=== PATIENT | female | born 1990 | race Caucasian/White ===

== ENCOUNTER 2022-02-12 20:54 | Emergency (ER) | payer MEDICAID, SELFPAY ==
[2022-02-12 21:22] VITALS: BP 135/78; PULSE 75; RESP 18; TEMP 36.7; O2SAT 99; BMI 27.4
--- NOTE | 2022-02-12 21:48 | ED_ITS ---
HPI - General Adult General Time Seen by Provider: 21:48 Date Seen: 02/12/22 Chief complaint: Laceration/Wound Stated complaint: Rt Hand Injury - Possible Stitches Time Seen by Provider: 02/12/22 21:28 Source: patient Mode of arrival: ambulatory Limitations: no limitations History of Present Illness HPI narrative: 31-year-old right-handed female who comes in today with a laceration of her right hand. She was washing dishes and cut herself on some broken glass. Last tetanus was about a year ago. No other injuries. Related Data Allergies Allergy/AdvReac Type Severity Reaction Status Date / Time No Known Drug Allergies Allergy Verified 02/12/22 21:24 Review of Systems Status of ROS: Reports: 10 or more systems reviewed and unremarkable except as noted in History and below Exam Narrative: Exam Narrative: General: well nourished , NAD Head: Atraumatic and normocephalic ENT: External ears and external nose are normal Eyes: Conjunctiva clear, pupils are equal reactive, external ocular motions are intact Neck: Full spontaneous range of motion of the neck Lungs: No respiratory distress Musculoskeletal: No tenderness or deformity Neurologic: No gross focal neurologic deficits Skin: Right hand 6 mm partial-thickness laceration overlying the right MCP joint, full flexion and extension at the D IP, PIP, Psych: Mood and affect are appropriate Const: Vital Signs, click to edit/add: Vital Signs - 24 hr 02/12/22 21:22 Temperature 98.0 F Pulse Rate [Right Pulse Oximeter] 75 Respiratory Rate 18 Blood Pressure [Ri ght Upper Arm] 135/78 Pulse Oximetry 99 Oxygen Delivery Me thod Room Air Course Course Hospital Course: Patient seen examined, prior records are reviewed. Patient has a partial- thickness laceration of the right hand on the dorsum overlying. No tendon dysfunction on exam. Wound explored no foreign body found. Cleaned with normal saline Dermabond was applied. Patient tolerated this well. Vital Signs Vital signs: Initial Vital Signs Temperature 98.0 F 02/12/22 21:22 Temperature Source Temporal Artery Scan 02/12/22 21:22 Pulse Rate 75 02/12/22 21:22 Respiratory Rate 18 02/12/22 21:22 Blood Pressure 135/78 02/12/22 21:22 Blood Pressure Mean 97 02/12/22 21:22 Blood Pressure Position Sitting 02/12/22 21:22 Pulse Oximetry 99 02/12/22 21:22 Oxygen Delivery Method 02/12/22 21:22 Vital Signs Temperature 98.0 F 02/12/22 21: Pulse Rate 75 02/12/22 21:22 Respiratory Rate 18 02/12/22 21:22 Blood Pressure 135/78 02/12/22 21:22 Pulse Oximetry 99 02/12/22 21:22 Oxygen Delivery Method 02/12/22 21:22 Temperature 98.0 F 02/12/22 21: Pulse Rate 75 02/12/22 21:22 Respiratory Rate 18 02/12/22 21:22 Blood Pressure 135/78 02/12/22 21:22 Pulse Oximetry 99 02/12/22 21:22 Oxygen Delivery Method 02/12/22 21:22 Medical Decision Making Medical Records Medical records reviewed: Yes I reviewed the patient's medical records Lab Data Lab results reviewed: Yes I reviewed the patient's lab results Discharge Plan Discharge Follow Up/Referrals: Provider,Not a Local [Primary Care Provider] -
[2022-02-12 22:50] VITALS: BP 125/70; PULSE 71; RESP 18; TEMP 36.7; O2SAT 99
== END 2022-02-12 22:18 | disposition home or self-care (01) ==
PROVIDERS: Emergency Provider Family Medicine
DX: S61.411A Laceration without foreign body of right hand, initial encounter (principal); W25.XXXA Contact with sharp glass, initial encounter; Y93.G1 Activity, food preparation and clean up
CPT/HCPCS: 12001; 99282

== ENCOUNTER 2024-03-13 16:48 | Emergency (ER) | payer MEDICAID, SELFPAY ==
[2024-03-13] VITALS (9 sets, daily range): BP systolic 138; BP diastolic 85; PULSE 72–96; RESP 16; TEMP 37; O2SAT 98–100; BMI 25.1
--- NOTE | 2024-03-13 17:02 | ED_ITS ---
HPI - General Adult General Chief complaint: Nausea/Vomiting Stated complaint: 7 weeks prgenant, fell on ice, nausea Time Seen by Provider: 03/13/24 16:55 History of Present Illness HPI narrative: c/o unable to keep anything down for 24- 48hrs today slipped and feel on the ice trying to start car. pt. denies hitting head or LOC, landed on wrist and was able to assist self to ground. denies any trauma to the abdomen. 33-year-old woman presenting to the emergency department with concern of vomiting. Over the last couple of days has been vomiting a lot. No hematemesis. She did slip incidentally on the ice today. No loss of consciousness. Did not hit her head. Landed on the wrist but think that is okay. There was no trauma apparently to her abdomen. She is currently at about 7 weeks. No fever. No dysuria. Related Data Home Medications ?Medication ?Instructions ?Recorded ?Confirmed dextroamphetamine-amphetamine ER 20 mg PO DAILY 02/13/22 03/13/24 20 mg 24hr capsule,extend release (Adderall XR) Allergies Allergy/AdvReac Type Severity Reaction Status Date / Time terbutaline Allergy Mild Headache Verified 03/13/24 16:58 Review of Systems Status of ROS: Reports: 6 or more systems reviewed and unremarkable except as noted in History and below [facility] Medical History Controlled substance agreement signed ?Z79.899 - Other nursing home (current) drug therapy (ICD-10) Panic attacks ?F41.0 - Panic disorder [episodic paroxysmal anxiety] (ICD-10) LAVARO (generalized anxiety disorder) ?F41.1 - Generalized anxiety disorder (ICD-10) Anxiety and depression ?F41.9 - Anxiety disorder, unspecified (ICD-10) ?F32.A - Depression, unspecified (ICD-10) ADHD ?F90.9 - Attention-deficit hyperactivity disorder, unspecified type (ICD-10) Vaginitis and vulvovaginitis ?N76.0 - Acute vaginitis (ICD-10) Chronic tension headaches ?G44.229 - Chronic tension-type headache, not intractable (ICD-10) Surgical History History of tonsillectomy and adenoidectomy ?Z90.89 - Acquired absence of other organs (ICD-10) History of appendectomy ?Z90.49 - Acquired absence of other specified parts of digestive tract (ICD- 10) Social History Smoking Status: Former smoker Second hand tobacco smoke exposure: No How often do you have a drink containing alcohol: never How often do you have six or more drinks on one occasion: Never AUDIT-C Alcohol total score: 0 Non-prescribed substance use: denies use Exam Narrative: Exam Narrative: Very pleasant. NAD though seems uncomfortable. Emesis bag nearby. Breathing easily. Heart a little bit elevated rate but regular rhythm. Lungs appear to be clear. Oropharynx is moist. Skin is warm and dry. Soreness to palpation about the left wrist but opens and closes hand with good strength. She does not have any snuffbox tenderness. Flexes and extends without difficulty or weakness. Neck is supple nontender. Back nontender. Const: Vital Signs, click to edit/add: Vital Signs - 24 hr 03/13/24 16:52 Temperature 98.6 F Pulse Rate [Pulse Oximeter] 96 Respiratory Rate 16 Blood Pressure [Ri ght Upper Arm] 138/85 Pulse Oximetry 100 Oxygen Delivery Me thod Room Air Documenting provider has reviewed patient's vital signs: yes Course Vital Signs Vital signs: Initial Vital Signs Temperature 98.6 F 03/13/24 16:52 Temperature Source Temporal Artery Scan 03/13/24 16:52 Pulse Rate 96 03/13/24 16:52 Respiratory Rate 16 03/13/24 16:52 Blood Pressure 138/85 03/13/24 16:52 Blood Pressure Mean 102 03/13/24 16:52 Blood Pressure Position High-Fowlers 03/13/24 16:52 Pulse Oximetry 100 03/13/24 16:52 Oxygen Delivery Method Room Air 03/13/24 16:52 Vital Signs Temperature 98.6 F 03/13/24 16:52 Pulse Rate 96 03/13/24 16:52 Respiratory Rate 16 03/13/24 16:52 Blood Pressure 138/85 03/13/24 16:52 Pulse Oximetry 100 03/13/24 16:52 Oxygen Delivery Method Room Air 03/13/24 16:52 Temperature 98.6 F 03/13/24 16:52 Pulse Rate 76 03/13/24 18:45 Respiratory Rate 16 03/13/24 16:52 Blood Pressure 138/85 03/13/24 16:52 Pulse Oximetry 98 03/13/24 18:45 Oxygen Delivery Method Room Air 03/13/24 16:52 Medications Administered Medications: Discontinued Medications Generic Name Dose Route Start Last Admin Trade Name Arielq PRN Reason Stop Dose Admin Sodium Chloride 1,000 mls @ 1,000 mls/hr 03/13/24 17:14 03/13/24 18:41 0.9 % Sodium Chloride 1000 Ml IV 03/13/24 18:13 Infused .Q1H ONE Infusion Ondansetron HCl 4 mg 03/13/24 17:14 03/13/24 17:38 Ondansetron 2 Mg/Ml Inj IVP 03/13/24 17:15 4 mg ONCE ONE Administration Medical Decision Making MDM Narrative Medical decision making narrative: She would appreciate IV fluids. Does not appear that needs further evaluation. Will try to alleviate some of this nausea as well. This appears to be vomiting in though I suppose could be secondary viral illness perhaps COVID or influenza in would be worth testing for this as well. Following IV hydration and Zofran generally improved and tolerating oral intake I believe was Gatorade. She would like to leave the emergency department. Urinalysis and swabs are negative. See patient discharge plan for further discussion Focus on hydration; frequent smaller amounts. Diluted juices, soup broth, rice, toast, crackers. Prescribing Zofran from [facility]. Lab Data Lab results reviewed: Yes I reviewed the patient's lab results Labs: Lab Results 03/13/24 03/13/24 Range/Units 17:20 17:32 Urine Color Yellow (Yellow) Urine Appearance Clear (Clear) Urine pH 6.0 (5.0-8.5) Ur Specific [place] 1.015 (1.000-1.030) Urine Protein Negative (Negative) Urine Glucose (UA) Negative (Negative) Urine Ketones Negative (Negative) Urine Blood Negative (Negative) Urine Nitrite Negative (Negative) Urine Bilirubin Negative (Negative) Urine Urobilinogen 0.2 (0.2-1.0) Ur Leukocyte Esterase Negative (Negative) Urine RBC 0-2 (0-2) Urine WBC 0-2 (0-5) Ur Squamous Epith Cells Moderate A (None-Few) Urine Bacteria None (None) SARS-CoV-2 (PCR) Negative SARS-CoV-2 (Negative) Influenza Type A (PCR) Negative PCR FLU A (Negative) Influenza Type B (PCR) Negative PCR FLU B (Negative) Discharge Plan Discharge Clinical Impression: Vomiting during Patient Disposition: Home w/ Parent or Adult Condition: Improved Additional Instructions: Focus on hydration; frequent smaller amounts. Diluted juices, soup broth, rice, toast, crackers. Prescribing Zofran from [facility]. Prescriptions: No Action dextroamphetamine-amphetamine [Adderall XR] 20 mg capsule,extended release 24hr 20 mg PO DAILY Follow Up/Referrals: Provider,Not a Local [Primary Care Provider] - Stand Alone Forms: [employer] Info Instructions
[2024-03-13 17:29] LABS: Appearance Urine Clear (Clear); Bilirubin Urine Negative (Negative); Blood Urine Negative (Negative); Color Urine Yellow (Yellow); Glucose Urine Negative (Negative); Ketones Urine Negative (Negative); Leukocyte Esterase Urine Negative (Negative); Nitrite Urine Negative (Negative); Protein Urine Negative (Negative); Specific Gravity Urine 1.015 (1.000-1.030); Urobilinogen Urine 0.2 (0.2-1.0)
[2024-03-13] MEDS: 0.9 % SODIUM CHLORIDE 1000 ml 1,000 ML IV (17:38)
[2024-03-13] MEDS: ONDANSETRON 2 MG/ML inj 4 MG IVP (17:38)
[2024-03-13 17:57] LABS: RBC Urine 0-2 (0-2); Squamous Epithelial Cell Urine Moderate (None-Few); WBC Urine 0-2 (0-5)
[2024-03-13 18:47] LABS: PCR FLU A Negative PCR FLU A (Negative); PCR FLU B Negative PCR FLU B (Negative); SARS PCR* Negative SARS-CoV-2 (Negative)
== END 2024-03-13 19:00 | disposition home or self-care (01) ==
PROVIDERS: Emergency Provider Family Medicine
DX: O21.9 Vomiting of pregnancy, unspecified (principal)
CPT/HCPCS: 81001; 87631; 96361; 96374; 99284; J2405; J7030

== ENCOUNTER 2024-04-06 08:45 | Emergency (ER) | payer MEDICAID, SELFPAY ==
--- OUTSIDE RECORDS SUMMARY | 2024-04-06 08:48 | XMS_ITS | Clinical Summary ---
Author Organization [facility] Address [address] [place] [address] Care Team Providers Care Artificial Insemination Technician Name Role Phone Unavailable Primary Care Provider Unavailabl e Source Comments Patient records contain information from all sites at [facility]. For routine questions regarding patient records, call [phone] during business hours, M-F 8:00 AM - 5:00 PM Central Time. Record requests for emergency care only can be directed to [phone] at any time.[facility] Allergies Active Allergy Reactions Criticality Noted Date Comments Terbutaline Other (see comments) 04/07/2017 lethargy Medications albuterol 90 mcg/actuation inhaler Inhale 2 puffs 4 (four) times a day as needed. 3 Active calcium carbonate-vitam in D3 (Calcium with Vitamin D) 1,500 mg (600 mg calcium)-10 mcg (400 Unit) per tablet Take 1 tablet by mouth daily. Active FOLIC ACID ORAL Take 1 tablet by mouth daily. Active ferrous sulfate 325 mg (65 mg iron) tabletIndicatio ns:Anemia Take 1 tablet (65 mg of iron total) by mouth daily. 90 tablet 1 4 Active Additional Information Patient not taking.Reported on 03/16/2024 acetaminophen (TYLENOL) 500 mg capsule Take 2 capsules (1,000 mg total) by mouth every 6 (six) hours as needed for pain. 4 Active ibuprofen (ADVIL,MOTRIN) 200 mg tablet Take 3 tablets (600 mg total) by mouth every 6 (six) hours as needed for pain. 4 Active Additional Information Patient not taking.Reported on 03/16/2024 docusate sodium (COLACE) 100 mg capsule Take 1 capsule (100 mg total) by mouth 2 (two) times a day as needed for constipation. Active Additional Information Patient not taking.Reported on 03/16/2024 sennosides (senna) 8.6 mg tablet Take 1 tablet (8.6 mg total) by mouth at bedtime as needed for constipation. Active Additional Information Patient not taking.Reported on 03/16/2024 witch Talia (TUCKS) 50 % pad Apply to the affected rectal area by patting up to 6 times daily or after each bowel movement. Active Additional Information Patient not taking.Reported on 03/16/2024 benzocaine-ment hoL (DERMOPLAST) 20-0.5 % external spray Apply 1 Application topically 4 (four) times a day as needed for pain. Active Additional Information Patient not taking.Reported on 03/16/2024 simethicone (MYLICON) 125 mg chewable tablet Chew 1 tablet (125 mg total) 4 (four) times a day as needed for flatulence. Active Additional Information Patient not taking.Reported on 03/16/2024 Active Problems Problem Noted Date Diagnosed Date Care And Lactating 08/12/2023 Delivery Vaginal Normal Spontaneous 08/11/2023 Overview (08/12/2023): The patient was admitted to the [facility] from triage after a nonreactive NST and underwent an induction of labor. 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 Her labor course was induced with IV Pitocin and augmented with artificial rupture of membranes, utilizing epidural anesthesia for pain management. Complications of labor included nothing -- it was uncomplicated. She had a , delivering a liveborn female with weight of . Gestational age: 39w2d. occurred: 08/12/2023 9:19 AM Perineal lacerations or episiotomy: Intact Lacerations were repaired with: none -- no repair needed Contraceptive methods administered during the delivery: None Both mother and baby were in stable condition at the conclusion of the procedure. When the patient met appropriate criteria, she was transferred to the floor. She received her care at [facility]. Raised Antibody Titer 08/06/2023 Overview (08/06/2023): +antibody screen: Anti-JKA. Has been too weak to titer. High Risk Grand Multiparity History Positive Group B Streptococcus 024 Overview (07/23/2023): GBS positive 07/06/2023 in [facility] Anemia 05/31/2023 Overview (06/18/2023): Patient to start Slow FE daily High Risk History Labor 2022 Overview (06/18/2023): History of labor with all prior pregnancies, patient has been previously placed on bedrest per chart audit of [facility] records, only one delivery . 35 week delivery in 1st following PPROM, patient was 16 years old. Acute fatty liver of in second . History of 2nd trimester losses. Gestational DM with first , passed 1-hr GDS in current Mild asthma, asymptomatic Possible future pregnancies, no surgical sterilization. Contraception, possibly NuvaRing or OCPs Breast Cancer Susceptibility Gene Mutation Famil y History 03/14/2023 Overview (05/07/2023): Mother with history of breast cancer, BRCA2+ Patient has never been tested. Recommend referral for genetic counseling and testing. 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 If all negative, continued surveillance at 3 year intervals is recommended for at least 25 years, even if beyond age 65. Migraine Headache Overview (08/06/2023): With aura. Estimated Date of Delivery Comme nts Yes 10/25/2024 Based on last me nstrual period of 01/19/2024 (Exact Date) Resolved Problems Problem Noted Date Diagnosed Date Resolved Date Positive Group B Streptococcus 07/22/2023 07/23/2023 Overview (07/22/2023): Vaginal/Rectal OB Strep B PCR Positive Abnormal On 07/06/2023 Non Reassuring Testing 07/22/2023 08/03/2023 36 Weeks Gestation 07/06/2023 07/23/2023 Other Placental Disorders Third Trimester 03/14/2023 08/06/2023 Overview (06/27/2023): PLACENTA PREVIA/ RESOLVED: Anatomy ultrasound completed at new OB exam, 17+ 5, with complete placenta previa, possible velamentous cord insert, possible vasa previa. 03/14/2023 - advanced level US with MFM with anterior placenta previa, possible velamentous cord insertion and vasa previa. 05/09/2023: Appointment with Maternal- Medicine at [facility] completed and recommendations as follows: IMPRESSION: Intrauterine at 25w 4d. presentation is Breech. EFW 987 grams, percentile: 85. Growth parameters and estimated weight are appropriate for gestational age. No major structural anomalies identified. No markers for aneuploidy identified. Normal Deepest Vertical Pocket of amniotic fluid: 5.8 cm. Placental location: Anterior. There is no evidence of placenta previa. No evidence of vasa previa. No evidence of velamentous cord insertion. No evidence of placenta accreta spectrum. The transabdominal cervical length is 5.44 cm. RECOMMENDATIONS: -Return to primary provider for continued care. -No alterations in the delivery plan are necessary. -No medication changes are indicated. -No surveillance suggested. -No further ultrasounds are necessary for the present indication. COMMENT: Present findings are reassuring. The patient was seen by the Perinatologist today. The previous ultrasound and the records were reviewed. The results of today's ultrasound were communicated to the patient. Encounters Date Type Department Care Team Description 04/03/2024 1:00 PM INCIDENT RESPONSE MANAGER Routine Department of Obstetrics and Gynecology in [place], [place] [address] [place] [phone] Noni Bender M.D., Ph.D. Duyen Farnsworth RUlises. 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) (Primary Dx) 04/03/2024 11:01 AM INCIDENT RESPONSE MANAGER - 04/03/2024 11:59 PM INCIDENT RESPONSE MANAGER Hospital Encounter Department of Obstetrics and Gynecology in [address] [phone] Noni Bender M.D., Ph.D. High Risk History Labor (HCC) Discharge Disposition: Home or Self Care 04/02/2024 Clinical Communication Department of Obstetrics and Gynecology in [place], [place] [address] [place] [phone] Magalys Bernal M.D. Reschedule 03/16/2024 11:00 AM INCIDENT RESPONSE MANAGER Initial Department of Obstetrics and Gynecology in [address] [phone] Kellen South, R.N. GA: 8w1d from Last 3 Months Immunizations Name Administration Dates Next Due 4vHPV (discontinued) 09/05/2010,11/11/19 07,11/07/2006,2006 DTP 06/01/1994, 1,1989,1989,1989 DTaP (Infanrix, [employer]) 01/21/1995 H1N1 All Forms 02/21/2009 HepB, Unspecified 08/19/2001,06/19/2001,02/04/20 01 Hib, Unspecified 06/01/1994 IPV 12/02/1994,06/01/1994,12/04/1990 Influenza, Seasonal, Injectable 04/09/2012 MMR 02/03/2001,02/03/1991,12/04/1990 OPV 1989,1989 Td (Adult), adsorbed 03/24/2003,12/30/2002 Tdap 05/28/2023,,02/16/2014,2012 Tuberculin Skin Test, Unspecified 04/01/2012 influenza vaccine quad (FLUZONE/FLUARIX) (6 months and older)(PF) 12/23/2016,12/24/2013 Family History Medical History Relation Name Comments No Known Problems Daughter 1 No Known Problems Daughter 2 Legionnaire's disease Father Alcohol abuse Maternal Grandfather Depression Maternal Grandfather BRCA2 Positive Mother Breast cancer Mother Alcohol abuse Paternal Grandmother Schizophrenia Paternal Grandmother No Known Problems Son 1 No Known Problems Son 2 No Known Problems Son 3 No Known Problems Son 4 Relation Name Status Comments Daughter 1 Alive Daughter 2 Alive Father Maternal Grandfather Maternal Grandmother Alive Mother Paternal Grandfather Paternal Grandmother Son 1 Alive Son 2 Alive Son 3 Alive Son 4 Alive Social History Tobacco Use Types Packs/Day Years Used Date Smoking Tobacco: Former Cigarettes Smokeless Tobacco: Never Tobacco Cessation:Counseling Given: Not Answered Alcohol Use Standard Drinks/Week Comments Not Currently 0 (1 standard drink = 0.6 oz pure alcohol) Pre , 1 drink monthly MogiMe Answer Date Recorded In the past 12 months has e [employer], [employer], or water [employer] threatened to shut off services in your home? No 03/16/2024 Humiliation, Afraid, Rape, and Kick questionnair e Answer Date Recorded Within the last year, have y ou been afraid of your partner or ex-partner? No 03/16/2024 Within the last year, have y ou been humiliated or emotionally abused in other ways by your partner or ex-partner? No Within the last year, have y ou been kicked, hit, slapped, or otherwise physically hurt by your partner or ex-partner? No 03/16/2024 Within the last year, have y ou been raped or forced to have any kind of sexual activity by your partner or ex-partner? No 03/16/2024 PHQ-2 Answer Date Recorded PHQ-2 Score 0 08/07/2023 Exercise Vital Sign Answer Date Recorde d On average, how many days pe r week do you engage in moderate to strenuous exercise (like a brisk walk)? 7 days Minutes of Exercise per Session Not on file 08/07/2023 Hunger Vital Sign Answer Date Recorded Within the past 12 months, y ou worried that your food would run out before you got the money to buy more. Never true 03/16/20 Within the past 12 months, t he food you bought just didn't last and you didn't have money to get more. Never true 03/16/2024 PRAPARE - Transportation Answer Date Re corded In the past 12 months, has l ack of transportation kept you from medical appointments or from getting medications? No 02/23 In the past 12 months, has l ack of transportation kept you from meetings, work, or from getting things needed for daily living? No 03/16/2024 Depression Answer Date Recor ded PHQ-9 Total Score (max 27) 7 08/06 Nutrition Answer Date Recorded On average, how many serving s of fruits and vegetables do you eat per day (serving size is equal to 1 cup or approximately the size of a tennis ball)? 3-5 08/07/2023 Dental Answer Date Recorded Dental: Regular Dentist Yes 08/07/19 Employment Answer Date Recorded Employment status Employed but not working due t o illness or injury 08/07/2023 Housing Stability Answer Date Recorded What is your living situation today? I have a [facility] place to live 03/16/2024 Education Answer Date Recorded What is the highest level of school you have completed or the highest degree you have received? 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 Not on file Not on file Not on file Last Filed Vital Signs Vital Sign Reading Time Taken Comments Blood Pressure 108/69 04/03/2024 1:31 PM INCIDENT RESPONSE MANAGER Pulse 97 04/03/2024 1:31 PM INCIDENT RESPONSE MANAGER Temperature 36.7 C (98.1 F) 04/03/2024 1:31 PM INCIDENT RESPONSE MANAGER Respiratory Rate 16 08/13/2023 5:12 AM CDT Oxygen Saturation 98% 04/03/2024 1:31 PM INCIDENT RESPONSE MANAGER Inhaled Oxygen Concentration - - Weight 78.1 kg (172 lb 2.9 oz) 04/03/2024 1:31 P M INCIDENT RESPONSE MANAGER Height 170.2 cm (5' 7.01) 08/11/2023 11:45 PM C DT Body Mass Index 26.96 08/11/2023 11:45 PM CDT Plan of Treatment Upcoming Encounters Date Type Department Care Team (Late st Contact Info) Description 2024 10:00 AM INCIDENT RESPONSE MANAGER Initial Department of Obstetrics and Gynecology in [place], [place] [address] [place] [phone] Magalys Bernal M.D. [address] [place] [phone] Health Maintenance Due Date Last Done Comments COVID-19 Vaccine ( season) 2023 Influenza Vaccine (#1) 2023 7, 12/24/2013, 04/09/2012 Depression Screening (Annual PHQ-2) 03/25/2024 Cervical/Vaginal Cancer Screening 03/02/2025 03/02/2022 (Performed elsewhere) DTaP,Tdap,and Td Vaccines (10 - Td or Tdap) 05/27/2033 05/28/2023, 02/09/2021, 02/16/2014, Additional history exists IPV Vaccines Completed 12/02/1994, 05/23, 12/04/1990, Additional history exists Hepatitis B Vaccines Completed 08/19/2001, 06/19/2001, 02/03/2001 HPV Vaccines Completed 09/05/2010, 10/23, 11/07/2006, Additional history exists HIV Screening Completed 04/03/2024 Hepatitis C Screening Completed 04/03/2024 Pneumococcal vaccine (0-49 years) Aged Out No longer eligible based on patient's age to complete this topic RSV vaccine - (32-36 weeks) or 60+ years (No Doses Required) Completed Procedures Procedure Name Priority Date/Time Associated Diagnosis Comments PH, U Routine 04/03/2024 2:39 PM INCIDENT RESPONSE MANAGER OSMOLALITY, U Routine 04/03/2024 2:39 PM INCIDENT RESPONSE MANAGER DIPSTICK, U Routine 04/03/2024 2:39 PM INCIDENT RESPONSE MANAGER MICROSCOPIC AUTOMATED Routine 04/03/2024 2:39 PM INCIDENT RESPONSE MANAGER URINALYSIS WITH MICROSCOPIC Routine 04/03/2024 2:39 PM INCIDENT RESPONSE MANAGER 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) CHLAMYDIA/GONORRHOEAE AMPLIFIED RNA Routine 04/03/2024 2:39 PM INCIDENT RESPONSE MANAGER 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) BACTERIAL CULTURE, AEROBIC + SUSC, URINE Routine 04/03/2024 2:39 PM INCIDENT RESPONSE MANAGER 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) VARICELLA-ZOSTER AB, IGG, S Routine 04/03/2024 2:14 PM INCIDENT RESPONSE MANAGER 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) SYPHILIS IGG W/ REFLEX, EIA, S Routine 04/03/2024 2:14 PM INCIDENT RESPONSE MANAGER 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) HIV-1/-2 AG AND AB SCRN, PLASMA Routine 04/03/2024 2:14 PM INCIDENT RESPONSE MANAGER 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) HCV AB SCRN , S Routine 04/03/2024 2:14 PM INCIDENT RESPONSE MANAGER 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) HBC TOTAL AB , S Routine 04/03/2024 2:14 PM INCIDENT RESPONSE MANAGER 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) HBS ANTIBODY , S Routine 04/03/2024 2:14 PM INCIDENT RESPONSE MANAGER 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) HBS ANTIGEN , S Routine 04/03/2024 2:14 PM INCIDENT RESPONSE MANAGER 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) ANTIBODY IDENTIFICATION Routine 04/03/2024 2:13 PM INCIDENT RESPONSE MANAGER FERRITIN, S Routine 04/03/2024 2:13 PM INCIDENT RESPONSE MANAGER 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) HEMOGLOBIN ELECTROPHORESIS CASCADE, B Routine 04/03/2024 2:13 PM INCIDENT RESPONSE MANAGER 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) HEMOGLOBIN A1C, B Routine 04/03/2024 2:1 3 PM INCIDENT RESPONSE MANAGER 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) CBC WITH DIFFERENTIAL, B Routine 04/03/2024 2:13 PM INCIDENT RESPONSE MANAGER 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) US OB LIMITED RAD - Routine (most inpatients and all outpatients) 04/03/2024 11:28 AM INCIDENT RESPONSE MANAGER High Risk History Labor (HCC) from Last 3 Months Results * Dipstick, Urine (04/03/2024 2:39 PM INCIDENT RESPONSE MANAGER) Hemoglobin, QL, U Negative Negative 04/03/2024 3:09 PM INCIDENT RESPONSE MANAGER DTL Leukocyte Esterase, U Negative Negative 04/03/2024 3:09 PM INCIDENT RESPONSE MANAGER DTL Nitrite, U Negative Negative 04/03/2024 3:09 PM INCIDENT RESPONSE MANAGER DTL Ketone, U Negative Negative mg/dL 04/03/2024 3:09 PM INCIDENT RESPONSE MANAGER DTL Glucose, U Negative Negative mg/dL 04/03/2024 3:09 PM INCIDENT RESPONSE MANAGER DTL Urine 04/03/2024 2:39 PM INCIDENT RESPONSE MANAGER 04/03/2024 2:47 PM INCIDENT RESPONSE MANAGER us Magalys Bernal M.D. LAB URINE ORDERABLES Final Result Performing Organization Address City/[facility]/ZIP Co de Phone Number [facility] [address] [place], [place] [id number] [place] [address] [address] [place] [address] * Microscopic Automated (04/03/2024 2:39 PM INCIDENT RESPONSE MANAGER) Microscopy Normal 04/03/2024 3:09 PM INCIDENT RESPONSE MANAGER DTL RBC None Seen <3 /hpf 04/03/2024 3:09 PM INCIDENT RESPONSE MANAGER DTL WBC None Seen /hpf 04/03/2024 3:09 PM INCIDENT RESPONSE MANAGER DTL Comment: ----REFERENCE VALUE---- <4 (Males) <11 (Females) Squamous Epithelial Cells, U 1-3 /hpf 04/03/2024 3:09 PM INCIDENT RESPONSE MANAGER DTL Urine 04/03/2024 2:39 PM INCIDENT RESPONSE MANAGER 04/03/2024 2:47 PM INCIDENT RESPONSE MANAGER Magalys Bernal M.D. LAB URINE ORDERABLES Final Result Performing Organization Address City/[facility]/ZIP Co de Phone Number [facility] [address] [place], [place] [phone] [place] [address] [address] [place] [address] * pH, Urine (04/03/2024 2:39 PM INCIDENT RESPONSE MANAGER) pH, U 6.3 4.5 - 8.0 04/03/2024 3:1 6 PM INCIDENT RESPONSE MANAGER DTL Urine 04/03/2024 2:39 PM INCIDENT RESPONSE MANAGER 04/03/2024 2:47 PM INCIDENT RESPONSE MANAGER us Magalys Bernal M.D. LAB URINE ORDERABLES Final Result [facility] [address] [place] [address], [facility] [address] [place] [address] * Chlamydia / Gonorrhoeae Amplified RNA (04/03/2024 2:39 PM INCIDENT RESPONSE MANAGER) Pathologist [facility] Source Urine, Urine, First Voided 04/03/2024 11:35 PM INCIDENT RESPONSE MANAGER [facility]SC Chlamydia trachomatis amplified RNA Negative Negative 04/03/2024 11:35 PM INCIDENT RESPONSE MANAGER [facility] Source Urine, Urine, First Voided 04/03/2024 11:35 PM INCIDENT RESPONSE MANAGER [facility] Neisseria gonorrhoeae amplified RNA Negative Negative 04/03/2024 11:35 PM INCIDENT RESPONSE MANAGER [facility] Urine (Urine, First Voided) 04/03/2024 2:39 PM INCIDENT RESPONSE MANAGER 04/03/2024 6:35 PM INCIDENT RESPONSE MANAGER us Magalys Bernal M.D. LAB MICROBIOLOGY - GENERAL ORDERABLES Final Result Performing Organization Address City/[facility]/ZIP Co de Phone Number [facility] [address] [place] [address] [facility] [address] [place] [address] [place] [address] * Osmolality, Urine (04/03/2024 2:39 PM INCIDENT RESPONSE MANAGER) [facility] Osmolality, U 464 150 - 1150 mOsm/kg 04/03/2024 3:16 PM INCIDENT RESPONSE MANAGER DTL Urine 04/03/2024 2:39 PM INCIDENT RESPONSE MANAGER 04/03/2024 2:47 PM INCIDENT RESPONSE MANAGER us Magalys Bernal M.D. LAB URINE ORDERABLES Final Result Performing Organization Address [facility] Co de Phone Number [facility] [address] [place] [address], [facility] [address] [place] [address] * Urinalysis, with Microscopic: Urine, Midstream (04/03/2024 2:39 PM INCIDENT RESPONSE MANAGER) Pathologist [facility] Source Urine, Urine, Midstream 04/03/2024 2:46 PM INCIDENT RESPONSE MANAGER DTL Color, U Yellow 04/03/2024 2:46 PM INCIDENT RESPONSE MANAGER DTL Clarity, U Clear 04/03/2024 2:46 PM INCIDENT RESPONSE MANAGER DTL Protein, U 7 <26 mg/dL 04/03/2024 3:33 PM INCIDENT RESPONSE MANAGER DTL Protein/Osmol ality 0.15 <0.42 ratio 04/03/2024 3:33 PM INCIDENT RESPONSE MANAGER DTL Predicted 24 HR Protein, U 120 <229 mg/24 h 04/03/2024 3:33 PM INCIDENT RESPONSE MANAGER DTL Predicted Range 30-486 mg/24 h 04/03/2024 3:33 PM INCIDENT RESPONSE MANAGER DTL Urine (Urine, Midstream) 04/03/2024 2:39 PM INCIDENT RESPONSE MANAGER 04/03/2024 2:46 PM INCIDENT RESPONSE MANAGER Magalys Bernal M.D. LAB URINE ORDERABLES Final Result Performing Organization Address [facility] Co de Phone Number [facility] [address] [place] [address], [facility] [address] [place] [address] * Syphilis IgG w/ Reflex, EIA, S (RST/FLA) (04/03/2024 2:14 PM INCIDENT RESPONSE MANAGER) [facility] Syphilis IgG w/ Reflex, EIA, S Nonreactive Nonreactive 04/03/2024 11:06 PM INCIDENT RESPONSE MANAGER [facility] Comment: No serologic evidence of infection with T. pallidum (syphilis). Repeat testing may be considered in patients with suspected acute or primary syphilis in 2-4 weeks. For additional information on interpretation of the syphilis reverse algorithm and results, see: [email or web address] Blood (Blood, Venous) 04/03/2024 2:14 PM INCIDENT RESPONSE MANAGER 04/03/2024 6:39 PM INCIDENT RESPONSE MANAGER Magalys Bernal M.D. LAB MICROBIOLOGY - BLOOD OR DERABLES Final Result Performing Organization Address City/[facility]/ZIP Co de Phone Number [facility] [address] [place] [address] [facility] [address] [place] [address] * HBc Total Ab , Serum (04/03/2024 2:14 PM INCIDENT RESPONSE MANAGER) [facility] HBc Total Ab , S Negative Negative 04/03/2024 8:17 PM INCIDENT RESPONSE MANAGER [facility] Blood (Blood, Venous) 04/03/2024 2:14 PM INCIDENT RESPONSE MANAGER 04/03/2024 7:09 PM INCIDENT RESPONSE MANAGER Result [facility] Magalys Bernal M.D. LAB MICROBIOLOGY - BLOOD OR DERABLES Final Result Performing Organization Address City/[facility]/ZIP Co de Phone Number [facility] [address] [place] [address] [place] [address] * HBs Antibody , Serum (04/03/2024 2:14 PM INCIDENT RESPONSE MANAGER) Pathologist [facility] HBs Antibody , S Negative 04/03/2024 8:17 PM INCIDENT RESPONSE MANAGER [facility] Comment: Patient is NOT immune to HBV infection. Consumption of high-dose biotin supplement within 12 hours of blood collection for this test can cause false-negative results. ----REFERENCE VALUE---- Unvaccinated: Negative Vaccinated: Positive HBs Antibody, Quantitative, S 4.0 mIU/mL 04/03/2024 8:17 PM INCIDENT RESPONSE MANAGER [facility] Comment: ----REFERENCE VALUE---- Unvaccinated: <8.5 mIU/mL Vaccinated: >=11.5 mIU/mL Blood (Blood, Venous) 04/03/2024 2:14 PM INCIDENT RESPONSE MANAGER 04/03/2024 7:09 PM INCIDENT RESPONSE MANAGER us Magalys Bernal M.D. LAB MICROBIOLOGY - BLOOD OR DERABLES Final Result Performing Organization Address City/[facility]/ZIP Co de Phone Number [facility] [address] [place] [address] [facility] [address] [place] [address] * Hepatitis C Virus Antibody Screen (04/03/2024 2:14 PM INCIDENT RESPONSE MANAGER) Pathologist [facility] HCV Ab Scrn , S Negative Negative 04/03/2024 8:17 PM INCIDENT RESPONSE MANAGER [facility] Comment: Consumption of high-dose biotin supplement within 12 hours of blood collection for this test can cause false-negative results. Blood (Blood, Venous) 04/03/2024 2:14 PM INCIDENT RESPONSE MANAGER 04/03/2024 7:09 PM INCIDENT RESPONSE MANAGER Result Mary Jane Bernal M.D. LAB MICROBIOLOGY - BLOOD OR DERABLES Final Result Performing Organization Address City/[facility]/ZIP Co de Phone Number [facility] [address] [place] [address] [facility] [address] [place] [address] * HIV-1/-2 Ag and Ab Scrn, Plasma (04/03/2024 2:14 PM INCIDENT RESPONSE MANAGER) HIV-1/-2 Ag and Ab Scrn, P Negative Negative 04/03/2024 8:14 PM INCIDENT RESPONSE MANAGER [facility] Comment: Negative result does not rule out HIV infection. If exposure to HIV infection occurred <14 days ago, contact the laboratory to request addition of HIV-1/HIV-2 RNA detection , Plasma (HPP12). Blood (Blood, Venous) 04/03/2024 2:14 PM INCIDENT RESPONSE MANAGER 04/03/2024 7:09 PM INCIDENT RESPONSE MANAGER Result Mary Jane Bernal M.D. LAB MICROBIOLOGY - BLOOD OR DERABLES Final Result Performing Organization Address [facility] Co de Phone Number [facility] [address] [place] [address] [facility] [address] [place] [address] * HBs Antigen , Serum (04/03/2024 2:14 PM INCIDENT RESPONSE MANAGER) HBs Antigen , S Negative Negative 04/03/2024 8:17 PM INCIDENT RESPONSE MANAGER [facility] Blood (Blood, Venous) 04/03/2024 2:14 PM INCIDENT RESPONSE MANAGER 04/03/2024 7:09 PM INCIDENT RESPONSE MANAGER Result Mary Jane Bernal M.D. LAB MICROBIOLOGY - BLOOD OR DERABLES Final Result Performing Organization Address City/[facility]/ZIP Co de Phone Number [facility] [address] [place] [address] [place] [address] * Varicella-Zoster Antibody, IgG, Serum (04/03/2024 2:14 PM INCIDENT RESPONSE MANAGER) [facility] Varicella-Zoster Ab, IgG, S Positive 04/04/2024 9:52 AM INCIDENT RESPONSE MANAGER [facility] Comment: Results suggest response to immunization or prior exposure to the virus. ----REFERENCE VALUE---- Vaccinated: Positive (>=1.1 AI) Unvaccinated: Negative (<=0.8 AI) Varicella IgG Antibody Index 2.0 04/04/2024 9:52 AM INCIDENT RESPONSE MANAGER [facility] Blood (Blood, Venous) 04/03/2024 2:14 PM INCIDENT RESPONSE MANAGER 04/03/2024 9:40 PM INCIDENT RESPONSE MANAGER Magalys Bernal M.D. LAB MICROBIOLOGY - BLOOD OR DERABLES Final Result [address] [place] [address] [place] [address] * Hemoglobin Electrophoresis Evaluation (04/03/2024 2:13 PM INCIDENT RESPONSE MANAGER) [facility] Hb A 97.2 95.8 - 98.0 % 04/04/2024 4:20 PM INCIDENT RESPONSE MANAGER [facility]TL Hb F 0.0 0.0 - 0.9 % 04/04/2024 4:20 PM INCIDENT RESPONSE MANAGER [facility] Hb A2 2.8 2.0 - 3.3 % 04/04/2024 4:20 PM INCIDENT RESPONSE MANAGER [facility] Comment: ----ADDITIONAL INFORMATION---- This test has been modified from the transition nurse's instructions. Its performance characteristics were determined by [facility] in a manner consistent with CLIA requirements. This test has not been cleared or approved by the U.S. Food and Drug Administration. HPLC Hb Variant, B See Interpretation 04/04/2024 4:20 PM INCIDENT RESPONSE MANAGER [facility] Comment: ----ADDITIONAL INFORMATION---- This test has been modified from the transition nurse's instructions. Its performance characteristics were determined by [facility] in a manner consistent with CLIA requirements. This test has not been cleared or approved by the U.S. Food and Drug Administration. Hb Electrophoresis Interpretation No electrophoretic evidence of abnormal hemoglobin or beta thalassemia. See comment. Comment: These results do not exclude alpha thalassemia. The vast majority of hemoglobin variants and beta complex thalassemias are excluded, including the common variants Hbs S, C, D, and E, although some rare clinically significant hemoglobin disorders are electrophoretically silent. In particular, some variants such as Hb Constant Spring, or other variants, may not be detected. If otherwise unexplained lifelong/familial symptoms such as hemolysis (i.e. Jake body hemolytic anemia), microcytosis, erythrocytosis, cyanosis, or hypoxia are present and additional testing is desired, please call the [facility] ( ). If alpha thalassemia is a consideration, alpha globin gene deletion/duplication analysis is available (AGDD/Alpha Globin Cluster Locus Del/Dup). If genotyping to assess for Hb Constant Spring is desired, please order WASEQ/Alpha Globin Gene Sequencing, B. Additional sample required. Methodologies utilized in this interpretation include: capillary electrophoresis, HPLC. 04/04/2024 4:20 PM INCIDENT RESPONSE MANAGER DTL Blood (Blood, Venous) 04/03/2024 2:13 PM INCIDENT RESPONSE MANAGER 04/03/2024 2:41 PM INCIDENT RESPONSE MANAGER Magalys Bernal M.D. LAB BLOOD ADD-ON Final Resu lt [facility] [address] [place] [address], [facility] DTL [address] [place] [address] * Antibody Identification, Erythrocytes (04/03/2024 2:13 PM INCIDENT RESPONSE MANAGER) Antibody Identification Anti-Jka 04/03/2024 5:08 PM INCIDENT RESPONSE MANAGER [facility] Comment: Clinically significant in regards to HDN. Antibody too weakly reactive to titer. 04/03/2024 2:13 PM INCIDENT RESPONSE MANAGER 04/03/2024 2:51 PM INCIDENT RESPONSE MANAGER Narrative [facility] - 04/03/2024 5:08 PM INCIDENT RESPONSE MANAGER Specimen Information: Specimen ID: [id number] Specimen Collection Start Date: 04/03/2024 2:13 PM Specimen Received Date: 04/03/2024 2:51 PM Specimen ID: [id number] Specimen Collection Start Date: 04/03/2024 2:13 PM Specimen Received Date: 04/03/2024 2:51 PM Magalys Bernal M.D. LAB BLOOD BANK TEST ORDERAB LES Final Result [facility] [address] [place] [address], [facility] DTL [facility] [address] [place] [address] * (ABNORMAL) CBC with Differential, Blood (04/03/2024 2:13 PM INCIDENT RESPONSE MANAGER) Pathologist [facility] Hemoglobin 12.9 11.6 - 15.0 g/dL 04/03/2024 2:40 PM INCIDENT RESPONSE MANAGER DTL Hematocrit 37.6 35.5 - 44.9 % 04/03/2024 2:40 PM INCIDENT RESPONSE MANAGER DTL Erythrocytes 4.22 3.92 - 5.13 x10(12)/L 04/03/2024 2:40 PM INCIDENT RESPONSE MANAGER DTL MCV 89.1 78.2 - 97.9 fL 04/03/2024 2:40 PM INCIDENT RESPONSE MANAGER DTL RBC Distrib Width 12.6 12.2 - 16.1 % 04/03/2024 2:40 PM INCIDENT RESPONSE MANAGER DTL Platelet Count 382(H) 157 - 371 x10(9)/L 04/03/2024 2:40 PM INCIDENT RESPONSE MANAGER DTL Leukocytes 10.3(H) 3.4 - 9.6 x10(9)/L 04/03/2024 2:40 PM INCIDENT RESPONSE MANAGER DTL Neutrophils 8.17(H) 1.56 - 6.45 x10(9)/L 04/03/2024 2:40 PM INCIDENT RESPONSE MANAGER DHPM Lymphocytes 1.47 0.95 - 3.07 x10(9)/L 04/03/2024 2:40 PM INCIDENT RESPONSE MANAGER DTL Monocytes 0.62 0.26 - 0.81 x10(9)/L 04/03/2024 2:40 PM INCIDENT RESPONSE MANAGER DTL Eosinophils 0.04 0.03 - 0.48 x10(9)/L 04/03/2024 2:40 PM INCIDENT RESPONSE MANAGER DTL Basophils 0.04 0.01 - 0.08 x10(9)/L 04/03/2024 2:40 PM INCIDENT RESPONSE MANAGER DTL Blood (Blood, Venous) 04/03/2024 2:13 PM INCIDENT RESPONSE MANAGER 04/03/2024 2:34 PM INCIDENT RESPONSE MANAGER Result Mary Jane Bernal M.D. LAB BLOOD ADD-ON Final Resu lt Performing Organization Address City/[facility]/ZIP Co de Phone Number [facility] [address] [place] [address], [facility] [address] [place] [address] [facility] [address] [place] [address] * Hemoglobin A1c (04/03/2024 2:13 PM INCIDENT RESPONSE MANAGER) Hemoglobin A1c, B 4.5 4.0 - 5.6 % 04/03/2024 2:48 PM INCIDENT RESPONSE MANAGER DTL Blood (Blood, Venous) 04/03/2024 2:13 PM INCIDENT RESPONSE MANAGER 04/03/2024 2:34 PM INCIDENT RESPONSE MANAGER Result Mary Jane Bernal M.D. LAB BLOOD ADD-ON Final Resu lt Performing Organization Address [facility] Co de Phone Number [facility] [address] [facility] [address] [place] [address] * Ferritin (04/03/2024 2:13 PM INCIDENT RESPONSE MANAGER) Ferritin, S 50 6 - 175 mcg/L 04/03/2024 3:10 PM INCIDENT RESPONSE MANAGER DTL Blood (Blood, Venous) 04/03/2024 2:13 PM INCIDENT RESPONSE MANAGER 04/03/2024 2:45 PM INCIDENT RESPONSE MANAGER Result Mary Jane Bernal M.D. LAB BLOOD ADD-ON Final Resu lt [facility] [address] [place] [address], [facility] DTL [facility] [address] [place] [address] * US OB Limited (04/03/2024 11:28 AM INCIDENT RESPONSE MANAGER) Anatomical Region Laterality Modality Ultrasound OB RST LOS, Ultra sound ARZ LOS, Ultrasound FLA LOS, Ultrasound ARZ LOS N/A Ultrasound 04/03/2024 11:0 9 AM INCIDENT RESPONSE MANAGER Narrative 04/03/2024 12:27 PM INCIDENT RESPONSE MANAGER Exam Type ========= OB 1st Trimester Indication ======== dating and viability History ====== OB History 10. Para 6 Method ====== Transabdominal ultrasound examination ========= Tarango Dating ====== Date Details Gest. age ELVIE Stated ELVIE 10 w + 5 d 10/25/2024 U/S 04/03/2024 based upon CRL 10 w + 6 d 10/24/2024 Assigned dating based on stated ELVIE, selected on 04/03/2024 10 w + 5 d 10/25/2024 Assessment Gestational sac: Location: intrauterine Yolk sac: visualized Embryo: visualized Cardiac activity: present Early placenta: anterior CRL 40.2 mm 10w 6d FHR 168 bpm Maternal Structures Normal appearing adnexa and ovaries Impression ========= Tarango intrauterine with cardiac activity present. ELVIE established by LMP consistent with crown-rump length (10 6/7 weeks) today. Anterior placenta. Amniotic fluid volume normal. The left ovary appears normal, and the right ovary was not visualized. Procedure Note Dheeraj Arroyo M.D. - 04/03/2024 Exam Type ========= OB 1st Trimester Indication ======== dating and viability History ====== OB History 10. Para 6 Method ====== Transabdominal ultrasound examination ========= Tarango Dating ====== Date DetailsGest. age ELVIE Stated ELVIE 10 w + 5 d 10/25/2024 U/S 04/03/2024 based upon CRL 10 w + 6 10/24/2024 Assigned dating based on stated ELVIE, selected on w + 5 d 10/25/2024 Assessment Gestational sac: Location: intrauterine Yolk sac: visualized Embryo: visualized Cardiac activity: present Early placenta: anterior CRL 40.2 mm 10w 6d FHR 168 bpm Maternal Structures Normal appearing adnexa and ovaries Impression ========= Tarango intrauterine with cardiac activity present. EDDestablished by LMP consistent with crown-rump length (10 6/7 weeks)today. Anterior placenta. Amniotic fluid volume normal. The left ovary appears normal, and the right ovary was not visualized. us Noni Bender M.D., Ph.D. IMG OB US PROCEDURES Fin al Result from Last 3 Months Insurance [facility] Advance Directives For more information, please contact: [phone] * Full Code (Latest Code Status on File) Date Activated Date Inactivated Comments 08/11/2023 11:14 PM 08/13/2023 1:53 PM Question Answer Comments Full Code: Not Discussed Due to: Not medically appropriate * Full Code Date Activated Date Inactivated Comments 07/06/2023 1:28 PM 07/07/2023 2:26 PM Question Answer Comments Full Code: Not Discussed Due to: Not medically appropriate
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
--- OUTSIDE RECORDS SUMMARY | 2024-04-06 08:49 | XMS_ITS | Encounter Summary ---
Author Organization [facility] Address [address] [place] [id number] Care Team Providers Care Plate Colorer Name Role Phone Unavailable Primary Care Provider Unavailabl e Reason for Visit * Outpatient (Routine) - Closed Specialty Diagnoses / Procedures Referred By Susan mccrary Referred To Contact Obstetrics and Gynecology Noni Bender M.D., Ph.D. [address] [place] [phone] Phone: tel: fax: [facility] Referral ID Status Reason Start Date Expiration Date Visits Re quested Visits Authorized [id number] Closed 03/16/2024 09/15/2025 1 1 Encounter Details Date Type Department Care Team (Latest Contact Info) Description 04/03/2024 1:00 PM SCIENTIST/ENGINEER Routine Department of Obstetrics and Gynecology in [place], [place] [address] [place] [phone] Noni Bender M.D., Ph.D. 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 Not on file Not on file Not on file documented as of this encounter Last Filed Vital Signs Vital Sign Reading Time Taken Comments Blood Pressure 108/69 04/03/2024 1:31 PM SCIENTIST/ENGINEER Pulse 97 04/03/2024 1:31 PM SCIENTIST/ENGINEER Temperature 36.7 C (98.1 F) 04/03/2024 1:31 PM SCIENTIST/ENGINEER Respiratory Rate - - Oxygen Saturation 98% 04/03/2024 1:31 PM SCIENTIST/ENGINEER Inhaled Oxygen Concentration - - Weight 78.1 kg (172 lb 2.9 oz) 04/03/2024 1:31 P M SCIENTIST/ENGINEER Height - - Body Mass Index 26.96 08/11/2023 11:45 PM CDT documented in this encounter Progress Notes * Duyen Farnsworth, RJrN. - 04/03/2024 1:00 PM CST CHIEF COMPLAINT / REASON FOR VISIT Duyen Butterfield is a 33 y.o. with an Estimated Date of Delivery: 10/25/2024, by Last Menstrual Period. Gestational age is 10w5d. Today she had a first trimester ultrasound and is here for a nurse education visit. OBJECTIVE VITAL SIGNS Vitals: 04/03/24 1331 BP: 108/69 Pulse: 97 Temp: 36.7 ??C SpO2: 98% ASSESSMENT / PLAN Initial OB visit scheduled with Dr. Bernal Nurse Visit: 04/03/2024 Language Interpretation Needed for Delivery: Language Needs: No New OB Laboratory Tests and Consults RN Protocol Complete. Yes or No: Yes Next visits scheduled: Scheduled Appointments Next 30 Days 2024 10:00 AM (Arrive by 9:45 AM) Evaluation with Magalys Bernal M.D. Department of Obstetrics and Gynecology in [place], [place] ([facility]) Arrive at: [facility], Third Floor, Desk [address]B [address] [place] [phone] No preparation is needed for this appointment. PATIENT EDUCATION Ready to learn, barriers to learning: none; learning preferences include listening. Explained diagnosis and treatment plan; patient expressed understanding of the content. Duyen Farnsworth R.N. NTIST/ENGINEER documented in this encounter Plan of Treatment Upcoming Encounters Date Type Department Care Team (Late st Contact Info) Description 2024 10:00 AM SCIENTIST/ENGINEER Initial Department of Obstetrics and Gynecology in [place], [place] [address] [place] [phone] Magalys Bernal M.D. [address] [place] [phone] Pending Results Name Type Priority Associated Diagnoses Date /Time Bacterial Culture, Aerobic + Susceptibility, Urine Microbiology Routine 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) 04/03/2024 2:39 PM SCIENTIST/ENGINEER documented as of this encounter Results * Urinalysis, with Microscopic: Urine, Midstream (04/03/2024 2:39 PM SCIENTIST/ENGINEER) Source Urine, Urine, Midstream 04/03/2024 2:46 PM SCIENTIST/ENGINEER DTL Color, U Yellow 04/03/2024 2:46 PM SCIENTIST/ENGINEER DTL Clarity, U Clear 04/03/2024 2:46 PM SCIENTIST/ENGINEER DTL Protein, U 7 <26 mg/dL 04/03/2024 3:33 PM SCIENTIST/ENGINEER DTL Protein/Osmol ality 0.15 <0.42 ratio 04/03/2024 3:33 PM SCIENTIST/ENGINEER DTL Predicted 24 HR Protein, U 120 <229 mg/24 h 04/03/2024 3:33 PM SCIENTIST/ENGINEER DTL Predicted Range 30-486 mg/24 h 04/03/2024 3:33 PM SCIENTIST/ENGINEER DTL Urine (Urine, Midstream) 04/03/2024 2:39 PM SCIENTIST/ENGINEER 04/03/2024 2:46 PM SCIENTIST/ENGINEER Magalys Bernal M.D. LAB URINE ORDERABLES Final Result Performing Organization Address [facility] de Phone Number [facility] [address] [place] [address], [facility] DTL [facility] [address] [place] [address] * Chlamydia / Gonorrhoeae Amplified RNA (04/03/2024 2:39 PM SCIENTIST/ENGINEER) Source Urine, Urine, First Voided 04/03/2024 11:35 PM SCIENTIST/ENGINEER SDS Chlamydia trachomatis amplified RNA Negative Negative 04/03/2024 11:35 PM SCIENTIST/ENGINEER SDSC Source Urine, Urine, First Voided 04/03/2024 11:35 PM SCIENTIST/ENGINEER SDSC Neisseria gonorrhoeae amplified RNA Negative Negative 04/03/2024 11:35 PM SCIENTIST/ENGINEER [facility] Urine (Urine, First Voided) 04/03/2024 2:39 PM SCIENTIST/ENGINEER 04/03/2024 6:35 PM SCIENTIST/ENGINEER us Magalys Bernal M.D. LAB MICROBIOLOGY - GENERAL ORDERABLES Final Result Performing Organization Address [facility] Co de Phone Number [facility] [address] [place] [address] [facility] [address] [place] [address] [place] [address] * Varicella-Zoster Antibody, IgG, Serum (04/03/2024 2:14 PM SCIENTIST/ENGINEER) Varicella-Zoster Ab, IgG, S Positive 04/04/2024 9:52 AM SCIENTIST/ENGINEER [facility] Comment: Results suggest response to immunization or prior exposure to the virus. ----REFERENCE VALUE---- Vaccinated: Positive (>=1.1 AI) Unvaccinated: Negative (<=0.8 AI) Varicella IgG Antibody Index 2.0 04/04/2024 9:52 AM SCIENTIST/ENGINEER SDS Blood (Blood, Venous) 04/03/2024 2:14 PM SCIENTIST/ENGINEER 04/03/2024 9:40 PM SCIENTIST/ENGINEER us Magalys Bernal M.D. LAB MICROBIOLOGY - BLOOD OR DERABLES Final Result Performing Organization Address [facility] Co de Phone Number [facility] [address] [place] [address] [facility] [address] [place] [address] * Syphilis IgG w/ Reflex, EIA, S (RST/FLA) (04/03/2024 2:14 PM SCIENTIST/ENGINEER) [facility] Syphilis IgG w/ Reflex, EIA, S Nonreactive Nonreactive 04/03/2024 11:06 PM SCIENTIST/ENGINEER [facility] Comment: No serologic evidence of infection with T. pallidum (syphilis). Repeat testing may be considered in patients with suspected acute or primary syphilis in 2-4 weeks. For additional information on interpretation of the syphilis reverse algorithm and results, see: [email or web address] Blood (Blood, Venous) 04/03/2024 2:14 PM SCIENTIST/ENGINEER 04/03/2024 6:39 PM SCIENTIST/ENGINEER us Magalys Bernal M.D. LAB MICROBIOLOGY - BLOOD OR DERABLES Final Result Performing Organization Address [facility] de Phone Number [facility] [address] [place] [address] [facility] [address] [place] [address] * HIV-1/-2 Ag and Ab Scrn, Plasma (04/03/2024 2:14 PM SCIENTIST/ENGINEER) Pathologist [facility] HIV-1/-2 Ag and Ab Scrn, P Negative Negative 04/03/2024 8:14 PM SCIENTIST/ENGINEER [facility] Comment: Negative result does not rule out HIV infection. If exposure to HIV infection occurred <14 days ago, contact the laboratory to request addition of HIV-1/HIV-2 RNA detection , Plasma (HPP12). Blood (Blood, Venous) 04/03/2024 2:14 PM SCIENTIST/ENGINEER 04/03/2024 7:09 PM SCIENTIST/ENGINEER Result Mary Jane Bernal M.D. LAB MICROBIOLOGY - BLOOD OR DERABLES Final Result Performing Organization Address [facility]/ZIP Co de Phone Number [facility] [address] [place] [address] [facility] [address] [place] [address] * Hepatitis C Virus Antibody Screen (04/03/2024 2:14 PM SCIENTIST/ENGINEER) HCV Ab Scrn , S Negative Negative 04/03/2024 8:17 PM SCIENTIST/ENGINEER [facility] Comment: Consumption of high-dose biotin supplement within 12 hours of blood collection for this test can cause false-negative results. Blood (Blood, Venous) 04/03/2024 2:14 PM SCIENTIST/ENGINEER 04/03/2024 7:09 PM SCIENTIST/ENGINEER Result Mary Jane Bernal M.D. LAB MICROBIOLOGY - BLOOD OR DERABLES Final Result Performing Organization Address [facility] Co de Phone Number [facility] [address] [place] [address] [facility] [address] [place] [address] * HBc Total Ab , Serum (04/03/2024 2:14 PM SCIENTIST/ENGINEER) Pathologist [facility] HBc Total Ab , S Negative Negative 04/03/2024 8:17 PM SCIENTIST/ENGINEER [facility] Blood (Blood, Venous) 04/03/2024 2:14 PM SCIENTIST/ENGINEER 04/03/2024 7:09 PM SCIENTIST/ENGINEER Result Mary Jane Bernal M.D. LAB MICROBIOLOGY - BLOOD OR DERABLES Final Result Performing Organization Address City/[facility]/ZIP Co de Phone Number [facility] [address] [place] [address] [facility] [address] [place] [address] * HBs Antibody , Serum (04/03/2024 2:14 PM SCIENTIST/ENGINEER) HBs Antibody , S Negative 04/03/2024 8:17 PM SCIENTIST/ENGINEER [facility] Comment: Patient is NOT immune to HBV infection. Consumption of high-dose biotin supplement within 12 hours of blood collection for this test can cause false-negative results. ----REFERENCE VALUE---- Unvaccinated: Negative Vaccinated: Positive HBs Antibody, Quantitative, S 4.0 mIU/mL 04/03/2024 8:17 PM SCIENTIST/ENGINEER [facility] Comment: ----REFERENCE VALUE---- Unvaccinated: <8.5 mIU/mL Vaccinated: >=11.5 mIU/mL Blood (Blood, Venous) 04/03/2024 2:14 PM SCIENTIST/ENGINEER 04/03/2024 7:09 PM SCIENTIST/ENGINEER Magalys Bernal M.D. LAB MICROBIOLOGY - BLOOD OR DERABLES Final Result Performing Organization Address City/[facility]/ZIP Co de Phone Number [facility] [address] [place] [address] [facility] [address] [place] [address] * HBs Antigen , Serum (04/03/2024 2:14 PM SCIENTIST/ENGINEER) Pathologist [facility] HBs Antigen , S Negative Negative 04/03/2024 8:17 PM SCIENTIST/ENGINEER [facility] Blood (Blood, Venous) 04/03/2024 2:14 PM SCIENTIST/ENGINEER 04/03/2024 7:09 PM SCIENTIST/ENGINEER us Magalys Bernal M.D. LAB MICROBIOLOGY - BLOOD OR DERABLES Final Result Performing Organization Address City/[facility]/ZIP Co de Phone Number [facility] [address] [place] [address] [facility] [address] [place] [address] * Ferritin (04/03/2024 2:13 PM SCIENTIST/ENGINEER) Pathologist [facility] Ferritin, S 50 6 - 175 mcg/L 04/03/2024 3:10 PM SCIENTIST/ENGINEER DTL Blood (Blood, Venous) 04/03/2024 2:13 PM SCIENTIST/ENGINEER 04/03/2024 2:45 PM SCIENTIST/ENGINEER Magalys Bernal M.D. LAB BLOOD ADD-ON Final Resu lt [facility] [address] [place] [address], [facility] DTL [facility] [address] [place] [address] * Hemoglobin Electrophoresis Evaluation (04/03/2024 2:13 PM SCIENTIST/ENGINEER) Hb A 97.2 95.8 - 98.0 % 04/04/2024 4:20 PM SCIENTIST/ENGINEER DTL Hb F 0.0 0.0 - 0.9 % 04/04/2024 4:20 PM SCIENTIST/ENGINEER DTL Hb A2 2.8 2.0 - 3.3 % 04/04/2024 4:20 PM SCIENTIST/ENGINEER DTL Comment: ----ADDITIONAL INFORMATION---- This test has been modified from the sound designer's instructions. Its performance characteristics were determined by [facility] in a manner consistent with CLIA requirements. This test has not been cleared or approved by the U.S. Food and Drug Administration. HPLC Hb Variant, B See Interpretation 04/04/2024 4:20 PM SCIENTIST/ENGINEER DTL Comment: ----ADDITIONAL INFORMATION---- This test has been modified from the sound designer's instructions. Its performance characteristics were determined by [facility] in a manner consistent with CLIA requirements. [...] include: capillary electrophoresis, HPLC. 04/04/2024 4:20 PM SCIENTIST/ENGINEER DTL Blood (Blood, Venous) 04/03/2024 2:13 PM SCIENTIST/ENGINEER 04/03/2024 2:41 PM SCIENTIST/ENGINEER us Magalys Bernal M.D. LAB BLOOD ADD-ON Final Resu lt Performing Organization Address City/[facility]/[place] [address], [facility] [address] [address] * Hemoglobin A1c (04/03/2024 2:13 PM SCIENTIST/ENGINEER) Pathologist [facility] Hemoglobin A1c, B 4.5 4.0 - 5.6 % 04/03/2024 2:48 PM SCIENTIST/ENGINEER DTL Blood (Blood, Venous) 04/03/2024 2:13 PM SCIENTIST/ENGINEER 04/03/2024 2:34 PM SCIENTIST/ENGINEER us Magalys Bernal M.D. LAB BLOOD ADD-ON Final Resu lt Performing Organization Address City/[facility]/ZIP Co de Phone Number [facility] [address] [place] [address], [facility] [address] [place] [address] * (ABNORMAL) CBC with Differential, Blood (04/03/2024 2:13 PM SCIENTIST/ENGINEER) [facility] Hemoglobin 12.9 11.6 - 15.0 g/dL 04/03/2024 2:40 PM SCIENTIST/ENGINEER DTL Hematocrit 37.6 35.5 - 44.9 % 04/03/2024 2:40 PM SCIENTIST/ENGINEER DTL Erythrocytes 4.22 3.92 - 5.13 x10(12)/L 04/03/2024 2:40 PM SCIENTIST/ENGINEER DTL MCV 89.1 78.2 - 97.9 fL 04/03/2024 2:40 PM SCIENTIST/ENGINEER DTL RBC Distrib Width 12.6 12.2 - 16.1 % 04/03/2024 2:40 PM SCIENTIST/ENGINEER DTL Platelet Count 382(H) 157 - 371 x10(9)/L 04/03/2024 2:40 PM SCIENTIST/ENGINEER DTL Leukocytes 10.3(H) 3.4 - 9.6 x10(9)/L 04/03/2024 2:40 PM SCIENTIST/ENGINEER DTL Neutrophils 8.17(H) 1.56 - 6.45 x10(9)/L 04/03/2024 2:40 PM SCIENTIST/ENGINEER DHPM Lymphocytes 1.47 0.95 - 3.07 x10(9)/L 04/03/2024 2:40 PM SCIENTIST/ENGINEER DTL Monocytes 0.62 0.26 - 0.81 x10(9)/L 04/03/2024 2:40 PM SCIENTIST/ENGINEER DTL Eosinophils 0.04 0.03 - 0.48 x10(9)/L 04/03/2024 2:40 PM SCIENTIST/ENGINEER DTL Basophils 0.04 0.01 - 0.08 x10(9)/L 04/03/2024 2:40 PM SCIENTIST/ENGINEER DTL Blood (Blood, Venous) 04/03/2024 2:13 PM SCIENTIST/ENGINEER 04/03/2024 2:34 PM SCIENTIST/ENGINEER Mgaalys Bernal M.D. LAB BLOOD ADD-ON Final Resu lt [facility] [address] [place] [address], [facility] DTL [facility] [address] [place] [address] DHPM [facility] [address] [place] [address] documented in this encounter Visit Diagnoses Diagnosis 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)- Primary documented in this encounter Additional Health Concerns Assessment Noted Time PHQ-9 Depression Total Score: 7 08/07/19 24 8:41 AM CDT documented as of this encounter
--- OUTSIDE RECORDS SUMMARY | 2024-04-06 08:49 | XMS_ITS | Referral Summary ---
Author Organization [facility] Address [address] [place] [id number] Care Team Providers Care Damage Adjuster Name Role Phone Unavailable Primary Care Provider Unavailabl e Source Comments Patient records contain information from all sites at [facility]. For routine questions regarding patient records, call [phone] during business hours, M-F 8:00 AM - 5:00 PM Central Time. Record requests for emergency care only can be directed to [phone] at any time.[facility] Encounters Date Type Department Care Team Description 04/03/2024 1:00 PM [employer]AREPOINT SOL[employer] ARCHITECT Routine Department of Obstetrics and Gynecology in [place], [place] [address] [place] [phone] Noni Bender M.D., Ph.D. Duyen Farnsworth R.N. 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) (Primary Dx) 04/03/2024 11:01 AM [employer]AREPOINT SOLUTIONS ARCHITECT - 04/03/2024 11:59 PM [employer] ARCHITECT Hospital Encounter Department of Obstetrics and Gynecology in [place], [place] [address] [place] [phone] Noni Bender M.D., Ph.D. High Risk History Labor (HCC) Discharge Disposition: Home or Self Care 04/02/2024 Clinical Communication Department of Obstetrics and Gynecology in [place], [place] [address] [place] [phone] Magalys Bernal M.D. Reschedule 03/16/2024 11:00 AM [employer] SOL[employer] ARCHITECT Initial Department of Obstetrics and Gynecology in [place], [place] [address] [place] [phone] Kellen South R.N. GA: 8w1d from Last 3 Months Allergies Active Allergy Reactions Criticality Noted Date [...] times a day as needed for constipation. 4 Active Additional Information Patient not taking.Reported on 03/16/2024 sennosides (senna) 8.6 mg tablet Take 1 tablet (8.6 mg total) by mouth at bedtime as needed for constipation. 4 Active Additional Information Patient not taking.Reported on 03/16/2024 witch Talia (TUCKS) 50 % pad Apply to the affected rectal area by patting up to 6 times daily or after each bowel movement. 4 Active Additional Information Patient not taking.Reported on 03/16/2024 benzocaine-ment hoL (DERMOPLAST) 20-0.5 % external spray Apply 1 Application topically 4 (four) times a day as needed for pain. 4 Active Additional [...] (08/12/2023): The patient was admitted to the [facility] from triage after a nonreactive NST and [...] the floor. She received her care at [facility]. Raised Antibody Titer 08/06/2023 Overview (08/06/2023): [...] placed on bedrest per chart audit of [facility] records, only one delivery . 35 week [...] LSIL, cannot exclude higher grade lesion 01/18/2009 [place], no bx, , 09/15/2013 ASCUS/ HPV negative [...] previa. 05/09/2023: Appointment with Maternal- Medicine at [place] completed and recommendations as follows: IMPRESSION: Intrauterine [...] today's ultrasound were communicated to the patient. Immunizations Name Administration Dates Next Due 4vHPV (discontinued) 09/05/2010,11/11/19 07,11/07/2006,2006 DTP 06/01/1994, 1,1989,1989,1989 DTaP (Infanrix, [employer]) 01/21/1995 H1N1 All Forms 02/21/2009 HepB, Unspecified 08/19/2001,06/19/2001,02/04/20 01 Hib, Unspecified 06/01/1994 IPV 12/02/1994,06/01/1994,12/04/1990 Influenza, Seasonal, Injectable 04/09/2012 MMR 02/03/2001,02/03/1991,12/04/1990 OPV 1989,1989 Td (Adult), adsorbed 03/24/2003,12/30/2002 Tdap 05/28/2023,,02/16/2014,2012 Tuberculin Skin Test, Unspecified 04/01/2012 influenza vaccine quad (FLUZONE/FLUARIX) (6 months and older)(PF) 12/23/2016,12/24/2013 Social History Tobacco Use Types Packs/Day Years Used Date Smoking Tobacco: Former Cigarettes Smokeless Tobacco: Never Tobacco Cessation:Counseling Given: Not Answered Alcohol Use Standard Drinks/Week Comments Not Currently 0 (1 standard drink = 0.6 oz pure alcohol) Pre , 1 drink monthly Masterseek Answer Date Recorded In the past 12 months has e [employer], [employer], or water [employer] threatened to shut off services in your [...] money to buy more. Never true 03/16/20 24 Within the past 12 months, t he [...] your living situation today? 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 Not on file Not on file Last Filed Vital Signs Vital Sign Reading Time Taken Comments Blood Pressure 108/69 04/03/2024 1:31 PM [employer] ARCHITECT Pulse 97 04/03/2024 1:31 PM [employer] ARCHITECT Temperature 36.7 C (98.1 F) 04/03/2024 1:31 PM [employer] SOL[employer] ARCHITECT Respiratory Rate 16 08/13/2023 5:12 AM CDT Oxygen Saturation 98% 04/03/2024 1:31 PM [employer] SOL[employer] ARCHITECT Inhaled Oxygen Concentration - - Weight 78.1 kg (172 lb 2.9 oz) 04/03/2024 1:31 P M [employer] ARCHITECT Height 170.2 cm (5' 7.01) 08/11/2023 11:45 PM C DT Body Mass Index 26.96 08/11/2023 11:45 PM CDT Plan of Treatment Upcoming Encounters Date Type Department Care Team (Late st Contact Info) Description 2024 10:00 AM [employer] SOL[employer] ARCHITECT Initial Department of Obstetrics and Gynecology in [place], [place] [address] [place] [phone] Magalys Bernal M.D. [address] [place] [phone] Procedures Procedure Name Priority Date/Time Associated Diagnosis Comments PH, U Routine 04/03/2024 2:39 PM [employer] SOL[employer] ARCHITECT OSMOLALITY, U Routine 04/03/2024 2:39 PM [employer] SOL[employer] ARCHITECT DIPSTICK, U Routine 04/03/2024 2:39 PM [employer] ARCHITECT MICROSCOPIC AUTOMATED Routine 04/03/2024 2:39 PM [employer] SOL[employer] ARCHITECT URINALYSIS WITH MICROSCOPIC Routine 04/03/2024 2:39 PM [employer] SOL[employer] ARCHITECT 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) CHLAMYDIA/GONORRHOEAE AMPLIFIED RNA Routine 04/03/2024 2:39 PM [employer] SOL[employer] ARCHITECT 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) BACTERIAL CULTURE, AEROBIC + SUSC, URINE Routine 04/03/2024 2:39 PM [employer] SOL[employer] ARCHITECT 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) VARICELLA-ZOSTER AB, IGG, S Routine 04/03/2024 2:14 PM [employer] SOL[employer] ARCHITECT 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) SYPHILIS IGG W/ REFLEX, EIA, S Routine 04/03/2024 2:14 PM [employer] SOL[employer] ARCHITECT 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) HIV-1/-2 AG AND AB SCRN, PLASMA Routine 04/03/2024 2:14 PM [employer] SOL[employer] ARCHITECT 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) HCV AB SCRN , S Routine 04/03/2024 2:14 PM [employer]POINT SOL[employer]IONS ARCHITECT 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) HBC TOTAL AB , S Routine 04/03/2024 2:14 PM [employer] SOL[employer] ARCHITECT 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) HBS ANTIBODY , S Routine 04/03/2024 2:14 PM [employer] SOL[employer] ARCHITECT 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) HBS ANTIGEN , S Routine 04/03/2024 2:14 PM SH[employer]POINT SOLUTIONS ARCHITECT 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) ANTIBODY IDENTIFICATION Routine 04/03/2024 2:13 PM [employer]POINT SOL[employer]IONS ARCHITECT FERRITIN, S Routine 04/03/2024 2:13 PM [employer]POINT SOL[employer]IONS ARCHITECT 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) HEMOGLOBIN ELECTROPHORESIS CASCADE, B Routine 04/03/2024 2:13 PM [employer]POINT SOL[employer]IONS ARCHITECT 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) HEMOGLOBIN A1C, B Routine 04/03/2024 2:1 3 PM [employer] SOL[employer] ARCHITECT 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) CBC WITH DIFFERENTIAL, B Routine 04/03/2024 2:13 PM SH[employer]POINT SOLUTIONS ARCHITECT 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) US OB LIMITED RAD - Routine (most inpatients and all outpatients) 04/03/2024 11:28 AM [employer]POINT SOL[employer] ARCHITECT High Risk History Labor (HCC) from Last 3 Months Results * Dipstick, Urine (04/03/2024 2:39 PM SH[employer]POINT SOLUTIONS ARCHITECT) Hemoglobin, QL, U Negative Negative 04/03/2024 3:09 PM SH[employer]POINT SOLUTIONS ARCHITECT DTL Leukocyte Esterase, U Negative Negative 04/03/2024 3:09 PM [employer]POINT SOLUTIONS ARCHITECT DTL Nitrite, U Negative Negative 04/03/2024 3:09 PM [employer]POINT SOLUTIONS ARCHITECT DTL Ketone, U Negative Negative mg/dL 04/03/2024 3:09 PM SH[employer]POINT SOLUTIONS ARCHITECT DTL Glucose, U Negative Negative mg/dL 04/03/2024 3:09 PM SH[employer]POINT SOLUTIONS ARCHITECT DTL Urine 04/03/2024 2:39 PM [employer] SOL[employer] ARCHITECT 04/03/2024 2:47 PM [employer]POINT SOLUTIONS ARCHITECT Magalys Bernal M.D. LAB URINE ORDERABLES Final Result Performing Organization Address [facility] Co de Phone Number [facility] [address] [place] [address], [facility] [address] [place] [address] * Microscopic Automated (04/03/2024 2:39 PM SHAREPOINT SOLUTIONS ARCHITECT) Microscopy Normal 04/03/2024 3:09 PM [employer]AREPOINT SOLUTIONS ARCHITECT DTL RBC None Seen <3 /hpf 04/03/2024 3:09 PM SHAREPOINT SOLUTIONS ARCHITECT DTL WBC None Seen /hpf 04/03/2024 3:09 PM SHAREPOINT SOLUTIONS ARCHITECT DTL Comment: ----REFERENCE VALUE---- <4 (Males) <11 (Females) Squamous Epithelial Cells, U 1-3 /hpf 04/03/2024 3:09 PM SHAREPOINT SOLUTIONS ARCHITECT DTL Urine 04/03/2024 2:39 PM [employer]POINT SOLUTIONS ARCHITECT 04/03/2024 2:47 PM SHAREPOINT SOLUTIONS ARCHITECT Magalys Bernal M.D. LAB URINE ORDERABLES Final Result Performing Organization Address [facility] Co de Phone Number [facility] [address] [place] [address], [facility] [address] [place] [address] * pH, Urine (04/03/2024 2:39 PM SHAREPOINT SOLUTIONS ARCHITECT) pH, U 6.3 4.5 - 8.0 04/03/2024 3:1 6 PM SH[employer]POINT SOL[employer]IONS ARCHITECT DTL Urine 04/03/2024 2:39 PM [employer]POINT SOLUTIONS ARCHITECT 04/03/2024 2:47 PM SHAREPOINT SOLUTIONS ARCHITECT us Magalys Bernal M.D. LAB URINE ORDERABLES Final Result [facility] [address] [place] [address], [place] [facility] [address] [place] [address] * Chlamydia / Gonorrhoeae Amplified RNA (04/03/2024 2:39 PM SHAREPOINT SOLUTIONS ARCHITECT) Pathologist [facility] Source Urine, Urine, First Voided 04/03/2024 11:35 PM SHAREPOINT SOLUTIONS ARCHITECT [facility] Chlamydia trachomatis amplified RNA Negative Negative 04/03/2024 11:35 PM SHAREPOINT SOLUTIONS ARCHITECT [facility] Source Urine, Urine, First Voided 04/03/2024 11:35 PM SHAREPOINT SOLUTIONS ARCHITECT [facility] Neisseria gonorrhoeae amplified RNA Negative Negative 04/03/2024 11:35 PM SHAREPOINT SOLUTIONS ARCHITECT [facility] Urine (Urine, First Voided) 04/03/2024 2:39 PM SH[employer]POINT SOLUTIONS ARCHITECT 04/03/2024 6:35 PM SHAREPOINT SOLUTIONS ARCHITECT us Magalys Bernal M.D. LAB MICROBIOLOGY - GENERAL ORDERABLES Final Result Performing Organization Address City/[facility]/ZIP Co de Phone Number [facility] [address] [place] [address] [facility] [address] [place] [address] [place] [address] * Osmolality, Urine (04/03/2024 2:39 PM SHAREPOINT SOLUTIONS ARCHITECT) Pathologist [facility] Osmolality, U 464 150 - 1150 mOsm/kg 04/03/2024 3:16 PM SHAREPOINT SOLUTIONS ARCHITECT [facility] Urine 04/03/2024 2:39 PM SH[employer]POINT SOLUTIONS ARCHITECT 04/03/2024 2:47 PM SHAREPOINT SOLUTIONS ARCHITECT us Magalys Bernal M.D. LAB URINE ORDERABLES Final Result [facility] [address] [place] [address], [place] [facility] [address] [place] [address] * Urinalysis, with Microscopic: Urine, Midstream (04/03/2024 2:39 PM SHAREPOINT SOLUTIONS ARCHITECT) Source Urine, Urine, Midstream 04/03/2024 2:46 PM SHAREPOINT SOLUTIONS ARCHITECT DTL Color, U Yellow 04/03/2024 2:46 PM SHAREPOINT SOLUTIONS ARCHITECT DTL Clarity, U Clear 04/03/2024 2:46 PM SHAREPOINT SOLUTIONS ARCHITECT DTL Protein, U 7 <26 mg/dL 04/03/2024 3:33 PM SHAREPOINT SOLUTIONS ARCHITECT DTL Protein/Osmol ality 0.15 <0.42 ratio 04/03/2024 3:33 PM SHAREPOINT SOLUTIONS ARCHITECT DTL Predicted 24 HR Protein, U 120 <229 mg/24 h 04/03/2024 3:33 PM SHAREPOINT SOLUTIONS ARCHITECT DTL Predicted Range 30-486 mg/24 h 04/03/2024 3:33 PM SHAREPOINT SOLUTIONS ARCHITECT DTL Urine (Urine, Midstream) 04/03/2024 2:39 PM SHAREPOINT SOLUTIONS ARCHITECT 04/03/2024 2:46 PM SHAREPOINT SOLUTIONS ARCHITECT Magalys Bernal M.D. LAB URINE ORDERABLES Final Result [facility] [address] [place] [address] * Syphilis IgG w/ Reflex, EIA, S (RST/FLA) (04/03/2024 2:14 PM SHAREPOINT SOLUTIONS ARCHITECT) Syphilis IgG w/ Reflex, EIA, S Nonreactive Nonreactive 04/03/2024 11:06 PM SHAREPOINT SOLUTIONS ARCHITECT [facility] Comment: No serologic evidence of infection with T. pallidum (syphilis). Repeat testing may be considered in patients with suspected acute or primary syphilis in 2-4 weeks. For additional information on interpretation of the syphilis reverse algorithm and results, see: [email or web address] Blood (Blood, Venous) 04/03/2024 2:14 PM SH[employer]POINT SOLUTIONS ARCHITECT 04/03/2024 6:39 PM SHAREPOINT SOLUTIONS ARCHITECT us Magalys E Long M.D. LAB MICROBIOLOGY - BLOOD OR DERABLES Final Result Performing Organization Address City/[facility]/ZIP Co de Phone Number [facility] [address] [place] [address] Formerly named [facility] [address] [place] [address] * HBc Total Ab , Serum (04/03/2024 2:14 PM SHAREPOINT SOLUTIONS ARCHITECT) HBc Total Ab , S Negative Negative 04/03/2024 8:17 PM SH[employer]POINT SOLUTIONS ARCHITECT [facility] Blood (Blood, Venous) 04/03/2024 2:14 PM [employer] SOL[employer]IONS ARCHITECT 04/03/2024 7:09 PM [employer]POINT SOL[employer]IONS ARCHITECT Result Mary Jane Bernal M.D. LAB MICROBIOLOGY - BLOOD OR DERABLES Final Result Performing Organization Address [facility] Co de Phone Number [facility] [address] [place] [address] Formerly named [facility] [address] [place] [address] * HBs Antibody , Serum (04/03/2024 2:14 PM SHAREPOINT SOLUTIONS ARCHITECT) HBs Antibody , S Negative 04/03/2024 8:17 PM SHAREPOINT SOLUTIONS ARCHITECT [facility] Comment: Patient is NOT immune to HBV infection. Consumption of high-dose biotin supplement within 12 hours of blood collection for this test can cause false-negative results. ----REFERENCE VALUE---- Unvaccinated: Negative Vaccinated: Positive HBs Antibody, Quantitative, S 4.0 mIU/mL 04/03/2024 8:17 PM SHAREPOINT SOLUTIONS ARCHITECT [facility] Comment: ----REFERENCE VALUE---- Unvaccinated: <8.5 mIU/mL Vaccinated: >=11.5 mIU/mL Blood (Blood, Venous) 04/03/2024 2:14 PM [employer] SOL[employer]IONS ARCHITECT 04/03/2024 7:09 PM [employer]POINT SOL[employer]IONS ARCHITECT Result Mary Jane Bernal M.D. LAB MICROBIOLOGY - BLOOD OR DERABLES Final Result Performing Organization Address City/[facility]/ZIP Co de Phone Number [facility] [address] [place] [address] Formerly named [facility] [address] [place] [address] * Hepatitis C Virus Antibody Screen (04/03/2024 2:14 PM SHAREPOINT SOLUTIONS ARCHITECT) [facility] HCV Ab Scrn , S Negative Negative 04/03/2024 8:17 PM SHAREPOINT SOLUTIONS ARCHITECT [facility] Comment: Consumption of high-dose biotin supplement within 12 hours of blood collection for this test can cause false-negative results. Blood (Blood, Venous) 04/03/2024 2:14 PM [employer] SOL[employer]IONS ARCHITECT 04/03/2024 7:09 PM [employer]POINT SOL[employer]IONS ARCHITECT Result Mary Jane Bernal M.D. LAB MICROBIOLOGY - BLOOD OR DERABLES Final Result Performing Organization Address City/[facility]/ZIP Co de Phone Number [facility] [address] [place] [address] [place] [phone] [place] [address] * HIV-1/-2 Ag and Ab Scrn, Plasma (04/03/2024 2:14 PM SHAREPOINT SOLUTIONS ARCHITECT) [facility] HIV-1/-2 Ag and Ab Scrn, P Negative Negative 04/03/2024 8:14 PM SHAREPOINT SOLUTIONS ARCHITECT [facility] Comment: Negative result does not rule out HIV infection. If exposure to HIV infection occurred <14 days ago, contact the laboratory to request addition of HIV-1/HIV-2 RNA detection , Plasma (HPP12). Blood (Blood, Venous) 04/03/2024 2:14 PM [employer] SOL[employer]IONS ARCHITECT 04/03/2024 7:09 PM [employer] SOL[employer]IONS ARCHITECT Result Mary Jane Bernal M.D. LAB MICROBIOLOGY - BLOOD OR DERABLES Final Result [facility] [address] [place] [address] Formerly named [facility] [address] [place] [address] * HBs Antigen , Serum (04/03/2024 2:14 PM SHAREPOINT SOLUTIONS ARCHITECT) [facility] HBs Antigen , S Negative Negative 04/03/2024 8:17 PM SHAREPOINT SOLUTIONS ARCHITECT [facility] Blood (Blood, Venous) 04/03/2024 2:14 PM [employer] SOL[employer]IONS ARCHITECT 04/03/2024 7:09 PM SHAREPOINT SOLUTIONS ARCHITECT Result [facility] Magalys Bernal M.D. LAB MICROBIOLOGY - BLOOD OR DERABLES Final Result Performing Organization Address [facility] Co de Phone Number [facility] [address] [place] [address] Formerly named [facility] [address] [place] [address] * Varicella-Zoster Antibody, IgG, Serum (04/03/2024 2:14 PM SHAREPOINT SOLUTIONS ARCHITECT) [facility] Varicella-Zoster Ab, IgG, S Positive 04/04/2024 9:52 AM SHAREPOINT SOLUTIONS ARCHITECT [facility] Comment: Results suggest response to immunization or prior exposure to the virus. ----REFERENCE VALUE---- Vaccinated: Positive (>=1.1 AI) Unvaccinated: Negative (<=0.8 AI) Varicella IgG Antibody Index 2.0 04/04/2024 9:52 AM SHAREPOINT SOLUTIONS ARCHITECT [facility] Blood (Blood, Venous) 04/03/2024 2:14 PM [employer] SOL[employer]IONS ARCHITECT 04/03/2024 9:40 PM SHAREPOINT SOLUTIONS ARCHITECT Result [facility] Magalys Bernal M.D. LAB MICROBIOLOGY - BLOOD OR DERABLES Final Result Performing Organization Address [facility] Co de Phone Number [facility] [address] [place] [address] [place] [phone] [place] [address] * Hemoglobin Electrophoresis Evaluation (04/03/2024 2:13 PM SH[employer] SOL[employer]IONS ARCHITECT) [facility] Hb A 97.2 95.8 - 98.0 % 04/04/2024 4:20 PM SHARE[employer] SOLUTIONS ARCHITECT DTL Hb F 0.0 0.0 - 0.9 % 04/04/2024 4:20 PM SHAREPOINT SOLUTIONS ARCHITECT DTL Hb A2 2.8 2.0 - 3.3 % 04/04/2024 4:20 PM SHAREPOINT SOLUTIONS ARCHITECT DTL Comment: ----ADDITIONAL INFORMATION---- This test has been modified from the corporate event planner's instructions. Its performance characteristics were determined by [facility] in a manner consistent with CLIA requirements. This test has not been cleared or approved by the U.S. Food and Drug Administration. HPLC Hb Variant, B See Interpretation 04/04/2024 4:20 PM SHAREPOINT SOLUTIONS ARCHITECT DTL Comment: ----ADDITIONAL INFORMATION---- This test has been modified from the corporate event planner's instructions. Its performance characteristics were determined by [facility] in a manner consistent with CLIA requirements. [...] include: capillary electrophoresis, HPLC. 04/04/2024 4:20 PM SHAREPOINT SOLUTIONS ARCHITECT DTL Blood (Blood, Venous) 04/03/2024 2:13 PM [employer] SOL[employer]IONS ARCHITECT 04/03/2024 2:41 PM SH[employer]POINT SOLUTIONS ARCHITECT us Magalys Bernal M.D. LAB BLOOD ADD-ON Final Resu lt [facility] [address] [place] [address], [facility] DTL [address] [place] [address] * Antibody Identification, Erythrocytes (04/03/2024 2:13 PM SHAREPOINT SOLUTIONS ARCHITECT) [facility] Antibody Identification Anti-Jka 04/03/2024 5:08 PM SHAREPOINT SOLUTIONS ARCHITECT DTL Comment: Clinically significant in regards to HDN. Antibody too weakly reactive to titer. 04/03/2024 2:13 PM [employer] SOLUTIONS ARCHITECT 04/03/2024 2:51 PM [employer]AREPOINT SOLUTIONS ARCHITECT Narrative [facility] - 04/03/2024 5:08 PM SH[employer] SOLUTIONS ARCHITECT Specimen Information: Specimen ID: [id number] Specimen Collection Start Date: 04/03/2024 2:13 PM Specimen Received Date: 04/03/2024 2:51 PM Specimen ID: [id number] Specimen Collection Start Date: 04/03/2024 2:13 PM Specimen Received Date: 04/03/2024 2:51 PM Magalys Bernal M.D. LAB BLOOD BANK TEST ORDERAB LES Final Result [facility] [address] [place] [address], [facility] [address] [place] [address] * (ABNORMAL) CBC with Differential, Blood (04/03/2024 2:13 PM SHAREPOINT SOLUTIONS ARCHITECT) [facility] Hemoglobin 12.9 11.6 - 15.0 g/dL 04/03/2024 2:40 PM SHAREPOINT SOLUTIONS ARCHITECT DTL Hematocrit 37.6 35.5 - 44.9 % 04/03/2024 2:40 PM SHAREPOINT SOLUTIONS ARCHITECT DTL Erythrocytes 4.22 3.92 - 5.13 x10(12)/L 04/03/2024 2:40 PM SHAREPOINT SOLUTIONS ARCHITECT DTL MCV 89.1 78.2 - 97.9 fL 04/03/2024 2:40 PM SHAREPOINT SOLUTIONS ARCHITECT DTL RBC Distrib Width 12.6 12.2 - 16.1 % 04/03/2024 2:40 PM SHAREPOINT SOLUTIONS ARCHITECT DTL Platelet Count 382(H) 157 - 371 x10(9)/L 04/03/2024 2:40 PM SHAREPOINT SOLUTIONS ARCHITECT DTL Leukocytes 10.3(H) 3.4 - 9.6 x10(9)/L 04/03/2024 2:40 PM SHAREPOINT SOLUTIONS ARCHITECT DTL Neutrophils 8.17(H) 1.56 - 6.45 x10(9)/L 04/03/2024 2:40 PM SHAREPOINT SOLUTIONS ARCHITECT [facility] Lymphocytes 1.47 0.95 - 3.07 x10(9)/L 04/03/2024 2:40 PM SHAREPOINT SOLUTIONS ARCHITECT DTL Monocytes 0.62 0.26 - 0.81 x10(9)/L 04/03/2024 2:40 PM SHAREPOINT SOLUTIONS ARCHITECT DTL Eosinophils 0.04 0.03 - 0.48 x10(9)/L 04/03/2024 2:40 PM SHAREPOINT SOLUTIONS ARCHITECT DTL Basophils 0.04 0.01 - 0.08 x10(9)/L 04/03/2024 2:40 PM SHAREPOINT SOLUTIONS ARCHITECT DTL Blood (Blood, Venous) 04/03/2024 2:13 PM SH[employer]POINT SOLUTIONS ARCHITECT 04/03/2024 2:34 PM SHAREPOINT SOLUTIONS ARCHITECT us Magalys Bernal M.D. LAB BLOOD ADD-ON Final Resu lt Performing Organization Address City/[facility]/ZIP Co de Phone Number [facility] [address] DTL [facility] [address] [place] [address] DHPM [facility] [address] [place] [address] * Hemoglobin A1c (04/03/2024 2:13 PM SHAREPOINT SOLUTIONS ARCHITECT) [facility] Hemoglobin A1c, B 4.5 4.0 - 5.6 % 04/03/2024 2:48 PM SHAREPOINT SOLUTIONS ARCHITECT DTL Blood (Blood, Venous) 04/03/2024 2:13 PM SHAREPOINT SOLUTIONS ARCHITECT 04/03/2024 2:34 PM SHAREPOINT SOLUTIONS ARCHITECT us Magalys Bernal M.D. LAB BLOOD ADD-ON Final Resu lt [facility] [address] [place] [address], [facility] DTL [facility] [address] [place] [address] * Ferritin (04/03/2024 2:13 PM SHAREPOINT SOLUTIONS ARCHITECT) Ferritin, S 50 6 - 175 mcg/L 04/03/2024 3:10 PM SHAREPOINT SOLUTIONS ARCHITECT DTL Blood (Blood, Venous) 04/03/2024 2:13 PM SHAREPOINT SOLUTIONS ARCHITECT 04/03/2024 2:45 PM SHAREPOINT SOLUTIONS ARCHITECT us Magalys Bernal M.D. LAB BLOOD ADD-ON Final Resu lt [facility] [address] [place] [address], [place] DTL [facility] [address] [place] [address] * US OB Limited (04/03/2024 11:28 AM SHAREPOINT SOLUTIONS ARCHITECT) Anatomical Region Laterality Modality Ultrasound OB RST LOS, Ultra sound ARZ LOS, Ultrasound FLA LOS, Ultrasound ARZ LOS N/A Ultrasound 04/03/2024 11:0 9 AM SHAREPOINT SOLUT[employer] ARCHITECT Narrative 04/03/2024 12:27 PM SHAREPOINT SOLUT[employer] ARCHITECT Exam Type ========= OB 1st Trimester Indication [...] al Result from Last 3 Months Insurance [facility] Advance Directives For more information, please contact: [phone] * Full Code (Latest Code Status on [...]
--- OUTSIDE RECORDS SUMMARY | 2024-04-06 08:49 | XMS_ITS | Encounter Summary ---
Author Organization [facility] Address [address] [place] [phone] Care Team Providers Care Cable Television Line Technician Name Role Phone Unavailable Primary Care Provider Unavailabl e Reason for Referral * Outpatient (Routine) - Authorized Specialty Diagnoses / Procedures Referred By Suasn mccrary Referred To Contact Obstetrics and Gynecology Noni Bender M.D., Ph.D. [address] [place] [phone] Phone: tel: fax: [facility] Referral ID Status Reason Start Date Expiration Date V isits Requested Visits Authorized [id number] Authorized 03/16/2024 09/15/2025 1 1 Scheduling Instructions Roberto team, same day as nurse appt. R ASSEMBLY SUPERVISOR * Outpatient (Routine) - Closed Specialty Diagnoses / Procedures Referred By Susan mccrary Referred To Contact Obstetrics and Gynecology Noni Bender M.D., Ph.D. [address] [place] [phone] Phone: tel: fax: [facility] Referral ID Status Reason Start Date Expiration Date Visits Re quested Visits Authorized [id number] Closed 03/16/2024 09/15/2025 1 1 Scheduling Instructions Roberto nurse, same day as provider visit R ASSEMBLY SUPERVISOR Reason for Visit * Appointment Request (Routine) - Closed Specialty Diagnoses / Procedures Referred By Contac t Referred To Contact Obstetrics and Gynecology Diagnoses Examination Test With Positive Result (HCC) Referral ID Status Reason Start Date Expiration Date Visits Re quested Visits Authorized [id number] Closed 03/09/2024 03/09/2025 1 1 Encounter Details Date Type Department Care Team (Late st Contact Info) Description 03/16/2024 11:00 AM MOTOR ASSEMBLY SUPERVISOR Initial Department of Obstetrics and Gynecology in [place], [place] [address] [place] [address] Kellen South, RJrN. [address] [place] [address] GA: 8w1d Social History Tobacco Use Types Packs/Day Years Used Date Smoking Tobacco: Former Cigarettes Smokeless Tobacco: Never Alcohol Use Standard Drinks/Week Comments Not Currently 0 (1 standard drink = 0.6 oz pure alcohol) Pre , 1 drink monthly [employer] Answer Date Recorded In the past 12 months has [facility] [employer], [employer], oil, or water [employer] threatened to shut off services in your [...] your living situation today? 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 - 03/16/2024 11:00 AM CST SUBJECTIVE CHIEF COMPLAINT / REASON FOR VISIT Duyen Butterfield is a 33 y.o. . Patient's last menstrual period was 01/19/2024. Her Estimated Date of Delivery: 10/25/24 determined by LMP. Gestational age is 8w1d. Relationship with FOB: significant other, not living together. Patient is undecided about feeding plans. HISTORY OF PRESENT CONDITION OB History Para Term AB Living 10 6 5 1 3 6 SAB IAB Ectopic Molar Multiple Live Births 0 6 # Outcome Date GA Lbr Neel/2nd Weight Sex Type Anes PTL Lv 10 Current 9 Term 08/12/23 39w2d 01:09 / 00:20 3.37 kg F Vag-Spont EPI AMANDA 8 AB 09/13/15 14w0d IAB 7 Term 03/28/14 37w2d M Vag-Spont AMANDA Comments: polydactyly hands and feet bilaterally 6 Term 08/01/12 37w4d 2.608 kg M Vag-Spont Y AMANDA Comments: PTL at 30w - bedrest & Nifedipine - MAC x a few hrs then home, GBS Positive. PPhemorrhage per patient, requiring transfusion 5 AB 09/16/11 14w0d IAB Comments: EAB 4 AB 09/15/10 15w0d IAB Comments: EAB 3 Term 09/08/09 39w4d 3.544 kg F Vag-Spont Y AMANDA Comments: PTL at 27w - tx bedrest & Nifedipine - MAC x 6 hrs 2 Term 10/17/07 37w0d 12:00 2.807 kg M Vag-Spont Y AMANDA Comments: PTL at 28w - tx bedrest & Nifedipine - at ANW, fatty liver disease - IOL at 37w 1 09/24/06 35w4d 04:00 2.551 kg M Vag-Vacuum Y AMANDA Comments: PPROM 35 4 delivery 35 and 6 days GESTATIONAL DIABETES Vacuum Genetic Screen: reviewed [place] Score: Past Medical History: Diagnosis Date Allergy Unspecified Initial seasonal allergies- treats with OTC Anemia currently on iron supplements Anxiety Generalized Disorder No concerns for past 2-3 years Asthma NOS mild asthma, uses albuterol inh. prn Blood Transfusion No Diagnosis 2012 PP hemorrhage Depressive Disorder No concerns for past 2-3 years Diabetes Mellitus Gestational (HCC) 2007 1st Fatty Liver 2008 with 2nd Labor Greater Than 22 Less Than 37 Week (HCC) Migraine Headache With aura. Hemorrhage Delayed With Delivery (HCC) 2013 Following 4th delivery & was transfused Urinary Tract Infection Site Not Specified 2023 1-2 this and treated Varicella Had chickenpox Past Surgical History: Procedure Laterality Date APPENDECTOMY TONSILLECTOMY Family History Problem Relation Name Age of Onset BRCA2 Positive Mother Breast cancer Mother Legionnaire's disease Father No Known Problems Daughter No Known Problems Daughter No Known Problems Son No Known Problems Son No Known Problems Son No Known Problems Son Depression Maternal Grandfather Alcohol abuse Maternal Grandfather Alcohol abuse Paternal Grandmother Schizophrenia Paternal Grandmother Social History Socioeconomic History Marital status: Single Spouse name: NOEL Cespedes Number of children: 6 Highest education level: Associate degree: academic program Occupational History 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 Marin MCCLAIN involved and supportive, and are planning to move in together. Social Drivers of Health Food Insecurity: No Food Insecurity (03/16/2024) Hunger Vital Sign Worried About Running Out of Food in the Last Year: Never true Ran Out of Food in the Last Year: Never true Transportation Needs: No Transportation Needs (03/16/2024) PRAPARE - Transportation Lack of Transportation (Medical): No Lack of Transportation (Non-Medical): No Physical Activity: Unknown (08/07/2023) Exercise Vital Sign Days of Exercise per Week: 7 days Intimate Partner Violence: Not At Risk (03/16/2024) Humiliation, Afraid, Rape, and Kick questionnaire Fear of Current or Ex-Partner: No Emotionally Abused: No Physically Abused: No Sexually Abused: No Housing Stability: Low Risk (03/16/2024) Housing Stability Housing: Living Situation: I have a steady place to live Allergies Allergen Reactions Terbutaline Other (see comments) lethargy Medications the Patient Reported Taking acetaminophen (TYLENOL) 500 mg capsule (Taking As Needed) albuterol 90 mcg/actuation inhaler (Taking As Needed) FOLIC ACID ORAL (Taking) OBJECTIVE VITAL SIGNS Weight: [72.6 kg] 72.6 kg ASSESSMENT / PLAN The following were reviewed with patient: Initial new OB labs and vitamins Patient risk stratifies into high risk care. Prefers OB MD Care. Additional visits ordered: formal ultrasound. Patient consents to [facility] Nurse referral Yes/No/form: No Duyen was seen recently in the [place] ED for nausea and vomiting. She was given fluids and a Zofran rx. She is feeling better now and able to keep fluids down. Kellen South R.N. R ASSEMBLY SUPERVISOR documented in this encounter Plan of Treatment Upcoming Encounters Date Type Department Care Team (Late st Contact Info) Description 2024 10:00 AM MOTOR ASSEMBLY SUPERVISOR Initial Department of Obstetrics and Gynecology in [place], [place] [address] [place] [address] Magalys Bernal M.D. [address] [place] [address] Scheduled Referrals Name Type Priority Associated Diagnoses Order Schedule Obstetrics and Gynecology nurse visit (clinic) Outpatient Referral Routine Expected: 03/23/2024, Expires: 06/14/2025 Obstetrics and Gynecology office visit (clinic) Outpatient Referral Routine Expected: 03/23/2024, Expires: 06/14/2025 documented as of this encounter Results * US OB Limited (04/03/2024 11:28 AM MOTOR ASSEMBLY SUPERVISOR) Anatomical Region Laterality Modality Ultrasound OB RST LOS, Ultra sound ARZ LOS, Ultrasound FLA LOS, Ultrasound ARZ LOS N/A Ultrasound 04/03/2024 11:0 9 AM MOTOR ASSEMBLY SUPERVISOR Narrative 04/03/2024 12:27 PM MOTOR ASSEMBLY SUPERVISOR Exam Type ========= OB 1st Trimester Indication [...] IMG OB US PROCEDURES Fin al Result documented in this encounter Visit Diagnoses Diagnosis High Risk History Labor (HCC)- Primary High Risk History Labor (HCC) documented in this encounter Additional Health Concerns Assessment Noted Time PHQ-9 Depression Total Score: 7 08/07/19 24 8:41 AM CDT documented as of this encounter
--- OUTSIDE RECORDS SUMMARY | 2024-04-06 08:49 | XMS_ITS | Encounter Summary ---
Author Organization [facility] Address [address] [place] [address] Care Team Providers Care Recreational Facilities Motel Manager Name Role Phone Unavailable Primary Care Provider Unavailabl e Reason for Visit * Reason Onset Date Comments Reschedule 04/02/2024 Encounter Details Date Type Department Care Team ([facility] st Contact Info) Description 04/02/2024 Clinical Communication Department of Obstetrics and Gynecology in [place], [place] [address] [place] [phone] Magalys Bernal M.D. [address] [place] [phone] Reschedule Social History Tobacco Use Types Packs/Day Years Used Date Smoking Tobacco: Former Cigarettes Smokeless Tobacco: Never Alcohol Use Standard Drinks/Week Comments Not Currently 0 (1 standard drink = 0.6 oz pure alcohol) Pre , 1 drink monthly [facility] Utilities Answer Date Recorded In the past 12 months has [facility] [employer], gas, oil, or water [employer] threatened to shut off services in your [...] your living situation today? 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 [address] [place] [address] documented as of this encounter Visit Diagnoses Not on filedocumented in this encounter Additional Health Concerns Assessment Noted Time PHQ-9 Depression Total Score: 7 08/07/19 8:41 AM CDT documented as of this encounter
--- OUTSIDE RECORDS SUMMARY | 2024-04-06 08:49 | XMS_ITS | Encounter Summary ---
Author Organization [facility] Address [address] [place] [address] Care Team Providers Care Bit Shaver Name Role Phone Unavailable Primary Care Provider Unavailabl e Encounter Details Date Type Department Care Team (Latest Contact Info) Description 04/03/2024 11:01 AM STRING CUTTER - 04/03/2024 11:59 PM STRING CUTTER Hospital Encounter Department of Obstetrics and Gynecology in [place], [place] [address] [place] [phone] Noni Bender M.D., Ph.D. [address] [place] [phone] High Risk History Labor (HCC) Discharge Disposition: Home or Self Care Social History Tobacco Use Types Packs/Day Years Used Date Smoking Tobacco: Former Cigarettes Smokeless Tobacco: Never Alcohol Use Standard Drinks/Week Comments Not Currently 0 (1 standard drink = 0.6 oz pure alcohol) Pre , 1 drink monthly [facility] Utilities Answer Date Recorded In the past 12 months has [facility] [employer] [facility], oil, or water [employer] threatened to shut off services in your [...] your living situation today? 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 08/13/2023 albuterol 90 mcg/actuation inhaler Inhale 2 puffs 4 (four) times a day as needed. 08/26/2022 benzocaine-menth oL (DERMOPLAST) 20-0.5 % external spray Apply 1 Application topically 4 (four) times a day as needed for pain. 08/13/2023 calcium carbonate-vitami n D3 (Calcium with Vitamin D) 1,500 mg (600 mg calcium)-10 mcg (400 Unit) per tablet Take 1 tablet by mouth daily. docusate sodium (COLACE) 100 mg capsule Take 1 capsule (100 mg total) by mouth 2 (two) times a day as needed for constipation. 08/13/2023 ferrous sulfate 325 mg (65 mg iron) tabletIndication s:Anemia Take 1 tablet (65 mg of iron total) by mouth daily. 90 tablet 1 05/31/2023 FOLIC ACID ORAL Take 1 tablet by mouth daily. ibuprofen (ADVIL,MOTRIN) 200 mg tablet Take 3 tablets (600 mg total) by mouth every 6 (six) hours as needed for pain. 08/13/2023 sennosides (senna) 8.6 mg tablet Take 1 tablet (8.6 mg total) by mouth at bedtime as needed for constipation. 08/13/2023 simethicone (MYLICON) 125 mg chewable tablet Chew 1 tablet (125 mg total) 4 (four) times a day as needed for flatulence. 08/13/2023 witch Talia (TUCKS) 50 % pad Apply to the affected rectal area by patting up to 6 times daily or after each bowel movement. 08/13/2023 documented as of this encounter Plan of Treatment Upcoming Encounters Date Type Department Care Team (Late st Contact Info) Description 2024 10:00 AM STRING CUTTER Initial Department of Obstetrics and Gynecology in [place], [place] 200 [place] [address] Magalys Bernal M.D. 200 [place] [phone] documented as of this encounter Procedures Procedure Name Priority Date/Time Associated Diagnosis Comments US OB LIMITED RAD - Routine (most inpatients and all outpatients) 04/03/2024 11:28 AM STRING CUTTER High Risk History Labor (HCC) documented in this encounter Results * US OB Limited (04/03/2024 11:28 AM STRING CUTTER) Anatomical Region Laterality Modality Ultrasound OB RST LOS, Ultra sound ARZ LOS, Ultrasound FLA LOS, Ultrasound ARZ LOS N/A Ultrasound 04/03/2024 11:0 9 AM STRING CUTTER Narrative 04/03/2024 12:27 PM STRING CUTTER Exam Type ========= OB 1st Trimester Indication [...] Visit Diagnoses Diagnosis High Risk History Labor (HCC) documented in this encounter Additional Health Concerns Assessment Noted Time PHQ-9 Depression Total Score: 7 08/07/19 24 8:41 AM CDT documented as of this encounter
--- OUTSIDE RECORDS SUMMARY | 2024-04-06 08:49 | XMS_ITS ---
Author Organization [facility] Address [address] [place] [address] Care Team Providers Care Bank Note Designer Name Role Phone Unavailable Unavailable Unavailable Surgery Details Not on file Complications Check Surgery Details section. Procedure Estimated Blood Loss Check Surgery Details section. Procedure Findings Check Surgery Details section. Procedure Specimens Taken Check Surgery Details section.
[2024-04-06 08:52] VITALS: BP 120/79; PULSE 119; RESP 16; TEMP 36.4; O2SAT 98; BMI 26.6
--- NOTE | 2024-04-06 09:13 | ED_ITS ---
HPI - General Adult General Date Seen: 04/06/24 Chief complaint: Cough Stated complaint: fever/cough - 12 wk Time Seen by Provider: 04/06/24 08:46 Source: patient Mode of arrival: ambulatory Limitations: no limitations History of Present Illness HPI narrative: patient is a 33-year-old female with flu-like symptoms. She states for the past 3 days she has been having chills, nausea, body aches, cough and is feeling very dehydrated. States she has had fevers with past few days at home and has been taking Tylenol. She is 12 weeks . Is concerned because to her kids have bacterial pneumonia. States she has been having a sore throat it has been painful to swallow anything but denies any shortness of breath or difficulty breathing. Is having chest pain when she coughs but no chest pain at rest. Has been having rhinorrhea and some right ear pain. Denies abdominal pain diarrhea but has been feeling constipated. Has not had any dysuria. Has been having a mild headache but she states it feels like her previous headaches. No other concerns noted. Related Data Previous Rx's ?Medication ?Instructions ?Recorded amoxicillin 500 mg capsule 1,000 mg (2 x 500 mg) PO TID 5 04/06/24 days #30 caps ondansetron 4 mg disintegrating 4 mg PO Q6H #20 tabs 04/06/24 tablet Allergies Allergy/AdvReac Type Severity Reaction Status Date / Time terbutaline Allergy Mild Headache Verified 03/13/24 16:58 Review of Systems Status of ROS: Reports: 10 or more systems reviewed and unremarkable except as noted in History and below [facility] Medical History Controlled substance agreement signed ?Z79.899 - Other fci (current) drug therapy (ICD-10) Panic attacks ?F41.0 - Panic disorder [episodic paroxysmal anxiety] (ICD-10) ALVARO (generalized anxiety disorder) ?F41.1 - Generalized anxiety disorder (ICD-10) Anxiety and depression ?F41.9 - Anxiety disorder, unspecified (ICD-10) ?F32.A - Depression, unspecified (ICD-10) ADHD ?F90.9 - Attention-deficit hyperactivity disorder, unspecified type (ICD-10) Vaginitis and vulvovaginitis ?N76.0 - Acute vaginitis (ICD-10) Chronic tension headaches ?G44.229 - Chronic tension-type headache, not intractable (ICD-10) Surgical History History of tonsillectomy and adenoidectomy ?Z90.89 - Acquired absence of other organs (ICD-10) History of appendectomy ?Z90.49 - Acquired absence of other specified parts of digestive tract (ICD- 10) Social History Smoking Status: Former smoker Second hand tobacco smoke exposure: No How often do you have a drink containing alcohol: never How often do you have six or more drinks on one occasion: Never AUDIT-C Alcohol total score: 0 Non-prescribed substance use: denies use Exam Narrative: Exam Narrative: Const: Well-nourished, Well-developed, in mild distress Eyes: PERRL, no conjunctival injection, and symmetrical lids HENT: Atraumatic external nose and ears. Moist mucous membranes. Uvula midline, no tonsillar exudate or swelling. Mildly erythematous right tympanic membrane and normal left tympanic membrane. Neck: Symmetric, trachea midline, No thyromegaly. CVS: RRR, No murmurs or gallops. Peripheral pulses 2+ and equal in all extremities RESP: Unlabored respiratory effort. Clear to auscultation bilaterally. GI: Nontender/Nondistended, No rebound or guarding. MSK:Extremities w/o deformity, Normal Active ROM , chest pain tender to palpations the reproduces her pain. Skin: Warm, Dry. No rashes or lesions. Neuro: Normal Muscle tone, No focal neurological deficits. Psych: Awake, Alert, & Oriented x3. Appropriate mood and affect. Const: Vital Signs, click to edit/add: Vital Signs - 24 hr 04/06/24 08:52 04/06/24 10:11 Temperature 97.6 F Pulse Rate [Pulse Oximeter] 119 H 89 Respiratory Rate 16 16 Blood Pressure [Ri ght Upper Arm] 120/79 114/63 Pulse Oximetry 98 100 Oxygen Delivery Me thod Room Air Room Air Course Vital Signs Vital signs: Initial Vital Signs Temperature 97.6 F 04/06/24 08:52 Temperature Source Temporal Artery Scan 04/06/24 08:52 Pulse Rate 119 H 04/06/24 08:52 Respiratory Rate 16 04/06/24 08:52 Blood Pressure 120/79 04/06/24 08:52 Blood Pressure Mean 92 04/06/24 08:52 Blood Pressure Position Sitting 04/06/24 08:52 Pulse Oximetry 98 04/06/24 08:52 Oxygen Delivery Method Room Air 04/06/24 08:52 Vital Signs Temperature 97.6 F 04/06/24 08:52 Pulse Rate 119 H 04/06/24 08:52 Respiratory Rate 16 04/06/24 08:52 Blood Pressure 120/79 04/06/24 08:52 Pulse Oximetry 98 04/06/24 08:52 Oxygen Delivery Method Room Air 04/06/24 08:52 Temperature 97.6 F 04/06/24 08:52 Pulse Rate 89 04/06/24 10:11 Respiratory Rate 16 04/06/24 10:11 Blood Pressure 114/63 04/06/24 10:11 Pulse Oximetry 100 04/06/24 10:11 Oxygen Delivery Method Room Air 04/06/24 10:11 Medications Administered Medications: Discontinued Medications Generic Name Dose Route Start Last Admin Trade Name Freq PRN Reason Stop Dose Admin Dexamethasone 10 mg 04/06/24 09:16 04/06/24 09:24 Dexamethasone 10 Mg/Ml Inj PO 04/06/24 09:17 Not Given ONCE ONE Lactated Ringer's 1,000 mls @ 1,000 mls/hr 04/06/24 09:13 04/06/24 09:26 Lactated Ringers 1000 Ml IV 04/06/24 10:12 1,000 mls/hr .Q1H ONE Administration Ondansetron HCl 4 mg 04/06/24 09:13 04/06/24 09:26 Ondansetron 2 Mg/Ml Inj IVP 04/06/24 09:14 4 mg ONCE ONE Administration Medical Decision Making MDM Narrative Medical decision making narrative: Patient is a 33-year-old female presenting to the emergency department for flu-like symptoms. She is having a sore throat. Patient is not showing signs of peritonsillar abscess, Dru angina, retropharyngeal abscess,Lemierre disease or any other concerning oral pharynx or deep neck space abscesses. Imaging is not necessary. Her chest pain is reproducible on palpation and is only there when she coughs. This is likely costochondritis. Do not believe lab work or imaging is necessary for it at this time. She is not having any shortness of breath. PE seems unlikely. Will do a chest x-ray though to look for signs of pneumonia. Will also do a strep swab. She is feeling dehydrated we will do a L of IV fluids and give her Zofran for nausea. Patient is feeling better after the fluids and Zofran. Viral swabs are negative. Dexamethasone was discontinued as it is not clear the safety profile in 1st term labor. Chest x-ray reviewed myself and the radiologist shows left upper lobe pneumonia. Will start the patient on amoxicillin. Lab Data Labs: Lab Results 04/06/24 04/06/24 Range/Units 09:03 09:13 SARS-CoV-2 (PCR) Negative SARS-CoV-2 (Negative) Influenza Type A (PCR) Negative PCR FLU A (Negative) Influenza Type B (PCR) Negative PCR FLU B (Negative) RSV (PCR) Negative PCR RSV (Negative) Group A Strep DNA NOT DETECTED (Not Detectd) Imaging Data Chest x-ray: Attestation: I have reviewed the pertinent imaging results. Radiologist's impression: Left upper lobe pneumonia. Dictated by Damion Schaffer MD @ 04/06/2024 9:52:50 AM Discharge Plan Discharge Clinical Impression: Pneumonia Qualifiers: Pneumonia type: due to unspecified organism Laterality: left Lung location: upper lobe of lung Qualified Code(s): J18.9 - Pneumonia, unspecified organism Patient Disposition: Home, Self-Care Condition: Stable Instructions: Pneumonia (ED) Additional Instructions: Take the Zofran as needed for nausea. Use the amoxicillin for your pneumonia. If symptoms are not improving over the next few days follow-up with your primary care provider. Return to emergency department for any other new or worsening symptoms. Prescriptions: New ondansetron 4 mg tablet,disintegrating 4 mg PO Q6H Qty: 20 0RF amoxicillin 500 mg capsule 1,000 mg PO TID 5 Days Qty: 30 0RF Follow Up/Referrals: Provider,Not a Local [Primary Care Provider] - Stand Alone Forms: [employer] Info Instructions
--- NOTE | 2024-04-06 09:13 | CRLHL7_ITS ---
For Patients: As a result of the Cures Act, medical imaging exams and procedure reports are released immediately into your electronic medical record. You may view this report before your referring provider. If you have questions, please contact your health care provider. INDICATION: COUGH. PT IS 12 WKS PREG TECHNIQUE: Chest 2 views COMPARISON: 04/10/2015 FINDINGS: Parenchymal densities are present within the left upper lobe adjacent to the left hilum. Right lung clear. Cardiac silhouette normal. No pleural effusion or fracture. IMPRESSION: Left upper lobe pneumonia. Dictated by Damion Schaffer MD @ 04/06/2024 9:52:50 AM (Electronically Signed)
[2024-04-06] MEDS: LACTATED RINGERS 1000 ML 1,000 ML IV (09:26)
[2024-04-06] MEDS: ONDANSETRON 2 MG/ML inj 4 MG IVP (09:26)
[2024-04-06 09:49] LABS: Strep A DNA Probe* NOT DETECTED (Not Detectd)
[2024-04-06 10:02] LABS: PCR FLU A Negative PCR FLU A (Negative); PCR FLU B Negative PCR FLU B (Negative); PCR RSV Negative PCR RSV (Negative); SARS PCR* Negative SARS-CoV-2 (Negative)
[2024-04-06 10:11] VITALS: BP 114/63; PULSE 89; RESP 16; O2SAT 100
== END 2024-04-06 10:44 | disposition home or self-care (01) ==
PROVIDERS: Emergency Provider Student in an Organized Health Care Education/Training Program
DX: J18.9 Pneumonia, unspecified organism (principal); Z3A.12 12 weeks gestation of pregnancy
CPT/HCPCS: 71046; 87631; 87651; 96374; 99283; 99284; J2405; J7120

== ENCOUNTER 2024-06-06 11:30 | Emergency (ER) | payer MEDICAID, SELFPAY ==
--- OUTSIDE RECORDS SUMMARY | 2024-06-06 11:32 | XMS_ITS | Encounter Summary ---
Author Organization [facility] Address [address] [place] [id number] Care Team Providers Care Producer Assistant Name Role Phone Unavailable Primary Care Provider Unavailabl e Encounter Details Date Type Department Care Team (Latest Contact Info) Description 06/05/2024 9:31 AM CDT - 06/05/2024 11:59 PM CDT Hospital Encounter Department of Obstetrics and Gynecology in [place], [place] [address] [place] [phone] Magalys Bernal M.D. 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) Discharge Disposition: Home or Self Care Social History Tobacco Use Types Packs/Day Years Used Date Smoking Tobacco: Former Cigarettes Smokeless Tobacco: Never Alcohol Use Standard Drinks/Week Comments Not Currently 0 (1 standard drink = 0.6 oz pure alcohol) Pre , 1 drink monthly [facility] Utilities Answer Date Recorded In the past 12 months has [facility] [employer], gas, oil, or water [employer]AN[employer] threatened to shut off services in your [...] PHQ-2 Answer Date Recorded PHQ-2 Score 0 2024 Exercise Vital Sign Answer Date Recorde d [...] Recor ded PHQ-9 Total Score (max 27) 2 04/17 Nutrition Answer Date Recorded On average, how [...] your living situation today? 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 08/13/2023 albuterol 90 mcg/actuation inhaler Inhale 2 puffs 4 (four) times a day as needed. 08/26/2022 ferrous sulfate 325 mg (65 mg iron) tabletIndications: Anemia Take 1 tablet (65 mg of iron total) by mouth daily. 90 tablet 1 05/31/2023 FOLIC ACID ORAL Take 1 tablet by mouth daily. nitrofurantoin monohydrate (Macrobid) 100 mg capsuleIndications :Bacteriuria Asymptomatic Take 1 capsule (100 mg total) by mouth 2 (two) times a day. For bacteria in urine in 10 capsule 04/15/2024 documented as of this encounter Plan of Treatment Upcoming Encounters Date Type Department Care Team (Late st Contact Info) Description 07/10/2024 10:00 AM CDT Appointment Department of Obstetrics and Gynecology in [place], [place] [address] [place] [phone] Noni Bender M.D., Ph.D. [address] [place] [phone] Discharge Disposition: Home or Self Care 07/10/2024 11:00 AM CDT Routine Department of Obstetrics and Gynecology in [place], [place] [address] [place] [phone] Cristela Zapien, RHIANNA, CNM [address] [place] [phone] 07/10/2024 11:40 AM CDT Lab Department of Laboratory Medicine and Pathology, [facility], in [place], [place] [address] [place] [phone] Noni Bender M.D., Ph.D. [address] [place] [phone] 07/20/2024 10:10 AM CDT Lab Department of Laboratory Medicine and Pathology, [facility] in [place], [place] [address] [place] [phone] Noni Bender M.D., Ph.D. [address] [place] [phone] 08/14/2024 9:00 AM CDT Appointment Department of Obstetrics and Gynecology in [address] [phone] Noni Bender M.D., Ph.D. [address] [place] [phone] Discharge Disposition: Home or Self Care 08/14/2024 10:00 AM CDT Routine Department of Obstetrics and Gynecology in [address] [phone] Magalys Bernal M.D. 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 Para 6 Method ====== Transvaginal ultrasound examination. Transabdominal ultrasound examination ========= Jovel Dating ====== Date Details Gest. age ELVIE Stated ELVIE 19 w + 5 d 10/25/2024 U/S 06/05/2024 based upon AC, BPD, Femur 19 w + 1 d 10/29/2024 Assigned dating based on stated ELVIE, selected on 04/03/2024 19 w + 5 d 10/25/2024 General Evaluation Cardiac activity present. FHR 146 bpm. Presentation: Cephalic Placenta: Placental site: anterior, without placenta previa or vasa previa Umbilical cord: Cord vessels: 3 vessel cord. Insertion site: normal insertion Amniotic fluid: Amount of AF: subjectively normal Biometry BPD 40.0 mm 18w 1d 4% HC 165.9 mm Cerebellum tr 18.5 mm 8% Nuchal fold 4.1 mm APAD 49.8 mm 21w 3d TAD 41.7 mm 18w 5d AC 144.4 mm 19w 5d 46% Femur 30.8 mm 19w 4d 36% Humerus 30.2 mm 20w 0d 62% HC / AC 1.15 37% Weight Calculation: EFW 299 g 36% Hadlock EFW (lb,oz) 0 lb 11 oz EFW by Hadlock ([id number]) Head / Face / Neck Biometry: Door Opener 6.8 mm CM 4.4 mm 33% Inner IOD 14.8 mm Outer IOD 28.7 mm 18w 5d 11% Nasal bone 6.8 mm Extremities / Bony Struc Biometry: Radius 24.5 mm 19w 1d 40% Ulna 25.9 mm 19w 3d 26% FL / BPD 0.77 97% FL / HC 0.19 54% FL / AC 0.21 41% Tibia 30.8 mm 21w 2d 94% Fibula 28.6 mm 20w 1d 60% Anatomy The following structures appear normal: Head / Neck Cranium. Lateral ventricles. Choroid plexus. Midline falx. Cavum septi pellucidi. Cerebellum. Cisterna magna. Vermis. Neck. Nuchal fold. Face Lips. Profile. Nose. Coronal face. Nasal bone. Palate. Tongue. Maxilla. Mandible. Orbits. Lens. Heart / Thorax 4-chamber view: Pulmonary veins: normal. RVOT view. LVOT view. 3-vessel view. 6-xmxxhi-xstjjgf view. Situs. Aortic arch view. Bicaval view. Ductal arch view. Interventricular septum. Diaphragm. Abdomen Abdom. wall. Cord insertion. Stomach. Kidneys. Bladder. Right renal artery. Left renal artery. Genitals. Spine Cervical spine. Thoracic spine. Lumbar spine. Sacral spine. Extremities / Skeleton Arms. Hands. Legs. Feet. sex: female. Maternal Structures Cervix Normal Cervical length 4.0 cm Normal appearing adnexa and ovaries Impression ========= Detailed ultrasound examination Findings: Jovel intrauterine with good activity. Size is consistent with dates. There are no abnormalities or sonographic soft markers of aneuploidy visualized. Amniotic fluid is subjectively normal Placenta is anterior, without placenta previa or vasa previa. Placental tai noted. The maternal uterus and adnexae were visualized and normal. Transvaginal scan performed for cervical length, focal anterior and posterior contractions may distort measurement however cervical length appears reassuring, measuring 4.04 cm, without funneling or dynamic changes. Procedure Note Marilyn Perales M.D. - 06/05/2024 Exam Type ========= OB Detailed Anatomy Indication ======== Detailed anatomy US, AMA, history of History ====== OB History 10. Para 6 Method ====== Transvaginal ultrasound examination. Transabdominal ultrasoundexamination ========= Jovel Dating ====== Date DetailsGest. age ELVIE Stated ELVIE 19 w + 5 d 10/25/2024 U/S 06/05/2024 based upon AC, BPD, Femur 19w + 1 d 10/29/2024 Assigned dating based on stated ELVIE, selected on w + 5 d 10/25/2024 General Evaluation Cardiac activity present. FHR 146 bpm. Presentation: Cephalic Placenta: Placental site: anterior, without placenta previa or vasaprevia Umbilical cord: Cord vessels: 3 vessel cord. Insertion site: normalinsertion Amniotic fluid: Amount of AF: subjectively normal Biometry BPD 40.0 mm 18w 1d 4% HC 165.9 mm Cerebellum tr 18.5 mm 8% Nuchal fold 4.1 mm APAD 49.8 mm 21w 3d TAD 41.7 mm 18w 5d AC 144.4 mm 19w 5d 46% Femur 30.8 mm 19w 4d 36% Humerus 30.2 mm 20w 0d 62% HC / AC 1.15 37% Weight Calculation: EFW 299 g 36% Hadlock EFW (lb,oz) 0 lb 11 oz EFW by Hadlock ([id number]) Head / Face / Neck Biometry: Door Opener 6.8 mm CM 4.4 mm 33% Inner IOD 14.8 mm Outer IOD 28.7 mm 18w 5d 11% Nasal bone 6.8 mm Extremities / Bony Struc Biometry: Radius 24.5 mm 19w 1d 40% Ulna 25.9 mm 19w 3d 26% FL / BPD 0.77 97% FL / HC 0.19 54% FL / AC 0.21 41% Tibia 30.8 mm 21w 2d 94% Fibula 28.6 mm 20w 1d 60% Anatomy The following structures appear normal: Head / Neck Cranium. Lateral ventricles. Choroid plexus. Midline falx.Cavum septi pellucidi. Cerebellum. Cisterna magna. Vermis. Neck. Nuchal fold. Face Lips. Profile. Nose. Coronal face. Nasal bone. Palate.Tongue. Maxilla. Mandible. Orbits. Lens. Heart / Thorax 4-chamber view: Pulmonary veins: normal. RVOT view. LVOTview. 3-vessel view. 3-znsuvt-hywfzhe view. Situs. Aortic arch view.Bicaval view. Ductal arch view. Interventricular septum. Diaphragm. Abdomen Abdom. wall. Cord insertion. Stomach. Kidneys. Bladder.Right renal artery. Left renal artery. Genitals. Spine Cervical spine. Thoracic spine. Lumbar spine. Sacralspine. Extremities / Skeleton Arms. Hands. Legs. Feet. sex: female. Maternal Structures Cervix Normal Cervical length 4.0 cm Normal appearing adnexa and ovaries Impression ========= Detailed ultrasound examination Findings: Jovel intrauterine with good activity. Size is consistent with dates. There are no abnormalities or sonographic soft markers of aneuploidyvisualized. Amniotic fluid is subjectively normal Placenta is anterior, without placenta previa or vasa previa. Placentallake noted. The maternal uterus and adnexae were visualized and normal. Transvaginal scan performed for cervical length, focal anterior andposterior contractions may distort measurement however cervical lengthappears reassuring, measuring 4.04 cm, without funneling or dynamic changes. us Magalys Bernal M.D. 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
--- OUTSIDE RECORDS SUMMARY | 2024-06-06 11:32 | XMS_ITS | Encounter Summary ---
Author Organization [facility] Address [address] [place] [address] Care Team Providers Care Financial Quantitative Analyst Name Role Phone Unavailable Primary Care Provider Unavailabl e Reason for Referral * Outpatient (Routine) - Authorized Specialty Diagnoses / Procedures Referred By Contac t Referred To Contact Obstetrics and Gynecology Noni Bender M.D., Ph.D. [address] [place] [phone] Phone: tel: fax: Magalys Bernal M.D. [address] [place] [phone] Phone: tel: fax: Referral ID Status Reason Start Date Expiration Date V isits Requested Visits Authorized [id number] Authorized 06/05/2024 12/05/2025 1 1 * Outpatient (Routine) - Authorized Specialty Diagnoses / Procedures Referred By Contac t Referred To Contact Obstetrics and Gynecology Noni Bender M.D., Ph.D. [address] [place] [phone] Phone: tel: fax: Magalys Bernal M.D. [address] [place] [phone] Phone: tel: fax: Referral ID Status Reason Start Date Expiration Date V isits Requested Visits Authorized [id number] Authorized 06/05/2024 12/05/2025 1 1 Reason for Visit * Outpatient (Routine) - Closed Specialty Diagnoses / Procedures Referred By Contmegan t Referred To Contact Obstetrics and Gynecology Magalys Bernal M.D. [address] [place] [phone] Phone: tel: fax: Magalys Bernal M.D. [address] [place] [phone] Phone: tel: fax: Referral ID Status Reason Start Date Expiration Date Visits Re quested Visits Authorized [id number] Closed 2024 10/17/2025 1 1 Encounter Details Date Type Department Care Team (Latest Contact Info) Description 06/05/2024 11:00 AM CDT Routine Department of Obstetrics and Gynecology in [place], [place] [address] [place] [phone] Noni Bender M.D., Ph.D. 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) (Primary Dx); High Risk History Labor (HCC); Multigravida Advanced Maternal Age Affecting Management (HCC); Neoplasia Cervical Squamous Low Grade Intraepithelial; Breast Cancer Susceptibility Gene Mutation Family History; Family History Congenital Heart Disease; Raised Antibody Titer Social History Tobacco Use Types Packs/Day Years Used Date Smoking Tobacco: Former Cigarettes Smokeless Tobacco: Never Alcohol Use Standard Drinks/Week Comments Not Currently 0 (1 standard drink = 0.6 oz pure alcohol) Pre , 1 drink monthly [facility] Utilities Answer Date Recorded In the past 12 months has [email or web address], gas, oil, or water [employer] threatened to shut off services in your [...] AM CDT Legal Sex Female 9:43 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 [address] [place] [phone] Discharge Disposition: Home or Self Care 07/10/2024 11:00 AM CDT Routine Department of Obstetrics and Gynecology in [place], [place] [address] [place] [phone] Cristela Zapien, BUNCH TRIMMER MOLD, CNM [address] [place] [phone] 07/10/2024 11:40 AM CDT Lab Department of Laboratory Medicine and Pathology, [place], [place] [address] [place] [phone] Noni Bender M.D., Ph.D. [address] [place] [phone] 07/20/2024 10:10 AM CDT Lab Department of Laboratory Medicine and Pathology, [facility], in [place], [place] [address] [place] [phone] Noni Bender M.D., Ph.D. [address] [place] [phone] 08/14/2024 9:00 AM CDT Appointment Department of Obstetrics and Gynecology in [place], [place] [address] [place] [phone] Noni Bender M.D., Ph.D. [address] [place] [phone] Discharge Disposition: Home or Self Care 08/14/2024 10:00 AM CDT Routine Department of Obstetrics and Gynecology in [place], [place] [address] [place] [phone] Magalys Bernal M.D. 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) Expected: 07/20/2024, Expires: 09/05/2025 US OB Follow-up and or Growth [facility] - Routine (most inpatients and all outpatients) 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) Expected: 08/03/2024, Expires: 09/05/2025 US OB Follow-up and or Growth [facility] - Routine (most inpatients and all outpatients) 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) Expected: 07/10/2024, Expires: 09/05/2025 Antibody Titer, Erythrocytes Lab Routine 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) Expected: 07/10/2024, Expires: 09/05/2025 Scheduled Referrals Name Type Priority Associated Diagnoses Order Schedule Obstetrics and Gynecology office visit (clinic) Outpatient Referral Routine Expected: 07/06/2024, Expires: 09/05/2025 Obstetrics and Gynecology office visit (clinic) Outpatient Referral Routine Expected: 08/03/2024, Expires: 09/05/2025 documented as of this encounter Visit Diagnoses Diagnosis 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)- Primary High Risk History Labor (HCC) Multigravida Advanced Maternal Age Affecting Management (HCC) 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
--- OUTSIDE RECORDS SUMMARY | 2024-06-06 11:32 | XMS_ITS | Encounter Summary ---
Author Organization [facility] Address [address] [place] [address] Care Team Providers Care Building Estimator Name Role Phone Unavailable Primary Care Provider Unavailabl e Encounter Details Date Type Department Care Team (Late st Contact Info) Description 04/28/2024 3:00 PM SCHOOL GUARD Lab Department of Laboratory Medicine and Pathology, [facility], in [place], [place] [address] [place] [phone] Noni Bender M.D., Ph.D. [address] [place] [phone] Multigravida Advanced Maternal Age Affecting Management (HCC) Social History Tobacco Use Types Packs/Day Years Used Date Smoking Tobacco: Former Cigarettes Smokeless Tobacco: Never Alcohol Use Standard Drinks/Week Comments Not Currently 0 (1 standard drink = 0.6 oz pure alcohol) Pre , 1 drink monthly [facility] Utilities Answer Date Recorded In the past 12 months has [facility] [employer], gas, oil, or water [employer] threatened to shut off services in your [...] your living situation today? 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 [address] [place] [phone] Discharge Disposition: Home or Self Care 07/10/2024 11:00 AM CDT Routine Department of Obstetrics and Gynecology in [address] [phone] Cristela Zapien, GLUE PLANT OPERATOR, CNM [address] [place] [phone] 07/10/2024 11:40 AM CDT Lab Department of Laboratory Medicine and Pathology, [address] [phone] Noni Bender M.D., Ph.D. [address] [place] [phone] 07/20/2024 10:10 AM CDT Lab Department of Laboratory Medicine and Pathology, [facility] in [place], [place] [address] [place] [phone] Noni Bender M.D., Ph.D. [address] [place] [phone] 08/14/2024 9:00 AM CDT Appointment Department of Obstetrics and Gynecology in [address] [phone] Noni Bender M.D., Ph.D. [address] [place] [phone] Discharge Disposition: Home or Self Care 08/14/2024 10:00 AM CDT Routine Department of Obstetrics and Gynecology in [place], [place] [address] [place] [phone] Magalys Bernal M.D. [address] [place] [phone] documented as of this encounter Procedures Procedure Name Priority Date/Time Associated Diagnosis Comments HORIZON CARRIER SCREEN, BLOOD Routine 04/28/2024 3:07 PM SCHOOL GUARD Multigravida Advanced Maternal Age Affecting Management (HCC) PANORAMA SCREEN Routine 04/28/2024 3:07 PM SCHOOL GUARD Multigravida Advanced Maternal Age Affecting Management (HCC) documented in this encounter Results * Panorama Screen - Sent Out Lab (04/28/2024 3:07 PM SCHOOL GUARD) Panorama Screen SEE COMMENT 05/04/2024 1:51 PM SCHOOL GUARD [employer] Comment: For final report, select Lab-Send Out Lab Results hyperlink below. Blood (Blood, Venous) 04/28/2024 3:07 PM SCHOOL GUARD 04/29/2024 9:11 AM SCHOOL GUARD Narrative [employer] - 05/04/2024 1:51 PM SCHOOL GUARD Specimen Information: Specimen ID: [id number] Specimen Type: Blood Specimen Collection Start Date: 04/28/2024 3:07 PM Specimen Received Date: 04/29/2024 9:11 AM Specimen ID: [id number] Specimen Type: Blood Specimen Collection Start Date: 04/28/2024 3:07 PM Specimen Received Date: 04/29/2024 9:11 AM Noni Bender M.D., Ph.D. LAB GENETIC TESTING Tiffani l Result [employer] [address] [place] [phone], [place] [employer] [address] [place] [phone] * Horizon Carrier Screen, Blood - Sent Out Lab (04/28/2024 3:07 PM SCHOOL GUARD) Horizon Carrier Screen, Blood SEE COMMENT 05/13/2024 8:52 AM SCHOOL GUARD [employer] Comment: For final report, select Lab-Send Out Lab Results hyperlink below. Blood (Blood, Venous) 04/28/2024 3:07 PM SCHOOL GUARD Narrative [employer] - 05/13/2024 8:52 AM SCHOOL GUARD Specimen Information: Specimen ID: [id number] Specimen Type: Blood Specimen ID: [id number] Specimen Type: Blood Specimen Collection Start Date: 04/28/2024 3:07 PM Specimen Received Date: 04/29/2024 9:11 AM Noni Bender M.D., Ph.D. LAB GENETIC TESTING Tiffani l Result Performing Organization Address City/[facility]/ZIP Co de Phone Number [facility] [address] [place] [address], [place] [employer] [address] [place] [phone] documented in this encounter Visit Diagnoses Diagnosis Multigravida Advanced Maternal Age Affecting Management (HCC) documented in this encounter Additional Health Concerns Assessment Noted Time PHQ-9 Depression Total Score: 2 04/17/19 10:03 AM SCHOOL GUARD documented as of this encounter Care Teams Building Estimator Relationship Specialty Start Date End Date Roberto OLVERA 04/17/24 10/25/24 documented as of this encounter
--- OUTSIDE RECORDS SUMMARY | 2024-06-06 11:32 | XMS_ITS | Encounter Summary ---
Author Organization [facility] Address [address] [place] [address] Care Team Providers Care Director Digital Name Role Phone Unavailable Primary Care Provider Unavailabl e Encounter Details Date Type Department Care Team (Late st Contact Info) Description 05/20/2024 Orders Only Department of Obstetrics and Gynecology in [place], [place] [address] [place] [phone] Magalys Bernal M.D. [address] [place] [phone] Family History Congenital Heart Disease (Primary Dx) Social History Tobacco Use Types Packs/Day Years Used Date Smoking Tobacco: Former Cigarettes Smokeless Tobacco: Never Alcohol Use Standard Drinks/Week Comments Not Currently 0 (1 standard drink = 0.6 oz pure alcohol) Pre , 1 drink monthly [facility] Utilities Answer Date Recorded In the past 12 months has [facility] [employer], oil, or water [employer] threatened to shut off services in your [...] your living situation today? 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 [address] [place] [phone] Discharge Disposition: Home or Self Care 07/10/2024 11:00 AM CDT Routine Department of Obstetrics and Gynecology in [address] [phone] Cristela Zapien, CIA AGENT, CNM [address] [place] [phone] 07/10/2024 11:40 AM CDT Lab Department of Laboratory Medicine and Pathology, [address] [phone] Noni Bender M.D., Ph.D. [address] [place] [phone] 07/20/2024 10:10 AM CDT Lab Department of Laboratory Medicine and Pathology, [facility] in [place], [place] [address] [place] [phone] Noni Bender M.D., Ph.D. [address] [place] [phone] 08/14/2024 9:00 AM CDT Appointment Department of Obstetrics and Gynecology in [address] [phone] Noni Bender M.D., Ph.D. [address] [place] [address] Discharge Disposition: Home or Self Care 08/14/2024 10:00 AM CDT Routine Department of Obstetrics and Gynecology in [place], [place] [address] [place] [phone] Magalys Bernal M.D. [address] [place] [phone] documented as of this encounter Visit Diagnoses Diagnosis Family History Congenital Heart Disease- Primary documented in this encounter Additional Health Concerns Assessment Noted Time PHQ-9 Depression Total Score: 2 04/17/19 10:03 AM SCRAP KETTLE TENDER documented as of this encounter Care Teams Director Digital Relationship Specialty Start Date End Date Roberto OLVERA 04/17/24 10/25/24 documented as of this encounter
--- OUTSIDE RECORDS SUMMARY | 2024-06-06 11:32 | XMS_ITS | Encounter Summary ---
Author Organization [facility] Address [address] [place] [address] Care Team Providers Care Retread Builder Name Role Phone Unavailable Primary Care Provider Unavailabl e Encounter Details Date Type Department Care Team (Late st Contact Info) Description 05/04/2024 Clinical Communication Department of Medical Genetics in [place], [place] [address] [place] [phone] Tiana Almanza M.S., [facility] [address] [place] [phone] Social History Tobacco Use Types Packs/Day Years Used Date Smoking Tobacco: Former Cigarettes Smokeless Tobacco: Never Alcohol Use Standard Drinks/Week Comments Not Currently 0 (1 standard drink = 0.6 oz pure alcohol) Pre , 1 drink monthly [facility] Utilities Answer Date Recorded In the past 12 months has [facility] [employer], oil, or water [employer] threatened to shut off services in your [...] your living situation today? 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 Patient does not have an active Patient Online Services account. Left voicemail with callback number. Electronically signed by Tiana Almanza M.S., [facility] at 05/04/2024 12:32 PM AIRLINE CUSTOMER SERVICE AGENT documented in this encounter Plan of Treatment Upcoming Encounters Date Type Department Care Team (Late st Contact Info) Description 07/10/2024 10:00 AM CDT Appointment Department of Obstetrics and Gynecology in [address] [phone] Noni Bender M.D., Ph.D. [address] [place] [phone] Discharge Disposition: Home or Self Care 07/10/2024 11:00 AM CDT Routine Department of Obstetrics and Gynecology in [address] [phone] Cristela Zapien, BUSINESS DEVELOPMENT ENGINEER, CNM [address] [place] [phone] 07/10/2024 11:40 AM CDT Lab Department of Laboratory Medicine and Pathology, [place], [place] [address] [place] [phone] Noni Bender M.D., Ph.D. [address] [place] [phone] 07/20/2024 10:10 AM CDT Lab Department of Laboratory Medicine and Pathology, [facility] in [place], [place] [address] [place] [phone] Noni Bender M.D., Ph.D. [address] [place] [phone] 08/14/2024 9:00 AM CDT Appointment Department of Obstetrics and Gynecology in [place], [place] [address] [place] [phone] Noni Bender M.D., Ph.D. [address] [place] [phone] Discharge Disposition: Home or Self Care 08/14/2024 10:00 AM CDT Routine Department of Obstetrics and Gynecology in [place], [place] [address] [place] [phone] Magalys Bernal M.D. [address] [place] [phone] documented as of this encounter Visit Diagnoses Not on filedocumented in this encounter Additional Health Concerns Assessment Noted Time PHQ-9 Depression Total Score: 2 04/17/19 10:03 AM AIRLINE CUSTOMER SERVICE AGENT documented as of this encounter Care Teams Retread Builder Relationship Specialty Start Date End Date Roberto OLVERA 04/17/24 10/25/24 documented as of this encounter
--- OUTSIDE RECORDS SUMMARY | 2024-06-06 11:32 | XMS_ITS | Encounter Summary ---
Author Organization [facility] Address [address] [place] [address] Care Team Providers Care Forester Aide Name Role Phone Unavailable Primary Care Provider Unavailabl e Encounter Details Date Type Department Care Team (Late st Contact Info) Description 05/13/2024 10:30 AM PRACTICING DERMATOLOGIST Virtual Visit Department of Obstetrics and Gynecology in [place], [place] [address] [place] [phone] Tiana Almanza M.S., [facility] [address] [place] [address] Counseling Genetic For Family Planning (Primary Dx) Social History Tobacco Use Types Packs/Day Years Used Date Smoking Tobacco: Former Cigarettes Smokeless Tobacco: Never Alcohol Use Standard Drinks/Week Comments Not Currently 0 (1 standard drink = 0.6 oz pure alcohol) Pre , 1 drink monthly [facility] Utilities Answer Date Recorded In the past 12 months has [facility] [place], oil, or water [employer] threatened to shut off services in your [...] your living situation today? 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 Duyen's partner was not present at this visit. Duyen pursued carrierscreening through the [employer] carrier screen which tested for carrier status for 112 autosomal recessive and X-linked conditions. IMPRESSION/REPORT/PLAN RESULTS Duyen screened negative for disease-causing variants in all 112 genes on the [employer] carrier screening panel. This significantly reduces the risk she is a carrier of each of these conditions. LIMITATIONS OF TESTING This carrier screening evaluated 112 genes for pathogenic or likely pathogenic variants (disease-causing variants) in select genes known to be related to autosomal recessive and X-linked conditions with a childhood onset. Conditions with autosomal dominant inheritance and/or an adult onset are not evaluated. Variants of uncertain significance (VUSs) are not reported unless specifically requested.Therefore, screening negative for any genes on this panel is significantly risk-reducing, but not risk eliminating. VUS's may be reclassified over time and therefore, it is possible the testing laboratory may update carrier screening reports as new information about carrier status is obtained. Additionally, not all genes recessive and X-linked are evaluated on carrier screening. Therefore, negative results do not eliminate the risk of a genetic condition in offspring. Furthermore, carrier screening cannot screen for chromosome abnormalities. I confirmed that Duyen received my voicemail regarding her low risk NIPT results. PLAN Carrier screening is complete for Duyen.Testing her partner is not indicated. No further carrier screening is indicated at this time. Duyen is welcome to reach out with any additional questions that she may have TICING DERMATOLOGIST documented in this encounter Plan of Treatment Upcoming Encounters Date Type Department Care Team (Late st Contact Info) Description 07/10/2024 10:00 AM CDT Appointment Department of Obstetrics and Gynecology in [place], [place] [address] [place] [phone] Noni Bender M.D., Ph.D. [address] [place] [phone] Discharge Disposition: Home or Self Care 07/10/2024 11:00 AM CDT Routine Department of Obstetrics and Gynecology in [place], [place] [address] [place] [phone] Cristela Zapien, DAMAGE ASSESSOR, CNM [address] [place] [phone] 07/10/2024 11:40 AM CDT Lab Department of Laboratory Medicine and Pathology, [facility] in [place], [place] [address] [place] [phone] Noni Bender M.D., Ph.D. [address] [place] [phone] 07/20/2024 10:10 AM CDT Lab Department of Laboratory Medicine and Pathology, [facility] in [place], [place] [address] [place] [phone] Noni Bender M.D., Ph.D. [address] [place] [phone] 08/14/2024 9:00 AM CDT Appointment Department of Obstetrics and Gynecology in [place], [place] [address] [place] [phone] Noni Bender M.D., Ph.D. [address] [place] [phone] Discharge Disposition: Home or Self Care 08/14/2024 10:00 AM CDT Routine Department of Obstetrics and Gynecology in [place], [place] [address] [place] [phone] Magalys Bernal M.D. [address] [place] [phone] documented as of this encounter Visit Diagnoses Diagnosis Counseling Genetic For Family Planning- Primary documented in this encounter Additional Health Concerns Assessment Noted Time PHQ-9 Depression Total Score: 2 04/17/19 25 10:03 AM PRACTICING DERMATOLOGIST documented as of this encounter Care Teams Forester Aide Relationship Specialty Start Date End Date Roberto OLVERA 04/17/24 10/25/24 documented as of this encounter
--- OUTSIDE RECORDS SUMMARY | 2024-06-06 11:32 | XMS_ITS | Encounter Summary ---
Author Organization [facility] Address [address] [place] [address] Care Team Providers Care Machine Operator Transplanter Name Role Phone Unavailable Primary Care Provider Unavailabl e Reason for Visit * Reason Comments Nurse Visit Mid educat ion Encounter Details Date Type Department Care Team (Late st Contact Info) Description 06/05/2024 11:00 AM CDT Routine Department of Obstetrics and Gynecology in [place], [place] [address] [place] [phone] Magalys Bernal M.D. [address] [place] [phone] Sallie Sprague, R.N. 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 - 06/05/2024 11:00 AM CDT 19wk Nurse Education Visit Note CHIEF COMPLAINT / REASON FOR VISIT Duyen Butterfield is a 34 y.o. with an Estimated Date of Delivery: 10/25/2024, by Last Menstrual Period. Gestational age is 19w5d. Today she had an anatomy ultrasound and is here for a nurse education visit. OBJECTIVE VITAL SIGNS Vitals: 06/05/24 1119 BP: 113/74 Pulse: 90 Temp: 36.7 ??C SpO2: 99% ASSESSMENT / PLAN Provider: Dr. Bender Nurse Visit: 06/05/2024 Portal Active: no Language Interpretation Needed for Delivery: Language Needs: No anatomy ultrasound report to be reviewed by ordering provider and patient will receive followup via portal/phone as appropriate. Next visits scheduled PATIENT EDUCATION Ready to learn, barriers to learning: none; learning preferences include listening. Explained diagnosis and treatment plan; patient expressed understanding of the content. Sallie Sprague R.N. documented in this encounter Plan of Treatment Upcoming Encounters Date Type Department Care Team (Late st Contact Info) Description 07/10/2024 10:00 AM CDT Appointment Department of Obstetrics and Gynecology in [place], [place] [address] [place] [phone] Noni Bender M.D., Ph.D. [address] [place] [phone] Discharge Disposition: Home or Self Care 07/10/2024 11:00 AM CDT Routine Department of Obstetrics and Gynecology in [address] [phone] Cristela Zapien APRN, CN [address] [place] [phone] 07/10/2024 11:40 AM CDT Lab Department of Laboratory Medicine and Pathology, [facility] in [place], [place] [address] [place] [phone] Noni Bender M.D., Ph.D. [address] [place] [phone] 07/20/2024 10:10 AM CDT Lab Department of Laboratory Medicine and Pathology, [facility] in [place], [place] [address] [place] [phone] Noni Bender M.D., Ph.D. [address] [place] [phone] 08/14/2024 9:00 AM CDT Appointment Department of Obstetrics and Gynecology in [address] [phone] Noni Bender M.D., Ph.D. [address] [place] [phone] Discharge Disposition: Home or Self Care 08/14/2024 10:00 AM CDT Routine Department of Obstetrics and Gynecology in [place], [place] [address] [place] [phone] Magalys Bernal M.D. 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
--- OUTSIDE RECORDS SUMMARY | 2024-06-06 11:32 | XMS_ITS | Encounter Summary ---
Author Organization [facility] Address [address] [place] [address] Care Team Providers Care Electrical Equipment Technician Name Role Phone Unavailable Primary Care Provider Unavailabl e Encounter Details Date Type Department Care Team (Late st Contact Info) Description 05/27/2024 Clinical Communication Department of Obstetrics and Gynecology in [place], [place] [address] [place] [phone] Magalys Bernal M.D. [address] [place] [phone] Social History Tobacco Use Types Packs/Day Years Used Date Smoking Tobacco: Former Cigarettes Smokeless Tobacco: Never Alcohol Use Standard Drinks/Week Comments Not Currently 0 (1 standard drink = 0.6 oz pure alcohol) Pre , 1 drink monthly [facility] Utilities Answer Date Recorded In the past 12 months has [facility] [employer], oil, or water [employer] threatened to shut off services in [...] your living situation today? 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 - 05/27/2024 9:12 AM CST SUBJECTIVE CHIEF COMPLAINT / REASON FOR CALL No chief complaint on file. Test Result Information: No results found from the In Basket message. Called Duyen with her recent lab results. All results are normal. Positive antibody screen again but it is too weak to titer. Disposition/Recommendation: self-care is appropriate at this time, patient encouraged to call back with questions Information/Education: patient/caller able to teach back Caller agreeable to plan of care: yes TENDER documented in this encounter Plan of Treatment Upcoming Encounters Date Type Department Care Team (Late st Contact Info) Description 07/10/2024 10:00 AM CDT Appointment Department of Obstetrics and Gynecology in [address] [phone] Noni Bender M.D., Ph.D. [address] [place] [phone] Discharge Disposition: Home or Self Care 07/10/2024 11:00 AM CDT Routine Department of Obstetrics and Gynecology in [place], [place] [address] [place] [phone] Cristela Zapien APRN, GAEL [address] [place] [phone] 07/10/2024 11:40 AM CDT Lab Department of Laboratory Medicine and Pathology, [facility], in [place], [place] [address] [place] [phone] Noni Bender M.D., Ph.D. [address] [place] [phone] 07/20/2024 10:10 AM CDT Lab Department of Laboratory Medicine and Pathology, [facility], in [place], [place] [address] [place] [phone] Noni Bender M.D., Ph.D. [address] [place] [phone] 08/14/2024 9:00 AM CDT Appointment Department of Obstetrics and Gynecology in [place], [place] [address] [place] [phone] Noni Bender M.D., Ph.D. [address] [place] [phone] Discharge Disposition: Home or Self Care 08/14/2024 10:00 AM CDT Routine Department of Obstetrics and Gynecology in [place], [place] [address] [place] [phone] Magalys Bernal M.D. [address] [place] [phone] documented as of this encounter Visit Diagnoses Not on filedocumented in this encounter Additional Health Concerns Assessment Noted Time PHQ-9 Depression Total Score: 2 04/17/19 10:03 AM OVEN TENDER documented as of this encounter Care Teams Electrical Equipment Technician Relationship Specialty Start Date End Date Roberto OLVERA 04/17/24 10/25/24 documented as of this encounter
--- OUTSIDE RECORDS SUMMARY | 2024-06-06 11:33 | XMS_ITS | Encounter Summary ---
Author Organization [facility] Address [address] [place] [address] Care Team Providers Care Cognos Developer Name Role Phone Unavailable Primary Care Provider Unavailabl e Reason for Visit * Reason Onset Date Comments Reschedule 04/02/2024 Encounter Details Date Type Department Care Team (Late st Contact Info) Description 04/02/2024 Clinical Communication Department of Obstetrics and Gynecology in [place], [place] [address] [place] [phone] Magalys Bernal M.D. [address] [place] [phone] Reschedule Social History Tobacco Use Types Packs/Day Years Used Date Smoking Tobacco: Former Cigarettes Smokeless Tobacco: Never Alcohol Use Standard Drinks/Week Comments Not Currently 0 (1 standard drink = 0.6 oz pure alcohol) Pre , 1 drink monthly [facility] Utilities Answer Date Recorded In the past 12 months has [facility] [employer] gas, oil, or water [employer] threatened to shut off services in your [...] your living situation today? 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 [address] [place] [phone] Discharge Disposition: Home or Self Care 07/10/2024 11:00 AM CDT Routine Department of Obstetrics and Gynecology in [address] [phone] Cristela Zapien APRN, CN [address] [place] [phone] 07/10/2024 11:40 AM CDT Lab Department of Laboratory Medicine and Pathology, [address] [phone] Noni Bender M.D., Ph.D. [address] [place] [phone] 07/20/2024 10:10 AM CDT Lab Department of Laboratory Medicine and Pathology, [facility] in [place], [place] [address] [place] [phone] Noni Bender M.D., Ph.D. [address] [place] [phone] 08/14/2024 9:00 AM CDT Appointment Department of Obstetrics and Gynecology in [place], [place] [address] [place] [phone] Noni Bender M.D., Ph.D. [address] [place] [phone] Discharge Disposition: Home or Self Care 08/14/2024 10:00 AM CDT Routine Department of Obstetrics and Gynecology in [place], [place] [address] [place] [phone] Magalys Bernal M.D. [address] [place] [phone] documented as of this encounter Visit Diagnoses Not on filedocumented in this encounter Additional Health Concerns Assessment Noted Time PHQ-9 Depression Total Score: 7 08/07/19 24 8:41 AM CDT documented as of this encounter Care Teams Cognos Developer Relationship Specialty Start Date End Date Roberto OLVERA 04/17/24 10/25/24 documented as of this encounter
--- OUTSIDE RECORDS SUMMARY | 2024-06-06 11:33 | XMS_ITS | Clinical Summary ---
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 Active calcium phosphate dibas/vit D3 (VITAMIN D, WITH CALCIUM, ORAL) Take 1 Tablet by mouth once daily. Active cyclobenzaprine (FLEXERIL) 10 mg tabletIndications: Back pain affecting in third trimester Take 1 Tablet (10 mg) by mouth three times daily. 30 Tablet 06/26/2023 5:22 PM CDT 4 Active L. acidophilus/Bifid. animalis (Probiotic) 5 billion cell cpSPIndications:Ma stitis Take 1 Capsule by mouth. 7 Capsule 4 Active dextroamphetamine- amphetamine (Adderall XR) 20 mg Extended-Release capsuleIndications :ADD (attention deficit disorder) without hyperactivity Take 1 Capsule (20 mg) by mouth once daily. 30 Capsule 4 Active levonorgestrel-eth inyl estrad, 0.1mg-20mcg, (ALESSE-28) 0.1-20 mg-mcg tabletIndications: Oral contraception initial prescription Take 1 Tablet by mouth once daily. 84 Tablet 2 4 Active dextroamphetamine- amphetamine (Adderall XR) 20 mg Extended-Release capsuleIndications :ADHD (attention deficit hyperactivity disorder), combined type Take 1 Capsule (20 mg) by mouth once daily. 30 Capsule 5 Active dextroamphetamine- amphetamine (AdderalL) 10 mg tabletIndications: ADHD (attention deficit hyperactivity disorder), combined type Take 1 Tablet (10 mg) by mouth once daily. 30 Tablet 5 Active albuterol HFA (PRO-AIR; VENTOLIN; PROVENTIL) 90 mcg/actuation inhalerIndications :Acute cough Inhale 2 Puffs by mouth 4 times daily if needed for Shortness Of Breath. 1 Each 5 4 Active LORazepam (ATIVAN) 0.5 mg tabIndications:Bonner ic attacks Take 1 Tablet (0.5 mg) by mouth every 6 hours if needed for Anxiety. 12 Tablet 4 Active loratadine (CLARITIN) 10 mg tabletIndications: Acute cough Take 1 Tablet (10 mg) by mouth once daily. 90 Tablet 1 4 Active Active Problems Problem Noted Date Diagnosed Date Vasa previa 05/08/2023 Velamentous insertion of umbilical cord in secon d trimester 05/08/2023 Suspected condition not found 05/08/2023 [facility] Supervision of high-risk 3 Overview (05/03/2023): Duyen Butterfield : 1990 [facility] ULTRASOUND/TESTING PATIENT Support person name: [place] ULTRASOUND [...] ECHO: REFERRING PHYSICIAN/PHONE/LAST UPDATE: Eliezer Fuentes MD [place] Primary MD approves scheduling of recommended ultrasounds/testing: Yes SPECIALISTS/CONSULTS: Include: Specialty MD Clinic Name Phone# [place] and ADDED TO PATIENT CARE TEAM GENETICS: NIPT: low risk CARE COORDINATION: PERTINENT LABS: Labs reviewed? Yes Normal? Yes Blood type: A Rh Positive Antibody screen: Negative Non-[facility] labs need to be entered in [facility]? PERTINENT MEDS: Buspar Adderall Zoloft PROCEDURES: IF FGR <10% or EFW <2000 grams: Add FGRPCOM PLAN OF CARE: ADHD (attention deficit hype ractivity disorder), combined type 06/08/2022 Low grade squamous intraepit helial lesion (LGSIL) at risk for high grade squamous intraepithelial lesion (HGSIL) on cytologic smear of cervix 04/06/2022 Overview (04/06/2022): 12/07/2008 LSIL, cannot exclude higher grade lesion 01/18/2009 [place], no bx, , 09/15/2013 ASCUS/ HPV negative [...] term DTaP 02/16/2014 Ok to deliver in [place] Assessment & Plan (12/24/2013 11:38 AM CDT): Flu shot 12/24/2013 consult 10/08/2013 Overview (10/08/2013): Duyen is a patient of . Duyen is currently and wishes to deliver at the [facility]. She is scheduled on 10/12/13 for a [...] 08/01/2012 09/15/2013 GBS (group B Streptococcus c elisabeth), +RV culture, currently 07/31/2012 09/15/2013 H/O delivery, [...] care 07/27/2007 01/27/2009 Tobacco use disorder 014 Immunizations Immunization Administration Dates Next Due DTP 01/21/1995, 5,12/13/1990,1989,1989,1989 [...] drink = 0.6 oz pur e alcohol) PHQ-2 Answer Date Recorded PHQ-2 TOTAL SCORE [...] Ambulatory Vulnerability No t on file 07/06/2023 Utilities Answer Date Recorded Do you have trouble paying f or utilities (for example, heat, electricity, water, phone)? 1 02/18/2024 Comments No Sex and Gender Information Value Date Recorded Sex Assigned at Not on file Legal Sex Female 7:14 AM [employer] Gender Identity Not on file Sexual Orientation [...] cuum Y Livin g Vivek w Delivery Location:[facility] Comments:PPROM 35 4 de livery 35 and 6 days GESTATIONAL DIABETES Vacuum 2007 Term 37w 0d 12h 00m/ 2.81 kg (6 lb 3 oz) M Vag-Sp ont Y Livin g Jermaine Delivery Location:[place], [place] Comments:PTL at 28w - tx bedrest & Nifedipine - at ANW, fatty liver disease - IOL at 37w 2009 Term 39w 4d 3.54 kg (7 lb 13 oz) F Vag-Sp ont Y Livin g Hillary Delivery Location:[place], [place] Comments:PTL at 27w - tx bedrest & Nifedipine - MAC x 6 hrs 2010 AB 15w 0d Comments:EAB 2011 AB 14w 0d Comments:EAB 2012 Term 37w 4d 2.61 kg (5 lb 12 oz) M Vag-Sp ont Y Livin g East[place] n Delivery Location:[facility] Comments:PTL at 30w - bedrest & Nifedipine - MAC x a few hrs then home, GBS Positive. PP hemorrhage per patient, requiring transfusion 2014 Term 37w 2d M Vag-Sp ont Livin marion Harp Delivery Location:[place], [place] Comments:polydactyly h ands and feet bilaterally 2015 AB 14w 0d ELECTI VE AB 2023 Term 39w 2d 1h 33m 1h 09m/0h 20m/0h 04m 3.37 kg (7 lb 6.9 oz) F Vag-Sp ont Epidur al Livin g 8 9 Palak Rebeca Ghosh on D.O. Delivery Location:[facility] ([facility] 03 3 L&D) Last Filed Vital Signs Vital Sign Reading Time Taken Comments Blood Pressure 114/68 02/18/2024 2:00 PM [employer] Pulse 96 02/18/2024 2:00 PM [employer] Temperature 36.4 C (97.6 F) 10/07/2023 2:39 PM CDT Respiratory Rate 16 10/07/2023 2:39 PM CDT Oxygen Saturation 97% 10/06/2023 2:07 PM CDT Inhaled Oxygen Concentration - - Weight 74.9 kg (165 lb 3.2 oz) 02/18/2024 2:00 P M [employer] Height 170.2 cm (5' 7) 10/07/2023 2:39 PM CDT Body Mass Index 25.87 10/07/2023 2:39 PM CDT Plan of Treatment Health Maintenance Due Date Last Done Comments COVID-19 vaccine series ( season) 2023 Influenza Vaccine (#1) 2023 7, 12/24/2013, 04/09/2012, Additional history exists BMI [...] ANTI HIV 1/2 Routine 02/11/2023 10:40 AM [employer] Early stage of ANTI HCV Routine 02/11/2023 10:40 AM [employer] Early stage of HPV HIGH RISK Routine 03/02/2022 9:57 AM [employer] Screening for malignant neoplasm of cervix from Last 3 Months or Most Recently Relevant to Health Maintenance Results * ANTI HCV (02/11/2023 10:40 AM MANAGER [employer]) HEPATITIS C ANTIBODY Non-Reacti ve Non-React madyson 02/12/2023 2:15 AM MANAGER [employer]CE [employer] [facility] Comment:Please note, per www .CDC.gov: If a patient is known to be at high risk of HCV infection, or is symptomatic, and the physician's suspicion of HCV infection is high, HCV RNA testing is often employed and is of diagnostic value, even after an initial negative anti-HCV test result. Blood BLOOD SPECIMEN / Unknown Venipuncture / Unknown 02/11/2023 10:40 AM [employer]NAGER [employer] 02/11/2023 10:44 AM MANAGER [employer] us Anaya Bean MD SEND OUTS Final Result [facility] [address] [place] [address], [place] * ANTI HIV 1/2 (02/11/2023 10:40 AM [employer]NAGER [employer]) HIV-1/HIV-2 SCREEN Non-Reacti ve Non-Reacti ve 02/12/2023 2:14 AM MANAGER [employer]EMENT [facility] Comment:HIV-1 p24 and HIV-1/ HIV-2 Ab Not Detected. Blood BLOOD SPECIMEN / Unknown Venipuncture / Unknown 02/11/2023 10:40 AM [employer]NAGER [employer] 02/11/2023 10:44 AM MANAGER [employer] us Anaya Bean MD SEND OUTS Final Result [facility] [address] [place] [address], * HPV HIGH RISK (03/02/2022 9:57 AM MANAGER [employer]) TYPE 16 Negative Negative 03/06/2022 5:07 PM MANAGER [employer]EMENT [facility] TYPE 18 Negative Negative 03/06/2022 5:07 PM MANAGER PER[employer]CE [employer]OVEMENT [facility] OTHER HIGH RISK TYPES Negative Negative 03/06/2022 5:07 PM MANAGER [employer]CE [employer]EMENT [facility] Other (Cervical) Non-Blood / Unknown 03/02/2022 9:57 AM [employer]NAGER [employer] 03/05/2022 3:09 PM [employer]GER [employer] Narrative [facility] - 03/06/2022 5:07 PM [employer] HPV types 16, 18, 31, 33, 35, 39, 45, 51, 52, 56, 58, 59, 66 and 68 DNA were undetectable or below the pre-set threshold. Methodology: Nalini Isamar 4800 HPV Test us Yeny BARTHOLOMEW MICROBIOLOGY Final Resu lt [facility] [address] [place] [address], from Last 3 Months or Most Recently Relevant to Health Maintenance Insurance [employer] [facility] [employer] * Guarantor: [employer] Account Type Relation to Patient Date of Phone Billing Address [facility] [address] [place] [address] * Guarantor: [employer] Account Type Relation to Patient Date of Phone Billing Address [facility] [address] [facility] [id number]HI ABBY SILVA [id number] Advance Directives * Full Code (Latest Code [...] 11:40 AM 04/25/2012 3:54 PM Care Teams Animal Shelter Worker Relationship Specialty Start Date End Date Francheska Pereira NP [address] [place] [address] ABBY Rodriguez [id number] PCP - General Nurse Practitioner - Family 10/07/23
--- OUTSIDE RECORDS SUMMARY | 2024-06-06 11:33 | XMS_ITS | Encounter Summary ---
Author Organization [facility] Address [address] [place] [address] Care Team Providers Care Creative Consultant Name Role Phone Unavailable Primary Care Provider Unavailabl e Reason for Referral * Outpatient (Routine) - Authorized Specialty Diagnoses / Procedures Referred By Susan mccrary Referred To Contact Clinical Genomics Diagnoses Breast Cancer Susceptibility Gene Mutation Family History Noni Bender M.D., Ph.D. [address] [place] [address] Phone: tel: fax: [facility] Referral ID Status Reason Start Date Expiration Date V isits Requested Visits Authorized [id number] Authorized 04/29/2024 10/29/2025 1 1 Scheduling Instructions Please call patient to schedule in 2025 L CNC OPERATOR Reason for Visit * Outpatient (Routine) - Closed Specialty Diagnoses / Procedures Referred By Contac t Referred To Contact Obstetrics and Gynecology Diagnoses Raised Antibody Titer Multigravida Advanced Maternal Age Affecting Management (HCC) Magalys Bernal M.D. [address] [place] [address] Phone: tel: fax: [facility] Referral ID Status Reason Start Date Expiration Date Visits Re quested Visits Authorized [id number] Closed 2024 10/17/2025 1 1 Encounter Details Date Type Department Care Team (Latest Contact Info) Description 04/28/2024 2:00 PM METAL CNC OPERATOR Comprehensive Visit Department of Obstetrics and Gynecology in [place], [place] [address] [place] [phone] Magalys Bernal M.D. [address] [place] [phone] Tiana Almanza M.S., [facility] [address] [place] [phone] Counseling Genetic For Family Planning (Primary Dx); Raised Antibody Titer; Multigravida Advanced Maternal Age Affecting Management (HCC); Breast Cancer Susceptibility Gene Mutation Family History Social History Tobacco Use Types Packs/Day Years Used Date Smoking Tobacco: Former Cigarettes Smokeless Tobacco: Never Alcohol Use Standard Drinks/Week Comments Not Currently 0 (1 standard drink = 0.6 oz pure alcohol) Pre , 1 drink monthly [facility] [employer] Answer Date Recorded In the past 12 months has [facility] [employer], oil, or water [employer] threatened to shut off services in your [...] your living situation today? 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 SUBJECTIVE CHIEF COMPLAINT/REASON FOR VISIT genetic screening Anti-JKA HISTORY OF PRESENT ILLNESS History: Estimated Date of Delivery: 10/25/24 EGA: 14w2d Duyen was referred by Magalys Bernal M.D. for genetic counseling to discuss genetic screening options. She is unaccompanied. FAMILY HISTORY A focused family history was obtained as a part of the visit today. Our risk assessment is based upon medical and family history information as provided by the patient, and may change should new information be obtained. Duyen and her current partner have a healthy 8-month-old daughter together. Duyen has five other children from a previous relationship. The family his tory was notable for the following: Cystic fibrosis: Duyen's maternal first cousin is noted to have cystic fibrosis. His specific CFTRvariants are not known. Duyen has not previously had carrier screening for CF. Based on the familyhistory, the risk that she is a carrier of CF is 1 in 8. The risk her partner is a carrier of CF is1 in 25 based on reported ancestry. Carrier screening discussion is detailed below. Duyenelected to proceed with carrier screening for CFTR and other recessive and X linked genes today. BRCA2-related breast cancer: Duyen's mother is reported to have from breast cancer in her 50's and she reportedly had a positive BRCA2 result. A copy of this test report is not available. Duyen's stepfather would have power of commercial real estate attorney to access Duyen's mother's medical record. Duyen notesthat she and her stepfather do not have a relationship and would not be able to access her mother'sresults. If Duyen's mother does in fact have a BRCA2 pathogenic variant, Duyen is at 50% risk of having the same variant. We reviewed recommendations for advanced breast cancer screening and consideration of prophylactic surgeries for BRCA2 positive individuals. We also reviewed that testing would not be indicated and that cancer screening would not happen during . Duyen was open to a referral to our cancer genetics team in one year for further discussion of cancer surveillance and genetic testing options. Bicuspid Aortic Valve: Three of Duyen's sons have Bicuspid Aortic Valve. This was diagnosed postnatally for all three of her sons. Duyen notes her great grandmother also had BAV. Duyen has never had an echocardiogram herself. BAV does appear to have heritable risk factors as it does run in families, however inheritance is generally thought to be multifactorial. Approximately 2% of the population has BAV. The risk to first degree relatives is estimated to be around 25%. or echocardiogram should be considered for the current . Additionally, because BAV can go unrecognized for decades, Duyen should have an echocardiogram at some point. Overall, the remainder of the family history is not significant for intellectual disability, defects, multiple miscarriages or , or known genetic disorders. Duyen is of descent. The father of the baby is of descent. There is no reported consanguinity. 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 Fortunately, levels have been too low to titer. Maternal alloantibodies to red blood cell (RBC) antigens other thanRhD can cause clinically significant hemolysis of and RBCs, known as hemolytic disease of the fetus and (HDFN). Hemolytic disease of the fetus and (HDFN) is a condition in which the lifespan of the infants??? red blood cells(RBC) is shortened as a result ofmaternally-derived alloantibodies that are transferred via the placenta and directed against paternally inherited antigens. Duyen was found to have anti-Jka which means she does not express the Jka antigen on her red bloodcells. Exposure to positive Jka antigens results in production of antibodies again Jka so if Solomonleis carrying a fetus that is positive for Jka antigens, they would be at risk for HDFN. Duyen did have a blood transfusion in her last delivery and it is believed she became sensitized to Jka throughblood transfusion. However, we cannot rule out the possibility that her partner is positive and that she would have been exposed through previous maternal/ blood mixing. If this is the case, then the current would be at risk for HDFN. Testing for RBC antigens can be done via amniocentesis. Duyen is not inclined to undergo invasive testing at this time, especially because levels are too low to titer. Unfortunately, Jka is not one of the antigens that can be screened for via the [facility] NIPT screen so cell free DNA screening for Jka is not possible. Presuming there is no question of misattributed paternity, testing Duyen's partner for Jka antigencould be beneficial. If he is negative for Jka antigen, then the fetus would also be presumed to benegative and thus not at risk for HDFN. Duyen's partner is not available today but we are happy toarrange this for the couple at a future visit. ANEUPLOIDY SCREENING The risk of chromosome abnormalities in a increases with maternal age. Duyen will be 34 y.o. at the time of delivery, her chance of having a baby with Down syndrome at delivery is 1 in 350. The risk for any chromosome abnormality at delivery is 1 in 300. . Available screening and testingoptions to further assess the risk were reviewed with the patient. Screening tests are designed to provide an individualized risk, but are not definitive diagnostic tests. Screening is used to assist in identifying pregnancies at increased risk for chromosome aneuploidy. cell-free DNA testing is a aneuploidy screening option which detects cell-free DNA in a maternal blood sample after 10 weeks gestation. Cell- free DNA is analyzed for over-representation of material from select chromosomes. If there is an over-representation of material from one ofthese chromosomes, aneuploidy is suspected. The sensitivity of cell free DNA screening for most conditions is 95-99%. The overall false positive rate is less than 1%. The following conditions are screened for on the [facility] cfDNA screen: Trisomy 21 (Down syndrome),Trisomy 18, Trisomy 13, Triploidy, Sex chromosome aneuploidy (including Truong syndrome, Klinefelter syndrome, 47,XXX and 47,XYY), and 22q11.2 deletion syndrome (DiGeorge syndrome). The underlying etiologies and clinical features of these conditions were reviewed. In 3-5% of cases, the results are uninformative due to a low fraction and a second sample maybe requested or other methods of aneuploidy testing will be recommended. These complications are seen more commonly in women with an elevated BMI (>30). In some cases, a low fraction may indicate an increased risk for aneuploidy. Rarely, results return with atypical findings which may or may not be able to be further characterized by the laboratory. In some cases, atypical findingsmay represent a chromosome difference that is maternal in origin. The limitations of genetic screening include that it does not screen for all possible genetic or congenital conditions, a negative result does not ensure an unaffected , and that screening can have unexpected or unintentional findings. A negative result indicates the is a low risk for aneuploidy and a positive result indicates a significantly increased risk. False positives and false negatives are possible. It is recommended that all positive results are confirmed via diagnostic testing. Diagnostic tests such as Chorionic Villi Sampling (CVS) and amniocentesis can provide definitive results about the risk of aneuploidy or other genetic conditions. CVS is typically conducted between 12-14 weeks' gestation. The risk for complications associated with the procedure is ~1 in 500 . Amniocentesis is performed after 15 weeks' gestation. The risk for complications associated with the procedure is ~1 in 900. While both CVS and amniocentesis are considered diagnostic tests with greater than 99% sensitivity, amniocentesis is the preferred method for diagnostic testing after high risk cell free DNA screening results because of the risks of confined placental mosaicism which is a known risk factor for false positive cfDNA screening results. Confirmation of cfDNA screening results can also be done postnatally. Further screening via ultrasound at 18 to 20 weeks' gestation, is also an option to the patient. Approximately 50% of fetuses with Down syndrome and greater than 90% of fetuses with trisomy 13 or 18 display some abnormality that is detectable by a detailed ultrasound at this timeframe in . Cell free DNA screening does not screen for neural tube defects. An alpha fetoprotein (AFP) serum screen can be performed between 15 and 22 weeks to estimate the risk of a neural tube defect. The sensitivity of AFP is >80%. Greater than 95% of fetuses with a neural tube defect with be detected at the second trimester anatomy ultrasound. CARRIER SCREENING The [employer] ([employer]) recommends that carrier screening be offered to allindividuals for any condition which has a 1 in 200 risk of being a carrier of in the general population. We reviewed the availability carrier screening options, which vary in size from a few conditions tohundreds of conditions. Conditions on carrier screening are individually rare, but, collectively, they are common and, together, they account for more than 10% of pediatric deaths. Approximately 80% of children diagnosed with an autosomal recessive or X-linked condition will have no known family history of the disease. Carriers of these conditions are generally healthy. Carrier screening does notscreen couples for adult-onset diseases, autosomal dominant conditions, aneuploidy, reasons for infertility or miscarriages, multifactorial disorders and it does not screen for all possible childhoodonset disorders. The purpose of carrier screening is to determine if a couple is at increased risk of having a child with some of the most common childhood onset recessive and X-linked conditions. The detection rate of pathogenic mutations is 90-99% for most genes tested but may vary based on a priori risks. Negative results are risk-reducing, but not risk eliminating. Variants of uncertain significance (VUSes) are not reported by the laboratory. This screening test does not screen for all possible autosomal recessive or X- linked genetic conditions. Some carriers may have implications for their own health such as carriers of Ataxia Telangiectasia or Fragile X syndrome. If the patient is a carrier of one of the conditions, all first-degree relatives are at 50% risk to also be a carrier. The genetic information non-discrimination act (MARIAH) protects individuals from employers and health insurance providers from treating a genetic testing result as a pre-existing condition. Results of these screens are typically available within 2-3 weeks. If the patient is a carrier of a recessive condition, carrier screening will then be offered to her partner. The cost of this testing was reviewed. PLAN Cell free DNA screening was pursued via the [employer] Screen Carrier screening pursued Horizon AC panel Duyen consents to disclosure of their results to their partner for the purposes of risk assessment for their offspring. Duyen will complete a blood draw today. Referral placed for Cancer Genomics team to be scheduled in 1 year Consider Echocardiogram for Duyen given strong family history of BAV. The patient was encouraged to contact me with any further questions she may have. It was a pleasureto meet Duyen. She verbalized understanding of the above information. PATIENT EDUCATION The impression and plans were explained in detail. There were no apparent barriers to learning or understanding. Questions were answered. 100% of 40 minutes spent on counseling and coordination of care. Tiana Almanza M.S., [facility] L CNC OPERATOR L CNC OPERATOR documented in this encounter Plan of Treatment Upcoming Encounters Date Type Department Care Team (Late st Contact Info) Description 07/10/2024 10:00 AM CDT Appointment Department of Obstetrics and Gynecology in [place], [place] [address] [place] [phone] Noni Bender M.D., Ph.D. [address] [place] [phone] Discharge Disposition: Home or Self Care 07/10/2024 11:00 AM CDT Routine Department of Obstetrics and Gynecology in [place], [place] [address] [place] [phone] Cristela Zapien APRN, CNM [address] [place] [phone] 07/10/2024 11:40 AM CDT Lab Department of Laboratory Medicine and Pathology, [facility] [place], [place] [address] [place] [phone] Noni Bender M.D., Ph.D. [address] [place] [phone] 07/20/2024 10:10 AM CDT Lab Department of Laboratory Medicine and Pathology, [facility] [place], [place] [address] [place] [phone] Noni Bender M.D., Ph.D. [address] [place] [phone] 08/14/2024 9:00 AM CDT Appointment Department of Obstetrics and Gynecology in [address] [phone] Noni Bender M.D., Ph.D. [address] [place] [phone] Discharge Disposition: Home or Self Care 08/14/2024 10:00 AM CDT Routine Department of Obstetrics and Gynecology in [place], [place] [address] [place] [address] Magalys Bernal M.D. [address] [place] [address] Scheduled Referrals Name Type Priority Associated Diagnoses Orde r Schedule Clinical Genomics - Cancer genetics consult (clinic) Outpatient Referral Routine Breast Cancer Susceptibility Gene Mutation Family History Expected: 04/29/2025, Expires: 07/27/2025 documented as of this encounter Results * Panorama Screen - Sent Out Lab (04/28/2024 3:07 PM METAL CNC OPERATOR) Panorama Screen SEE COMMENT 05/04/2024 1:51 PM METAL CNC OPERATOR [facility] Comment: For final report, select Lab-Send Out Lab Results hyperlink below. Blood (Blood, Venous) 04/28/2024 3:07 PM METAL CNC OPERATOR 04/29/2024 9:11 AM METAL CNC OPERATOR Narrative [employer] - 05/04/2024 1:51 PM METAL CNC OPERATOR Specimen Information: Specimen ID: [id number] Specimen Type: Blood Specimen Collection Start Date: 04/28/2024 3:07 PM Specimen Received Date: 04/29/2024 9:11 AM Specimen ID: [id number] Specimen Type: Blood Specimen Collection Start Date: 04/28/2024 3:07 PM Specimen Received Date: 04/29/2024 9:11 AM Noni Bender M.D., Ph.D. LAB GENETIC TESTING Tiffani l Result [employer] [address] [place] [address], [facility] [employer] [address] [place] [address] * Horizon Carrier Screen, Blood - Sent Out Lab (04/28/2024 3:07 PM METAL CNC OPERATOR) Horizon Carrier Screen, Blood SEE COMMENT 05/13/2024 8:52 AM METAL CNC OPERATOR CANDIDO Comment: For final report, select Lab-Send Out Lab Results hyperlink below. Blood (Blood, Venous) 04/28/2024 3:07 PM METAL CNC OPERATOR Narrative [employer] - 05/13/2024 8:52 AM METAL CNC OPERATOR Specimen Information: Specimen ID: [id number] Specimen Type: Blood Specimen ID: [id number] Specimen Type: Blood Specimen Collection Start Date: 04/28/2024 3:07 PM Specimen Received Date: 04/29/2024 9:11 AM Noni Bneder M.D., Ph.D. LAB GENETIC TESTING Tiffani l Result [employer] [address] [place] [address], [facility] [employer] [address] [place] [address] documented in this encounter Visit Diagnoses Diagnosis Counseling Genetic For Family Planning- Primary Raised Antibody Titer Multigravida Advanced Maternal Age Affecting Management (HCC) Breast Cancer Susceptibility Gene Mutation Family History Multigravida Advanced Maternal Age Affecting Management (HCC) documented in this encounter Additional Health Concerns Assessment Noted Time PHQ-9 Depression Total Score: 2 04/17/19 25 10:03 AM METAL CNC OPERATOR documented as of this encounter Care Teams Creative Consultant Relationship Specialty Start Date End Date Roberto OLVERA 04/17/24 10/25/24 documented as of this encounter
--- OUTSIDE RECORDS SUMMARY | 2024-06-06 11:33 | XMS_ITS | Clinical Summary ---
Author Organization [facility] Address [address] [place] [address] Care Team Providers Care Clinical Account Liaison Name Role Phone Unavailable Primary Care Provider Unavailabl e Source Comments Patient records contain information from all sites at [facility]. For routine questions regarding patient records, call [phone] during business hours, M-F 8:00 AM - 5:00 PM Central Time. Record requests for emergency care only can be directed to [phone] at any time.[facility] Allergies Active Allergy Reactions Criticality Noted Date Comments Terbutaline Other (see comments) 04/07/2017 lethargy Medications albuterol 90 mcg/actuation inhaler Inhale 2 puffs 4 (four) times a day as needed. 3 Active FOLIC ACID ORAL Take 1 tablet by mouth daily. Active ferrous sulfate 325 mg (65 mg iron) tabletIndication s:Anemia Take 1 tablet (65 mg of iron total) by mouth daily. 90 tablet 1 4 Active Additional Information Patient not taking.Reported on 06/05/2024 acetaminophen (TYLENOL) 500 mg capsule Take 2 capsules (1,000 mg total) by mouth every 6 (six) hours as needed for pain. 4 Active nitrofurantoin monohydrate (Macrobid) 100 mg capsuleIndicatio ns:Bacteriuria Asymptomatic Take 1 capsule (100 mg total) by mouth 2 (two) times a day. For bacteria in urine in 10 capsule 5 Active Additional Information Patient not taking.Reported on 06/05/2024 Active Problems Problem Noted Date Diagnosed Date Family History Congenital Heart Disease 05/20/19 25 Overview (05/20/2024): Strong family history of bicuspid aortic valve\ Candidate for echo Bacteriuria Asymptomatic 2024 Overview (2024): Urine culture on RTC with repeat every couple of months Rx Macrobid at 12 wk EGA Hx pyelonephritis prior G9 Obstetric Disorder Personal History 2024 Overview (2024): Acute fatty liver of in second - baseline liver testing and P/Cr ratio; low dose aspirin declined Hx PP hemorrhage requiring transfusion G6 12 Weeks Gestation 2024 Multigravida Advanced Matern al Age Affecting Management 2024 Overview (2024): 34 at delivery Interested in NIPS - genetics ordered - ideally complete antigen testing for JKA also Raised Antibody Titer 08/06/2023 Overview (2024): +antibody screen: Anti-JKA (potential for hemolytic disease of the ). Has been too weak to titer. Recheck antibody screen monthly if we are not able to exclude the JKA antigen in fetus. Assessment & Plan (2024 11:22 AM MANAGER FRONT): Source of antigen exposure may have been her prior transfusion but could also be from . She is interested in nips testing and we will inquire if the JKA antigen can be screened for. High Risk Grand Multiparity History Overview (2024): Increased risk of labor dysfunction and hemorrhage High Risk History Labor 2022 Overview (2024): 35 week delivery in 1st following PPROM, patient was 16 years old. - other labor but not delivery Cervical length with anatomy scan Breast Cancer Susceptibility Gene Mutation Famil y History 03/14/2023 Overview (05/07/2023): Mother with history of breast cancer, BRCA2+ Patient has never been tested. Recommend referral for genetic counseling and testing. 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 Estimated Date of Delivery Comme nts Yes 10/25/2024 Based on last me nstrual period of 01/19/2024 (Exact Date) Resolved Problems Problem Noted Date Diagnosed Date Resolved Date Care And Lactating 08/12/2023 2024 Delivery Vaginal Normal Spontaneous 08/11/2023 2024 Overview (08/12/2023): The patient was admitted to the [facility] from triage after a nonreactive NST [...] the floor. She received her care at [facility]. Positive Group B Streptococcus 07/23/2023 2024 Overview (07/23/2023): GBS positive 07/06/2023 in [facility] Positive Group B Streptococcus 07/22/2023 07/23/2023 Overview (07/22/2023): Vaginal/Rectal OB Strep B PCR Positive Abnormal On 07/06/2023 Non Reassuring Testing 07/22/2023 08/03/2023 36 Weeks Gestation 07/06/2023 07/23/2023 Anemia 05/31/2023 2024 Other Placental Disorders Third Trimester 03/14/2023 08/06/2023 Overview (06/27/2023): PLACENTA PREVIA/ RESOLVED: Anatomy ultrasound completed at new OB exam, 17+ 5, with complete placenta previa, possible velamentous cord insert, possible vasa previa. 03/14/2023 - advanced level US with MFM with anterior placenta previa, possible velamentous cord insertion and vasa previa. 05/09/2023: Appointment with Maternal- Medicine at [place] completed and recommendations as follows: IMPRESSION: Intrauterine [...] Encounters Date Type Department Care Team Description 06/05/2024 11:00 AM CDT Routine Department of Obstetrics and Gynecology in [address] [phone] Magalys Bernal M.D. Sallie Sprague, R.N. 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) 06/05/2024 11:00 AM CDT Routine Department of Obstetrics and Gynecology in [place], [place] [address] [place] [phone] Noni Bender M.D., Ph.D. 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) (Primary Dx); High Risk History Labor (HCC); Multigravida Advanced Maternal Age Affecting Management (HCC); Neoplasia Cervical Squamous Low Grade Intraepithelial; Breast Cancer Susceptibility Gene Mutation Family History; Family History Congenital Heart Disease; Raised Antibody Titer 06/05/2024 9:31 AM CDT - 06/05/2024 11:59 PM CDT Hospital Encounter Department of Obstetrics and Gynecology in [place], [place] [address] [place] [phone] Magalys Bernal M.D. 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) Discharge Disposition: Home or Self Care 05/27/2024 Clinical Communication Department of Obstetrics and Gynecology in [address] [phone] Magalys Bernal M.D. 05/20/2024 Orders Only Department of Obstetrics and Gynecology in [address] [phone] Magalsy Bernal M.D. Family History Congenital Heart Disease (Primary Dx) 05/13/2024 10:30 AM MANAGER FRONT Virtual Visit Department of Obstetrics and Gynecology in [address] [phone] Tiana Almanza M.S., [facility] [place]ing Genetic For Family Planning (Primary Dx) 05/04/2024 Clinical Communication Department of Medical Genetics in [place], [place] [address] [place] [phone] Tiana Almanza M.S., [facility] 04/28/2024 3:00 PM MANAGER FRONT Lab Department of Laboratory Medicine and Pathology, [facility], in [place], [place] [address] [place] [address] Noni Bender M.D., Ph.D. Multigravida Advanced Maternal Age Affecting Management (HCC) 04/28/2024 2:00 PM MANAGER FRONT Comprehensive Visit Department of Obstetrics and Gynecology in [place], [place] [address] [place] [address] Magalys Bernal M.D. Rust, Laura M, M.S., [facility] Counseling Genetic For Family Planning (Primary Dx); Raised Antibody Titer; Multigravida Advanced Maternal Age Affecting Management (HCC); Breast Cancer Susceptibility Gene Mutation Family History 2024 10:45 AM MANAGER FRONT Silent Schedule Department of Obstetrics and Gynecology in [place], [place] [address] [place] [address] Magalys Bernal M.D. 2024 10:00 AM MANAGER FRONT Initial Department of Obstetrics and Gynecology in [address] [phone] Magalys Bernal M.D. GA: 12w5d 04/14/2024 Results Follow-Up Department of Obstetrics and Gynecology in [place], [place] [address] [place] [phone] Magalys Bernal M.D. Bacterial Culture, Aerobic + Susceptibility, Urine, Chlamydia / Gonorrhoeae Amplified RNA, Urinalysis, with Microscopic: Urine, Midstream, Additional followed-up results: 4 04/03/2024 1:00 PM MANAGER FRONT Routine Department of Obstetrics and Gynecology in [place], [place] [address] [place] [address] Noni Bender M.D., Ph.D. Duyen Farnsworth R.N. 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) (Primary Dx) 04/03/2024 11:01 AM MANAGER FRONT - 04/03/2024 11:59 PM MANAGER FRONT Hospital Encounter Department of Obstetrics and Gynecology in [place], [place] [address] [place] [address] Noni Bender M.D., Ph.D. High Risk History Labor (HCC) Discharge Disposition: Home or Self Care 04/02/2024 Clinical Communication Department of Obstetrics and Gynecology in [place], [place] [address] [place] [address] Magalys Bernal M.D. Reschedule 03/16/2024 11:00 AM MANAGER FRONT Initial Department of Obstetrics and Gynecology in [place], [place] [address] [place] [address] Kellen South R.N. GA: 8w1d from Last 3 Months Immunizations Immunization Administration Dates Next Due 4vHPV (discontinued) 09/05/2010,11/11/19 07,11/07/2006,2006 DTP 06/01/1994,,1989,1989,1989 DTaP (Infanrix, [employer]) 01/21/1995 H1N1 All Forms 02/21/2009 HepB, Unspecified 08/19/2001,06/19/2001,02/04/20 Hib, Unspecified 06/01/1994 IPV 12/02/1994,06/01/1994,12/04/1990 Influenza, Seasonal, Injectable 04/09/2012 MMR 02/03/2001,02/03/1991,12/04/1990 OPV 1989,1989 Td (Adult), adsorbed 03/24/2003,12/30/2002 Tdap 05/28/2023, 1,02/16/2014,2012 Tuberculin Skin Test, Unspecified 04/01/2012 influenza vaccine quad (FLUZONE/FLUARIX) (6 months and older)(PF) 12/23/2016,12/24/2013 Family History Medical History Relation Name Comments No Known Problems Daughter 1 Palak Jose Smisek No Known Problems Daughter 2 Hillary Alcohol abuse Father marnie Legionnaire's disease Father marnie Cystic fibrosis Maternal Cousin Alcohol abuse Maternal Grandfather Depression Maternal Grandfather BRCA2 Positive Mother Juana Breast cancer Mother Juana Alcohol abuse Paternal Grandmother Schizophrenia Paternal Grandmother No Known Problems Son 1 Loyd No Known Problems Son 2 Sander No Known Problems Son 3 Jermaine No Known Problems Son 4 Darius Relation Name Status Comments Daughter 1 Palak Jose Smishereen Alive Daughter 2 Hillary Alive Father marnie Half-Sibling 1 Alive Half-Sibling 2 Alive Half-Sibling 3 Alive Half-Sibling 4 Alive Half-Sibling 5 Alive Half-Sibling 6 Alive Half-Sibling 7 Alive Half-Sibling 8 Alive Half-Sibling 9 Alive Maternal Cousin Alive Maternal Grandfather Maternal Grandmother Alive Mother Juana (Age 50s) Mother's Brother Alive Mother's Sister Alive Other 1 Fetus - In Utero Other 2 (Age 90) BAV Paternal Grandfather Paternal Grandmother Son 1 Loyd Alive BAV Son 2 Sander Alive BAV Son 3 Jermaine Alive Son 4 Darius Alive BAV Social History Tobacco Use Types Packs/Day Years Used Date Smoking Tobacco: Former Cigarettes Smokeless Tobacco: Never Tobacco Cessation:Counseling Given: Not Answered Alcohol Use Standard Drinks/Week Comments Not Currently 0 (1 standard drink = 0.6 oz pure alcohol) Pre , 1 drink monthly [employer] Answer Date Recorded In the past 12 months has e [employer], gas, oil, or water [employer] threatened to shut off services in your [...] your living situation today? 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 Not on file Not on file Not on file Last Filed Vital Signs Vital Sign Reading Time Taken Comments Blood Pressure 113/74 06/05/2024 11:19 AM CDT Pulse 90 06/05/2024 11:19 AM CDT Temperature 36.7 C (98.1 F) 06/05/2024 11:19 AM CDT Respiratory Rate 16 08/13/2023 5:12 AM CDT Oxygen Saturation 99% 06/05/2024 11:19 AM CDT Inhaled Oxygen Concentration - - Weight 83.2 kg (183 lb 6.8 oz) 06/05/2024 11:19 AM CDT Height 170.2 cm (5' 7.01) 08/11/2023 11:45 PM C DT Body Mass Index 28.72 08/11/2023 11:45 PM CDT Plan of Treatment Upcoming Encounters Date Type Department Care Team (Late st Contact Info) Description 07/10/2024 10:00 AM CDT Appointment Department of Obstetrics and Gynecology in [address] [address] Noni Bender M.D., Ph.D. [address] [place] [phone] Discharge Disposition: Home or Self Care 07/10/2024 11:00 AM CDT Routine Department of Obstetrics and Gynecology in [address] [address] Cristela Zapien, RHIANNA, CN [address] [place] [phone] 07/10/2024 11:40 AM CDT Lab Department of Laboratory Medicine and Pathology, [place], [place] [address] [place] [phone] Noni Bender M.D., Ph.D. [address] [place] [phone] 07/20/2024 10:10 AM CDT Lab Department of Laboratory Medicine and Pathology, [facility], in [place], [place] [address] [place] [phone] Noni Bender M.D., Ph.D. [address] [place] [phone] 08/14/2024 9:00 AM CDT Appointment Department of Obstetrics and Gynecology in [place], [place] [address] [place] [phone] Noni Bender M.D., Ph.D. [address] [place] [phone] Discharge Disposition: Home or Self Care 08/14/2024 10:00 AM CDT Routine Department of Obstetrics and Gynecology in [place], [place] [address] [place] [phone] Magalys Bernal M.D. [address] [place] [phone] Health Maintenance Due Date Last Done Comments Lipid (Cholesterol) Screening 1989 COVID-19 Vaccine (2023- season) 2023 Influenza Vaccine (#1) 2023 7, [...] CDT 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) PROTEIN/CREATININE RATIO, RANDOM, URINE Routine 06/05/2024 9:27 AM CDT 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) BACTERIAL CULTURE, AEROBIC + SUSC, URINE Routine 06/05/2024 9:27 AM CDT Bacteriuria Asymptomatic ANTIBODY IDENTIFICATION Routine 05/26/2024 2:35 PM MANAGER FRONT COMPREHENSIVE METABOLIC PANEL, S/P Routine 05/26/2024 2:35 PM MANAGER FRONT 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) PANORAMA SCREEN Routine 04/28/2024 3:07 PM MANAGER FRONT Multigravida Advanced Maternal Age Affecting Management (HCC) HORIZON CARRIER SCREEN, BLOOD Routine 04/28/2024 3:07 PM MANAGER FRONT Multigravida Advanced Maternal Age Affecting Management (HCC) US OB FIRST TRIMESTER RAD - Routine (most inpatients and all outpatients) 2024 11:19 AM MANAGER FRONT 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) PH, U Routine 04/03/2024 2:39 PM MANAGER FRONT OSMOLALITY, U Routine 04/03/2024 2:39 PM MANAGER FRONT DIPSTICK, U Routine 04/03/2024 2:39 PM MANAGER FRONT MICROSCOPIC AUTOMATED Routine 04/03/2024 2:39 PM MANAGER FRONT URINALYSIS WITH MICROSCOPIC Routine 04/03/2024 2:39 PM MANAGER FRONT 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) CHLAMYDIA/GONORRHOEAE AMPLIFIED RNA Routine 04/03/2024 2:39 PM MANAGER FRONT 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) BACTERIAL CULTURE, AEROBIC + SUSC, URINE Routine 04/03/2024 2:39 PM MANAGER FRONT 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) VARICELLA-ZOSTER AB, IGG, S Routine 04/03/2024 2:14 PM MANAGER FRONT 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) SYPHILIS IGG W/ REFLEX, EIA, S Routine 04/03/2024 2:14 PM MANAGER FRONT 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) HIV-1/-2 AG AND AB SCRN, PLASMA Routine 04/03/2024 2:14 PM MANAGER FRONT 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) HCV AB SCRN , S Routine 04/03/2024 2:14 PM MANAGER FRONT 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) HBC TOTAL AB , S Routine 04/03/2024 2:14 PM MANAGER FRONT 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) HBS ANTIBODY , S Routine 04/03/2024 2:14 PM MANAGER FRONT 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) HBS ANTIGEN , S Routine 04/03/2024 2:14 PM MANAGER FRONT 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) ANTIBODY IDENTIFICATION Routine 04/03/2024 2:13 PM MANAGER FRONT FERRITIN, S Routine 04/03/2024 2:13 PM MANAGER FRONT 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) HEMOGLOBIN ELECTROPHORESIS CASCADE, B Routine 04/03/2024 2:13 PM MANAGER FRONT 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) HEMOGLOBIN A1C, B Routine 04/03/2024 2:1 3 PM MANAGER FRONT 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) CBC WITH DIFFERENTIAL, B Routine 04/03/2024 2:13 PM MANAGER FRONT 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) US OB LIMITED RAD - Routine (most inpatients and all outpatients) 04/03/2024 11:28 AM MANAGER FRONT High Risk History Labor (HCC) from Last 3 Months Results * US OB Advanced Level Jovel [...] 0 lb 11 oz EFW by Hadlock ([id number]) Head / Face / Neck Biometry: Hospital Superintendent 6.8 mm CM 4.4 mm 33% Inner [...] normal. RVOT view. LVOT view. 3-vessel view. 9-ryugrd-pjhgewn view. Situs. Aortic arch view. Bicaval view. [...] ====== Transvaginal ultrasound examination. Transabdominal ultrasoundexamination ========= Jovle Dating ====== Date DetailsGest. age ELVIE Stated [...] 0 lb 11 oz EFW by Hadlock ([id number]) Head / Face / Neck Biometry: Hospital Superintendent 6.8 mm CM 4.4 mm 33% Inner [...] veins: normal. RVOT view. LVOTview. 3-vessel view. 8-kprzap-cfmkucg view. Situs. Aortic arch view.Bicaval view. Ductal [...] M.D. IMG OB US PROCEDURES Final Result * (ABNORMAL) Protein/Creatinine Ratio, Random, Urine (06/05/2024 9:27 AM CDT) Protein, Total, Random, U <4 mg/dL 06/05/2024 10:21 AM CDT DTL Creatinine, Random, U 18 16 - 326 mg/dL 06/05/2024 10:21 AM CDT DTL Protein/Creatinine Ratio <0.22(H) <0.18 mg/mg 06/05/2024 10:21 AM CDT DTL Comment: This ratio may not correspond with the reference range because one or both of the values used to calculate the ratio was above or below the quantification limits. Urine (Urine, Midstream) 06/05/2024 9:27 AM CDT 06/05/2024 9:38 AM CDT Magalys Bernal M.D. LAB URINE ORDERABLES Final Result Performing Organization Address [facility] Co de Phone Number [facility] [address] [place] [address], [facility] [place] [address] * Antibody Identification, Erythrocytes (05/26/2024 2:35 PM MANAGER FRONT) Only the most recent of2 resultswithin the time period is included. Pathologist [facility] Antibody Identification Anti-Jka 05/26/2024 3:55 PM MANAGER FRONT DTL Comment: Clinically significant in regards to HDN. Antibody Titer canceled and replaced by antibody identification as antibody is too weakly reactive to titer. 05/26/2024 2:35 PM MANAGER FRONT 05/26/2024 2:56 PM MANAGER FRONT Narrative [facility] - 05/26/2024 3:55 PM MANAGER FRONT Specimen Information: Specimen ID: [id number] Specimen Collection Start Date: 05/26/2024 2:35 PM Specimen Received Date: 05/26/2024 2:56 PM Specimen ID: [id number] Specimen Collection Start Date: 05/26/2024 2:35 PM Specimen Received Date: 05/26/2024 2:56 PM us Magalys Bernal M.D. LAB BLOOD BANK TEST ORDERAB LES Final Result Performing Organization Address [facility]/ZIP Co de Phone Number [facility] [address] [place] [address], [facility] DTL [facility] [address] [place] [address] * (ABNORMAL) Comprehensive Metabolic Panel (05/26/2024 2:35 PM MANAGER FRONT) [facility] Potassium, S 4.2 3.6 - 5.2 mmol/L 05/26/2024 3:12 PM MANAGER FRONT DTL Sodium, S 140 135 - 145 mmol/L 05/26/2024 3:12 PM MANAGER FRONT DTL Chloride, S 104 98 - 107 mmol/L 05/26/2024 3:12 PM MANAGER FRONT DTL Bicarbonate, S 25 22 - 29 mmol/L 05/26/2024 3:12 PM MANAGER FRONT DTL Anion Gap 11 7 - 15 05/26/2024 3:12 PM MANAGER FRONT DTL BUN (Blood Urea Nitrogen), S 9 6 - 21 mg/dL 05/26/2024 3:12 PM MANAGER FRONT DTL Creatinine 0.65 0.59 - 1.04 mg/dL 05/26/2024 3:12 PM MANAGER FRONT DTL Estimated GFR (eGFR) >90 >=60 mL/min/BS A 05/26/2024 3:12 PM MANAGER FRONT DTL Comment: Estimated GFR calculated using the 2020 CKD_EPI creatinine equation. Calcium, Total, S 8.9 8.6 - 10.0 mg/dL 05/26/2024 3:12 PM MANAGER FRONT DTL Glucose, S 67(L) 70 - 140 mg/dL 05/26/2024 3:12 PM MANAGER FRONT DTL Protein, Total, S 6.1(L) 6.3 - 7.9 g/dL 05/26/2024 3:12 PM MANAGER FRONT DTL Albumin, S 3.9 3.5 - 5.0 g/dL 05/26/2024 3:12 PM MANAGER FRONT DTL Aspartate Aminotransferase (AST), S 10 8 - 43 U/L 05/26/2024 3:12 PM MANAGER FRONT DTL Alkaline Phosphatase, S 55 35 - 104 U/L 05/26/2024 3:12 PM MANAGER FRONT DTL Alanine Aminotransferase (ALT), S 7 7 - 45 U/L 05/26/2024 3:12 PM MANAGER FRONT DTL Bilirubin, Total, S 0.3 0.0 - 1.2 mg/dL 05/26/2024 3:12 PM MANAGER FRONT DTL Blood (Blood, Venous) 05/26/2024 2:35 PM MANAGER FRONT 05/26/2024 2:55 PM MANAGER FRONT us Magalys Bernal M.D. LAB BLOOD ADD-ON Final Resu lt [facility] [address] [place] [address], [place] DTL [facility] [address] [place] [address] * Horizon Carrier Screen, Blood - Sent Out Lab (04/28/2024 3:07 PM MANAGER FRONT) Horizon Carrier Screen, Blood SEE COMMENT 05/13/2024 8:52 AM MANAGER FRONT [facility] Comment: For final report, select Lab-Send Out Lab Results hyperlink below. Blood (Blood, Venous) 04/28/2024 3:07 PM MANAGER FRONT Narrative [employer] - 05/13/2024 8:52 AM MANAGER FRONT Specimen Information: Specimen ID: [id number] Specimen Type: Blood Specimen ID: [id number] Specimen Type: Blood Specimen Collection Start Date: 04/28/2024 3:07 PM Specimen Received Date: 04/29/2024 9:11 AM us Noni Bender M.D., Ph.D. LAB GENETIC TESTING Tiffani l Result [employer] [address] [place] [address], [place] [employer] [address] [place] [address] * Panorama Screen - Sent Out Lab (04/28/2024 3:07 PM MANAGER FRONT) Panorama Screen SEE COMMENT 05/04/2024 1:51 PM MANAGER FRONT CANDIDO Comment: For final report, select Lab-Send Out Lab Results hyperlink below. Blood (Blood, Venous) 04/28/2024 3:07 PM MANAGER FRONT 04/29/2024 9:11 AM MANAGER FRONT Narrative [employer] - 05/04/2024 1:51 PM MANAGER FRONT Specimen Information: Specimen ID: [id number] Specimen Type: Blood Specimen Collection Start Date: 04/28/2024 3:07 PM Specimen Received Date: 04/29/2024 9:11 AM Specimen ID: [id number] Specimen Type: Blood Specimen Collection Start Date: 04/28/2024 3:07 PM Specimen Received Date: 04/29/2024 9:11 AM Noni Bender M.D., Ph.D. LAB GENETIC TESTING Tiffani l Result [employer] [address] [place] [address], [facility] [employer] [address] [place] [address] * US OB First Trimester (2024 11:19 AM MANAGER FRONT) Anatomical Region Laterality Modality Body, Ultrasound OB RST LOS, Ultrasound ARZ LOS N/A Ultrasound Narrative 2024 11:19 AM MANAGER FRONT Single viable IUP with movement and normal FHT Anterior placenta Stomach and bladder visualized Magalys Bernal M.D. IMG OB US PROCEDURES Final Result * Dipstick, Urine (04/03/2024 2:39 PM MANAGER FRONT) Hemoglobin, QL, U Negative Negative 04/03/2024 3:09 PM MANAGER FRONT DTL Leukocyte Esterase, U Negative Negative 04/03/2024 3:09 PM MANAGER FRONT DTL Nitrite, U Negative Negative 04/03/2024 3:09 PM MANAGER FRONT DTL Ketone, U Negative Negative mg/dL 04/03/2024 3:09 PM MANAGER FRONT DTL Glucose, U Negative Negative mg/dL 04/03/2024 3:09 PM MANAGER FRONT DTL Urine 04/03/2024 2:39 PM MANAGER FRONT 04/03/2024 2:47 PM MANAGER FRONT Magalys Bernal M.D. LAB URINE ORDERABLES Final Result Performing Organization Address [facility] [place] [address] * Microscopic Automated (04/03/2024 2:39 PM MANAGER FRONT) Microscopy Normal 04/03/2024 3:09 PM MANAGER FRONT DTL RBC None Seen <3 /hpf 04/03/2024 3:09 PM MANAGER FRONT DTL WBC None Seen /hpf 04/03/2024 3:09 PM MANAGER FRONT DTL Comment: ----REFERENCE VALUE---- <4 (Males) <11 (Females) Squamous Epithelial Cells, U 1-3 /hpf 04/03/2024 3:09 PM MANAGER FRONT DTL Urine 04/03/2024 2:39 PM MANAGER FRONT 04/03/2024 2:47 PM MANAGER FRONT Magalys Bernal M.D. LAB URINE ORDERABLES Final Result Performing Organization Address [facility] [place] [address] * (ABNORMAL) Bacterial Culture, Aerobic + Susceptibility, Urine (04/03/2024 2:39 PM MANAGER FRONT) Urine Culture With urogenital microbiota, susceptibilities not performed per laboratory criteria. (A) 04/06/2024 1:12 PM MANAGER FRONT DTL Urine Culture KLEBSIELLA AEROGENES >100,000 cfu/mL (A) 04/06/2024 1:12 PM MANAGER FRONT DTL Urine (Urine, Midstream) 04/03/2024 2:39 PM MANAGER FRONT 04/03/2024 3:08 PM MANAGER FRONT Comment:Specimen Source Site : Urine Narrative Organism Antibiotic Method Susceptibility Klebsiella aerogenes Ampicillin SUSCEPTIBIL ITY, ROSSY (MCG/ML) mcg/mL: Resistant Klebsiella aerogenes Ampicillin + Sulbactam SUSC EPTIBILITY, ROSSY (MCG/ML) mcg/mL: Resistant Klebsiella aerogenes Meropenem SUSCEPTIBIL ITY, ROSSY (MCG/ML) <=0.12 mcg/mL: Susceptible Klebsiella aerogenes Ertapenem SUSCEPTIBIL ITY, ROSSY (MCG/ML) <=0.25 mcg/mL: Susceptible Klebsiella aerogenes Piperacillin + Tazobactam S USCEPTIBILITY, ROSSY (MCG/ML) <=8/4 mcg/mL: Susceptible Klebsiella aerogenes Ciprofloxacin SUSCEPTIBIL ITY, ROSSY (MCG/ML) <=0.25 mcg/mL: Susceptible Klebsiella aerogenes Levofloxacin SUSCEPTIBIL ITY, ROSSY (MCG/ML) <=0.5 mcg/mL: Susceptible Klebsiella aerogenes Cefazolin SUSCEPTIBIL ITY, ROSSY (MCG/ML) mcg/mL: Resistant Klebsiella aerogenes Ceftriaxone SUSCEPTIBIL ITY, ROSSY (MCG/ML) <=1 mcg/mL: Susceptible Klebsiella aerogenes Ceftazidime SUSCEPTIBIL ITY, ROSSY (MCG/ML) <=4 mcg/mL: Susceptible Klebsiella aerogenes Cefepime SUSCEPTIBIL ITY, ROSSY (MCG/ML) <=2 mcg/mL: Susceptible Klebsiella aerogenes Amikacin SUSCEPTIBIL ITY, ROSSY (MCG/ML) <=4 mcg/mL: Susceptible Klebsiella aerogenes Gentamicin SUSCEPTIBIL ITY, ROSSY (MCG/ML) <=1 mcg/mL: Susceptible Klebsiella aerogenes Tobramycin SUSCEPTIBIL ITY, ROSSY (MCG/ML) <=1 mcg/mL: Susceptible Klebsiella aerogenes Aztreonam SUSCEPTIBIL ITY, ROSSY (MCG/ML) <=4 mcg/mL: Susceptible Klebsiella aerogenes Trimethoprim + Sulfamethoxazole SUSCEPTIBILITY, ROSSY (MCG/ML) <=0.5/9.5 mcg/mL: Susceptible Klebsiella aerogenes Nitrofurantoin SUSCEPTIBIL ITY, ROSSY (MCG/ML) <=32 mcg/mL: Susceptible Magalys Bernal M.D. LAB MICROBIOLOGY - GENERAL ORDERABLES Final Result [facility] [address] [place] [address], [place] DTL [facility] [address] [place] [address] * pH, Urine (04/03/2024 2:39 PM MANAGER FRONT) [facility] pH, U 6.3 4.5 - 8.0 04/03/2024 3:1 6 PM MANAGER FRONT DT Urine 04/03/2024 2:39 PM MANAGER FRONT 04/03/2024 2:47 PM MANAGER FRONT Result Mary Jane Bernal M.D. LAB URINE ORDERABLES Final Result Performing Organization Address City/[facility] Co de Phone Number [facility] [address] [place] [address], [facility] [address] [place] [address] * Chlamydia / Gonorrhoeae Amplified RNA (04/03/2024 2:39 PM MANAGER FRONT) Pathologist [facility] Source Urine, Urine, First Voided 04/03/2024 11:35 PM MANAGER FRONT SDSC Chlamydia trachomatis amplified RNA Negative Negative 04/03/2024 11:35 PM MANAGER FRONT [facility] Source Urine, Urine, First Voided 04/03/2024 11:35 PM MANAGER FRONT SDSC Neisseria gonorrhoeae amplified RNA Negative Negative 04/03/2024 11:35 PM MANAGER FRONT [facility] Urine (Urine, First Voided) 04/03/2024 2:39 PM MANAGER FRONT 04/03/2024 6:35 PM MANAGER FRONT Result Mary Jane Bernal M.D. LAB MICROBIOLOGY - GENERAL ORDERABLES Final Result Performing Organization Address City/[facility] Co de Phone Number [facility] [address] [place] [address] [facility] [address] [place] [address] [place] [address] * Osmolality, Urine (04/03/2024 2:39 PM MANAGER FRONT) Pathologist [facility] Osmolality, U 464 150 - 1150 mOsm/kg 04/03/2024 3:16 PM MANAGER FRONT DT Urine 04/03/2024 2:39 PM MANAGER FRONT 04/03/2024 2:47 PM MANAGER FRONT Result Mary Jane Bernal M.D. LAB URINE ORDERABLES Final Result Performing Organization Address City/State/[facility] Co de Phone Number [facility] [address] [place] [address], [facility] DTL [facility] [address] [place] [address] * Urinalysis, with Microscopic: Urine, Midstream (04/03/2024 2:39 PM MANAGER FRONT) Source Urine, Urine, Midstream 04/03/2024 2:46 PM MANAGER FRONT DTL Color, U Yellow 04/03/2024 2:46 PM MANAGER FRONT DTL Clarity, U Clear 04/03/2024 2:46 PM MANAGER FRONT DTL Protein, U 7 <26 mg/dL 04/03/2024 3:33 PM MANAGER FRONT DTL Protein/Osmol ality 0.15 <0.42 ratio 04/03/2024 3:33 PM MANAGER FRONT DTL Predicted 24 HR Protein, U 120 <229 mg/24 h 04/03/2024 3:33 PM MANAGER FRONT DTL Predicted Range 30-486 mg/24 h 04/03/2024 3:33 PM MANAGER FRONT DTL Urine (Urine, Midstream) 04/03/2024 2:39 PM MANAGER FRONT 04/03/2024 2:46 PM MANAGER FRONT Magalys Bernal M.D. LAB URINE ORDERABLES Final Result Performing Organization Address [facility] Co de Phone Number [facility] [address] [place] [address], [facility] DTL [facility] [address] [place] [address] * Syphilis IgG w/ Reflex, EIA, S (RST/FLA) (04/03/2024 2:14 PM MANAGER FRONT) Syphilis IgG w/ Reflex, EIA, S Nonreactive Nonreactive 04/03/2024 11:06 PM MANAGER FRONT [facility] Comment: No serologic evidence of infection with T. pallidum (syphilis). Repeat testing may be considered in patients with suspected acute or primary syphilis in 2-4 weeks. For additional information on interpretation of the syphilis reverse algorithm and results, see: [email or web address] Blood (Blood, Venous) 04/03/2024 2:14 PM MANAGER FRONT 04/03/2024 6:39 PM MANAGER FRONT us Magalys Bernal M.D. LAB MICROBIOLOGY - BLOOD OR DERABLES Final Result Performing Organization Address [facility] Co de Phone Number [facility] [address] [place] [address] [facility] [address] [place] [place] [address] * HBc Total Ab , Serum (04/03/2024 2:14 PM MANAGER FRONT) HBc Total Ab , S Negative Negative 04/03/2024 8:17 PM MANAGER FRONT [facility] Blood (Blood, Venous) 04/03/2024 2:14 PM MANAGER FRONT 04/03/2024 7:09 PM MANAGER FRONT Magalys Bernal M.D. LAB MICROBIOLOGY - BLOOD OR DERABLES Final Result Performing Organization Address [facility] Co de Phone Number [facility] [address] [place] [place] [address] [place] [id number] [place] [place] [address] * HBs Antibody , Serum (04/03/2024 2:14 PM MANAGER FRONT) HBs Antibody , S Negative 04/03/2024 8:17 PM MANAGER FRONT [facility] Comment: Patient is NOT immune to HBV infection. Consumption of high-dose biotin supplement within 12 hours of blood collection for this test can cause false-negative results. ----REFERENCE VALUE---- Unvaccinated: Negative Vaccinated: Positive HBs Antibody, Quantitative, S 4.0 mIU/mL 04/03/2024 8:17 PM MANAGER FRONT [facility] Comment: ----REFERENCE VALUE---- Unvaccinated: <8.5 mIU/mL Vaccinated: >=11.5 mIU/mL Blood (Blood, Venous) 04/03/2024 2:14 PM MANAGER FRONT 04/03/2024 7:09 PM MANAGER FRONT Result Mary Jane Bernal M.D. LAB MICROBIOLOGY - BLOOD OR DERABLES Final Result Performing Organization Address [facility] Co de Phone Number [facility] [address] [place] [address] [facility] [address] [place] [address] * Hepatitis C Virus Antibody Screen (04/03/2024 2:14 PM MANAGER FRONT) HCV Ab Scrn , S Negative Negative 04/03/2024 8:17 PM MANAGER FRONT [facility] Comment: Consumption of high-dose biotin supplement within 12 hours of blood collection for this test can cause false-negative results. Blood (Blood, Venous) 04/03/2024 2:14 PM MANAGER FRONT 04/03/2024 7:09 PM MANAGER FRONT Result Mary Jane Bernal M.D. LAB MICROBIOLOGY - BLOOD OR DERABLES Final Result Performing Organization Address [facility] de Phone Number [facility] [address] [place] [address] [facility] [address] [place] [place] [address] * HIV-1/-2 Ag and Ab Scrn, Plasma (04/03/2024 2:14 PM MANAGER FRONT) Pathologist [facility] HIV-1/-2 Ag and Ab Scrn, P Negative Negative 04/03/2024 8:14 PM MANAGER FRONT [facility] Comment: Negative result does not rule out HIV infection. If exposure to HIV infection occurred <14 days ago, contact the laboratory to request addition of HIV-1/HIV-2 RNA detection , Plasma (HPP12). Blood (Blood, Venous) 04/03/2024 2:14 PM MANAGER FRONT 04/03/2024 7:09 PM MANAGER FRONT Result Mary Jane Bernal M.D. LAB MICROBIOLOGY - BLOOD OR DERABLES Final Result Performing Organization Address City/[facility] Co de Phone Number [facility] [address] [place] [address] [facility] [address] [place] [address] * HBs Antigen , Serum (04/03/2024 2:14 PM MANAGER FRONT) [facility] HBs Antigen , S Negative Negative 04/03/2024 8:17 PM MANAGER FRONT [facility] Blood (Blood, Venous) 04/03/2024 2:14 PM MANAGER FRONT 04/03/2024 7:09 PM MANAGER FRONT Result [facility] Magalys Bernal M.D. LAB MICROBIOLOGY - BLOOD OR DERABLES Final Result Performing Organization Address City/[facility]/ZIP Co de Phone Number [facility] [address] [place] [address] [facility] [address] [place] [address] * Varicella-Zoster Antibody, IgG, Serum (04/03/2024 2:14 PM MANAGER FRONT) [facility] Varicella-Zoster Ab, IgG, S Positive 04/04/2024 9:52 AM MANAGER FRONT [facility] Comment: Results suggest response to immunization or prior exposure to the virus. ----REFERENCE VALUE---- Vaccinated: Positive (>=1.1 AI) Unvaccinated: Negative (<=0.8 AI) Varicella IgG Antibody Index 2.0 04/04/2024 9:52 AM MANAGER FRONT [facility] Blood (Blood, Venous) 04/03/2024 2:14 PM MANAGER FRONT 04/03/2024 9:40 PM MANAGER FRONT Result [facility] Magalys Bernal M.D. LAB MICROBIOLOGY - BLOOD OR DERABLES Final Result [facility] [address] [place] [address] [facility] [address] [place] [address] * Hemoglobin Electrophoresis Evaluation (04/03/2024 2:13 PM MANAGER FRONT) [facility] Hb A 97.2 95.8 - 98.0 % 04/04/2024 4:20 PM MANAGER FRONT DTL Hb F 0.0 0.0 - 0.9 % 04/04/2024 4:20 PM MANAGER FRONT DTL Hb A2 2.8 2.0 - 3.3 % 04/04/2024 4:20 PM MANAGER FRONT DTL Comment: ----ADDITIONAL INFORMATION---- This test has been modified from the ocean freight forwarder's instructions. Its performance characteristics were determined by [facility] in a manner consistent with CLIA requirements. This test has not been cleared or approved by the U.S. Food and Drug Administration. HPLC Hb Variant, B See Interpretation 04/04/2024 4:20 PM MANAGER FRONT DTL Comment: ----ADDITIONAL INFORMATION---- This test has been modified from the ocean freight forwarder's instructions. Its performance characteristics were determined by [facility] in a manner consistent with CLIA requirements. [...] include: capillary electrophoresis, HPLC. 04/04/2024 4:20 PM MANAGER FRONT DTL Blood (Blood, Venous) 04/03/2024 2:13 PM MANAGER FRONT 04/03/2024 2:41 PM MANAGER FRONT Magalys Bernal M.D. LAB BLOOD ADD-ON Final Resu lt [facility] [address] [place] [address], [facility] DTL [address] [facility] [address] [place] [address] * (ABNORMAL) CBC with Differential, Blood (04/03/2024 2:13 PM MANAGER FRONT) Hemoglobin 12.9 11.6 - 15.0 g/dL 04/03/2024 2:40 PM MANAGER FRONT DTL Hematocrit 37.6 35.5 - 44.9 % 04/03/2024 2:40 PM MANAGER FRONT DTL Erythrocytes 4.22 3.92 - 5.13 x10(12)/L 04/03/2024 2:40 PM MANAGER FRONT DTL MCV 89.1 78.2 - 97.9 fL 04/03/2024 2:40 PM MANAGER FRONT DTL RBC Distrib Width 12.6 12.2 - 16.1 % 04/03/2024 2:40 PM MANAGER FRONT DTL Platelet Count 382(H) 157 - 371 x10(9)/L 04/03/2024 2:40 PM MANAGER FRONT DTL Leukocytes 10.3(H) 3.4 - 9.6 x10(9)/L 04/03/2024 2:40 PM MANAGER FRONT DTL Neutrophils 8.17(H) 1.56 - 6.45 x10(9)/L 04/03/2024 2:40 PM MANAGER FRONT DHPM Lymphocytes 1.47 0.95 - 3.07 x10(9)/L 04/03/2024 2:40 PM MANAGER FRONT DTL Monocytes 0.62 0.26 - 0.81 x10(9)/L 04/03/2024 2:40 PM MANAGER FRONT DTL Eosinophils 0.04 0.03 - 0.48 x10(9)/L 04/03/2024 2:40 PM MANAGER FRONT DTL Basophils 0.04 0.01 - 0.08 x10(9)/L 04/03/2024 2:40 PM MANAGER FRONT DTL Blood (Blood, Venous) 04/03/2024 2:13 PM MANAGER FRONT 04/03/2024 2:34 PM MANAGER FRONT us Magalys Bernal M.D. LAB BLOOD ADD-ON Final Resu lt [facility] [address] [place], [place] [address] [address] [place], [place] [address] [place] [address] [address] [place] [address] * Hemoglobin A1c (04/03/2024 2:13 PM MANAGER FRONT) Hemoglobin A1c, B 4.5 4.0 - 5.6 % 04/03/2024 2:48 PM MANAGER FRONT DTL Blood (Blood, Venous) 04/03/2024 2:13 PM MANAGER FRONT 04/03/2024 2:34 PM MANAGER FRONT us Magalys Bernal M.D. LAB BLOOD ADD-ON Final Resu lt Performing Organization Address City/[facility]/ZIP Co de Phone Number [facility] [address] [place], [place] [address] [address] [place] [address] * Ferritin (04/03/2024 2:13 PM MANAGER FRONT) Ferritin, S 50 6 - 175 mcg/L 04/03/2024 3:10 PM MANAGER FRONT DT Blood (Blood, Venous) 04/03/2024 2:13 PM MANAGER FRONT 04/03/2024 2:45 PM MANAGER FRONT us Magalys Bernal M.D. LAB BLOOD ADD-ON Final Resu lt [facility] [address] [place], [place] [address] [address] [place] [address] * US OB Limited (04/03/2024 11:28 AM MANAGER FRONT) Anatomical Region Laterality Modality Ultrasound OB RST LOS, Ultra sound ARZ LOS, Ultrasound FLA LOS, Ultrasound ARZ LOS N/A Ultrasound 04/03/2024 11:0 9 AM MANAGER FRONT Narrative 04/03/2024 12:27 PM MANAGER FRONT Exam Type ========= OB 1st Trimester Indication ======== dating and viability History ====== OB History 10. Para 6 Method ====== Transabdominal ultrasound examination ========= Jovel Dating ====== [...] Normal appearing adnexa and ovaries Impression ========= Jovel intrauterine with cardiac activity present. ELVEI established by LMP consistent with crown-rump length (10 6/7 weeks) today. Anterior placenta. Amniotic fluid volume normal. The left ovary appears normal, and the right ovary was not visualized. Procedure Note Dheeraj Arroyo M.D. - 04/03/2024 Exam Type ========= OB 1st Trimester Indication ======== dating and viability History ====== OB History 10. Para 6 Method ====== Transabdominal ultrasound examination ========= Jovel Dating ====== Date DetailsGest. age [...] Normal appearing adnexa and ovaries Impression ========= Jovel intrauterine with cardiac activity present. EDDestablished by LMP consistent with crown-rump length (10 6/7 weeks)today. Anterior placenta. Amniotic fluid volume normal. The left ovary appears normal, and the right ovary was not visualized. us Noni Bender M.D., Ph.D. IMG OB US PROCEDURES Fin al Result from Last 3 Months Insurance [employer] Advance Directives For more information, please contact: [phone] * Full Code (Latest Code Status on File) Date Activated Date Inactivated Comments 08/11/2023 11:14 PM 08/13/2023 1:53 PM Question Answer Comments Full Code: Not Discussed Due to: Not medically appropriate * Full Code Date Activated Date Inactivated Comments 07/06/2023 1:28 PM 07/07/2023 2:26 PM Question Answer Comments Full Code: Not Discussed Due to: Not medically appropriate Care Teams Clinical Account Liaison Relationship Specialty Start Date End Date Roberto OLVERA 04/17/24 10/25/24
--- NOTE | 2024-06-06 11:42 | ED_ITS ---
HPI - General Adult General Chief complaint: Weakness Stated complaint: 20 weeks preg/flu? Time Seen by Provider: 06/06/24 11:37 History of Present Illness HPI narrative: comes to ed with concerns of fatigue, nausea, body aches, cough. is 19 6/7 weeks pg. gr 7 p6 Rh positive. became ill feeling last night. not eating or drinking much, feels dehydrated. was dropped off by her mother- in?law. denies any vag bleeding or abd pain?cramping 34-year-old woman presenting to the emergency department with concern of body aches and being dehydrated. Has been vomiting on and off over the Last 24 hours. Notes that a a stomach bug went through the house last weekend. Seemed to get better from that. Then was hit with these body aches yesterday evening. Is not having increased abdominal pain or cramping. No bleeding. Just hurts. Joints and muscles. No rashes noted. Has not measured a fever. She is about 20 weeks . Did struggle with nausea early on but that has improved. GloNav usually works. 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) Panic attacks ?F41.0 - Panic disorder [episodic paroxysmal anxiety] (ICD-10) ALVARO (generalized anxiety disorder) ?F41.1 - Generalized anxiety disorder (ICD-10) Anxiety and depression ?F41.9 - Anxiety disorder, unspecified (ICD-10) ?F32.A - Depression, unspecified (ICD-10) ADHD ?F90.9 - Attention-deficit hyperactivity disorder, unspecified type (ICD-10) Vaginitis and vulvovaginitis ?N76.0 - Acute vaginitis (ICD-10) Chronic tension headaches ?G44.229 - Chronic tension-type headache, not intractable (ICD-10) Surgical History History of tonsillectomy and adenoidectomy ?Z90.89 - Acquired absence of other organs (ICD-10) History of appendectomy ?Z90.49 - Acquired absence of other specified parts of digestive tract (ICD- 10) Social History Smoking Status: Former smoker Do you use any of these nicotine containing products: None Second hand tobacco smoke exposure: No How often do you have a drink containing alcohol: never How often do you have six or more drinks on one occasion: Never AUDIT-C Alcohol total score: 0 Non-prescribed substance use: denies use service: No Exam Narrative: Exam Narrative: Pleasant. Seems little uncomfortable. Oropharynx is little sticky. Cranial nerves 2-12 intact. Moving all extremities with good strength but clearly uncomfortable with movement and even light touch. Abdomen is soft and nontender. Appropriately gravid. Lungs appear to be clear. Heart in elevated rate and regular rhythm. Const: Vital Signs, click to edit/add: Vital Signs - 24 hr 06/06/24 11:45 Temperature 98.2 F Pulse Rate [Pulse Oximeter] 113 H Respiratory Rate 20 Blood Pressure [Ri ght Upper Arm] 116/76 Pulse Oximetry 97 Oxygen Delivery Me thod Room Air Documenting provider has reviewed patient's vital signs: yes Course Vital Signs Vital signs: Initial Vital Signs Temperature 98.2 F 06/06/24 11:45 Temperature Source Temporal Artery Scan 06/06/24 11:45 Pulse Rate 113 H 06/06/24 11:45 Pulse Rhythm Regular 06/06/24 11:45 Respiratory Rate 20 06/06/24 11:45 Blood Pressure 116/76 06/06/24 11:45 Blood Pressure Mean 89 06/06/24 11:45 Blood Pressure Position Semi-Fowlers 06/06/24 11:45 Pulse Oximetry 97 06/06/24 11:45 Oxygen Delivery Method Room Air 06/06/24 11:45 Vital Signs Temperature 98.2 F 06/06/24 11:45 Pulse Rate 113 H 06/06/24 11:45 Respiratory Rate 20 06/06/24 11:45 Blood Pressure 116/76 06/06/24 11:45 Pulse Oximetry 97 06/06/24 11:45 Oxygen Delivery Method Room Air 06/06/24 11:45 Temperature 98.2 F 06/06/24 11:45 Pulse Rate 105 H 06/06/24 16:00 Respiratory Rate 20 06/06/24 11:45 Blood Pressure 116/76 06/06/24 11:45 Pulse Oximetry 95 06/06/24 16:00 Oxygen Delivery Method Room Air 06/06/24 11:45 Medications Administered Medications: Discontinued Medications Generic Name Dose Route Start Last Admin Trade Name Freq PRN Reason Stop Dose Admin Acetaminophen 1,000 mg 06/06/24 13:49 06/06/24 13:58 Acetaminophen 500 Mg Tablet PO 06/06/24 13:50 1,000 mg ONCE ONE Administration Sodium Chloride 1,000 mls @ 1,000 mls/hr 06/06/24 12:14 06/06/24 13:30 0.9 % Sodium Chloride 1000 Ml IV 06/06/24 13:13 Infused .Q1H ONE Infusion Sodium Chloride 1,000 mls @ 1,000 mls/hr 06/06/24 13:49 06/06/24 16:17 0.9 % Sodium Chloride 1000 Ml IV 06/06/24 14:48 Infused .Q1H ONE Infusion Ondansetron HCl 4 mg 06/06/24 12:15 06/06/24 12:32 Ondansetron 2 Mg/Ml Inj IVP 06/06/24 12:16 4 mg ONCE ONE Administration Medical Decision Making [facility] Narrative Medical decision making narrative: Does appear to have a viral illness with myalgias. Considering community prevalence would screen for at least influenza. Place IV. Normal saline. Antiemetic. Urinalysis. I do not think has been vomiting enough or so much that needs lab work related to electrolytes or renal function. Will try to make more comfortable in reassess need for further workup at that point. Improved after initial L of normal saline. No further vomiting. Also given a g of acetaminophen. Labs were positive for influenza B Given another L of normal saline. Stable vitals. See patient discharge plan for further discussion Today were diagnosed with influenza B. This could be contributing to the vomiting and certainly to the aches you are experiencing. Slow advance of diet over the next 24-36 hours. Diluted juices, soup broth, c rackers, rice, toast. I understand you have Zofran at home. Will be prescribing Tamiflu from [facility] for influenza. Medical Records Medical records reviewed: Yes I reviewed the patient's medical records Lab Data Lab results reviewed: Yes I reviewed the patient's lab results Labs: Lab Results 06/06/24 06/06/24 Range/Units 12:25 Unknown Urine Color Yellow (Yellow) Urine Appearance Clear (Clear) Urine pH 8.5 (5.0-8.5) Ur Specific [place] 1.015 (1.000-1.030) Urine Protein Negative (Negative) Urine Glucose (UA) Negative (Negative) Urine Ketones 1+ A (Negative) Urine Blood Negative (Negative) Urine Nitrite Negative (Negative) Urine Bilirubin Negative (Negative) Urine Urobilinogen 0.2 (0.2-1.0) Ur Leukocyte Esterase Negative (Negative) Urine RBC 0-2 (0-2) Urine WBC 0-2 (0-5) Ur Squamous Epith Cells Few (None-Few) Amorphous Sediment Few A (None) Urine Bacteria Moderate A (None) SARS-CoV-2 (PCR) Negative SARS-CoV-2 (Negative) Influenza Type A (PCR) Negative PCR FLU A (Negative) Influenza Type B (PCR) POSITIVE PCR FLU B A (Negative) RSV (PCR) Negative PCR RSV (Negative) Discharge Plan Discharge Clinical Impression: Influenza B, Vomiting Patient Disposition: Home, Self-Care Condition: Improved Additional Instructions: Today were diagnosed with influenza B. This could be contributing to the vomiting and certainly to the aches you are experiencing. Slow advance of diet over the next 24-36 hours. Diluted juices, soup broth, crackers, rice, toast. I understand you have Zofran at home. Will be prescribing Tamiflu from [facility] for influenza. Prescriptions: No Action ondansetron 4 mg tablet,disintegrating 4 mg PO Q6H Qty: 20 0RF amoxicillin 500 mg capsule 1,000 mg PO TID 5 Days Qty: 30 0RF Follow Up/Referrals: Provider,Not a Local [Primary Care Provider] - Stand Alone Forms: muzu tv Info Instructions
[2024-06-06 11:45] VITALS: BP 116/76; PULSE 113; RESP 20; TEMP 36.8; O2SAT 97; BMI 28.7
--- OUTSIDE RECORDS SUMMARY | 2024-06-06 12:20 | XMS_ITS | Encounter Summary ---
Author Organization [facility] Address [address] [place] [address] Care Team Providers Care Nuclear Powerplant Mechanic Name Role Phone Unavailable Primary Care Provider Unavailabl e Encounter Details Date Type Department Care Team (Late st Contact Info) Description 04/28/2024 3:00 PM MACHINE PACKAGING TECHNICIAN Lab Department of Laboratory Medicine and Pathology, [facility], in [place], [place] [address] [place] [phone] Noni Bender M.D., Ph.D. [address] [place] [phone] Multigravida Advanced Maternal Age Affecting Management (HCC) Social History Tobacco Use Types Packs/Day Years Used Date Smoking Tobacco: Former Cigarettes Smokeless Tobacco: Never Alcohol Use Standard Drinks/Week Comments Not Currently 0 (1 standard drink = 0.6 oz pure alcohol) Pre , 1 drink monthly [facility] Utilities Answer Date Recorded In the past 12 months has [facility] [employer], gas, oil, or water [employer] threatened to shut off services in your [...] your living situation today? 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 [address] [place] [phone] Discharge Disposition: Home or Self Care 07/10/2024 11:00 AM CDT Routine Department of Obstetrics and Gynecology in [address] [phone] Cristela Zapien, HEAVY EQUIPMENT OPERATING ENGINEER, CNM [address] [place] [phone] 07/10/2024 11:40 AM CDT Lab Department of Laboratory Medicine and Pathology, [address] [phone] Noni Bender M.D., Ph.D. [address] [place] [phone] 07/20/2024 10:10 AM CDT Lab Department of Laboratory Medicine and Pathology, [facility] in [place], [place] [address] [place] [phone] Noni Bender M.D., Ph.D. [address] [place] [phone] 08/14/2024 9:00 AM CDT Appointment Department of Obstetrics and Gynecology in [address] [phone] Noni Bender M.D., Ph.D. [address] [place] [phone] Discharge Disposition: Home or Self Care 08/14/2024 10:00 AM CDT Routine Department of Obstetrics and Gynecology in [place], [place] [address] [place] [phone] Magalys Bernal M.D. [address] [place] [phone] documented as of this encounter Procedures Procedure Name Priority Date/Time Associated Diagnosis Comments HORIZON CARRIER SCREEN, BLOOD Routine 04/28/2024 3:07 PM MACHINE PACKAGING TECHNICIAN Multigravida Advanced Maternal Age Affecting Management (HCC) PANORAMA SCREEN Routine 04/28/2024 3:07 PM MACHINE PACKAGING TECHNICIAN Multigravida Advanced Maternal Age Affecting Management (HCC) documented in this encounter Results * Panorama Screen - Sent Out Lab (04/28/2024 3:07 PM MACHINE PACKAGING TECHNICIAN) Panorama Screen SEE COMMENT 05/04/2024 1:51 PM MACHINE PACKAGING TECHNICIAN C[employer] Comment: For final report, select Lab-Send Out Lab Results hyperlink below. Blood (Blood, Venous) 04/28/2024 3:07 PM MACHINE PACKAGING TECHNICIAN 04/29/2024 9:11 AM MACHINE PACKAGING TECHNICIAN Narrative [employer] - 05/04/2024 1:51 PM MACHINE PACKAGING TECHNICIAN Specimen Information: Specimen ID: [id number] Specimen Type: Blood Specimen Collection Start Date: 04/28/2024 3:07 PM Specimen Received Date: 04/29/2024 9:11 AM Specimen ID: [id number] Specimen Type: Blood Specimen Collection Start Date: 04/28/2024 3:07 PM Specimen Received Date: 04/29/2024 9:11 AM Noni Bender M.D., Ph.D. LAB GENETIC TESTING Tiffani l Result [employer] [address] [place] [address], [place] [employer] [address] [place] [phone] * Horizon Carrier Screen, Blood - Sent Out Lab (04/28/2024 3:07 PM MACHINE PACKAGING TECHNICIAN) Horizon Carrier Screen, Blood SEE COMMENT 05/13/2024 8:52 AM MACHINE PACKAGING TECHNICIAN CANDIDO Comment: For final report, select Lab-Send Out Lab Results hyperlink below. Blood (Blood, Venous) 04/28/2024 3:07 PM MACHINE PACKAGING TECHNICIAN Narrative [employer] - 05/13/2024 8:52 AM MACHINE PACKAGING TECHNICIAN Specimen Information: Specimen ID: [id number] Specimen Type: Blood Specimen ID: [id number] Specimen Type: Blood Specimen Collection Start Date: 04/28/2024 3:07 PM Specimen Received Date: 04/29/2024 9:11 AM Noni Bender M.D., Ph.D. LAB GENETIC TESTING Tiffani l Result Performing Organization Address City/[facility]/ZIP Co de Phone Number [employer] [address] [place] [address], [place] [employer] [address] [place] [phone] documented in this encounter Visit Diagnoses Diagnosis Multigravida Advanced Maternal Age Affecting Management (HCC) documented in this encounter Additional Health Concerns Assessment Noted Time PHQ-9 Depression Total Score: 2 04/17/19 10:03 AM MACHINE PACKAGING TECHNICIAN documented as of this encounter Care Teams Nuclear Powerplant Mechanic Relationship Specialty Start Date End Date Roberto OLVERA 04/17/24 10/25/24 documented as of this encounter
--- OUTSIDE RECORDS SUMMARY | 2024-06-06 12:20 | XMS_ITS | Encounter Summary ---
Author Organization [facility] Address [address] [place] [address] Care Team Providers Care Consulting Sme Name Role Phone Unavailable Primary Care Provider Unavailabl e Encounter Details Date Type Department Care Team (Late st Contact Info) Description 05/27/2024 Clinical Communication Department of Obstetrics and Gynecology in [place], [place] [address] [place] [phone] Magalys Bernal M.D. [address] [place] [phone] Social History Tobacco Use Types Packs/Day Years Used Date Smoking Tobacco: Former Cigarettes Smokeless Tobacco: Never Alcohol Use Standard Drinks/Week Comments Not Currently 0 (1 standard drink = 0.6 oz pure alcohol) Pre , [address] [facility] Utilities Answer Date Recorded In the past 12 months has [facility] [employer], oil, or water [employer] threatened to shut off services in your [...] your living situation today? 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 [address] [place] [phone] Discharge Disposition: Home or Self Care 07/10/2024 11:00 AM CDT Routine Department of Obstetrics and Gynecology in [place], [place] [address] [place] [phone] Cristela Zapien APRN, GAEL [address] [place] [phone] 07/10/2024 11:40 AM CDT Lab Department of Laboratory Medicine and Pathology, [facility], in [place], [place] [address] [place] [phone] Noni Bender M.D., Ph.D. [address] [place] [phone] 07/20/2024 10:10 AM CDT Lab Department of Laboratory Medicine and Pathology, [facility], in [place], [place] [address] [place] [phone] Noni Bender M.D., Ph.D. [address] [place] [phone] 08/14/2024 9:00 AM CDT Appointment Department of Obstetrics and Gynecology in [place], [place] [address] [place] [phone] Noni Bender M.D., Ph.D. [address] [place] [phone] Discharge Disposition: Home or Self Care 08/14/2024 10:00 AM CDT Routine Department of Obstetrics and Gynecology in [place], [place] [address] [place] [phone] Magalys Bernal M.D. [address] [place] [phone] documented as of this encounter Visit Diagnoses Not on filedocumented in this encounter Additional Health Concerns Assessment Noted Time PHQ-9 Depression Total Score: 2 04/17/19 10:03 AM METAL CUT OFF SAW OPERATOR documented as of this encounter Care Teams Consulting Sme Relationship Specialty Start Date End Date Roberto OLVERA 04/17/24 10/25/24 documented as of this encounter
--- OUTSIDE RECORDS SUMMARY | 2024-06-06 12:20 | XMS_ITS | Encounter Summary ---
Author Organization [facility] Address [address] [place] [address] Care Team Providers Care Elementary Assistant Principal Name Role Phone Unavailable Primary Care Provider Unavailabl e Encounter Details Date Type Department Care Team (Late st Contact Info) Description 05/20/2024 Orders Only Department of Obstetrics and Gynecology in [place], [place] [address] [place] [phone] Magalys Bernal M.D. [address] [place] [phone] Family History Congenital Heart Disease (Primary Dx) Social History Tobacco Use Types Packs/Day Years Used Date Smoking Tobacco: Former Cigarettes Smokeless Tobacco: Never Alcohol Use Standard Drinks/Week Comments Not Currently 0 (1 standard drink = 0.6 oz pure alcohol) Pre , [address] [facility] Utilities Answer Date Recorded In the past 12 months has [facility] [employer], oil, or water [employer] threatened to shut off services in your [...] your living situation today? 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 [address] [place] [phone] Discharge Disposition: Home or Self Care 07/10/2024 11:00 AM CDT Routine Department of Obstetrics and Gynecology in [address] [phone] Critsela Zapien, MI[employer]OSOFT BI CONSULTANT, CNM [address] [place] [phone] 07/10/2024 11:40 AM CDT Lab Department of Laboratory Medicine and Pathology, [address] [phone] Noni Bender M.D., Ph.D. [address] [place] [phone] 07/20/2024 10:10 AM CDT Lab Department of Laboratory Medicine and Pathology, [facility] in [place], [place] [address] [place] [phone] Noni Bender M.D., Ph.D. [address] [place] [phone] 08/14/2024 9:00 AM CDT Appointment Department of Obstetrics and Gynecology in [address] [phone] Noni Bender M.D., Ph.D. [address] [place] [address] Discharge Disposition: Home or Self Care 08/14/2024 10:00 AM CDT Routine Department of Obstetrics and Gynecology in [place], [place] [address] [place] [phone] Magalys Bernal M.D. [address] [place] [phone] documented as of this encounter Visit Diagnoses Diagnosis Family History Congenital Heart Disease- Primary documented in this encounter Additional Health Concerns Assessment Noted Time PHQ-9 Depression Total Score: 2 04/17/19 10:03 AM K 12 PRINCIPAL documented as of this encounter Care Teams Elementary Assistant Principal Relationship Specialty Start Date End Date Roberto OLVERA 04/17/24 10/25/24 documented as of this encounter
--- OUTSIDE RECORDS SUMMARY | 2024-06-06 12:20 | XMS_ITS | Encounter Summary ---
Author Organization [facility] Address [address] [place] [address] Care Team Providers Care Carrier Loader Name Role Phone Unavailable Primary Care Provider Unavailabl e Encounter Details Date Type Department Care Team (Late st Contact Info) Description 05/04/2024 Clinical Communication Department of Medical Genetics in [place], [place] [address] [place] [phone] Tiana Almanza M.S., [facility] [address] [place] [phone] Social History Tobacco Use Types Packs/Day Years Used Date Smoking Tobacco: Former Cigarettes Smokeless Tobacco: Never Alcohol Use Standard Drinks/Week Comments Not Currently 0 (1 standard drink = 0.6 oz pure alcohol) Pre , 1 drink monthly [facility] Utilities Answer Date Recorded In the past 12 months has [facility] [employer], oil, or water [employer] threatened to shut off services in your [...] your living situation today? 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 Patient does not have an active Patient Online Services account. Left voicemail with callback number. NICAL RESEARCH SCIENTIST documented in this encounter Plan of Treatment Upcoming Encounters Date Type Department Care Team (Late st Contact Info) Description 07/10/2024 10:00 AM CDT Appointment Department of Obstetrics and Gynecology in [address] [phone] Noni Bender M.D., Ph.D. [address] [place] [phone] Discharge Disposition: Home or Self Care 07/10/2024 11:00 AM CDT Routine Department of Obstetrics and Gynecology in [address] [phone] Cristela Zapien, DAYCARE DIRECTOR, CNM [address] [place] [phone] 07/10/2024 11:40 AM CDT Lab Department of Laboratory Medicine and Pathology, [place], [place] [address] [place] [phone] Noni Bender M.D., Ph.D. [address] [place] [phone] 07/20/2024 10:10 AM CDT Lab Department of Laboratory Medicine and Pathology, [facility] in [place], [place] [address] [place] [phone] Noni Bender M.D., Ph.D. [address] [place] [phone] 08/14/2024 9:00 AM CDT Appointment Department of Obstetrics and Gynecology in [place], [place] [address] [place] [phone] Noni Bender M.D., Ph.D. [address] [place] [phone] Discharge Disposition: Home or Self Care 08/14/2024 10:00 AM CDT Routine Department of Obstetrics and Gynecology in [place], [place] [address] [place] [phone] Magalys Bernal M.D. [address] [place] [phone] documented as of this encounter Visit Diagnoses Not on filedocumented in this encounter Additional Health Concerns Assessment Noted Time PHQ-9 Depression Total Score: 2 04/17/19 10:03 AM TECHNICAL RESEARCH SCIENTIST documented as of this encounter Care Teams Carrier Loader Relationship Specialty Start Date End Date Roberto OLVERA 04/17/24 10/25/24 documented as of this encounter
--- OUTSIDE RECORDS SUMMARY | 2024-06-06 12:20 | XMS_ITS | Encounter Summary ---
Author Organization [facility] Address [address] [place] [address] Care Team Providers Care Fishing Vessel Operator Name Role Phone Unavailable Primary Care Provider Unavailabl e Encounter Details Date Type Department Care Team (Late st Contact Info) Description 05/13/2024 10:30 AM THERAPEUTIC SPECIALIST Virtual Visit Department of Obstetrics and Gynecology in [place], [place] [address] [place] [phone] Tiana Almanza M.S., [facility] [address] [place] [phone] Counseling Genetic For Family Planning (Primary Dx) Social History Tobacco Use Types Packs/Day Years Used Date Smoking Tobacco: Former Cigarettes Smokeless Tobacco: Never Alcohol Use Standard Drinks/Week Comments Not Currently 0 (1 standard drink = 0.6 oz pure alcohol) Pre , 1 drink monthly [facility] Utilities Answer Date Recorded In the past 12 months has [facility] [email or web address], oil, or water [employer] threatened to shut off services in your [...] AM CDT Legal Sex Female 9:43 AM THERAPEUTIC SPECIALIST Gender Identity Female 08/07/2023 8:49 AM CDT Sexual Orientation Straight 08/07/2023 8: 49 AM CDT 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 Duyen's partner was not present at this visit. Duyen pursued carrierscreening through the [employer] carrier screen which tested for carrier status [...] any additional questions that she may have APEUTIC SPECIALIST documented in this encounter Plan of Treatment Upcoming Encounters Date Type Department Care Team (Late st Contact Info) Description 07/10/2024 10:00 AM CDT Appointment Department of Obstetrics and Gynecology in [place], [place] [address] [place] [phone] Noni Bender M.D., Ph.D. [address] [place] [phone] Discharge Disposition: Home or Self Care 07/10/2024 11:00 AM CDT Routine Department of Obstetrics and Gynecology in [place], [place] [address] [place] [phone] Cristela Zapien, MORTGAGE COLLECTOR, CNM [address] [place] [phone] 07/10/2024 11:40 AM CDT Lab Department of Laboratory Medicine and Pathology, [facility] in [place], [place] [address] [place] [phone] Noni Bender M.D., Ph.D. [address] [place] [phone] 07/20/2024 10:10 AM CDT Lab Department of Laboratory Medicine and Pathology, [facility] in [place], [place] [address] [place] [phone] Noni Bender M.D., Ph.D. [address] [place] [phone] 08/14/2024 9:00 AM CDT Appointment Department of Obstetrics and Gynecology in [place], [place] [address] [place] [phone] Noni Bender M.D., Ph.D. [address] [place] [phone] Discharge Disposition: Home or Self Care 08/14/2024 10:00 AM CDT Routine Department of Obstetrics and Gynecology in [place], [place] [address] [place] [phone] Magalys Bernal M.D. [address] [place] [phone] documented as of this encounter Visit Diagnoses Diagnosis Counseling Genetic For Family Planning- Primary documented in this encounter Additional Health Concerns Assessment Noted Time PHQ-9 Depression Total Score: 2 04/17/19 25 10:03 AM THERAPEUTIC SPECIALIST documented as of this encounter Care Teams Fishing Vessel Operator Relationship Specialty Start Date End Date Roberto OLVERA 04/17/24 10/25/24 documented as of this encounter
--- OUTSIDE RECORDS SUMMARY | 2024-06-06 12:21 | XMS_ITS | Encounter Summary ---
Author Organization [facility] Address [address] [place] [address] Care Team Providers Care Master Electrician Name Role Phone Unavailable Primary Care Provider Unavailabl e Encounter Details Date Type Department Care Team (Latest Contact Info) Description 06/05/2024 9:31 AM CDT - 06/05/2024 11:59 PM CDT Hospital Encounter Department of Obstetrics and Gynecology in [place], [place] [address] [place] [phone] Magalys Bernal M.D. [address] [place] [phone] 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) Discharge Disposition: Home or Self Care Social History Tobacco Use Types Packs/Day Years Used Date Smoking Tobacco: Former Cigarettes Smokeless Tobacco: Never Alcohol Use Standard Drinks/Week Comments Not Currently 0 (1 standard drink = 0.6 oz pure alcohol) Pre , 1 drink monthly [facility] Utilities Answer Date Recorded In the past 12 months has [facility] [employer], gas, oil, or water [employer] threatened to shut off services in your [...] living situation today? 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 [address] [place] [phone] Discharge Disposition: Home or Self Care 07/10/2024 11:00 AM CDT Routine Department of Obstetrics and Gynecology in [place], [place] [address] [place] [phone] Cristela Zapien, RHIANNA, CNM [address] [place] [phone] 07/10/2024 11:40 AM CDT Lab Department of Laboratory Medicine and Pathology, [facility], in [place], [place] [address] [place] [phone] Noni Bender M.D., Ph.D. [address] [place] [phone] 07/20/2024 10:10 AM CDT Lab Department of Laboratory Medicine and Pathology, [facility] in [place], [place] [address] [place] [phone] Noni Bender M.D., Ph.D. [address] [place] [phone] 08/14/2024 9:00 AM CDT Appointment Department of Obstetrics and Gynecology in [address] [phone] Noin Bender M.D., Ph.D. [address] [place] [phone] Discharge Disposition: Home or Self Care 08/14/2024 10:00 AM CDT Routine Department of Obstetrics and Gynecology in [address] [phone] Magalys Bernal M.D. [address] [place] [phone] documented as of this encounter Procedures Procedure [...] 0 lb 11 oz EFW by Hadlock ([id number]) Head / Face / Neck Biometry: Marquetry Worker 6.8 mm CM 4.4 mm 33% Inner [...] normal. RVOT view. LVOT view. 3-vessel view. 0-rtfrsj-giiwsdn view. Situs. Aortic arch view. Bicaval view. [...] 0 lb 11 oz EFW by Hadlock ([id number]) Head / Face / Neck Biometry: Marquetry Worker 6.8 mm CM 4.4 mm 33% Inner [...] veins: normal. RVOT view. LVOTview. 3-vessel view. 6-oxjkqd-wiprtmg view. Situs. Aortic arch view.Bicaval view. Ductal [...] Total Score: 2 04/17/19 25 10:03 AM APPLICATION DEVELOPMENT LIAISON documented as of this encounter Care Teams Master Electrician Relationship Specialty Start Date End Date Roberto OLVERA 04/17/24 10/25/24 documented as of this encounter
--- OUTSIDE RECORDS SUMMARY | 2024-06-06 12:21 | XMS_ITS | Encounter Summary ---
Author Organization [facility] Address 200 [place] [address] Care Team Providers Care Cryptographic Technician Name Role Phone Unavailable Primary Care Provider Unavailabl e Reason for Referral * Outpatient (Routine) - Authorized Specialty Diagnoses / Procedures Referred By Susan mccrary Referred To Contact Clinical Genomics Diagnoses Breast Cancer Susceptibility Gene Mutation Family History Noni Bender M.D., Ph.D. 200 [place] [address] Phone: tel: fax: [facility] Referral ID Status Reason Start Date Expiration Date V isits Requested Visits Authorized [id number] Authorized 04/29/2024 10/29/2025 1 1 Scheduling Instructions Please call patient to schedule in 2025 ON WRAPPER Reason for Visit * Outpatient (Routine) - Closed Specialty Diagnoses / Procedures Referred By Contac t Referred To Contact Obstetrics and Gynecology Diagnoses Raised Antibody Titer Multigravida Advanced Maternal Age Affecting Management (HCC) Magalys Bernal M.D. 200 [place] [address] Phone: tel: fax: [facility] Referral ID Status Reason Start Date Expiration Date Visits Re quested Visits Authorized [id number] Closed 2024 10/17/2025 1 1 Encounter Details Date Type Department Care Team (Latest Contact Info) Description 04/28/2024 2:00 PM CARTON WRAPPER Comprehensive Visit Department of Obstetrics and Gynecology in [place], [place] [address] [place] [phone] Magalys Bernal M.D. [address] [place] [phone] Tiana Almanza M.S., [facility] [address] [place] [phone] Counseling Genetic For Family Planning (Primary Dx); [...] , 1 drink monthly [facility] [employer] Answer Date Recorded In the past 12 months has [facility] [employer], oil, or water [employer] threatened to shut off services in your [...] your living situation today? 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 Duyen's stepfather would have power of manager payroll to access Duyen's mother's medical record. Duyen [...] that can be screened for via the [facility] NIPT screen so cell free DNA screening [...] are screened for on the [facility] cfDNA screen: Trisomy 21 (Down syndrome),Trisomy 18, [...] second trimester anatomy ultrasound. CARRIER SCREENING The [employer] ([employer]) recommends that [...] free DNA screening was pursued via the [email or web address] Screen Carrier screening pursued Horizon AC panel [...] and coordination of care. Tiana Almanza M.S., [facility] ON WRAPPER ON WRAPPER documented in this encounter Plan of Treatment Upcoming Encounters Date Type Department Care Team (Late st Contact Info) Description 07/10/2024 10:00 AM CDT Appointment Department of Obstetrics and Gynecology in [place], [place] [address] [place] [phone] Noni Bender M.D., Ph.D. [address] [place] [phone] Discharge Disposition: Home or Self Care 07/10/2024 11:00 AM CDT Routine Department of Obstetrics and Gynecology in [place], [place] [address] [place] [phone] Cristela Zapien APRN, CNM [address] [place] [phone] 07/10/2024 11:40 AM CDT Lab Department of Laboratory Medicine and Pathology, [facility] in [place], [place] [address] [place] [phone] Noni Bender M.D., Ph.D. [address] [place] [phone] 07/20/2024 10:10 AM CDT Lab Department of Laboratory Medicine and Pathology, [facility] in [place], [place] [address] [place] [phone] Noni Bender M.D., Ph.D. [address] [place] [phone] 08/14/2024 9:00 AM CDT Appointment Department of Obstetrics and Gynecology in [address] [phone] Noni Bender M.D., Ph.D. [address] [place] [phone] Discharge Disposition: Home or Self Care 08/14/2024 10:00 AM CDT Routine Department of Obstetrics and Gynecology in [place], [place] [address] [place] [address] Magalys Bernal M.D. [address] [place] [phone] Scheduled Referrals Name Type Priority Associated Diagnoses Orde r Schedule Clinical Genomics - Cancer genetics consult (clinic) Outpatient Referral Routine Breast Cancer Susceptibility Gene Mutation Family History Expected: 04/29/2025, Expires: 07/27/2025 documented as of this encounter Results * Panorama Screen - Sent Out Lab (04/28/2024 3:07 PM CARTON WRAPPER) Panorama Screen SEE COMMENT 05/04/2024 1:51 PM CARTON WRAPPER [facility] Comment: For final report, select Lab-Send Out Lab Results hyperlink below. Blood (Blood, Venous) 04/28/2024 3:07 PM CARTON WRAPPER 04/29/2024 9:11 AM CARTON WRAPPER Narrative [employer] - 05/04/2024 1:51 PM CARTON WRAPPER Specimen Information: Specimen ID: [id number] Specimen Type: Blood Specimen Collection Start Date: 04/28/2024 3:07 PM Specimen Received Date: 04/29/2024 9:11 AM Specimen ID: [id number] Specimen Type: Blood Specimen Collection Start Date: 04/28/2024 3:07 PM Specimen Received Date: 04/29/2024 9:11 AM Noni Bender M.D., Ph.D. LAB GENETIC TESTING Tiffani l Result [employer] [address] [place] [address], [facility] [employer] [address] [place] [phone] * Horizon Carrier Screen, Blood - Sent Out Lab (04/28/2024 3:07 PM CARTON WRAPPER) Horizon Carrier Screen, Blood SEE COMMENT 05/13/2024 8:52 AM CARTON WRAPPER [facility] Comment: For final report, select Lab-Send Out Lab Results hyperlink below. Blood (Blood, Venous) 04/28/2024 3:07 PM CARTON WRAPPER Narrative [employer] - 05/13/2024 8:52 AM CARTON WRAPPER Specimen Information: Specimen ID: [id number] Specimen Type: Blood Specimen ID: [id number] Specimen Type: Blood Specimen Collection Start Date: 04/28/2024 3:07 PM Specimen Received Date: 04/29/2024 9:11 AM Noni Bender M.D., Ph.D. LAB GENETIC TESTING Tiffani l Result [employer] [address] [place] [address], [facility] [employer] [employer] [address] [place] [phone] documented in this encounter Visit Diagnoses Diagnosis Counseling Genetic For Family Planning- Primary Raised Antibody Titer Multigravida Advanced Maternal Age Affecting Management (HCC) Breast Cancer Susceptibility Gene Mutation Family History Multigravida Advanced Maternal Age Affecting Management (HCC) documented in this encounter Additional Health Concerns Assessment Noted Time PHQ-9 Depression Total Score: 2 04/17/19 25 10:03 AM CARTON WRAPPER documented as of this encounter Care Teams Cryptographic Technician Relationship Specialty Start Date End Date Roberto OLVERA 04/17/24 10/25/24 documented as of this encounter
--- OUTSIDE RECORDS SUMMARY | 2024-06-06 12:21 | XMS_ITS | Encounter Summary ---
Author Organization [facility] Address [address] [place] [address] Care Team Providers Care Structures Engineer Name Role Phone Unavailable Primary Care Provider Unavailabl e Reason for Visit * Reason Onset Date Comments Reschedule 04/02/2024 Encounter Details Date Type Department Care Team (Late st Contact Info) Description 04/02/2024 Clinical Communication Department of Obstetrics and Gynecology in [place], [place] [address] [place] [phone] Magalys Bernal M.D. [address] [place] [phone] Reschedule Social History Tobacco Use Types Packs/Day Years Used Date Smoking Tobacco: Former Cigarettes Smokeless Tobacco: Never Alcohol Use Standard Drinks/Week Comments Not Currently 0 (1 standard drink = 0.6 oz pure alcohol) Pre , [address] [facility] Utilities Answer Date Recorded In the past 12 months has [facility] [employer] gas, oil, or water [employer] threatened to shut off services in your [...] your living situation today? 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 [address] [place] [phone] Discharge Disposition: Home or Self Care 07/10/2024 11:00 AM CDT Routine Department of Obstetrics and Gynecology in [address] [phone] Cristela Zapien APRN, CN [address] [place] [phone] 07/10/2024 11:40 AM CDT Lab Department of Laboratory Medicine and Pathology, [address] [phone] Noni Bender M.D., Ph.D. [address] [place] [phone] 07/20/2024 10:10 AM CDT Lab Department of Laboratory Medicine and Pathology, [facility] in [place], [place] [address] [place] [phone] Noni Bender M.D., Ph.D. [address] [place] [phone] 08/14/2024 9:00 AM CDT Appointment Department of Obstetrics and Gynecology in [place], [place] [address] [place] [phone] Noni Bender M.D., Ph.D. [address] [place] [address] Discharge Disposition: Home or Self Care 08/14/2024 10:00 AM CDT Routine Department of Obstetrics and Gynecology in [place], [place] [address] [place] [phone] Magalys Bernal M.D. [address] [place] [phone] documented as of this encounter Visit Diagnoses Not on filedocumented in this encounter Additional Health Concerns Assessment Noted Time PHQ-9 Depression Total Score: 7 08/07/19 24 8:41 AM CDT documented as of this encounter Care Teams Structures Engineer Relationship Specialty Start Date End Date Roberto OLVERA 04/17/24 10/25/24 documented as of this encounter
--- OUTSIDE RECORDS SUMMARY | 2024-06-06 12:21 | XMS_ITS | Clinical Summary ---
Author Organization [facility] Address [address] [place] [address] Care Team Providers Care Belt Loop Cutter Name Role Phone Unavailable Primary Care Provider Unavailabl e Source Comments Patient records contain information from all sites at [facility]. For routine questions regarding patient records, call [phone] during business hours, M-F 8:00 AM - 5:00 PM Central Time. Record requests for emergency care only can be directed to [phone] at any time.[facility] Allergies Active Allergy Reactions Criticality Noted Date [...] fetus. Assessment & Plan (2024 11:22 AM SLIP COVER SEWER): Source of antigen exposure may have been [...] LSIL, cannot exclude higher grade lesion 01/18/2009 [place], no bx, , 09/15/2013 ASCUS/ HPV negative [...] (08/12/2023): The patient was admitted to the [facility] from triage after a nonreactive NST and [...] the floor. She received her care at [facility]. Positive Group B Streptococcus 07/23/2023 2024 [...] previa. 05/09/2023: Appointment with Maternal- Medicine at [place] completed and recommendations as follows: IMPRESSION: Intrauterine [...] Routine Department of Obstetrics and Gynecology in [address] [phone] Magalys Bernal M.D. Sallie Sprague, R.N. 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) 06/05/2024 11:00 AM CDT Routine Department of Obstetrics and Gynecology in [place], [place] [address] [place] [phone] Noni Bender M.D., Ph.D. 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) (Primary Dx); High Risk History Labor (HCC); Multigravida Advanced Maternal Age Affecting Management (HCC); Neoplasia Cervical Squamous Low Grade Intraepithelial; Breast Cancer Susceptibility Gene Mutation Family History; Family History Congenital Heart Disease; Raised Antibody Titer 06/05/2024 9:31 AM CDT - 06/05/2024 11:59 PM CDT Hospital Encounter Department of Obstetrics and Gynecology in [place], [place] [address] [place] [phone] Magalys Bernal M.D. 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) Discharge Disposition: Home or Self Care 05/27/2024 Clinical Communication Department of Obstetrics and Gynecology in [address] [phone] Magalys Bernal M.D. 05/20/2024 Orders Only Department of Obstetrics and Gynecology in [address] [phone] Magalys Bernal M.D. Family History Congenital Heart Disease (Primary Dx) 05/13/2024 10:30 AM SLIP COVER SEWER Virtual Visit Department of Obstetrics and Gynecology in [address] [phone] Tiana Almanza M.S., [facility] Counseling Genetic For Family Planning (Primary Dx) 05/04/2024 Clinical Communication Department of Medical Genetics in [place], [place] [address] [place] [phone] Tiana Almanza M.S., [facility] 04/28/2024 3:00 PM SLIP COVER SEWER Lab Department of Laboratory Medicine and Pathology, [facility], in [place], [place] [address] [place] [address] Noni Bender M.D., Ph.D. Multigravida Advanced Maternal Age Affecting Management (HCC) 04/28/2024 2:00 PM SLIP COVER SEWER Comprehensive Visit Department of Obstetrics and Gynecology in [place], [place] [address] [place] [address] Magalys Bernal M.D. Rust, Laura M, M.S., [facility] Counseling Genetic For Family Planning (Primary Dx); Raised Antibody Titer; Multigravida Advanced Maternal Age Affecting Management (HCC); Breast Cancer Susceptibility Gene Mutation Family History 2024 10:45 AM SLIP COVER SEWER Silent Schedule Department of Obstetrics and Gynecology in [place], [place] [address] [place] [address] Magalys Bernal M.D. 2024 10:00 AM SLIP COVER SEWER Initial Department of Obstetrics and Gynecology in [address] [phone] Magalys Bernal M.D. GA: 12w5d 04/14/2024 Results Follow-Up Department of Obstetrics and Gynecology in [place], [place] [address] [place] [phone] Magalys Bernal M.D. Bacterial Culture, Aerobic + Susceptibility, Urine, Chlamydia / Gonorrhoeae Amplified RNA, Urinalysis, with Microscopic: Urine, Midstream, Additional followed-up results: 4 04/03/2024 1:00 PM SLIP COVER SEWER Routine Department of Obstetrics and Gynecology in [place], [place] [address] [place] [address] Noni Bender M.D., Ph.D. Duyen Farnsworth R.N. 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) (Primary Dx) 04/03/2024 11:01 AM SLIP COVER SEWER - 04/03/2024 11:59 PM SLIP COVER SEWER Hospital Encounter Department of Obstetrics and Gynecology in [place], [place] [address] [place] [address] Noni Bender M.D., Ph.D. High Risk History Labor (HCC) Discharge Disposition: Home or Self Care 04/02/2024 Clinical Communication Department of Obstetrics and Gynecology in [place], [place] [address] [place] [address] Magalys Bernal M.D. Reschedule 03/16/2024 11:00 AM SLIP COVER SEWER Initial Department of Obstetrics and Gynecology in [place], [place] [address] [place] [address] Kellen South R.N. GA: 8w1d from Last [...] pure alcohol) Pre , 1 drink monthly [employer] Answer Date Recorded In the past 12 months has e [employer], gas, oil, or water [employer] threatened to shut off services in your [...] your living situation today? 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 [address] [place] [phone] Discharge Disposition: Home or Self Care 07/10/2024 11:00 AM CDT Routine Department of Obstetrics and Gynecology in [address] [phone] Cristela Zapien, RHIANNA, CN [address] [place] [phone] 07/10/2024 11:40 AM CDT Lab Department of Laboratory Medicine and Pathology, [place], [place] [address] [place] [phone] Noni Bender M.D., Ph.D. [address] [place] [phone] 07/20/2024 10:10 AM CDT Lab Department of Laboratory Medicine and Pathology, [facility], in [place], [place] [address] [place] [phone] Noni Bender M.D., Ph.D. [address] [place] [phone] 08/14/2024 9:00 AM CDT Appointment Department of Obstetrics and Gynecology in [place], [place] [address] [place] [phone] Noni Bender M.D., Ph.D. [address] [place] [phone] Discharge Disposition: Home or Self Care 08/14/2024 10:00 AM CDT Routine Department of Obstetrics and Gynecology in [place], [place] [address] [place] [phone] Magalys Bernal M.D. [address] [place] [phone] Health Maintenance Due Date Last Done Comments [...] Asymptomatic ANTIBODY IDENTIFICATION Routine 05/26/2024 2:35 PM SLIP COVER SEWER COMPREHENSIVE METABOLIC PANEL, S/P Routine 05/26/2024 2:35 PM SLIP COVER SEWER 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) PANORAMA SCREEN Routine 04/28/2024 3:07 PM SLIP COVER SEWER Multigravida Advanced Maternal Age Affecting Management (HCC) HORIZON CARRIER SCREEN, BLOOD Routine 04/28/2024 3:07 PM SLIP COVER SEWER Multigravida Advanced Maternal Age Affecting Management (HCC) US OB FIRST TRIMESTER RAD - Routine (most inpatients and all outpatients) 2024 11:19 AM SLIP COVER SEWER 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) PH, U Routine 04/03/2024 2:39 PM SLIP COVER SEWER OSMOLALITY, U Routine 04/03/2024 2:39 PM SLIP COVER SEWER DIPSTICK, U Routine 04/03/2024 2:39 PM SLIP COVER SEWER MICROSCOPIC AUTOMATED Routine 04/03/2024 2:39 PM SLIP COVER SEWER URINALYSIS WITH MICROSCOPIC Routine 04/03/2024 2:39 PM SLIP COVER SEWER 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) CHLAMYDIA/GONORRHOEAE AMPLIFIED RNA Routine 04/03/2024 2:39 PM SLIP COVER SEWER 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) BACTERIAL CULTURE, AEROBIC + SUSC, URINE Routine 04/03/2024 2:39 PM SLIP COVER SEWER 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) VARICELLA-ZOSTER AB, IGG, S Routine 04/03/2024 2:14 PM SLIP COVER SEWER 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) SYPHILIS IGG W/ REFLEX, EIA, S Routine 04/03/2024 2:14 PM SLIP COVER SEWER 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) HIV-1/-2 AG AND AB SCRN, PLASMA Routine 04/03/2024 2:14 PM SLIP COVER SEWER 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) HCV AB SCRN , S Routine 04/03/2024 2:14 PM SLIP COVER SEWER 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) HBC TOTAL AB , S Routine 04/03/2024 2:14 PM SLIP COVER SEWER 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) HBS ANTIBODY , S Routine 04/03/2024 2:14 PM SLIP COVER SEWER 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) HBS ANTIGEN , S Routine 04/03/2024 2:14 PM SLIP COVER SEWER 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) ANTIBODY IDENTIFICATION Routine 04/03/2024 2:13 PM SLIP COVER SEWER FERRITIN, S Routine 04/03/2024 2:13 PM SLIP COVER SEWER 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) HEMOGLOBIN ELECTROPHORESIS CASCADE, B Routine 04/03/2024 2:13 PM SLIP COVER SEWER 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) HEMOGLOBIN A1C, B Routine 04/03/2024 2:1 3 PM SLIP COVER SEWER 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) CBC WITH DIFFERENTIAL, B Routine 04/03/2024 2:13 PM SLIP COVER SEWER 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) US OB LIMITED RAD - Routine (most inpatients and all outpatients) 04/03/2024 11:28 AM SLIP COVER SEWER High Risk History Labor (HCC) from Last [...] 0 lb 11 oz EFW by Hadlock ([id number]) Head / Face / Neck Biometry: Supervisor Particleboard 6.8 mm CM 4.4 mm 33% Inner [...] normal. RVOT view. LVOT view. 3-vessel view. 8-rrauqz-kxxqtew view. Situs. Aortic arch view. Bicaval view. [...] 0 lb 11 oz EFW by Hadlock ([id number]) Head / Face / Neck Biometry: Supervisor Particleboard 6.8 mm CM 4.4 mm 33% Inner [...] veins: normal. RVOT view. LVOTview. 3-vessel view. 5-kyogjf-qaulscm view. Situs. Aortic arch view.Bicaval view. Ductal [...] URINE ORDERABLES Final Result Performing Organization Address [facility] Co de Phone Number [facility] [address] [place] [address], [place] [address] * Antibody Identification, Erythrocytes (05/26/2024 2:35 PM SLIP COVER SEWER) Only the most recent of2 resultswithin the time period is included. Pathologist [facility] Antibody Identification Anti-Jka 05/26/2024 3:55 PM SLIP COVER SEWER DTL Comment: Clinically significant in regards to HDN. Antibody Titer canceled and replaced by antibody identification as antibody is too weakly reactive to titer. 05/26/2024 2:35 PM SLIP COVER SEWER 05/26/2024 2:56 PM SLIP COVER SEWER Narrative [facility] - 05/26/2024 3:55 PM SLIP COVER SEWER Specimen Information: Specimen ID: [id number] Specimen Collection Start Date: 05/26/2024 2:35 PM Specimen Received Date: 05/26/2024 2:56 PM Specimen ID: [id number] Specimen Collection Start Date: 05/26/2024 2:35 PM Specimen Received Date: 05/26/2024 2:56 PM us Magalys Bernal M.D. LAB BLOOD BANK TEST ORDERAB LES Final Result Performing Organization Address [facility]/ZIP Co de Phone Number [facility] [address] [place] [address], [place] D[place] [facility] [address] [place] [address] * (ABNORMAL) Comprehensive Metabolic Panel (05/26/2024 2:35 PM SLIP COVER SEWER) [facility] Potassium, S 4.2 3.6 - 5.2 mmol/L 05/26/2024 3:12 PM SLIP COVER SEWER DTL Sodium, S 140 135 - 145 mmol/L 05/26/2024 3:12 PM SLIP COVER SEWER DTL Chloride, S 104 98 - 107 mmol/L 05/26/2024 3:12 PM SLIP COVER SEWER DTL Bicarbonate, S 25 22 - 29 mmol/L 05/26/2024 3:12 PM SLIP COVER SEWER DTL Anion Gap 11 7 - 15 05/26/2024 3:12 PM SLIP COVER SEWER DTL BUN (Blood Urea Nitrogen), S 9 6 - 21 mg/dL 05/26/2024 3:12 PM SLIP COVER SEWER DTL Creatinine 0.65 0.59 - 1.04 mg/dL 05/26/2024 3:12 PM SLIP COVER SEWER DTL Estimated GFR (eGFR) >90 >=60 mL/min/BS A 05/26/2024 3:12 PM SLIP COVER SEWER DTL Comment: Estimated GFR calculated using the 2020 CKD_EPI creatinine equation. Calcium, Total, S 8.9 8.6 - 10.0 mg/dL 05/26/2024 3:12 PM SLIP COVER SEWER DTL Glucose, S 67(L) 70 - 140 mg/dL 05/26/2024 3:12 PM SLIP COVER SEWER DTL Protein, Total, S 6.1(L) 6.3 - 7.9 g/dL 05/26/2024 3:12 PM SLIP COVER SEWER DTL Albumin, S 3.9 3.5 - 5.0 g/dL 05/26/2024 3:12 PM SLIP COVER SEWER DTL Aspartate Aminotransferase (AST), S 10 8 - 43 U/L 05/26/2024 3:12 PM SLIP COVER SEWER DTL Alkaline Phosphatase, S 55 35 - 104 U/L 05/26/2024 3:12 PM SLIP COVER SEWER DTL Alanine Aminotransferase (ALT), S 7 7 - 45 U/L 05/26/2024 3:12 PM SLIP COVER SEWER DTL Bilirubin, Total, S 0.3 0.0 - 1.2 mg/dL 05/26/2024 3:12 PM SLIP COVER SEWER DTL Blood (Blood, Venous) 05/26/2024 2:35 PM SLIP COVER SEWER 05/26/2024 2:55 PM SLIP COVER SEWER us Magalys Bernal M.D. LAB BLOOD ADD-ON Final Resu lt [facility] [address] [place] [address], [place] DTL [facility] [address] [place] [address] * Horizon Carrier Screen, Blood - Sent Out Lab (04/28/2024 3:07 PM SLIP COVER SEWER) Horizon Carrier Screen, Blood SEE COMMENT 05/13/2024 8:52 AM SLIP COVER SEWER C[facility] Comment: For final report, select Lab-Send Out Lab Results hyperlink below. Blood (Blood, Venous) 04/28/2024 3:07 PM SLIP COVER SEWER Narrative [employer] - 05/13/2024 8:52 AM SLIP COVER SEWER Specimen Information: Specimen ID: [id number] Specimen Type: Blood Specimen ID: [id number] Specimen Type: Blood Specimen Collection Start Date: 04/28/2024 3:07 PM Specimen Received Date: 04/29/2024 9:11 AM us Noni Bender M.D., Ph.D. LAB GENETIC TESTING Tiffani l Result [employer] [address] [place] [address], [place] [employer] [address] [place] [address] * Panorama Screen - Sent Out Lab (04/28/2024 3:07 PM SLIP COVER SEWER) Panorama Screen SEE COMMENT 05/04/2024 1:51 PM SLIP COVER SEWER [place]O Comment: For final report, select Lab-Send Out Lab Results hyperlink below. Blood (Blood, Venous) 04/28/2024 3:07 PM SLIP COVER SEWER 04/29/2024 9:11 AM SLIP COVER SEWER Narrative [employer] - 05/04/2024 1:51 PM SLIP COVER SEWER Specimen Information: Specimen ID: [id number] Specimen Type: Blood Specimen Collection Start Date: 04/28/2024 3:07 PM Specimen Received Date: 04/29/2024 9:11 AM Specimen ID: [id number] Specimen Type: Blood Specimen Collection Start Date: 04/28/2024 3:07 PM Specimen Received Date: 04/29/2024 9:11 AM Noni Bender M.D., Ph.D. LAB GENETIC TESTING Tiffani l Result [employer] [address] [place] [address], [place] CAND[employer] [employer] [address] [place] [address] * US OB First Trimester (2024 11:19 AM SLIP COVER SEWER) Anatomical Region Laterality Modality Body, Ultrasound OB RST LOS, Ultrasound ARZ LOS N/A Ultrasound Narrative 2024 11:19 AM SLIP COVER SEWER Single viable IUP with movement and normal FHT Anterior placenta Stomach and bladder visualized Magalys Bernal M.D. IMG OB US PROCEDURES Final Result * Dipstick, Urine (04/03/2024 2:39 PM SLIP COVER SEWER) Hemoglobin, QL, U Negative Negative 04/03/2024 3:09 PM SLIP COVER SEWER DTL Leukocyte Esterase, U Negative Negative 04/03/2024 3:09 PM SLIP COVER SEWER DTL Nitrite, U Negative Negative 04/03/2024 3:09 PM SLIP COVER SEWER DTL Ketone, U Negative Negative mg/dL 04/03/2024 3:09 PM SLIP COVER SEWER DTL Glucose, U Negative Negative mg/dL 04/03/2024 3:09 PM SLIP COVER SEWER DTL Urine 04/03/2024 2:39 PM SLIP COVER SEWER 04/03/2024 2:47 PM SLIP COVER SEWER Magalys Bernal M.D. LAB URINE ORDERABLES Final Result Performing Organization Address [facility] [place] [address] * Microscopic Automated (04/03/2024 2:39 PM SLIP COVER SEWER) Microscopy Normal 04/03/2024 3:09 PM SLIP COVER SEWER DTL RBC None Seen <3 /hpf 04/03/2024 3:09 PM SLIP COVER SEWER DTL WBC None Seen /hpf 04/03/2024 3:09 PM SLIP COVER SEWER DTL Comment: ----REFERENCE VALUE---- <4 (Males) <11 (Females) Squamous Epithelial Cells, U 1-3 /hpf 04/03/2024 3:09 PM SLIP COVER SEWER DTL Urine 04/03/2024 2:39 PM SLIP COVER SEWER 04/03/2024 2:47 PM SLIP COVER SEWER Magalys Bernal M.D. LAB URINE ORDERABLES Final Result Performing Organization Address [facility] [place] [address] * (ABNORMAL) Bacterial Culture, Aerobic + Susceptibility, Urine (04/03/2024 2:39 PM SLIP COVER SEWER) Urine Culture With urogenital microbiota, susceptibilities not performed per laboratory criteria. (A) 04/06/2024 1:12 PM SLIP COVER SEWER DTL Urine Culture KLEBSIELLA AEROGENES >100,000 cfu/mL (A) 04/06/2024 1:12 PM SLIP COVER SEWER DTL Urine (Urine, Midstream) 04/03/2024 2:39 PM SLIP COVER SEWER 04/03/2024 3:08 PM SLIP COVER SEWER Comment:Specimen Source Site : Urine Narrative Organism [...] LAB MICROBIOLOGY - GENERAL ORDERABLES Final Result [facility] [address] [place] [address], [place] D[place] [facility] [address] [place] [address] * pH, Urine (04/03/2024 2:39 PM SLIP COVER SEWER) [facility] pH, U 6.3 4.5 - 8.0 04/03/2024 3:1 6 PM SLIP COVER SEWER DT Urine 04/03/2024 2:39 PM SLIP COVER SEWER 04/03/2024 2:47 PM SLIP COVER SEWER Result Mary Jane Bernal M.D. LAB URINE ORDERABLES Final Result Performing Organization Address City/[facility] Co de Phone Number [facility] [address] [place] [address], [place] [facility] [address] [place] [address] * Chlamydia / Gonorrhoeae Amplified RNA (04/03/2024 2:39 PM SLIP COVER SEWER) Pathologist [facility] Source Urine, Urine, First Voided 04/03/2024 11:35 PM SLIP COVER SEWER SDSC Chlamydia trachomatis amplified RNA Negative Negative 04/03/2024 11:35 PM SLIP COVER SEWER [facility] Source Urine, Urine, First Voided 04/03/2024 11:35 PM SLIP COVER SEWER SDSC Neisseria gonorrhoeae amplified RNA Negative Negative 04/03/2024 11:35 PM SLIP COVER SEWER [facility] Urine (Urine, First Voided) 04/03/2024 2:39 PM SLIP COVER SEWER 04/03/2024 6:35 PM SLIP COVER SEWER Result Mary Jane Bernal M.D. LAB MICROBIOLOGY - GENERAL ORDERABLES Final Result Performing Organization Address City/[facility] Co de Phone Number [facility] [address] [place] [address] [facility] [address] [place] [address] [place] [address] * Osmolality, Urine (04/03/2024 2:39 PM SLIP COVER SEWER) Pathologist [facility] Osmolality, U 464 150 - 1150 mOsm/kg 04/03/2024 3:16 PM SLIP COVER SEWER DT Urine 04/03/2024 2:39 PM SLIP COVER SEWER 04/03/2024 2:47 PM SLIP COVER SEWER Result Mary Jane Bernal M.D. LAB URINE ORDERABLES Final Result Performing Organization Address City/State/[facility] Co de Phone Number [facility] [address] [place] [address], [place] D[place] [facility] [address] [place] [address] * Urinalysis, with Microscopic: Urine, Midstream (04/03/2024 2:39 PM SLIP COVER SEWER) Source Urine, Urine, Midstream 04/03/2024 2:46 PM SLIP COVER SEWER DTL Color, U Yellow 04/03/2024 2:46 PM SLIP COVER SEWER DTL Clarity, U Clear 04/03/2024 2:46 PM SLIP COVER SEWER DTL Protein, U 7 <26 mg/dL 04/03/2024 3:33 PM SLIP COVER SEWER DTL Protein/Osmol ality 0.15 <0.42 ratio 04/03/2024 3:33 PM SLIP COVER SEWER DTL Predicted 24 HR Protein, U 120 <229 mg/24 h 04/03/2024 3:33 PM SLIP COVER SEWER DTL Predicted Range 30-486 mg/24 h 04/03/2024 3:33 PM SLIP COVER SEWER DTL Urine (Urine, Midstream) 04/03/2024 2:39 PM SLIP COVER SEWER 04/03/2024 2:46 PM SLIP COVER SEWER Magalys Bernal M.D. LAB URINE ORDERABLES Final Result Performing Organization Address [facility] Co de Phone Number [facility] [address] [place] [address], [place] D[place] [facility] [address] [place] [address] * Syphilis IgG w/ Reflex, EIA, S (RST/FLA) (04/03/2024 2:14 PM SLIP COVER SEWER) Syphilis IgG w/ Reflex, EIA, S Nonreactive Nonreactive 04/03/2024 11:06 PM SLIP COVER SEWER [facility] Comment: No serologic evidence of infection with T. pallidum (syphilis). Repeat testing may be considered in patients with suspected acute or primary syphilis in 2-4 weeks. For additional information on interpretation of the syphilis reverse algorithm and results, see: [email or web address] Blood (Blood, Venous) 04/03/2024 2:14 PM SLIP COVER SEWER 04/03/2024 6:39 PM SLIP COVER SEWER us Magalys Bernal M.D. LAB MICROBIOLOGY - BLOOD OR DERABLES Final Result Performing Organization Address [facility] Co de Phone Number [facility] [address] [place] [address] [facility] [address] [place] [address] * HBc Total Ab , Serum (04/03/2024 2:14 PM SLIP COVER SEWER) HBc Total Ab , S Negative Negative 04/03/2024 8:17 PM SLIP COVER SEWER [facility] Blood (Blood, Venous) 04/03/2024 2:14 PM SLIP COVER SEWER 04/03/2024 7:09 PM SLIP COVER SEWER Magalys Bernal M.D. LAB MICROBIOLOGY - BLOOD OR DERABLES Final Result Performing Organization Address [facility] Co de Phone Number [facility] [address] [place] [address] [place] [address] [place] [address] * HBs Antibody , Serum (04/03/2024 2:14 PM SLIP COVER SEWER) HBs Antibody , S Negative 04/03/2024 8:17 PM SLIP COVER SEWER [facility] Comment: Patient is NOT immune to HBV infection. Consumption of high-dose biotin supplement within 12 hours of blood collection for this test can cause false-negative results. ----REFERENCE VALUE---- Unvaccinated: Negative Vaccinated: Positive HBs Antibody, Quantitative, S 4.0 mIU/mL 04/03/2024 8:17 PM SLIP COVER SEWER [facility] Comment: ----REFERENCE VALUE---- Unvaccinated: <8.5 mIU/mL Vaccinated: >=11.5 mIU/mL Blood (Blood, Venous) 04/03/2024 2:14 PM SLIP COVER SEWER 04/03/2024 7:09 PM SLIP COVER SEWER Result Mary Jane Bernal M.D. LAB MICROBIOLOGY - BLOOD OR DERABLES Final Result Performing Organization Address [facility] Co de Phone Number [facility] [address] [place] [address] [facility] [address] [place] [address] * Hepatitis C Virus Antibody Screen (04/03/2024 2:14 PM SLIP COVER SEWER) HCV Ab Scrn , S Negative Negative 04/03/2024 8:17 PM SLIP COVER SEWER [facility] Comment: Consumption of high-dose biotin supplement within 12 hours of blood collection for this test can cause false-negative results. Blood (Blood, Venous) 04/03/2024 2:14 PM SLIP COVER SEWER 04/03/2024 7:09 PM SLIP COVER SEWER Result Mary Jane Bernal M.D. LAB MICROBIOLOGY - BLOOD OR DERABLES Final Result Performing Organization Address [facility] de Phone Number [facility] [address] [place] [address] [facility] [address] [place] [id number] * HIV-1/-2 Ag and Ab Scrn, Plasma (04/03/2024 2:14 PM SLIP COVER SEWER) Pathologist [facility] HIV-1/-2 Ag and Ab Scrn, P Negative Negative 04/03/2024 8:14 PM SLIP COVER SEWER [facility] Comment: Negative result does not rule out HIV infection. If exposure to HIV infection occurred <14 days ago, contact the laboratory to request addition of HIV-1/HIV-2 RNA detection , Plasma (HPP12). Blood (Blood, Venous) 04/03/2024 2:14 PM SLIP COVER SEWER 04/03/2024 7:09 PM SLIP COVER SEWER Result Mary Jane Bernal M.D. LAB MICROBIOLOGY - BLOOD OR DERABLES Final Result Performing Organization Address City[facility] Co de Phone Number [facility] [address] [place] [address] [facility] [address] [place] [address] * HBs Antigen , Serum (04/03/2024 2:14 PM SLIP COVER SEWER) [facility] HBs Antigen , S Negative Negative 04/03/2024 8:17 PM SLIP COVER SEWER [facility] Blood (Blood, Venous) 04/03/2024 2:14 PM SLIP COVER SEWER 04/03/2024 7:09 PM SLIP COVER SEWER Result [facility] Magalys Bernal M.D. LAB MICROBIOLOGY - BLOOD OR DERABLES Final Result Performing Organization Address City/[facility]/ZIP Co de Phone Number [facility] [address] [place] [address] [facility] [address] [place] [address] * Varicella-Zoster Antibody, IgG, Serum (04/03/2024 2:14 PM SLIP COVER SEWER) [facility] Varicella-Zoster Ab, IgG, S Positive 04/04/2024 9:52 AM SLIP COVER SEWER [facility] Comment: Results suggest response to immunization or prior exposure to the virus. ----REFERENCE VALUE---- Vaccinated: Positive (>=1.1 AI) Unvaccinated: Negative (<=0.8 AI) Varicella IgG Antibody Index 2.0 04/04/2024 9:52 AM SLIP COVER SEWER [facility] Blood (Blood, Venous) 04/03/2024 2:14 PM SLIP COVER SEWER 04/03/2024 9:40 PM SLIP COVER SEWER Result [facility] Magalys Bernal M.D. LAB MICROBIOLOGY - BLOOD OR DERABLES Final Result [facility] [address] [place] [address] [facility] [address] [place] [address] * Hemoglobin Electrophoresis Evaluation (04/03/2024 2:13 PM SLIP COVER SEWER) [facility] Hb A 97.2 95.8 - 98.0 % 04/04/2024 4:20 PM SLIP COVER SEWER DTL Hb F 0.0 0.0 - 0.9 % 04/04/2024 4:20 PM SLIP COVER SEWER DTL Hb A2 2.8 2.0 - 3.3 % 04/04/2024 4:20 PM SLIP COVER SEWER D[facility] Comment: ----ADDITIONAL INFORMATION---- This test has been modified from the desizing machine operator head end's instructions. Its performance characteristics were determined by [facility] in a manner consistent with CLIA requirements. This test has not been cleared or approved by the U.S. Food and Drug Administration. HPLC Hb Variant, B See Interpretation 04/04/2024 4:20 PM SLIP COVER SEWER [facility] Comment: ----ADDITIONAL INFORMATION---- This test has been modified from the desizing machine operator head end's instructions. Its performance characteristics were determined by [facility] in a manner consistent with CLIA requirements. [...] include: capillary electrophoresis, HPLC. 04/04/2024 4:20 PM SLIP COVER SEWER DTL Blood (Blood, Venous) 04/03/2024 2:13 PM SLIP COVER SEWER 04/03/2024 2:41 PM SLIP COVER SEWER Magalys Bernal M.D. LAB BLOOD ADD-ON Final Resu lt [facility] 200 [place] [address], [facility] DTL 200 [facility] 200 [place] [address] * (ABNORMAL) CBC with Differential, Blood (04/03/2024 2:13 PM SLIP COVER SEWER) Hemoglobin 12.9 11.6 - 15.0 g/dL 04/03/2024 2:40 PM SLIP COVER SEWER DTL Hematocrit 37.6 35.5 - 44.9 % 04/03/2024 2:40 PM SLIP COVER SEWER DTL Erythrocytes 4.22 3.92 - 5.13 x10(12)/L 04/03/2024 2:40 PM SLIP COVER SEWER DTL MCV 89.1 78.2 - 97.9 fL 04/03/2024 2:40 PM SLIP COVER SEWER DTL RBC Distrib Width 12.6 12.2 - 16.1 % 04/03/2024 2:40 PM SLIP COVER SEWER DTL Platelet Count 382(H) 157 - 371 x10(9)/L 04/03/2024 2:40 PM SLIP COVER SEWER DTL Leukocytes 10.3(H) 3.4 - 9.6 x10(9)/L 04/03/2024 2:40 PM SLIP COVER SEWER DTL Neutrophils 8.17(H) 1.56 - 6.45 x10(9)/L 04/03/2024 2:40 PM SLIP COVER SEWER [facility] Lymphocytes 1.47 0.95 - 3.07 x10(9)/L 04/03/2024 2:40 PM SLIP COVER SEWER DTL Monocytes 0.62 0.26 - 0.81 x10(9)/L 04/03/2024 2:40 PM SLIP COVER SEWER DTL Eosinophils 0.04 0.03 - 0.48 x10(9)/L 04/03/2024 2:40 PM SLIP COVER SEWER DTL Basophils 0.04 0.01 - 0.08 x10(9)/L 04/03/2024 2:40 PM SLIP COVER SEWER DTL Blood (Blood, Venous) 04/03/2024 2:13 PM SLIP COVER SEWER 04/03/2024 2:34 PM SLIP COVER SEWER us Magalys Bernal M.D. LAB BLOOD ADD-ON Final Resu lt [facility] 200 [place], [place] [address] 200 [place], [place] [phone] [place] [address] 200 [place] [address] * Hemoglobin A1c (04/03/2024 2:13 PM SLIP COVER SEWER) Hemoglobin A1c, B 4.5 4.0 - 5.6 % 04/03/2024 2:48 PM SLIP COVER SEWER DTL Blood (Blood, Venous) 04/03/2024 2:13 PM SLIP COVER SEWER 04/03/2024 2:34 PM SLIP COVER SEWER us Magalys Bernal M.D. LAB BLOOD ADD-ON Final Resu lt Performing Organization Address City/[facility]/ZIP Co de Phone Number [facility] 200 [place], [place] [address] 200 [place] [address] * Ferritin (04/03/2024 2:13 PM SLIP COVER SEWER) Ferritin, S 50 6 - 175 mcg/L 04/03/2024 3:10 PM SLIP COVER SEWER DT Blood (Blood, Venous) 04/03/2024 2:13 PM SLIP COVER SEWER 04/03/2024 2:45 PM SLIP COVER SEWER us Magalys Bernal M.D. LAB BLOOD ADD-ON Final Resu lt [facility] 200 [place], [place] [address] 200 [place] [address] * US OB Limited (04/03/2024 11:28 AM SLIP COVER SEWER) Anatomical Region Laterality Modality Ultrasound OB RST LOS, Ultra sound ARZ LOS, Ultrasound FLA LOS, Ultrasound ARZ LOS N/A Ultrasound 04/03/2024 11:0 9 AM SLIP COVER SEWER Narrative 04/03/2024 12:27 PM SLIP COVER SEWER Exam Type ========= OB 1st Trimester Indication [...] ========= Jovel intrauterine with cardiac activity present. ELVIE established [...] Advance Directives For more information, please contact: [phone] * Full Code (Latest Code Status on File) Date Activated Date Inactivated Comments 08/11/2023 11:14 PM 08/13/2023 1:53 PM Question Answer Comments Full Code: Not Discussed Due to: Not medically appropriate * Full Code Date Activated Date Inactivated Comments 07/06/2023 1:28 PM 07/07/2023 2:26 PM Question Answer Comments Full Code: Not Discussed Due to: Not medically appropriate Care Teams Belt Loop Cutter Relationship Specialty Start Date End Date Roberto OLVERA 04/17/24 10/25/24
--- OUTSIDE RECORDS SUMMARY | 2024-06-06 12:21 | XMS_ITS | Encounter Summary ---
Author Organization [facility] Address [address] [place] [address] Care Team Providers Care Press Set Up Person Name Role Phone Unavailable Primary Care Provider Unavailabl e Reason for Visit * Reason Comments Nurse Visit Mid educat ion Encounter Details Date Type Department Care Team (Late st Contact Info) Description 06/05/2024 11:00 AM CDT Routine Department of Obstetrics and Gynecology in [place], [place] [address] [place] [phone] Magalys Bernal M.D. [address] [place] [address] [phone] Sallie Sprague, R.N. 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 [address] [place] [phone] Discharge Disposition: Home or Self Care 07/10/2024 11:00 AM CDT Routine Department of Obstetrics and Gynecology in [address] [phone] Cristela Zapien APRN, CN [address] [place] [phone] 07/10/2024 11:40 AM CDT Lab Department of Laboratory Medicine and Pathology, [facility] in [place], [place] [address] [place] [phone] Noni Bender M.D., Ph.D. [address] [place] [phone] 07/20/2024 10:10 AM CDT Lab Department of Laboratory Medicine and Pathology, [facility] in [place], [place] [address] [place] [phone] Noni Bender M.D., Ph.D. [address] [place] [phone] 08/14/2024 9:00 AM CDT Appointment Department of Obstetrics and Gynecology in [address] [phone] Noni Bender M.D., Ph.D. [address] [place] [phone] Discharge Disposition: Home or Self Care 08/14/2024 10:00 AM CDT Routine Department of Obstetrics and Gynecology in [place], [place] [address] [place] [address] Magalys Bernal M.D. 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
--- OUTSIDE RECORDS SUMMARY | 2024-06-06 12:21 | XMS_ITS | Clinical Summary ---
Author Organization [facility] Address [address] [place] [address] Care Team Providers Care Meat Products Demonstrator Name Role Phone Francheska Pereira NP Primary [...] trimester 05/08/2023 Suspected condition not found 05/08/2023 [facility] Supervision of high-risk 3 Overview (05/03/2023): Duyen Butterfield : 1990 [facility] ULTRASOUND/TESTING PATIENT Support person name: [...] ECHO: REFERRING PHYSICIAN/PHONE/LAST UPDATE: Eliezer Fuentes MD [place] Primary MD approves scheduling of recommended ultrasounds/testing: Yes SPECIALISTS/CONSULTS: Include: Specialty MD Clinic Name Phone# [place] and ADDED TO PATIENT CARE TEAM GENETICS: NIPT: low risk CARE COORDINATION: PERTINENT LABS: Labs reviewed? Yes Normal? Yes Blood type: A Rh Positive Antibody screen: Negative Non-[facility] labs need to be entered in [employer] PERTINENT MEDS: Buspar Adderall Zoloft PROCEDURES: IF FGR <10% or EFW <2000 grams: Add FGRPCOM PLAN OF CARE: ADHD (attention deficit hype ractivity disorder), combined type 06/08/2022 Low grade squamous intraepit helial lesion (LGSIL) at risk for high grade squamous intraepithelial lesion (HGSIL) on cytologic smear of cervix 04/06/2022 Overview (04/06/2022): 12/07/2008 LSIL, cannot exclude higher grade lesion 01/18/2009 [place], no bx, , 09/15/2013 ASCUS/ HPV negative [...] term DTaP 02/16/2014 Ok to deliver in [place] Assessment & Plan (12/24/2013 11:38 AM CDT): Flu shot 12/24/2013 consult 10/08/2013 Overview (10/08/2013): Duyen is a patient of . Duyen is currently and wishes to deliver at the [facility]. She is scheduled on 10/12/13 for a [...] on file Legal Sex Female 7:14 AM MUSIC EXECUTIVE Gender Identity Not on file Sexual Orientation [...] oz) M Vag-Va cuum Y Livin g Vivke w Delivery Location:[facility] Comments:PPROM 35 4 de livery 35 and 6 days GESTATIONAL DIABETES Vacuum 2007 Term 37w 0d 12h 00m/ 2.81 kg (6 lb 3 oz) M Vag-Sp ont Y Livin g Jermaine Delivery Location:[place], [place] Comments:PTL at 28w - tx bedrest & Nifedipine - at ANW, fatty liver disease - IOL at 37w 2009 Term 39w 4d 3.54 kg (7 lb 13 oz) F Vag-Sp ont Y Livin g Hillary Delivery Location:[place], [place] Comments:PTL at 27w - tx bedrest & Nifedipine - MAC x 6 hrs 2010 AB 15w 0d Comments:EAB 2011 AB 14w 0d Comments:EAB 2012 Term 37w 4d 2.61 kg (5 lb 12 oz) M Vag-Sp ont Y Livin g East[place] n Delivery Location:[facility] Comments:PTL at 30w - bedrest & Nifedipine - MAC x a few hrs then home, GBS Positive. PP hemorrhage per patient, requiring transfusion 2014 Term 37w 2d M Vag-Sp ont Livin marion Harp Delivery Location:[place], [place] Comments:polydactyly h ands and feet bilaterally 2015 AB 14w 0d ELECTI VE AB 2023 Term 39w 2d 1h 33m 1h 09m/0h 20m/0h 04m 3.37 kg (7 lb 6.9 oz) F Vag-Sp ont Epidur al Livin g 8 9 [place] Rebeca Ghosh on D.O. Delivery Location:[facility] ([facility] 03 3 L&D) Last Filed Vital Signs Vital Sign Reading Time Taken Comments Blood Pressure 114/68 02/18/2024 2:00 PM MUSIC EXECUTIVE Pulse 96 02/18/2024 2:00 PM MUSIC EXECUTIVE Temperature 36.4 C (97.6 F) 10/07/2023 2:39 PM CDT Respiratory Rate 16 10/07/2023 2:39 PM CDT Oxygen Saturation 97% 10/06/2023 2:07 PM CDT Inhaled Oxygen Concentration - - Weight 74.9 kg (165 lb 3.2 oz) 02/18/2024 2:00 P M MUSIC EXECUTIVE Height 170.2 cm (5' 7) 10/07/2023 2:39 [...] ANTI HIV 1/2 Routine 02/11/2023 10:40 AM MUSIC EXECUTIVE Early stage of ANTI HCV Routine 02/11/2023 10:40 AM MUSIC EXECUTIVE Early stage of HPV HIGH RISK Routine 03/02/2022 9:57 AM MUSIC EXECUTIVE Screening for malignant neoplasm of cervix from Last 3 Months or Most Recently Relevant to Health Maintenance Results * ANTI HCV (02/11/2023 10:40 AM MUSIC EXECUTIVE) HEPATITIS C ANTIBODY Non-Reacti ve Non-React madyson 02/12/2023 2:15 AM MUSIC EXECUTIVE [employer] [facility] Comment:Please note, per www .CDC.gov: If a patient is known to be at high risk of HCV infection, or is symptomatic, and the physician's suspicion of HCV infection is high, HCV RNA testing is often employed and is of diagnostic value, even after an initial negative anti-HCV test result. Blood BLOOD SPECIMEN / Unknown Venipuncture / Unknown 02/11/2023 10:40 AM MUSIC EXECUTIVE 02/11/2023 10:44 AM MUSIC EXECUTIVE us Anaya Bean MD SEND OUTS Final Result [employer] [facility] [address] [place] [address], [place] * ANTI HIV 1/2 (02/11/2023 10:40 AM MUSIC EXECUTIVE) HIV-1/HIV-2 SCREEN Non-Reacti ve Non-Reacti ve 02/12/2023 2:14 AM MUSIC EXECUTIVE [facility] Comment:HIV-1 p24 and HIV-1/ HIV-2 Ab Not Detected. Blood BLOOD SPECIMEN / Unknown Venipuncture / Unknown 02/11/2023 10:40 AM MUSIC EXECUTIVE 02/11/2023 10:44 AM MUSIC EXECUTIVE us Anaya Bean MD SEND OUTS Final Result [facility] [address] [place] [address], * HPV HIGH RISK (03/02/2022 9:57 AM MUSIC EXECUTIVE) TYPE 16 Negative Negative 03/06/2022 5:07 PM MUSIC EXECUTIVE [facility] TYPE 18 Negative Negative 03/06/2022 5:07 PM MUSIC EXECUTIVE [facility] OTHER HIGH RISK TYPES Negative Negative 03/06/2022 5:07 PM MUSIC EXECUTIVE [facility] Other (Cervical) Non-Blood / Unknown 03/02/2022 9:57 AM MUSIC EXECUTIVE 03/05/2022 3:09 PM MUSIC EXECUTIVE Narrative [facility] - 03/06/2022 5:07 PM MUSIC EXECUTIVE HPV types 16, 18, 31, 33, 35, 39, 45, 51, 52, 56, 58, 59, 66 and 68 DNA were undetectable or below the pre-set threshold. Methodology: Nalini Isamar 4800 HPV Test us Yeny BARTHOLOMEW MICROBIOLOGY Final Resu lt [facility] [address] [place] [address], from Last 3 Months or Most Recently Relevant to Health Maintenance Insurance [employer] CHOICE CARE [facility] [place] [employer] * Guarantor: SKYE BANS[employer] ONLY Account Type Relation to Patient Date of Phone Billing Address [facility] [address] [place] [address] * Guarantor: [employer] Account Type Relation to Patient Date of Phone Billing Address [facility]/[employer] [id number] [address] [place] [address] Advance Directives * Full Code (Latest Code [...] 11:40 AM 04/25/2012 3:54 PM Care Teams Meat Products Demonstrator Relationship Specialty Start Date End Date Francheska Pereira NP [address] [place] [address] [place] [address] PCP - General Nurse Practitioner - Family 10/07/23
--- OUTSIDE RECORDS SUMMARY | 2024-06-06 12:21 | XMS_ITS | Encounter Summary ---
Author Organization [facility] Address [address] [place] [address] Care Team Providers Care Body Designer Name Role Phone Unavailable Primary Care Provider Unavailabl e Reason for Referral * Outpatient (Routine) - Authorized Specialty Diagnoses / Procedures Referred By Contac t Referred To Contact Obstetrics and Gynecology Noni Bender M.D., Ph.D. [address] [place] [phone] Phone: tel: fax: Magalys Bernal M.D. [address] [place] [phone] Phone: tel: fax: Referral ID Status Reason Start Date Expiration Date V isits Requested Visits Authorized [id number] Authorized 06/05/2024 12/05/2025 1 1 * Outpatient (Routine) - Authorized Specialty Diagnoses / Procedures Referred By Contac t Referred To Contact Obstetrics and Gynecology Noni Bender M.D., Ph.D. [address] [place] [phone] Phone: tel: fax: Magalys Bernal M.D. [address] [place] [phone] Phone: tel: fax: Referral ID Status Reason Start Date Expiration Date V isits Requested Visits Authorized [id number] Authorized 06/05/2024 12/05/2025 1 1 Reason for Visit * Outpatient (Routine) - Closed Specialty Diagnoses / Procedures Referred By Contmegan t Referred To Contact Obstetrics and Gynecology Magalys Bernal M.D. [address] [place] [phone] Phone: tel: fax: Magalys Bernal M.D. [address] [place] [phone] Phone: tel: fax: Referral ID Status Reason Start Date Expiration Date Visits Re quested Visits Authorized [id number] Closed 2024 10/17/2025 1 1 Encounter Details Date Type Department Care Team (Latest Contact Info) Description 06/05/2024 11:00 AM CDT Routine Department of Obstetrics and Gynecology in [place], [place] [address] [place] [phone] Noni Bender M.D., Ph.D. 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 [address] [place] [phone] Discharge Disposition: Home or Self Care 07/10/2024 11:00 AM CDT Routine Department of Obstetrics and Gynecology in [place], [place] [address] [place] [phone] Cristela Zapien, VASCULAR MANAGER, CNM [address] [place] [phone] 07/10/2024 11:40 AM CDT Lab Department of Laboratory Medicine and Pathology, [place], [place] [address] [place] [phone] Noni Bender M.D., Ph.D. [address] [place] [phone] 07/20/2024 10:10 AM CDT Lab Department of Laboratory Medicine and Pathology, [facility], in [place], [place] [address] [place] [phone] Noni Bender M.D., Ph.D. [address] [place] [phone] 08/14/2024 9:00 AM CDT Appointment Department of Obstetrics and Gynecology in [place], [place] [address] [place] [phone] Noni Bender M.D., Ph.D. [address] [place] [phone] Discharge Disposition: Home or Self Care 08/14/2024 10:00 AM CDT Routine Department of Obstetrics and Gynecology in [place], [place] [address] [place] [phone] Magalys Bernla M.D. [address] [place] [phone] Scheduled Orders Name Type Priority Associated Diagnoses [...] Total Score: 2 04/17/19 25 10:03 AM SAMPLE TAILOR documented as of this encounter Care Teams Body Designer Relationship Specialty Start Date End Date Roberto OLVERA 04/17/24 10/25/24 documented as of this encounter
[2024-06-06] MEDS: ONDANSETRON 2 MG/ML inj 4 MG IVP (12:32)
[2024-06-06] MEDS: 0.9 % SODIUM CHLORIDE 1000 ml 1,000 ML IV ×2 (12:32→13:57)
[2024-06-06 13:22] LABS: PCR FLU A Negative PCR FLU A (Negative); PCR FLU B POSITIVE PCR FLU B (Negative); PCR RSV Negative PCR RSV (Negative); SARS PCR* Negative SARS-CoV-2 (Negative)
[2024-06-06] MEDS: ACETAMINOPHEN 500 MG TABLET 1000 MG PO (13:58)
[2024-06-06 14:00] LABS: Appearance Urine Clear (Clear); Bilirubin Urine Negative (Negative); Blood Urine Negative (Negative); Color Urine Yellow (Yellow); Glucose Urine Negative (Negative); Ketones Urine 1+ (Negative); Leukocyte Esterase Urine Negative (Negative); Nitrite Urine Negative (Negative); Protein Urine Negative (Negative); Specific Gravity Urine 1.015 (1.000-1.030); Urobilinogen Urine 0.2 (0.2-1.0); pH Urine 8.5 (5.0-8.5)
[2024-06-06 14:12] LABS: Amorphous Sediment Urine Few; Bacteria Urine Moderate; RBC Urine 0-2 (0-2); Squamous Epithelial Cell Urine Few (None-Few); WBC Urine 0-2 (0-5)
[2024-06-06 15:06] VITALS: PULSE 109; O2SAT 97
[2024-06-06 15:15] VITALS: PULSE 109; O2SAT 97
[2024-06-06 15:30] VITALS: PULSE 106; O2SAT 96
[2024-06-06 15:45] VITALS: PULSE 107; O2SAT 97
[2024-06-06 16:00] VITALS: PULSE 105; O2SAT 95
== END 2024-06-06 16:28 | disposition home or self-care (01) ==
PROVIDERS: Emergency Provider Family Medicine
DX: J10.1 Influenza due to other identified influenza virus with other respiratory manifestations (principal)
CPT/HCPCS: 81001; 87086; 87631; 96374; 99283; 99284; A9270; J2405; J7030

== ENCOUNTER 2024-06-07 06:35 | Emergency (ER) | payer MEDICAID, SELFPAY ==
--- OUTSIDE RECORDS SUMMARY | 2024-06-07 06:37 | XMS_ITS | Encounter Summary ---
Author Organization [facility] Address [address] [place] [address] Care Team Providers Care Aircraft Machinist Name Role Phone Unavailable Primary Care Provider Unavailabl e Encounter Details Date Type Department Care Team (Latest Contact Info) Description 06/05/2024 9:31 AM CDT - 06/05/2024 11:59 PM CDT Hospital Encounter Department of Obstetrics and Gynecology in [place], [place] [address] [place] [phone] Magalys Bernal M.D. 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) Discharge Disposition: Home or Self Care Social History Tobacco Use Types Packs/Day Years Used Date Smoking Tobacco: Former Cigarettes Smokeless Tobacco: Never Alcohol Use Standard Drinks/Week Comments Not Currently 0 (1 standard drink = 0.6 oz pure alcohol) Pre , 1 drink monthly [facility] Utilities Answer Date Recorded In the past 12 months has [facility] [employer], gas, oil, or water [employer] threatened to shut off services in [...] AM CDT Legal Sex Female 9:43 AM BANK COURIER Gender Identity Female 08/07/2023 8:49 AM CDT Sexual Orientation Straight 08/07/2023 8: 49 AM CDT 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 [address] [place] [phone] Discharge Disposition: Home or Self Care 07/10/2024 11:00 AM CDT Routine Department of Obstetrics and Gynecology in [place], [place] [address] [place] [phone] Cristela Zapien, RHIANNA, CNM [address] [place] [phone] 07/10/2024 11:40 AM CDT Lab Department of Laboratory Medicine and Pathology, [facility], in [place], [place] [address] [place] [phone] Noni Bender M.D., Ph.D. [address] [place] [phone] 07/20/2024 10:10 AM CDT Lab Department of Laboratory Medicine and Pathology, [facility] in [place], [place] [address] [place] [phone] Noni Bender M.D., Ph.D. [address] [place] [phone] 08/14/2024 9:00 AM CDT Appointment Department of Obstetrics and Gynecology in [address] [phone] Noni Bender M.D., Ph.D. [address] [place] [phone] Discharge Disposition: Home or Self Care 08/14/2024 10:00 AM CDT Routine Department of Obstetrics and Gynecology in [address] [phone] Magalys Bernal M.D. [address] [place] [phone] documented as of this encounter Procedures Procedure [...] 0 lb 11 oz EFW by [employer] ([id number]) Head / Face / Neck Biometry: Continuous Mining Machine Coal Miner 6.8 mm CM 4.4 mm 33% Inner [...] normal. RVOT view. LVOT view. 3-vessel view. 1-ouvcsz-tooyjbn view. Situs. Aortic arch view. Bicaval view. [...] 0 lb 11 oz EFW by [employer] ([id number]) Head / Face / Neck Biometry: Continuous Mining Machine Coal Miner 6.8 mm CM 4.4 mm 33% Inner [...] veins: normal. RVOT view. LVOTview. 3-vessel view. 7-cibzwe-dwplkbd view. Situs. Aortic arch view.Bicaval view. Ductal [...] Total Score: 2 04/17/19 25 10:03 AM BANK COURIER documented as of this encounter Care Teams Aircraft Machinist Relationship Specialty Start Date End Date Roberto OLVERA 04/17/24 10/25/24 documented as of this encounter
--- OUTSIDE RECORDS SUMMARY | 2024-06-07 06:37 | XMS_ITS | Encounter Summary ---
Author Organization [facility] Address [address] [place] [address] Care Team Providers Care Rn Liaison Name Role Phone Unavailable Primary Care Provider Unavailabl e Encounter Details Date Type Department Care Team (Late st Contact Info) Description 04/28/2024 3:00 PM REALTY LOAN SPECIALIST Lab Department of Laboratory Medicine and Pathology, [facility], in [place], [place] [address] [place] [phone] Noni Bender M.D., Ph.D. [address] [place] [phone] Multigravida Advanced Maternal Age Affecting Management (HCC) Social History Tobacco Use Types Packs/Day Years Used Date Smoking Tobacco: Former Cigarettes Smokeless Tobacco: Never Alcohol Use Standard Drinks/Week Comments Not Currently 0 (1 standard drink = 0.6 oz pure alcohol) Pre , 1 drink monthly [facility] Utilities Answer Date Recorded In the past 12 months has [facility] [employer], gas, oil, or water [employer] threatened to shut off services in your [...] your living situation today? 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 [address] [place] [phone] Discharge Disposition: Home or Self Care 07/10/2024 11:00 AM CDT Routine Department of Obstetrics and Gynecology in [address] [phone] Cristela Zapien, MANAGER SUPPLIER, CNM [address] [place] [phone] 07/10/2024 11:40 AM CDT Lab Department of Laboratory Medicine and Pathology, [address] [phone] Noni Bender M.D., Ph.D. [address] [place] [phone] 07/20/2024 10:10 AM CDT Lab Department of Laboratory Medicine and Pathology, [facility] in [place], [place] [address] [place] [phone] Noni Bender M.D., Ph.D. [address] [place] [phone] 08/14/2024 9:00 AM CDT Appointment Department of Obstetrics and Gynecology in [address] [phone] Noni Bender M.D., Ph.D. [address] [place] [phone] Discharge Disposition: Home or Self Care 08/14/2024 10:00 AM CDT Routine Department of Obstetrics and Gynecology in [place], [place] [address] [place] [phone] Magalys Bernal M.D. [address] [place] [phone] documented as of this encounter Procedures Procedure Name Priority Date/Time Associated Diagnosis Comments HORIZON CARRIER SCREEN, BLOOD Routine 04/28/2024 3:07 PM REALTY LOAN SPECIALIST Multigravida Advanced Maternal Age Affecting Management (HCC) PANORAMA SCREEN Routine 04/28/2024 3:07 PM REALTY LOAN SPECIALIST Multigravida Advanced Maternal Age Affecting Management (HCC) documented in this encounter Results * Panorama Screen - Sent Out Lab (04/28/2024 3:07 PM REALTY LOAN SPECIALIST) Panorama Screen SEE COMMENT 05/04/2024 1:51 PM REALTY LOAN SPECIALIST [employer] Comment: For final report, select Lab-Send Out Lab Results hyperlink below. Blood (Blood, Venous) 04/28/2024 3:07 PM REALTY LOAN SPECIALIST 04/29/2024 9:11 AM REALTY LOAN SPECIALIST Narrative [employer] - 05/04/2024 1:51 PM REALTY LOAN SPECIALIST Specimen Information: Specimen ID: [id number] Specimen Type: Blood Specimen Collection Start Date: 04/28/2024 3:07 PM Specimen Received Date: 04/29/2024 9:11 AM Specimen ID: [id number] Specimen Type: Blood Specimen Collection Start Date: 04/28/2024 3:07 PM Specimen Received Date: 04/29/2024 9:11 AM Noni Bender M.D., Ph.D. LAB GENETIC TESTING Tiffani l Result [employer] [address] [place] [address], [place] [employer] [address] [place] [phone] * Horizon Carrier Screen, Blood - Sent Out Lab (04/28/2024 3:07 PM REALTY LOAN SPECIALIST) Horizon Carrier Screen, Blood SEE COMMENT 05/13/2024 8:52 AM REALTY LOAN SPECIALIST [employer] Comment: For final report, select Lab-Send Out Lab Results hyperlink below. Blood (Blood, Venous) 04/28/2024 3:07 PM REALTY LOAN SPECIALIST Narrative [employer] - 05/13/2024 8:52 AM REALTY LOAN SPECIALIST Specimen Information: Specimen ID: [id number] Specimen Type: Blood Specimen ID: [id number] Specimen Type: Blood Specimen Collection Start Date: 04/28/2024 3:07 PM Specimen Received Date: 04/29/2024 9:11 AM Noni Bender M.D., Ph.D. LAB GENETIC TESTING Tiffani l Result Performing Organization Address City/[facility]/ZIP Co de Phone Number [employer] [address] [place] [address], [place] [employer] [address] [place] [phone] documented in this encounter Visit Diagnoses Diagnosis Multigravida Advanced Maternal Age Affecting Management (HCC) documented in this encounter Additional Health Concerns Assessment Noted Time PHQ-9 Depression Total Score: 2 04/17/19 10:03 AM REALTY LOAN SPECIALIST documented as of this encounter Care Teams Rn Liaison Relationship Specialty Start Date End Date Roberto OLVERA 04/17/24 10/25/24 documented as of this encounter
--- OUTSIDE RECORDS SUMMARY | 2024-06-07 06:37 | XMS_ITS | Encounter Summary ---
Author Organization [facility] Address [address] [place] [address] Care Team Providers Care Bi Data Modeler Name Role Phone Unavailable Primary Care Provider Unavailabl e Encounter Details Date Type Department Care Team (Late st Contact Info) Description 05/27/2024 Clinical Communication Department of Obstetrics and Gynecology in [place], [place] [address] [place] [phone] Magalys Bernal M.D. [address] [place] [phone] Social History Tobacco Use Types Packs/Day Years Used Date Smoking Tobacco: Former Cigarettes Smokeless Tobacco: Never Alcohol Use Standard Drinks/Week Comments Not Currently 0 (1 standard drink = 0.6 oz pure alcohol) Pre , 1 drink monthly [facility] Utilities Answer Date Recorded In the past 12 months has [facility] [employer], oil, or water [employer] threatened to shut off services in your [...] your living situation today? 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 [address] [place] [phone] Discharge Disposition: Home or Self Care 07/10/2024 11:00 AM CDT Routine Department of Obstetrics and Gynecology in [place], [place] [address] [place] [phone] Cristela Zapien APRN, GAEL [address] [place] [phone] 07/10/2024 11:40 AM CDT Lab Department of Laboratory Medicine and Pathology, [facility], in [place], [place] [address] [place] [phone] Noni Bender M.D., Ph.D. [address] [place] [phone] 07/20/2024 10:10 AM CDT Lab Department of Laboratory Medicine and Pathology, [facility], in [place], [place] [address] [place] [phone] Noni Bender M.D., Ph.D. [address] [place] [phone] 08/14/2024 9:00 AM CDT Appointment Department of Obstetrics and Gynecology in [place], [place] [address] [place] [phone] Noni Bender M.D., Ph.D. [address] [place] [phone] Discharge Disposition: Home or Self Care 08/14/2024 10:00 AM CDT Routine Department of Obstetrics and Gynecology in [place], [place] [address] [place] [phone] Magalys Bernal M.D. [address] [place] [phone] documented as of this encounter Visit Diagnoses Not on filedocumented in this encounter Additional Health Concerns Assessment Noted Time PHQ-9 Depression Total Score: 2 04/17/19 10:03 AM LAB ANIMAL TECHNICIAN documented as of this encounter Care Teams Bi Data Modeler Relationship Specialty Start Date End Date Roberto OLVERA 04/17/24 10/25/24 documented as of this encounter
--- OUTSIDE RECORDS SUMMARY | 2024-06-07 06:37 | XMS_ITS | Encounter Summary ---
Author Organization [facility] Address [address] [place] [address] Care Team Providers Care Sales Promoter Name Role Phone Unavailable Primary Care Provider Unavailabl e Encounter Details Date Type Department Care Team (Late st Contact Info) Description 05/04/2024 Clinical Communication Department of Medical Genetics in [place], [place] [address] [place] [phone] Tiana Almanza M.S., [facility] [address] [place] [phone] Social History Tobacco Use Types Packs/Day Years Used Date Smoking Tobacco: Former Cigarettes Smokeless Tobacco: Never Alcohol Use Standard Drinks/Week Comments Not Currently 0 (1 standard drink = 0.6 oz pure alcohol) Pre , 1 drink monthly [facility] Utilities Answer Date Recorded In the past 12 months has [facility] [employer], oil, or water [employer] threatened to shut off services in your [...] your living situation today? 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 Patient does not have an active Patient Online Services account. Left voicemail with callback number. Electronically signed by Tiana Almanza M.S., [facility] at 05/04/2024 12:32 PM ICER MACHINE OPERATOR documented in this encounter Plan of Treatment Upcoming Encounters Date Type Department Care Team (Late st Contact Info) Description 07/10/2024 10:00 AM CDT Appointment Department of Obstetrics and Gynecology in [address] [phone] Noni Bender M.D., Ph.D. [address] [place] [phone] Discharge Disposition: Home or Self Care 07/10/2024 11:00 AM CDT Routine Department of Obstetrics and Gynecology in [address] [phone] Cristela Zapien, MANAGER PUBLIC, CNM [address] [place] [phone] 07/10/2024 11:40 AM CDT Lab Department of Laboratory Medicine and Pathology, [place], [place] [address] [place] [phone] Noni Bender M.D., Ph.D. [address] [place] [phone] 07/20/2024 10:10 AM CDT Lab Department of Laboratory Medicine and Pathology, [facility] in [place], [place] [address] [place] [phone] Noni Bender M.D., Ph.D. [address] [place] [phone] 08/14/2024 9:00 AM CDT Appointment Department of Obstetrics and Gynecology in [place], [place] [address] [place] [phone] Noni Bender M.D., Ph.D. [address] [place] [phone] Discharge Disposition: Home or Self Care 08/14/2024 10:00 AM CDT Routine Department of Obstetrics and Gynecology in [place], [place] [address] [place] [phone] Magalys Bernal M.D. [address] [place] [phone] documented as of this encounter Visit Diagnoses Not on filedocumented in this encounter Additional Health Concerns Assessment Noted Time PHQ-9 Depression Total Score: 2 04/17/19 10:03 AM ICER MACHINE OPERATOR documented as of this encounter Care Teams Sales Promoter Relationship Specialty Start Date End Date Roberto OLVERA 04/17/24 10/25/24 documented as of this encounter
--- OUTSIDE RECORDS SUMMARY | 2024-06-07 06:37 | XMS_ITS | Encounter Summary ---
Author Organization [facility] Address [address] [place] [address] Care Team Providers Care Threader Name Role Phone Unavailable Primary Care Provider Unavailabl e Encounter Details Date Type Department Care Team (Late st Contact Info) Description 05/13/2024 10:30 AM CHIEF TELEPHONE OPERATOR Virtual Visit Department of Obstetrics and Gynecology in [place], [place] [address] [place] [phone] Tiana Almanza M.S., [facility] [address] [place] [phone] Counseling Genetic For Family Planning (Primary Dx) Social History Tobacco Use Types Packs/Day Years Used Date Smoking Tobacco: Former Cigarettes Smokeless Tobacco: Never Alcohol Use Standard Drinks/Week Comments Not Currently 0 (1 standard drink = 0.6 oz pure alcohol) Pre , 1 drink monthly [facility] Utilities Answer Date Recorded In the past 12 months has [facility] [employer], oil, or water [employer] threatened to shut off services in [...] your living situation today? 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 Duyen's partner was not present at this visit. Duyen pursued carrierscreening through the [employer] carrier screen which tested for carrier status [...] any additional questions that she may have F TELEPHONE OPERATOR documented in this encounter Plan of Treatment Upcoming Encounters Date Type Department Care Team (Late st Contact Info) Description 07/10/2024 10:00 AM CDT Appointment Department of Obstetrics and Gynecology in [place], [place] [address] [place] [phone] Noni Bender M.D., Ph.D. [address] [place] [phone] Discharge Disposition: Home or Self Care 07/10/2024 11:00 AM CDT Routine Department of Obstetrics and Gynecology in [place], [place] [address] [place] [phone] Cristela Zapien, RESPIRATORY THERAPIST, CNM [address] [place] [phone] 07/10/2024 11:40 AM CDT Lab Department of Laboratory Medicine and Pathology, [facility] in [place], [place] [address] [place] [phone] Noni Bender M.D., Ph.D. [address] [place] [phone] 07/20/2024 10:10 AM CDT Lab Department of Laboratory Medicine and Pathology, [facility] in [place], [place] [address] [place] [phone] Noni Bender M.D., Ph.D. [address] [place] [phone] 08/14/2024 9:00 AM CDT Appointment Department of Obstetrics and Gynecology in [place], [place] [address] [place] [phone] Noni Bender M.D., Ph.D. [address] [place] [phone] Discharge Disposition: Home or Self Care 08/14/2024 10:00 AM CDT Routine Department of Obstetrics and Gynecology in [place], [place] [address] [place] [phone] Magalys Bernal M.D. [address] [place] [phone] documented as of this encounter Visit Diagnoses Diagnosis Counseling Genetic For Family Planning- Primary documented in this encounter Additional Health Concerns Assessment Noted Time PHQ-9 Depression Total Score: 2 04/17/19 25 10:03 AM CHIEF TELEPHONE OPERATOR documented as of this encounter Care Teams Threader Relationship Specialty Start Date End Date Roberto OLVERA 04/17/24 10/25/24 documented as of this encounter
--- OUTSIDE RECORDS SUMMARY | 2024-06-07 06:37 | XMS_ITS | Encounter Summary ---
Author Organization [facility] Address [address] [place] [address] Care Team Providers Care Aircraft Launch And Recovery Technician Name Role Phone Unavailable Primary Care Provider Unavailabl e Reason for Visit * Reason Comments Nurse Visit Mid educat ion Encounter Details Date Type Department Care Team (Late st Contact Info) Description 06/05/2024 11:00 AM CDT Routine Department of Obstetrics and Gynecology in [place], [place] [address] [place] [phone] Magalys Bernal M.D. [address] [place] [phone] Sallie Sprague, R.N. [address] [place] [phone] 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) Social History Tobacco Use Types Packs/Day Years Used Date Smoking Tobacco: Former Cigarettes Smokeless Tobacco: Never Alcohol Use Standard Drinks/Week Comments Not Currently 0 (1 standard drink = 0.6 oz pure alcohol) Pre , 1 drink monthly [facility] Utilities Answer Date Recorded In the [...] living situation today? 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 [address] [place] [phone] Discharge Disposition: Home or Self Care 07/10/2024 11:00 AM CDT Routine Department of Obstetrics and Gynecology in [address] [phone] Cristela Zapien APRN, CN [address] [place] [phone] 07/10/2024 11:40 AM CDT Lab Department of Laboratory Medicine and Pathology, [facility] in [place], [place] [address] [place] [phone] Noni Bender M.D., Ph.D. [address] [place] [phone] 07/20/2024 10:10 AM CDT Lab Department of Laboratory Medicine and Pathology, [facility] in [place], [place] [address] [place] [phone] Noni Bender M.D., Ph.D. [address] [place] [phone] 08/14/2024 9:00 AM CDT Appointment Department of Obstetrics and Gynecology in [address] [phone] Noni Bender M.D., Ph.D. [address] [place] [phone] Discharge Disposition: Home or Self Care 08/14/2024 10:00 AM CDT Routine Department of Obstetrics and Gynecology in [place], [place] [address] [place] [address] Magalys Bernal M.D. [address] [place] [phone] documented as of this encounter Visit Diagnoses Diagnosis 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) documented in this encounter Additional Health Concerns Assessment Noted Time PHQ-9 Depression Total Score: 2 04/17/19 25 10:03 AM REMANUFACTURING TECHNICIAN documented as of this encounter Care Teams Aircraft Launch And Recovery Technician Relationship Specialty Start Date End Date Roberto OLVERA 04/17/24 10/25/24 documented as of this encounter
--- OUTSIDE RECORDS SUMMARY | 2024-06-07 06:37 | XMS_ITS | Encounter Summary ---
Author Organization [facility] Address [address] [place] [id number] Care Team Providers Care Pretzel Cooker Name Role Phone Unavailable Primary Care Provider Unavailabl e Reason for Referral * Outpatient (Routine) - Authorized Specialty Diagnoses / Procedures Referred By Contac t Referred To Contact Obstetrics and Gynecology Noni Bender M.D., Ph.D. [address] [place] [phone] Phone: tel: fax: Magalys Bernal M.D. [address] [place] [phone] Phone: tel: fax: Referral ID Status Reason Start Date Expiration Date V isits Requested Visits Authorized [id number] Authorized 06/05/2024 12/05/2025 1 1 * Outpatient (Routine) - Authorized Specialty Diagnoses / Procedures Referred By Contac t Referred To Contact Obstetrics and Gynecology Noni Bender M.D., Ph.D. [address] [place] [phone] Phone: tel: fax: Magalys Bernal M.D. [address] [place] [phone] Phone: tel: fax: Referral ID Status Reason Start Date Expiration Date V isits Requested Visits Authorized [id number] Authorized 06/05/2024 12/05/2025 1 1 Reason for Visit * Outpatient (Routine) - Closed Specialty Diagnoses / Procedures Referred By Contmegan t Referred To Contact Obstetrics and Gynecology Magalys Bernal M.D. [address] [place] [phone] Phone: tel: fax: Magalys Bernal M.D. [address] [place] [phone] Phone: tel: fax: Referral ID Status Reason Start Date Expiration Date Visits Re quested Visits Authorized [id number] Closed 2024 10/17/2025 1 1 Encounter Details Date Type Department Care Team (Latest Contact Info) Description 06/05/2024 11:00 AM CDT Routine Department of Obstetrics and Gynecology in [place], [place] [address] [place] [phone] Noni Bender M.D., Ph.D. [address] [place] [phone] 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) (Primary [...] pure alcohol) Pre , 1 drink monthly [facility] Utilities Answer Date Recorded In the past 12 months has [employer], gas, oil, or water [employer] threatened to shut off services in your [...] your living situation today? 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 Estimated Date of Delivery: 10/25/24; Gestational age: 19w5d. She is here today with her partner. concerns include: # AMA # Grand multiparity # Anti-JKa red cell antibodies # Short interpregnancy interval # History of GDM # Family history of bicuspid aortic valve # Family history of breast cancer # History of , G1 She is doing generally well. No leakage of fluid or vaginal bleeding. She has started to feel fetalmovement, but reports not as notable as in previous pregnancies due to anterior placenta. OBJECTIVE Impression - Advanced level US with TVUS for cervical length 06/05/24 ========= Detailed ultrasound examination Findings: [place] intrauterine with good activity. Size is consistent [...] 4.04 cm, without funneling or dynamic changes. 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 - Reported PTL with other pregnancies, but term deliveries - Cervical length on 06/05/24 at 19w5d was 4.04 cm. 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 - Most recent antibody titer was 05/26/24; too weak to titer. -Declined invasive testing (amnio) for JKa antigen. - Repeat titers every 4 weeks; every 2 weeks beginning at 32 weeks. - Refer to MFM if titers 1:16 # Genetic screening - 112 gene carrier screening negative # Bacteriuria Asymptomatic - Urine culture on RTC with repeat every couple of months - Rx Macrobid at 12 wk EGA - Hx pyelonephritis prior G9 - Urine bacterial culture 06/05/24 results pending # History of acute fatty liver of , G2 - Acute fatty liver of in second - low dose aspirin declined - Hx PP hemorrhage requiring transfusion G6 - Baseline AST and ALT WNL - P/Cr ratio <0.22 on 06/05/24 # Family history of bicuspid aortic valve - Three of sons with BAV (half siblings to this current ). 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 PATIENT EDUCATION Ready to learn, barriers to learning: none; learning preferences include listening. Explained diagnosis and treatment plan; patient expressed understanding of the content. Juli Sarabia, MS2 Noni Bender MD Cosigned by Noni Bender M.D., Ph.D. at 06/06/2024 8:32 PM CDT Associated attestation - Noni Bender M.D., Ph.D. - 06/06/2024 8:32 PM CDT I saw the patient with the medical student. I was present for or re-performed the History of Present Illness. I saw and evaluated the patient, participating in the oneal portions of the service and didmedical decision making. I have reviewed the above documentation and agree or amended. documented in this encounter Plan of Treatment Upcoming Encounters Date Type Department Care Team (Late st Contact Info) Description 07/10/2024 10:00 AM CDT Appointment Department of Obstetrics and Gynecology in [address] [phone] Noni Bender M.D., Ph.D. [address] [place] [phone] Discharge Disposition: Home or Self Care 07/10/2024 11:00 AM CDT Routine Department of Obstetrics and Gynecology in [address] [phone] Cristela Zapien, RHIANNA, CN [address] [place] [phone] 07/10/2024 11:40 AM CDT Lab Department of Laboratory Medicine and Pathology, [place], [place] [address] [place] [phone] Noni Bender M.D., Ph.D. [address] [place] [phone] 07/20/2024 10:10 AM CDT Lab Department of Laboratory Medicine and Pathology, [facility] in [place], [place] [address] [place] [phone] Noni Bender M.D., Ph.D. [address] [place] [phone] 08/14/2024 9:00 AM CDT Appointment Department of Obstetrics and Gynecology in [place], [place] [address] [place] [phone] Noni Bender M.D., Ph.D. [address] [place] [phone] Discharge Disposition: Home or Self Care 08/14/2024 10:00 AM CDT Routine Department of Obstetrics and Gynecology in [place], [place] [address] [place] [phone] Magalys Bernal M.D. 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
--- OUTSIDE RECORDS SUMMARY | 2024-06-07 06:37 | XMS_ITS | Clinical Summary ---
Author Organization [facility] Address [address] [place] [address] Care Team Providers Care Art Framing Manager Name Role Phone Unavailable Primary Care Provider Unavailabl e Source Comments Patient records contain information from all sites at [facility]. For routine questions regarding patient records, call [phone] during business hours, M-F 8:00 AM - 5:00 PM Central Time. Record requests for emergency care only can be directed to [phone] at any time.[facility] Allergies Active Allergy Reactions Criticality Noted Date [...] fetus. Assessment & Plan (2024 11:22 AM SPECIAL DEPUTY SHERIFF): Source of antigen exposure may have been [...] LSIL, cannot exclude higher grade lesion 01/18/2009 [place], no bx, , 09/15/2013 ASCUS/ HPV negative [...] (08/12/2023): The patient [facility] from triage after a nonreactive NST and [...] the floor. She received her care at [facility]. Positive Group B Streptococcus 07/23/2023 2024 Overview [...] previa. 05/09/2023: Appointment with Maternal- Medicine at [place] completed and recommendations as follows: IMPRESSION: Intrauterine [...] Encounters Date Type Department Care Team Description 06/06/2024 Clinical Communication Department of Obstetrics and Gynecology in [place], [place] [address] [place] [phone] Concepción Goodson R.N., C-EFM Nurse Assessment (Influenza medication question ) 06/05/2024 11:00 AM CDT Routine Department of Obstetrics and Gynecology in [place], [place] [address] [place] [phone] Magalys Bernal M.D. Sallie Sprague, R.N. 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) 06/05/2024 11:00 AM CDT Routine Department of Obstetrics and Gynecology in [place], [place] [address] [place] [phone] Noni Bender M.D., Ph.D. 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) (Primary Dx); High Risk History Labor (HCC); Multigravida Advanced Maternal Age Affecting Management (HCC); Neoplasia Cervical Squamous Low Grade Intraepithelial; Breast Cancer Susceptibility Gene Mutation Family History; Family History Congenital Heart Disease; Raised Antibody Titer 06/05/2024 9:31 AM CDT - 06/05/2024 11:59 PM CDT Hospital Encounter Department of Obstetrics and Gynecology in [place], [place] [address] [place] [phone] Magalys Bernal M.D. 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) Discharge Disposition: Home or Self Care 05/27/2024 Clinical Communication Department of Obstetrics and Gynecology in [address] [phone] Magalys Bernal M.D. 05/20/2024 Orders Only Department of Obstetrics and Gynecology in [address] [phone] Magalys Bernal M.D. Family History Congenital Heart Disease (Primary Dx) 05/13/2024 10:30 AM SPECIAL DEPUTY SHERIFF Virtual Visit Department of Obstetrics and Gynecology in [place], [place] [address] [place] [phone] Tiana Almazna M.S., JANENE Counseling Genetic For Family Planning (Primary Dx) 05/04/2024 Clinical Communication Department of Medical Genetics in [place], [place] [address] [place] [address] Tiana Almanza M.S., [facility] 04/28/2024 3:00 PM SPECIAL DEPUTY SHERIFF Lab Department of Laboratory Medicine and Pathology, [facility] in [place], [place] [address] [place] [phone] Noni Bender M.D., Ph.D. Multigravida Advanced Maternal Age Affecting Management (HCC) 04/28/2024 2:00 PM SPECIAL DEPUTY SHERIFF Comprehensive Visit Department of Obstetrics and Gynecology in [place], [place] [address] [place] [phone] Magalys Bernal M.D. Rust, Laura M MEvangelist, [facility] Counseling Genetic For Family Planning (Primary Dx); Raised Antibody Titer; Multigravida Advanced Maternal Age Affecting Management (HCC); Breast Cancer Susceptibility Gene Mutation Family History 2024 10:45 AM SPECIAL DEPUTY SHERIFF Silent Schedule Department of Obstetrics and Gynecology in [place], [place] [address] [place] [phone] Magalys Bernal M.D. 2024 10:00 AM SPECIAL DEPUTY SHERIFF Initial Department of Obstetrics and Gynecology in [address] [phone] Magalys Bernal M.D. GA: 12w5d 04/14/2024 Results Follow-Up Department of Obstetrics and Gynecology in [place], [place] [address] [place] [phone] Magalys Bernal M.D. Bacterial Culture, Aerobic + Susceptibility, Urine, Chlamydia / Gonorrhoeae Amplified RNA, Urinalysis, with Microscopic: Urine, Midstream, Additional followed-up results: 4 04/03/2024 1:00 PM SPECIAL DEPUTY SHERIFF Routine Department of Obstetrics and Gynecology in [place], [place] [address] [place] [address] Noni Bender M.D., Ph.D. Duyen Farnsworth R.N. 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) (Primary Dx) 04/03/2024 11:01 AM SPECIAL DEPUTY SHERIFF - 04/03/2024 11:59 PM SPECIAL DEPUTY SHERIFF Hospital Encounter Department of Obstetrics and Gynecology in [place], [place] [address] [place] [address] Noni Bender M.D., Ph.D. High Risk History Labor (HCC) Discharge Disposition: Home or Self Care 04/02/2024 Clinical Communication Department of Obstetrics and Gynecology in [place], [place] [address] [place] [address] Magalys Bernal M.D. Reschedule 03/16/2024 11:00 AM SPECIAL DEPUTY SHERIFF Initial Department of Obstetrics and Gynecology in [place], [place] [address] [place] [address] Kellen South R.N. GA: 8w1d from Last [...] Comments No Known Problems Daughter 1 Palak Cespedes No Known Problems Daughter 2 Hillary Alcohol abuse Father manrie Legionnaire's disease Father marnie Cystic fibrosis Maternal Cousin Alcohol abuse Maternal Grandfather Depression Maternal Grandfather BRCA2 Positive Mother Juana Breast cancer Mother Juana Alcohol abuse Paternal Grandmother Schizophrenia Paternal Grandmother No Known Problems Son 1 Loyd No Known Problems Son 2 [place] No Known Problems Son 3 Jermaine No Known Problems Son 4 Darius Relation Name Status Comments Daughter 1 Palak Cespedes Alive Daughter 2 Hillary Alive Father marnie [...] pure alcohol) Pre , 1 drink monthly [place] Answer Date Recorded In the past 12 months has e [facility], oil, or water [employer] threatened to shut off services in your [...] your living situation today? 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 [address] [place] [phone] Discharge Disposition: Home or Self Care 07/10/2024 11:00 AM CDT Routine Department of Obstetrics and Gynecology in [address] [phone] Cristela Zapien, RHIANNA, CNM [address] [place] [phone] 07/10/2024 11:40 AM CDT Lab Department of Laboratory Medicine and Pathology, [facility], in [place], [place] [address] [place] [phone] Noni Bender M.D., Ph.D. [address] [place] [phone] 07/20/2024 10:10 AM CDT Lab Department of Laboratory Medicine and Pathology, [facility], in [place], [place] [address] [place] [phone] Noni Bender M.D., Ph.D. [address] [place] [phone] 08/14/2024 9:00 AM CDT Appointment Department of Obstetrics and Gynecology in [place], [place] [address] [place] [phone] Noni Bender M.D., Ph.D. [address] [place] [phone] Discharge Disposition: Home or Self Care 08/14/2024 10:00 AM CDT Routine Department of Obstetrics and Gynecology in [place], [place] [address] [place] [phone] Magalys Bernal M.D. [address] [place] [phone] Health Maintenance Due Date Last Done Comments Lipid (Cholesterol) Screening 1989 COVID-19 Vaccine ( season) 2023 Influenza Vaccine [...] Asymptomatic ANTIBODY IDENTIFICATION Routine 05/26/2024 2:35 PM SPECIAL DEPUTY SHERIFF COMPREHENSIVE METABOLIC PANEL, S/P Routine 05/26/2024 2:35 PM SPECIAL DEPUTY SHERIFF 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) PANORAMA SCREEN Routine 04/28/2024 3:07 PM SPECIAL DEPUTY SHERIFF Multigravida Advanced Maternal Age Affecting Management (HCC) HORIZON CARRIER SCREEN, BLOOD Routine 04/28/2024 3:07 PM SPECIAL DEPUTY SHERIFF Multigravida Advanced Maternal Age Affecting Management (HCC) US OB FIRST TRIMESTER RAD - Routine (most inpatients and all outpatients) 2024 11:19 AM SPECIAL DEPUTY SHERIFF 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) PH, U Routine 04/03/2024 2:39 PM SPECIAL DEPUTY SHERIFF OSMOLALITY, U Routine 04/03/2024 2:39 PM SPECIAL DEPUTY SHERIFF DIPSTICK, U Routine 04/03/2024 2:39 PM SPECIAL DEPUTY SHERIFF MICROSCOPIC AUTOMATED Routine 04/03/2024 2:39 PM SPECIAL DEPUTY SHERIFF URINALYSIS WITH MICROSCOPIC Routine 04/03/2024 2:39 PM SPECIAL DEPUTY SHERIFF 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) CHLAMYDIA/GONORRHOEAE AMPLIFIED RNA Routine 04/03/2024 2:39 PM SPECIAL DEPUTY SHERIFF 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) BACTERIAL CULTURE, AEROBIC + SUSC, URINE Routine 04/03/2024 2:39 PM SPECIAL DEPUTY SHERIFF 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) VARICELLA-ZOSTER AB, IGG, S Routine 04/03/2024 2:14 PM SPECIAL DEPUTY SHERIFF 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) SYPHILIS IGG W/ REFLEX, EIA, S Routine 04/03/2024 2:14 PM SPECIAL DEPUTY SHERIFF 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) HIV-1/-2 AG AND AB SCRN, PLASMA Routine 04/03/2024 2:14 PM SPECIAL DEPUTY SHERIFF 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) HCV AB SCRN , S Routine 04/03/2024 2:14 PM SPECIAL DEPUTY SHERIFF 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) HBC TOTAL AB , S Routine 04/03/2024 2:14 PM SPECIAL DEPUTY SHERIFF 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) HBS ANTIBODY , S Routine 04/03/2024 2:14 PM SPECIAL DEPUTY SHERIFF 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) HBS ANTIGEN , S Routine 04/03/2024 2:14 PM SPECIAL DEPUTY SHERIFF 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) ANTIBODY IDENTIFICATION Routine 04/03/2024 2:13 PM SPECIAL DEPUTY SHERIFF FERRITIN, S Routine 04/03/2024 2:13 PM SPECIAL DEPUTY SHERIFF 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) HEMOGLOBIN ELECTROPHORESIS CASCADE, B Routine 04/03/2024 2:13 PM SPECIAL DEPUTY SHERIFF 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) HEMOGLOBIN A1C, B Routine 04/03/2024 2:1 3 PM SPECIAL DEPUTY SHERIFF 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) CBC WITH DIFFERENTIAL, B Routine 04/03/2024 2:13 PM SPECIAL DEPUTY SHERIFF 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) US OB LIMITED RAD - Routine (most inpatients and all outpatients) 04/03/2024 11:28 AM SPECIAL DEPUTY SHERIFF High Risk History Labor (HCC) from Last [...] 0 lb 11 oz EFW by Hadlock ([id number]) Head / Face / Neck Biometry: Electronic [employer] Gathering Camera Person 6.8 mm CM 4.4 mm 33% Inner [...] normal. RVOT view. LVOT view. 3-vessel view. 2-akpsdc-swpnbrg view. Situs. Aortic arch view. Bicaval view. [...] 0 lb 11 oz EFW by Hadlock ([id number]) Head / Face / Neck Biometry: Electronic News Gathering Camera Person 6.8 mm CM 4.4 mm 33% Inner [...] veins: normal. RVOT view. LVOTview. 3-vessel view. 2-frafqb-sfonkpj view. Situs. Aortic arch view.Bicaval view. Ductal [...] 9:27 AM CDT 06/05/2024 9:38 AM CDT us Magalys Bernal M.D. LAB URINE ORDERABLES Final Result [place] [address] [place] [address], [facility] [place] [address] [place] [address] * Antibody Identification, Erythrocytes (05/26/2024 2:35 PM SPECIAL DEPUTY SHERIFF) Only the most recent of2 resultswithin the time period is included. Antibody Identification Anti-Jka 05/26/2024 3:55 PM SPECIAL DEPUTY SHERIFF DTL Comment: Clinically significant in regards to HDN. Antibody Titer canceled and replaced by antibody identification as antibody is too weakly reactive to titer. 05/26/2024 2:35 PM SPECIAL DEPUTY SHERIFF 05/26/2024 2:56 PM SPECIAL DEPUTY SHERIFF Narrative [facility] - 05/26/2024 3:55 PM SPECIAL DEPUTY SHERIFF Specimen Information: Specimen ID: [id number] Specimen Collection Start Date: 05/26/2024 2:35 PM Specimen Received Date: 05/26/2024 2:56 PM Specimen ID: [id number] Specimen Collection Start Date: 05/26/2024 2:35 PM Specimen Received Date: 05/26/2024 2:56 PM us Magalys Bernal M.D. LAB BLOOD BANK TEST ORDERAB LES Final Result [facility] [address] [place] [address], [place] DTL [facility] [address] [place] [address] * (ABNORMAL) Comprehensive Metabolic Panel (05/26/2024 2:35 PM SPECIAL DEPUTY SHERIFF) Pathologist [facility] Potassium, S 4.2 3.6 - 5.2 mmol/L 05/26/2024 3:12 PM SPECIAL DEPUTY SHERIFF DTL Sodium, S 140 135 - 145 mmol/L 05/26/2024 3:12 PM SPECIAL DEPUTY SHERIFF DTL Chloride, S 104 98 - 107 mmol/L 05/26/2024 3:12 PM SPECIAL DEPUTY SHERIFF DTL Bicarbonate, S 25 22 - 29 mmol/L 05/26/2024 3:12 PM SPECIAL DEPUTY SHERIFF DTL Anion Gap 11 7 - 15 05/26/2024 3:12 PM SPECIAL DEPUTY SHERIFF DTL BUN (Blood Urea Nitrogen), S 9 6 - 21 mg/dL 05/26/2024 3:12 PM SPECIAL DEPUTY SHERIFF DTL Creatinine 0.65 0.59 - 1.04 mg/dL 05/26/2024 3:12 PM SPECIAL DEPUTY SHERIFF DTL Estimated GFR (eGFR) >90 >=60 mL/min/BS A 05/26/2024 3:12 PM SPECIAL DEPUTY SHERIFF DTL Comment: Estimated GFR calculated using the 2020 CKD_EPI creatinine equation. Calcium, Total, S 8.9 8.6 - 10.0 mg/dL 05/26/2024 3:12 PM SPECIAL DEPUTY SHERIFF DTL Glucose, S 67(L) 70 - 140 mg/dL 05/26/2024 3:12 PM SPECIAL DEPUTY SHERIFF DTL Protein, Total, S 6.1(L) 6.3 - 7.9 g/dL 05/26/2024 3:12 PM SPECIAL DEPUTY SHERIFF DTL Albumin, S 3.9 3.5 - 5.0 g/dL 05/26/2024 3:12 PM SPECIAL DEPUTY SHERIFF DTL Aspartate Aminotransferase (AST), S 10 8 - 43 U/L 05/26/2024 3:12 PM SPECIAL DEPUTY SHERIFF DTL Alkaline Phosphatase, S 55 35 - 104 U/L 05/26/2024 3:12 PM SPECIAL DEPUTY SHERIFF DTL Alanine Aminotransferase (ALT), S 7 7 - 45 U/L 05/26/2024 3:12 PM SPECIAL DEPUTY SHERIFF DTL Bilirubin, Total, S 0.3 0.0 - 1.2 mg/dL 05/26/2024 3:12 PM SPECIAL DEPUTY SHERIFF DTL Blood (Blood, Venous) 05/26/2024 2:35 PM SPECIAL DEPUTY SHERIFF 05/26/2024 2:55 PM SPECIAL DEPUTY SHERIFF us Magalys Bernal M.D. LAB BLOOD ADD-ON Final Resu lt Performing Organization Address City/[facility]/ZIP Co de Phone Number [facility] [address] [place] [address], [place] DTL [facility] [address] [place] [address] * Horizon Carrier Screen, Blood - Sent Out Lab (04/28/2024 3:07 PM SPECIAL DEPUTY SHERIFF) Horizon Carrier Screen, Blood SEE COMMENT 05/13/2024 8:52 AM SPECIAL DEPUTY SHERIFF [facility] Comment: For final report, select Lab-Send Out Lab Results hyperlink below. Blood (Blood, Venous) 04/28/2024 3:07 PM SPECIAL DEPUTY SHERIFF Narrative [employer] - 05/13/2024 8:52 AM SPECIAL DEPUTY SHERIFF Specimen Information: Specimen ID: [id number] Specimen Type: Blood Specimen ID: [id number] Specimen Type: Blood Specimen Collection Start Date: 04/28/2024 3:07 PM Specimen Received Date: 04/29/2024 9:11 AM us Noni Bender M.D., Ph.D. LAB GENETIC TESTING Tiffani l Result [employer] [address] [place] [address], [place] C[facility] [employer] [address] [place] [address] * Panorama Screen - Sent Out Lab (04/28/2024 3:07 PM SPECIAL DEPUTY SHERIFF) Panorama Screen SEE COMMENT 05/04/2024 1:51 PM SPECIAL DEPUTY SHERIFF [facility] Comment: For final report, select Lab-Send Out Lab Results hyperlink below. Blood (Blood, Venous) 04/28/2024 3:07 PM SPECIAL DEPUTY SHERIFF 04/29/2024 9:11 AM SPECIAL DEPUTY SHERIFF Narrative [employer] - 05/04/2024 1:51 PM SPECIAL DEPUTY SHERIFF Specimen Information: Specimen ID: [id number] Specimen Type: Blood Specimen Collection Start Date: 04/28/2024 3:07 PM Specimen Received Date: 04/29/2024 9:11 AM Specimen ID: [id number] Specimen Type: Blood Specimen Collection Start Date: 04/28/2024 3:07 PM Specimen Received Date: 04/29/2024 9:11 AM us Noni Bender M.D., Ph.D. LAB GENETIC TESTING Tiffani l Result [employer] [address] [place] [address], [facility] CANDIDO [employer] [address] [place] [address] * US OB First Trimester (2024 11:19 AM SPECIAL DEPUTY SHERIFF) Anatomical Region Laterality Modality Body, Ultrasound OB RST LOS, Ultrasound ARZ LOS N/A Ultrasound Narrative 2024 11:19 AM SPECIAL DEPUTY SHERIFF Single viable IUP with movement and normal FHT Anterior placenta Stomach and bladder visualized us Magalys Bernal M.D. IMG OB US PROCEDURES Final Result * Dipstick, Urine (04/03/2024 2:39 PM SPECIAL DEPUTY SHERIFF) Hemoglobin, QL, U Negative Negative 04/03/2024 3:09 PM SPECIAL DEPUTY SHERIFF DTL Leukocyte Esterase, U Negative Negative 04/03/2024 3:09 PM SPECIAL DEPUTY SHERIFF DTL Nitrite, U Negative Negative 04/03/2024 3:09 PM SPECIAL DEPUTY SHERIFF DTL Ketone, U Negative Negative mg/dL 04/03/2024 3:09 PM SPECIAL DEPUTY SHERIFF DTL Glucose, U Negative Negative mg/dL 04/03/2024 3:09 PM SPECIAL DEPUTY SHERIFF DTL Urine 04/03/2024 2:39 PM SPECIAL DEPUTY SHERIFF 04/03/2024 2:47 PM SPECIAL DEPUTY SHERIFF Result [facility] us Magalys Bernal M.D. LAB URINE ORDERABLES Final Result Performing Organization Address [facility] Co de Phone Number [facility] [address] [place] [address], [facility] [place] [address] [place] [address] * Microscopic Automated (04/03/2024 2:39 PM SPECIAL DEPUTY SHERIFF) Microscopy Normal 04/03/2024 3:09 PM SPECIAL DEPUTY SHERIFF DTL RBC None Seen <3 /hpf 04/03/2024 3:09 PM SPECIAL DEPUTY SHERIFF DTL WBC None Seen /hpf 04/03/2024 3:09 PM SPECIAL DEPUTY SHERIFF DTL Comment: ----REFERENCE VALUE---- <4 (Males) <11 (Females) Squamous Epithelial Cells, U 1-3 /hpf 04/03/2024 3:09 PM SPECIAL DEPUTY SHERIFF DTL Urine 04/03/2024 2:39 PM SPECIAL DEPUTY SHERIFF 04/03/2024 2:47 PM SPECIAL DEPUTY SHERIFF Result [facility] us Magalys Bernal M.D. LAB URINE ORDERABLES Final Result Performing Organization Address [facility] de Phone Number [facility] [address] [place], [place] [address] [place] [address] [place] [address] * (ABNORMAL) Bacterial Culture, Aerobic + Susceptibility, Urine (04/03/2024 2:39 PM SPECIAL DEPUTY SHERIFF) Urine Culture With urogenital microbiota, susceptibilities not performed per laboratory criteria. (A) 04/06/2024 1:12 PM SPECIAL DEPUTY SHERIFF DTL Urine Culture KLEBSIELLA AEROGENES >100,000 cfu/mL (A) 04/06/2024 1:12 PM SPECIAL DEPUTY SHERIFF DTL Urine (Urine, Midstream) 04/03/2024 2:39 PM SPECIAL DEPUTY SHERIFF 04/03/2024 3:08 PM SPECIAL DEPUTY SHERIFF Comment:Specimen Source Site : Urine Narrative Organism [...] mcg/mL: Susceptible Klebsiella aerogenes Amikacin SUSCEPTIBIL ITY, RSOSY (MCG/ML) <=4 mcg/mL: Susceptible Klebsiella aerogenes Gentamicin [...] LAB MICROBIOLOGY - GENERAL ORDERABLES Final Result [facility] [address] [place] [address] * pH, Urine (04/03/2024 2:39 PM SPECIAL DEPUTY SHERIFF) pH, U 6.3 4.5 - 8.0 04/03/2024 3:1 6 PM SPECIAL DEPUTY SHERIFF DT Urine 04/03/2024 2:39 PM SPECIAL DEPUTY SHERIFF 04/03/2024 2:47 PM SPECIAL DEPUTY SHERIFF Magalys Bernal M.D. LAB URINE ORDERABLES Final Result [facility] [address] [place] [address] * Chlamydia / Gonorrhoeae Amplified RNA (04/03/2024 2:39 PM SPECIAL DEPUTY SHERIFF) Pathologist [facility] Source Urine, Urine, First Voided 04/03/2024 11:35 PM SPECIAL DEPUTY SHERIFF [facility] Chlamydia trachomatis amplified RNA Negative Negative 04/03/2024 11:35 PM SPECIAL DEPUTY SHERIFF SDS Source Urine, Urine, First Voided 04/03/2024 11:35 PM SPECIAL DEPUTY SHERIFF SDS Neisseria gonorrhoeae amplified RNA Negative Negative 04/03/2024 11:35 PM SPECIAL DEPUTY SHERIFF [facility] Urine (Urine, First Voided) 04/03/2024 2:39 PM SPECIAL DEPUTY SHERIFF 04/03/2024 6:35 PM SPECIAL DEPUTY SHERIFF us Magalys Bernal M.D. LAB MICROBIOLOGY - GENERAL ORDERABLES Final Result [facility] [employer] [place] [address] [place] [address] [facility] [address] [place] [address] [place] [address] * Osmolality, Urine (04/03/2024 2:39 PM SPECIAL DEPUTY SHERIFF) Osmolality, U 464 150 - 1150 mOsm/kg 04/03/2024 3:16 PM SPECIAL DEPUTY SHERIFF DT Urine 04/03/2024 2:39 PM SPECIAL DEPUTY SHERIFF 04/03/2024 2:47 PM SPECIAL DEPUTY SHERIFF Magalys Bernal M.D. LAB URINE ORDERABLES Final Result Performing Organization Address [facility] Co de Phone Number [facility] [address] [place] [address], [facility] DTL [facility] [address] [place] [address] * Urinalysis, with Microscopic: Urine, Midstream (04/03/2024 2:39 PM SPECIAL DEPUTY SHERIFF) Source Urine, Urine, Midstream 04/03/2024 2:46 PM SPECIAL DEPUTY SHERIFF DTL Color, U Yellow 04/03/2024 2:46 PM SPECIAL DEPUTY SHERIFF DTL Clarity, U Clear 04/03/2024 2:46 PM SPECIAL DEPUTY SHERIFF DTL Protein, U 7 <26 mg/dL 04/03/2024 3:33 PM SPECIAL DEPUTY SHERIFF DTL Protein/Osmol ality 0.15 <0.42 ratio 04/03/2024 3:33 PM SPECIAL DEPUTY SHERIFF DTL Predicted 24 HR Protein, U 120 <229 mg/24 h 04/03/2024 3:33 PM SPECIAL DEPUTY SHERIFF DTL Predicted Range 30-486 mg/24 h 04/03/2024 3:33 PM SPECIAL DEPUTY SHERIFF DTL Urine (Urine, Midstream) 04/03/2024 2:39 PM SPECIAL DEPUTY SHERIFF 04/03/2024 2:46 PM SPECIAL DEPUTY SHERIFF us Magalys Bernal M.D. LAB URINE ORDERABLES Final Result Performing Organization Address City/[facility] Co de Phone Number [facility] [address] [place] [address], [facility] DTL [facility] [address] [place] [address] * Syphilis IgG w/ Reflex, EIA, S (RST/FLA) (04/03/2024 2:14 PM SPECIAL DEPUTY SHERIFF) Syphilis IgG w/ Reflex, EIA, S Nonreactive Nonreactive 04/03/2024 11:06 PM SPECIAL DEPUTY SHERIFF [facility] Comment: No serologic evidence of infection with T. pallidum (syphilis). Repeat testing may be considered in patients with suspected acute or primary syphilis in 2-4 weeks. For additional information on interpretation of the syphilis reverse algorithm and results, see: [email or web address] Blood (Blood, Venous) 04/03/2024 2:14 PM SPECIAL DEPUTY SHERIFF 04/03/2024 6:39 PM SPECIAL DEPUTY SHERIFF us Magalys Bernal M.D. LAB MICROBIOLOGY - BLOOD OR DERABLES Final Result Performing Organization Address [facility] Co de Phone Number [facility] [address] [place], [place] [address] [place], [place] [address] [place] [address] * HBc Total Ab , Serum (04/03/2024 2:14 PM SPECIAL DEPUTY SHERIFF) HBc Total Ab , S Negative Negative 04/03/2024 8:17 PM SPECIAL DEPUTY SHERIFF [facility] Blood (Blood, Venous) 04/03/2024 2:14 PM SPECIAL DEPUTY SHERIFF 04/03/2024 7:09 PM SPECIAL DEPUTY SHERIFF us Magalys Bernal M.D. LAB MICROBIOLOGY - BLOOD OR DERABLES Final Result Performing Organization Address [facility] Co de Phone Number [facility] [address] [place] [address] [place] [id number] [place] [address] * HBs Antibody , Serum (04/03/2024 2:14 PM SPECIAL DEPUTY SHERIFF) HBs Antibody , S Negative 04/03/2024 8:17 PM SPECIAL DEPUTY SHERIFF [facility] Comment: Patient is NOT immune to HBV infection. Consumption of high-dose biotin supplement within 12 hours of blood collection for this test can cause false-negative results. ----REFERENCE VALUE---- Unvaccinated: Negative Vaccinated: Positive HBs Antibody, Quantitative, S 4.0 mIU/mL 04/03/2024 8:17 PM SPECIAL DEPUTY SHERIFF [facility] Comment: ----REFERENCE VALUE---- Unvaccinated: <8.5 mIU/mL Vaccinated: >=11.5 mIU/mL Blood (Blood, Venous) 04/03/2024 2:14 PM SPECIAL DEPUTY SHERIFF 04/03/2024 7:09 PM SPECIAL DEPUTY SHERIFF Magalys Bernal M.D. LAB MICROBIOLOGY - BLOOD OR DERABLES Final Result Performing Organization Address [facility] Co de Phone Number [facility] [address] [place] [address] [facility] [address] [place] [address] * Hepatitis C Virus Antibody Screen (04/03/2024 2:14 PM SPECIAL DEPUTY SHERIFF) HCV Ab Scrn , S Negative Negative 04/03/2024 8:17 PM SPECIAL DEPUTY SHERIFF [facility] Comment: Consumption of high-dose biotin supplement within 12 hours of blood collection for this test can cause false-negative results. Blood (Blood, Venous) 04/03/2024 2:14 PM SPECIAL DEPUTY SHERIFF 04/03/2024 7:09 PM SPECIAL DEPUTY SHERIFF Magalys Bernal M.D. LAB MICROBIOLOGY - BLOOD OR DERABLES Final Result Performing Organization Address [facility] de Phone Number [facility] [address] [place] [address] [facility] [address] [place] [address] * HIV-1/-2 Ag and Ab Scrn, Plasma (04/03/2024 2:14 PM SPECIAL DEPUTY SHERIFF) HIV-1/-2 Ag and Ab Scrn, P Negative Negative 04/03/2024 8:14 PM SPECIAL DEPUTY SHERIFF [facility] Comment: Negative result does not rule out HIV infection. If exposure to HIV infection occurred <14 days ago, contact the laboratory to request addition of HIV-1/HIV-2 RNA detection , Plasma (HPP12). Blood (Blood, Venous) 04/03/2024 2:14 PM SPECIAL DEPUTY SHERIFF 04/03/2024 7:09 PM SPECIAL DEPUTY SHERIFF Result [facility]ly [facility] us Magalys Bernal M.D. LAB MICROBIOLOGY - BLOOD OR DERABLES Final Result Performing Organization Address City/[facility]/ZIP Co de Phone Number [facility] [address] [place] [address] [facility] [address] [place] [address] * HBs Antigen , Serum (04/03/2024 2:14 PM SPECIAL DEPUTY SHERIFF) Pathologist [facility] HBs Antigen , S Negative Negative 04/03/2024 8:17 PM SPECIAL DEPUTY SHERIFF [facility] Blood (Blood, Venous) 04/03/2024 2:14 PM SPECIAL DEPUTY SHERIFF 04/03/2024 7:09 PM SPECIAL DEPUTY SHERIFF us Magalys Bernal M.D. LAB MICROBIOLOGY - BLOOD OR DERABLES Final Result Performing Organization Address [facility] Co de Phone Number [facility] [address] [place] [address] [facility] [address] [place] [address] * Varicella-Zoster Antibody, IgG, Serum (04/03/2024 2:14 PM SPECIAL DEPUTY SHERIFF) Pathologist [facility] Varicella-Zoster Ab, IgG, S Positive 04/04/2024 9:52 AM SPECIAL DEPUTY SHERIFF [facility] Comment: Results suggest response to immunization or prior exposure to the virus. ----REFERENCE VALUE---- Vaccinated: Positive (>=1.1 AI) Unvaccinated: Negative (<=0.8 AI) Varicella IgG Antibody Index 2.0 04/04/2024 9:52 AM SPECIAL DEPUTY SHERIFF [facility] Blood (Blood, Venous) 04/03/2024 2:14 PM SPECIAL DEPUTY SHERIFF 04/03/2024 9:40 PM SPECIAL DEPUTY SHERIFF Result Mary Jane Bernal M.D. LAB MICROBIOLOGY - BLOOD OR DERABLES Final Result Performing Organization Address City/[facility]/ZIP Co de Phone Number [facility] [address] [place] [address] [facility] [address] [place] [address] * Hemoglobin Electrophoresis Evaluation (04/03/2024 2:13 PM SPECIAL DEPUTY SHERIFF) Hb A 97.2 95.8 - 98.0 % 04/04/2024 4:20 PM SPECIAL DEPUTY SHERIFF [facility] Hb F 0.0 0.0 - 0.9 % 04/04/2024 4:20 PM SPECIAL DEPUTY SHERIFF [facility] Hb A2 2.8 2.0 - 3.3 % 04/04/2024 4:20 PM SPECIAL DEPUTY SHERIFF [facility] Comment: ----ADDITIONAL INFORMATION---- This test has been modified from the medical records administrator's instructions. Its performance characteristics were determined by [facility] in a manner consistent with CLIA requirements. This test has not been cleared or approved by the U.S. Food and Drug Administration. HPLC Hb Variant, B See Interpretation 04/04/2024 4:20 PM SPECIAL DEPUTY SHERIFF [facility] Comment: ----ADDITIONAL INFORMATION---- This test has been modified from the medical records administrator's instructions. Its performance characteristics were determined by [facility] in a manner consistent with CLIA requirements. [...] include: capillary electrophoresis, HPLC. 04/04/2024 4:20 PM SPECIAL DEPUTY SHERIFF [facility] Blood (Blood, Venous) 04/03/2024 2:13 PM SPECIAL DEPUTY SHERIFF 04/03/2024 2:41 PM SPECIAL DEPUTY SHERIFF us Magalys Bernal M.D. LAB BLOOD ADD-ON Final Resu lt [facility] [address] [place] [address], [facility] DTL [address] [place] [address] * (ABNORMAL) CBC with Differential, Blood (04/03/2024 2:13 PM SPECIAL DEPUTY SHERIFF) Hemoglobin 12.9 11.6 - 15.0 g/dL 04/03/2024 2:40 PM SPECIAL DEPUTY SHERIFF [facility] Hematocrit 37.6 35.5 - 44.9 % 04/03/2024 2:40 PM SPECIAL DEPUTY SHERIFF [facility] Erythrocytes 4.22 3.92 - 5.13 x10(12)/L 04/03/2024 2:40 PM SPECIAL DEPUTY SHERIFF [facility] MCV 89.1 78.2 - 97.9 fL 04/03/2024 2:40 PM SPECIAL DEPUTY SHERIFF [facility] RBC Distrib Width 12.6 12.2 - 16.1 % 04/03/2024 2:40 PM SPECIAL DEPUTY SHERIFF [facility] Platelet Count 382(H) 157 - 371 x10(9)/L 04/03/2024 2:40 PM SPECIAL DEPUTY SHERIFF [facility] Leukocytes 10.3(H) 3.4 - 9.6 x10(9)/L 04/03/2024 2:40 PM SPECIAL DEPUTY SHERIFF [facility] Neutrophils 8.17(H) 1.56 - 6.45 x10(9)/L 04/03/2024 2:40 PM SPECIAL DEPUTY SHERIFF [facility] Lymphocytes 1.47 0.95 - 3.07 x10(9)/L 04/03/2024 2:40 PM SPECIAL DEPUTY SHERIFF [facility] Monocytes 0.62 0.26 - 0.81 x10(9)/L 04/03/2024 2:40 PM SPECIAL DEPUTY SHERIFF [facility] Eosinophils 0.04 0.03 - 0.48 x10(9)/L 04/03/2024 2:40 PM SPECIAL DEPUTY SHERIFF [facility] Basophils 0.04 0.01 - 0.08 x10(9)/L 04/03/2024 2:40 PM SPECIAL DEPUTY SHERIFF [facility] Blood (Blood, Venous) 04/03/2024 2:13 PM SPECIAL DEPUTY SHERIFF 04/03/2024 2:34 PM SPECIAL DEPUTY SHERIFF us Magalys Bernal M.D. LAB BLOOD ADD-ON Final Resu lt [facility] [address] [place] [address], [facility] [address] [place], [place] [phone] [place] [address] [address] [place] [address] * Hemoglobin A1c (04/03/2024 2:13 PM SPECIAL DEPUTY SHERIFF) Hemoglobin A1c, B 4.5 4.0 - 5.6 % 04/03/2024 2:48 PM SPECIAL DEPUTY SHERIFF [facility] Blood (Blood, Venous) 04/03/2024 2:13 PM SPECIAL DEPUTY SHERIFF 04/03/2024 2:34 PM SPECIAL DEPUTY SHERIFF us Magalys Bernal M.D. LAB BLOOD ADD-ON Final Resu lt Performing Organization Address City/[facility]/ZIP Co de Phone Number [facility] [address] [place] [address], [facility] 200 [place] [address] * Ferritin (04/03/2024 2:13 PM SPECIAL DEPUTY SHERIFF) Ferritin, S 50 6 - 175 mcg/L 04/03/2024 3:10 PM SPECIAL DEPUTY SHERIFF [facility] Blood (Blood, Venous) 04/03/2024 2:13 PM SPECIAL DEPUTY SHERIFF 04/03/2024 2:45 PM SPECIAL DEPUTY SHERIFF us Magalys Bernal M.D. LAB BLOOD ADD-ON Final Resu lt [facility] [address] [place] [address], [facility] [address] [place] [address] * US OB Limited (04/03/2024 11:28 AM SPECIAL DEPUTY SHERIFF) Anatomical Region Laterality Modality Ultrasound OB RST LOS, Ultra sound ARZ LOS, Ultrasound FLA LOS, Ultrasound ARZ LOS N/A Ultrasound 04/03/2024 11:0 9 AM SPECIAL DEPUTY SHERIFF Narrative 04/03/2024 12:27 PM SPECIAL DEPUTY SHERIFF Exam Type ========= OB 1st Trimester Indication [...] al Result from Last 3 Months Insurance [facility] Advance Directives For more information, please contact: [phone] * Full Code (Latest Code Status on File) Date Activated Date Inactivated Comments 08/11/2023 11:14 PM 08/13/2023 1:53 PM Question Answer Comments Full Code: Not Discussed Due to: Not medically appropriate * Full Code Date Activated Date Inactivated Comments 07/06/2023 1:28 PM 07/07/2023 2:26 PM Question Answer Comments Full Code: Not Discussed Due to: Not medically appropriate Care Teams Art Framing Manager Relationship Specialty Start Date End Date Roberto OLVERA 04/17/24 10/25/24
--- OUTSIDE RECORDS SUMMARY | 2024-06-07 06:37 | XMS_ITS | Encounter Summary ---
Author Organization [facility] Address [address] [place] [address] Care Team Providers Care Bone Density Technician Name Role Phone Unavailable Primary Care Provider Unavailabl e Encounter Details Date Type Department Care Team (Late st Contact Info) Description 05/20/2024 Orders Only Department of Obstetrics and Gynecology in [place], [place] [address] [place] [phone] Magalys Bernal M.D. [address] [place] [phone] Family History Congenital Heart Disease (Primary Dx) Social History Tobacco Use Types Packs/Day Years Used Date Smoking Tobacco: Former Cigarettes Smokeless Tobacco: Never Alcohol Use Standard Drinks/Week Comments Not Currently 0 (1 standard drink = 0.6 oz pure alcohol) Pre , 1 drink monthly [facility] Utilities Answer Date Recorded In the past 12 months has [facility] [employer], oil, or water [email or web address] threatened to shut off services in your [...] your living situation today? 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 [address] [place] [phone] Discharge Disposition: Home or Self Care 07/10/2024 11:00 AM CDT Routine Department of Obstetrics and Gynecology in [address] [phone] Cristela Zapien, CHIEF FINANCIAL OFFICER, CNM [address] [place] [phone] 07/10/2024 11:40 AM CDT Lab Department of Laboratory Medicine and Pathology, [address] [phone] Noni Bender M.D., Ph.D. [address] [place] [phone] 07/20/2024 10:10 AM CDT Lab Department of Laboratory Medicine and Pathology, [facility] in [place], [place] [address] [place] [phone] Noni Bender M.D., Ph.D. [address] [place] [phone] 08/14/2024 9:00 AM CDT Appointment Department of Obstetrics and Gynecology in [address] [phone] Noni Bender M.D., Ph.D. [address] [place] [address] Discharge Disposition: Home or Self Care 08/14/2024 10:00 AM CDT Routine Department of Obstetrics and Gynecology in [place], [place] [address] [place] [phone] Magalys Bernal M.D. [address] [place] [address] documented as of this encounter Visit Diagnoses Diagnosis Family History Congenital Heart Disease- Primary documented in this encounter Additional Health Concerns Assessment Noted Time PHQ-9 Depression Total Score: 2 04/17/19 10:03 AM SETTLEMENT CLERK documented as of this encounter Care Teams Bone Density Technician Relationship Specialty Start Date End Date Roberto OLVERA 04/17/24 10/25/24 documented as of this encounter
--- OUTSIDE RECORDS SUMMARY | 2024-06-07 06:37 | XMS_ITS | Encounter Summary ---
Author Organization [facility] Address [address] [place] [address] Care Team Providers Care Disease Intervention Specialist Name Role Phone Unavailable Primary Care Provider Unavailabl e Reason for Visit * Reason Onset Date Comments Nurse Assessment 06/06/2024 Influenza medic ation question Encounter Details Date Type Department Care Team (Latest Contact Info) Description 06/06/2024 Clinical Communication Department of Obstetrics and Gynecology in [place], [place] [address] [place] [phone] Concepción Goodson R.N., C-EF [address] [place] [phone] Nurse Assessment (Influenza medication question ) Social History Tobacco Use Types Packs/Day Years Used Date Smoking Tobacco: Former Cigarettes Smokeless Tobacco: Never Alcohol Use Standard Drinks/Week Comments Not Currently 0 (1 standard drink = 0.6 oz pure alcohol) Pre , 1 drink monthly [facility] Utilities Answer Date Recorded In the past 12 months has [facility] [employer], oil, or water [employer] threatened to shut off services in your [...] your living situation today? 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 The ER provider prescribed her Tamiflu. Patient is wondering if it safe to take during . PLAN Instructed patient that it is safe to take Tamiflu during . Encouraged patient to stay hydrated and could also use Tylenol if needed. Disposition/Recommendation: self-care is appropriate at this time, patient encouraged to call back with questions. Information/Education: patient/caller able to teach back. Caller agreeable to plan of care: yes. The following references were used: nursing clinical judgement. documented in this encounter Plan of Treatment Upcoming Encounters Date Type Department Care Team (Late st Contact Info) Description 07/10/2024 10:00 AM CDT Appointment Department of Obstetrics and Gynecology in [place], [place] [address] [place] [phone] Noni Bender M.D., Ph.D. [address] [place] [phone] Discharge Disposition: Home or Self Care 07/10/2024 11:00 AM CDT Routine Department of Obstetrics and Gynecology in [place], [place] [address] [place] [phone] Cristela Zapien, RHIANNA, GAEL [address] [place] [phone] 07/10/2024 11:40 AM CDT Lab Department of Laboratory Medicine and Pathology, [facility] in [place], [place] [address] [place] [phone] Noni Bender M.D., Ph.D. [address] [place] [phone] 07/20/2024 10:10 AM CDT Lab Department of Laboratory Medicine and Pathology, [facility] in [place], [place] [address] [place] [phone] Noni Bender M.D., Ph.D. [address] [place] [phone] 08/14/2024 9:00 AM CDT Appointment Department of Obstetrics and Gynecology in [place], [place] [address] [place] [phone] Noni Bender M.D., Ph.D. [address] [place] [phone] Discharge Disposition: Home or Self Care 08/14/2024 10:00 AM CDT Routine Department of Obstetrics and Gynecology in [place], [place] [address] [place] [phone] Magalys Bernal M.D. [address] [place] [phone] documented as of this encounter Visit Diagnoses Not on filedocumented in this encounter Additional Health Concerns Assessment Noted Time PHQ-9 Depression Total Score: 2 04/17/19 10:03 AM SOLDERING MACHINE TENDER documented as of this encounter Care Teams Disease Intervention Specialist Relationship Specialty Start Date End Date Roberto OLVERA 04/17/24 10/25/24 documented as of this encounter
--- OUTSIDE RECORDS SUMMARY | 2024-06-07 06:38 | XMS_ITS | Clinical Summary ---
Author Organization [facility] Address [address] [place] [id number] Care Team Providers Care Manager Local Name Role Phone Francheska Pereira NP Primary [...] trimester 05/08/2023 Suspected condition not found 05/08/2023 [facility] Supervision of high-risk 3 Overview (05/03/2023): Duyen Butterfield : 1990 [facility] ULTRASOUND/TESTING PATIENT Support person name: [...] ECHO: REFERRING PHYSICIAN/PHONE/LAST UPDATE: Eliezer Fuentes MD [place] Primary MD approves scheduling of recommended ultrasounds/testing: Yes SPECIALISTS/CONSULTS: Include: Specialty MD Clinic Name Phone# [place] and ADDED TO PATIENT CARE TEAM GENETICS: NIPT: low risk CARE COORDINATION: PERTINENT LABS: Labs reviewed? Yes Normal? Yes Blood type: A Rh Positive Antibody screen: Negative Non-[facility] labs need to be entered in [facility]? PERTINENT MEDS: Buspar Adderall Zoloft PROCEDURES: IF FGR <10% or EFW <2000 grams: Add FGRPCOM PLAN OF CARE: ADHD (attention deficit hype ractivity disorder), combined type 06/08/2022 Low grade squamous intraepit helial lesion (LGSIL) at risk for high grade squamous intraepithelial lesion (HGSIL) on cytologic smear of cervix 04/06/2022 Overview (04/06/2022): 12/07/2008 LSIL, cannot exclude higher grade lesion 01/18/2009 Eleele, no bx, , 09/15/2013 ASCUS/ HPV negative [...] term DTaP 02/16/2014 Ok to deliver in [place] Assessment & Plan (12/24/2013 11:38 AM CDT): Flu shot 12/24/2013 consult 10/08/2013 Overview (10/08/2013): Duyen is a patient of . Duyen is currently and wishes to deliver at the [facility]. 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 Gender Identity Not on file Sexual Orientation [...] cuum Y Livin g Vivek w Delivery Location:[facility] Comments:PPROM 35 4 de livery 35 and 6 days GESTATIONAL DIABETES Vacuum 2007 Term 37w 0d 12h 00m/ 2.81 kg (6 lb 3 oz) M Vag-Sp ont Y Livin g Jermaine Delivery Location:[place], [place] Comments:PTL at 28w - tx bedrest & Nifedipine - at ANW, fatty liver disease - IOL at 37w 2009 Term 39w 4d 3.54 kg (7 lb 13 oz) F Vag-Sp ont Y Livin g Hillary Delivery Location:[place], [place] Comments:PTL at 27w - tx bedrest & Nifedipine - MAC x 6 hrs 2010 AB 15w 0d Comments:EAB 2011 AB 14w 0d Comments:EAB 2012 Term 37w 4d 2.61 kg (5 lb 12 oz) M Vag-Sp ont Y Livin g Easto n Delivery Location:[facility] Comments:PTL at 30w - bedrest & Nifedipine - MAC x a few hrs then home, GBS Positive. PP hemorrhage per patient, requiring transfusion 2014 Term 37w 2d M Vag-Sp ont Livin marion Harp Delivery Location:[place], [place] Comments:polydactyly h ands and feet bilaterally 2015 AB 14w 0d ELECTI VE AB 2023 Term 39w 2d 1h 33m 1h 09m/0h 20m/0h 04m 3.37 kg (7 lb 6.9 oz) F Vag-Sp ont Epidur al Livin g 8 9 Palak Rebeca Ghosh on D.O. Delivery Location:[facility] ([facility] 03 3 L&D) Last Filed Vital Signs Vital Sign Reading Time Taken Comments Blood Pressure 114/68 02/18/2024 2:00 PM HUMAN RESOURCES SUPERVISOR Pulse 96 02/18/2024 2:00 PM HUMAN RESOURCES SUPERVISOR Temperature 36.4 C (97.6 F) 10/07/2023 2:39 PM CDT Respiratory Rate 16 10/07/2023 2:39 PM CDT Oxygen Saturation 97% 10/06/2023 2:07 PM CDT Inhaled Oxygen Concentration - - Weight 74.9 kg (165 lb 3.2 oz) 02/18/2024 2:00 P M HUMAN RESOURCES SUPERVISOR Height 170.2 cm (5' 7) 10/07/2023 2:39 [...] ANTI HIV 1/2 Routine 02/11/2023 10:40 AM HUMAN RESOURCES SUPERVISOR Early stage of ANTI HCV Routine 02/11/2023 10:40 AM HUMAN RESOURCES SUPERVISOR Early stage of HPV HIGH RISK Routine 03/02/2022 9:57 AM HUMAN RESOURCES SUPERVISOR Screening for malignant neoplasm of cervix from Last 3 Months or Most Recently Relevant to Health Maintenance Results * ANTI HCV (02/11/2023 10:40 AM HUMAN RESOURCES SUPERVISOR) HEPATITIS C ANTIBODY Non-Reacti ve Non-React madyson 02/12/2023 2:15 AM HUMAN RESOURCES SUPERVISOR b-datum [facility] Comment:Please note, per www .CDC.gov: If a patient is known to be at high risk of HCV infection, or is symptomatic, and the physician's suspicion of HCV infection is high, HCV RNA testing is often employed and is of diagnostic value, even after an initial negative anti-HCV test result. Blood BLOOD SPECIMEN / Unknown Venipuncture / Unknown 02/11/2023 10:40 AM HUMAN RESOURCES SUPERVISOR 02/11/2023 10:44 AM HUMAN RESOURCES SUPERVISOR us Anaya Bean MD SEND OUTS Final Result b-datum [facility] [address] [place] [address], [place] * ANTI HIV 1/2 (02/11/2023 10:40 AM HUMAN RESOURCES SUPERVISOR) HIV-1/HIV-2 SCREEN Non-Reacti ve Non-Reacti ve 02/12/2023 2:14 AM HUMAN RESOURCES SUPERVISOR [facility] Comment:HIV-1 p24 and HIV-1/ HIV-2 Ab Not Detected. Blood BLOOD SPECIMEN / Unknown Venipuncture / Unknown 02/11/2023 10:40 AM HUMAN RESOURCES SUPERVISOR 02/11/2023 10:44 AM HUMAN RESOURCES SUPERVISOR us Anaya Bean MD SEND OUTS Final Result [facility] [address] [place] [address], * HPV HIGH RISK (03/02/2022 9:57 AM HUMAN RESOURCES SUPERVISOR) TYPE 16 Negative Negative 03/06/2022 5:07 PM HUMAN RESOURCES SUPERVISOR [facility] TYPE 18 Negative Negative 03/06/2022 5:07 PM HUMAN RESOURCES SUPERVISOR [facility] TRA LABORATORY OTHER HIGH RISK TYPES Negative Negative 03/06/2022 5:07 PM HUMAN RESOURCES SUPERVISOR [facility] Other (Cervical) Non-Blood / Unknown 03/02/2022 9:57 AM HUMAN RESOURCES SUPERVISOR 03/05/2022 3:09 PM HUMAN RESOURCES SUPERVISOR Narrative [facility] - 03/06/2022 5:07 PM HUMAN RESOURCES SUPERVISOR HPV types 16, 18, 31, 33, 35, 39, 45, 51, 52, 56, 58, 59, 66 and 68 DNA were undetectable or below the pre-set threshold. Methodology: Nalini Isamar 4800 HPV Test us Yeny BARTHOLOMEW MICROBIOLOGY Final Resu lt [facility] [address] [place] [address], from Last 3 Months or Most Recently Relevant to Health Maintenance Insurance [employer] CHOICE CARE [facility] [employer] WORK[employer] COMP * Guarantor: SKYE BANSAL ONLY Account Type Relation to Patient Date of Phone Billing Address Occ [facility]/[place] [address] [place] [address] * Guarantor: [employer] Account Type Relation to Patient Date of Phone Billing Address [facility]/[employer] [id number] [address] ABBY SILVA [address] Advance Directives * Full Code (Latest Code [...] 11:40 AM 04/25/2012 3:54 PM Care Teams Manager Local Relationship Specialty Start Date End Date Francheska Pereira NP [address] [place] [address] ABBY Rodriguez [address] PCP - General Nurse Practitioner - Family 10/07/23
--- OUTSIDE RECORDS SUMMARY | 2024-06-07 06:38 | XMS_ITS | Encounter Summary ---
Author Organization [facility] Address [address] [place] [address] Care Team Providers Care Mud Logger Name Role Phone Unavailable Primary Care Provider Unavailabl e Reason for Referral * Outpatient (Routine) - Authorized Specialty Diagnoses / Procedures Referred By Susan mccrary Referred To Contact Clinical Genomics Diagnoses Breast Cancer Susceptibility Gene Mutation Family History Noni Bender M.D., Ph.D. [address] [place] [address] Phone: tel: fax: [facility] Referral ID Status Reason Start Date Expiration Date V isits Requested Visits Authorized [id number] Authorized 04/29/2024 10/29/2025 1 1 Scheduling Instructions Please call patient to schedule in 2025 L VIAL SETTER Reason for Visit * Outpatient (Routine) - Closed Specialty Diagnoses / Procedures Referred By Contac t Referred To Contact Obstetrics and Gynecology Diagnoses Raised Antibody Titer Multigravida Advanced Maternal Age Affecting Management (HCC) Magalys Bernal M.D. [address] [place] [address] Phone: tel: fax: [facility] Referral ID Status Reason Start Date Expiration Date Visits Re quested Visits Authorized [id number] Closed 2024 10/17/2025 1 1 Encounter Details Date Type Department Care Team (Latest Contact Info) Description 04/28/2024 2:00 PM LEVEL VIAL SETTER Comprehensive Visit Department of Obstetrics and Gynecology in [place], [place] [address] [place] [phone] Magalys Bernal M.D. [address] [place] [phone] Tiana Almanza M.S., [facility] [address] [place] [phone] Counseling Genetic For Family Planning (Primary Dx); Raised Antibody Titer; Multigravida Advanced Maternal Age Affecting Management (HCC); Breast Cancer Susceptibility Gene Mutation Family History Social History Tobacco Use Types Packs/Day Years Used Date Smoking Tobacco: Former Cigarettes Smokeless Tobacco: Never Alcohol Use Standard Drinks/Week Comments Not Currently 0 (1 standard drink = 0.6 oz pure alcohol) Pre , 1 drink monthly [facility] [employer] Answer Date Recorded In the past 12 months has [facility] Pin or Peg, oil, or water [employer] threatened to shut off services in your [...] your living situation today? 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 Duyen's stepfather would have power of prosecuting attorney to access Duyen's mother's medical record. [...] that can be screened for via the [employer] NIPT screen so cell free DNA screening [...] following conditions are screened for on the [facility] cfDNA screen: Trisomy 21 (Down syndrome),Trisomy 18, [...] second trimester anatomy ultrasound. CARRIER SCREENING [employer] ([employer]) recommends that [...] free DNA screening was pursued via the [employer] Screen Carrier screening pursued Horizon AC panel [...] Almanza M.S., [facility] L VIAL SETTER L VIAL SETTER documented in this encounter Plan of Treatment Upcoming Encounters Date Type Department Care Team (Late st Contact Info) Description 07/10/2024 10:00 AM CDT Appointment Department of Obstetrics and Gynecology in [place], [place] [address] [place] [phone] Noni Bender M.D., Ph.D. [address] [place] [phone] Discharge Disposition: Home or Self Care 07/10/2024 11:00 AM CDT Routine Department of Obstetrics and Gynecology in [place], [place] [address] [place] [phone] Cristela Zapien APRN, CNM [address] [place] [phone] 07/10/2024 11:40 AM CDT Lab Department of Laboratory Medicine and Pathology, [facility] in [place], [place] [address] [place] [phone] Noni Bender M.D., Ph.D. [address] [place] [phone] 07/20/2024 10:10 AM CDT Lab Department of Laboratory Medicine and Pathology, [facility] in [place], [place] [address] [place] [phone] Noni Bender M.D., Ph.D. [address] [place] [phone] 08/14/2024 9:00 AM CDT Appointment Department of Obstetrics and Gynecology in [address] [phone] Noni Bender M.D., Ph.D. [address] [place] [phone] Discharge Disposition: Home or Self Care 08/14/2024 10:00 AM CDT Routine Department of Obstetrics and Gynecology in [place], [place] [address] [place] [address] Magalys Bernal M.D. [address] [place] [address] Scheduled Referrals Name Type Priority Associated Diagnoses Orde r Schedule Clinical Genomics - Cancer genetics consult (clinic) Outpatient Referral Routine Breast Cancer Susceptibility Gene Mutation Family History Expected: 04/29/2025, Expires: 07/27/2025 documented as of this encounter Results * Panorama Screen - Sent Out Lab (04/28/2024 3:07 PM LEVEL VIAL SETTER) Panorama Screen SEE COMMENT 05/04/2024 1:51 PM LEVEL VIAL SETTER [facility] Comment: For final report, select Lab-Send Out Lab Results hyperlink below. Blood (Blood, Venous) 04/28/2024 3:07 PM LEVEL VIAL SETTER 04/29/2024 9:11 AM LEVEL VIAL SETTER Narrative [employer] - 05/04/2024 1:51 PM LEVEL VIAL SETTER Specimen Information: Specimen ID: [id number] Specimen Type: Blood Specimen Collection Start Date: 04/28/2024 3:07 PM Specimen Received Date: 04/29/2024 9:11 AM Specimen ID: [id number] Specimen Type: Blood Specimen Collection Start Date: 04/28/2024 3:07 PM Specimen Received Date: 04/29/2024 9:11 AM Noni Bender M.D., Ph.D. LAB GENETIC TESTING Tiffani l Result [employer] [address] [place] [address], [facility] [employer] [address] [place] [address] * Horizon Carrier Screen, Blood - Sent Out Lab (04/28/2024 3:07 PM LEVEL VIAL SETTER) Horizon Carrier Screen, Blood SEE COMMENT 05/13/2024 8:52 AM LEVEL VIAL SETTER [facility] Comment: For final report, select Lab-Send Out Lab Results hyperlink below. Blood (Blood, Venous) 04/28/2024 3:07 PM LEVEL VIAL SETTER Narrative [employer] - 05/13/2024 8:52 AM LEVEL VIAL SETTER Specimen Information: Specimen ID: [id number] Specimen Type: Blood Specimen ID: [id number] Specimen Type: Blood Specimen Collection Start Date: 04/28/2024 3:07 PM Specimen Received Date: 04/29/2024 9:11 AM Noni Bender M.D., Ph.D. LAB GENETIC TESTING Tiffani l Result [employer] [address] [place] [address], [facility] [employer] [address] [place] [address] documented in this encounter Visit Diagnoses Diagnosis Counseling Genetic For Family Planning- Primary Raised Antibody Titer Multigravida Advanced Maternal Age Affecting Management (HCC) Breast Cancer Susceptibility Gene Mutation Family History Multigravida Advanced Maternal Age Affecting Management (HCC) documented in this encounter Additional Health Concerns Assessment Noted Time PHQ-9 Depression Total Score: 2 04/17/19 25 10:03 AM LEVEL VIAL SETTER documented as of this encounter Care Teams Mud Logger Relationship Specialty Start Date End Date Roberto OLVERA 04/17/24 10/25/24 documented as of this encounter
--- OUTSIDE RECORDS SUMMARY | 2024-06-07 06:38 | XMS_ITS | Encounter Summary ---
Author Organization [facility] Address [address] [place] [address] Care Team Providers Care Vmware Consultant Name Role Phone Unavailable Primary Care Provider Unavailabl e Reason for Visit * Reason Onset Date Comments Reschedule 04/02/2024 Encounter Details Date Type Department Care Team (Late st Contact Info) Description 04/02/2024 Clinical Communication Department of Obstetrics and Gynecology in [place], [place] [address] [place] [address] Magalys Bernal M.D. 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 [address] [place] [phone] Discharge Disposition: Home or Self Care 07/10/2024 11:00 AM CDT Routine Department of Obstetrics and Gynecology in [address] [phone] Cristela Zapien APRN, CN [address] [place] [phone] 07/10/2024 11:40 AM CDT Lab Department of Laboratory Medicine and Pathology, [address] [phone] Noni Bender M.D., Ph.D. [address] [place] [phone] 07/20/2024 10:10 AM CDT Lab Department of Laboratory Medicine and Pathology, [facility] in [place], [place] [address] [place] [phone] Noni Bender M.D., Ph.D. [address] [place] [phone] 08/14/2024 9:00 AM CDT Appointment Department of Obstetrics and Gynecology in [place], [place] [address] [place] [phone] Noni Bender M.D., Ph.D. [address] [place] [address] Discharge Disposition: Home or Self Care 08/14/2024 10:00 AM CDT Routine Department of Obstetrics and Gynecology in [place], [place] [address] [place] [phone] Magalys Bernal M.D. [address] [place] [address] documented as of this encounter Visit Diagnoses Not on filedocumented in this encounter Additional Health Concerns Assessment Noted Time PHQ-9 Depression Total Score: 7 08/07/19 24 8:41 AM CDT documented as of this encounter Care Teams Vmware Consultant Relationship Specialty Start Date End Date Roberto OLVERA 04/17/24 10/25/24 documented as of this encounter
[2024-06-07 07:22] VITALS: BP 99/59; PULSE 98; RESP 20; TEMP 36.6; O2SAT 97; BMI 28.7
--- NOTE | 2024-06-07 08:14 | ED.GENADULT ---
HPI - General Adult General Chief complaint: Nausea/Vomiting Stated complaint: flu Time Seen by Provider: 06/07/24 08:08 History of Present Illness HPI narrative: Patient is a 34-year-old woman who is caring her 7th . She was in last night was diagnosed with influenza B. patient now has refractory nausea and vomiting with minimal respiratory symptoms. No fevers no chills no night sweats. The baby in are going long fine. Patient has no abdominal pain or vaginal drainage or discharge. No bleeding. Patient is unable to keep any food down. She feels dehydrated. No other concerns. Related Data Previous Rx's ?Medication ?Instructions ?Recorded amoxicillin 500 mg capsule 1,000 mg (2 x 500 mg) PO TID 5 04/06/24 days #30 caps ondansetron 4 mg disintegrating 4 mg PO Q6H #20 tabs 04/06/24 tablet Allergies Allergy/AdvReac Type Severity Reaction Status Date / Time terbutaline Allergy Mild Headache Verified 06/07/24 07:21 Review of Systems Status of ROS: Reports: 10 or more systems reviewed and unremarkable except as noted in History and below PFSH [facility] Medical History Controlled substance agreement signed ?Z79.899 - Other technology sales representative (current) drug therapy (ICD-10) Panic attacks ?F41.0 - Panic disorder [episodic paroxysmal anxiety] (ICD-10) ALVARO (generalized anxiety disorder) ?F41.1 - Generalized anxiety disorder (ICD-10) Anxiety and depression ?F41.9 - Anxiety disorder, unspecified (ICD-10) ?F32.A - Depression, unspecified (ICD-10) ADHD ?F90.9 - Attention-deficit hyperactivity disorder, unspecified type (ICD-10) Vaginitis and vulvovaginitis ?N76.0 - Acute vaginitis (ICD-10) Chronic tension headaches ?G44.229 - Chronic tension-type headache, not intractable (ICD-10) Surgical History History of tonsillectomy and adenoidectomy ?Z90.89 - Acquired absence of other organs (ICD-10) History of appendectomy ?Z90.49 - Acquired absence of other specified parts of digestive tract (ICD-10) Social History Smoking Status: Former smoker Do you use any of these nicotine containing products: None Second hand tobacco smoke exposure: No How often do you have a drink containing alcohol: never How often do you have six or more drinks on one occasion: Never AUDIT-C Alcohol total score: 0 Non-prescribed substance use: denies use service: No Exam Narrative: Exam Narrative: EXAM GENERAL: Patient appears comfortable and well. EYES: No scleral icterus. ENT: Tympanic membranes and oropharynx normal. THYROID: no thyroid nodules or thyromegaly. LYMPH: No supraclavicular or cervical lymphadenopathy. SKIN: Visible skin seen during exam normal or with benign process only. EXT: No dependent lower extremity pedal edema. HEART: Regular rate and rhythm with no murmurs, rubs, or gallops. LUNGS: Clear to auscultation bilaterally with no crackles or wheezes. ABD: Soft, non tender, non distended. noted. PSYCH: Good eye contact, speech is not pressured. Const: Vital Signs, click to edit/add: Vital Signs - 24 hr 06/07/24 07:22 Temperature 97.8 F Pulse Rate [Pulse Oximeter] 98 Respiratory Rate 20 Blood Pressure [Ri ght Upper Arm] 99/59 L Pulse Oximetry 97 Oxygen Delivery Me thod Room Air Course Course ED Course: Patient given normal saline Zofran I did send off comprehensive metabolic panel and CBC. Will follow up based on those results. Vital Signs Vital signs: Initial Vital Signs Temperature 97.8 F 06/07/24 07:22 Temperature Source Temporal Artery Scan 06/07/24 07:22 Pulse Rate 98 06/07/24 07:22 Pulse Rhythm Regular 06/07/24 07:22 Respiratory Rate 20 06/07/24 07:22 Blood Pressure 99/59 L 06/07/24 07:22 Blood Pressure Mean 72 06/07/24 07:22 Blood Pressure Position Semi-Fowlers 06/07/24 07:22 Pulse Oximetry 97 06/07/24 07:22 Oxygen Delivery Method Room Air 06/07/24 07:22 Vital Signs Temperature 97.8 F 06/07/24 07:22 Pulse Rate 98 06/07/24 07:22 Respiratory Rate 20 06/07/24 07:22 Blood Pressure 99/59 L 06/07/24 07:22 Pulse Oximetry 97 06/07/24 07:22 Oxygen Delivery Method Room Air 06/07/24 07:22 Temperature 97.8 F 06/07/24 07:22 Pulse Rate 98 06/07/24 07:22 Respiratory Rate 20 06/07/24 07:22 Blood Pressure 99/59 L 06/07/24 07:22 Pulse Oximetry 97 06/07/24 07:22 Oxygen Delivery Method Room Air 06/07/24 07:22 Medications Administered Medications: Generic Name Dose Route Start Last Admin Trade Name Freq PRN Reason Stop Dose Admin Sodium Chloride 1,000 mls @ 1,000 mls/hr 06/07/24 08:13 06/07/24 09:06 0.9 % Sodium Chloride 1000 Ml IV 06/07/24 09:12 Infused .Q1H JOÃO Infusion Ondansetron HCl 4 mg 06/07/24 08:16 06/07/24 08:33 Ondansetron 2 Mg/Ml Inj IVP 4 mg ONCE PRN Administration Medical Decision Making [facility] Narrative Medical decision making narrative: Patient is a 34-year-old woman who is approximately 20 weeks who presents with nausea and vomiting in the setting of influenza B. [facility] started on treatment for influenza B. she was treated with normal saline. Her labs are reassuring. This time she would like to go home and follow-up with her primary physician. She has Zofran at home which she can use and she will be answer diet activity as tolerated. Of note, she has no issues with abdominal pain no vaginal bleeding the baby is moving without any difficulty. Lab Data Labs: Lab Results 06/07/24 Range/Units 07:35 WBC 3.63 L (4.50-11.00) K/uL RBC 3.52 L (4.00-5.20) m/uL Hgb 10.5 L (12.0-16.0) gm/dL Hct 32.0 L (33.0-51.0) % MCV 91 (80-100) fL MCH 30 (26-34) pg MCHC 33 (32-36) gm/dL RDW Coeff of Shyann 13.6 (11.5-15.5) % Plt Count 222 (140-440) K/uL Neut % (Auto) 71.0 (42.0-72.0) % Lymph % (Auto) 13.8 L (20-44) % [place] % (Auto) 12.4 H (0.0-11.0) % Eos % (Auto) 0.3 (0.0-7.0) % Baso % (Auto) 0.8 (0.0-3.0) % Neut # (Auto) 2.60 (1.7-7.0) K/uL Lymph # (Auto) 0.50 L (0.90-2.90) K/uL Mid[place] # (Auto) 0.50 (0.00-0.90) K/UL Eos # (Auto) 0.00 (0.00-0.50) K/uL Baso # (Auto) 0.00 (0.00-0.30) K/uL Abs Immat Gran (auto) 0.10 (0.00-0.30) K/uL Imm/Tot Granulo (auto) 1.7 % Sodium 135 (135-149) mmol/L Potassium 3.6 (3.6-5.1) mmol/L Chloride 105 (96-114) mmol/L Carbon Dioxide 20 (20-32) mmol/L Anion Gap 10 (7-15) mEq/L BUN 4 L (5-24) mg/dL Creatinine 0.4 L (0.5-1.5) mg/dL Estimated Creat Clear 190.90 Estimated GFR 132 ml/min Glucose 93 (60-115) mg/dL Calcium 7.9 L (8.4-10.6) mg/dL Total Bilirubin 0.3 (0.1-1.5) mg/dL AST 16 (12-35) U/L ALT 11 (4-35) U/L Alkaline Phosphatase 41 (40-150) U/L Total Protein 5.9 L (6.0-8.3) g/dL Albumin 3.4 (3.3-5.0) g/dL Discharge Plan Discharge Clinical Impression: Vomiting Patient Disposition: Home, Self-Care Condition: Stable Instructions: Acute Nausea and Vomiting (ED) Additional Instructions: Continue current care Zofran as needed Follow-up with your doctor as needed. Activity Level: No Restrictions Discharge Diet: Regular Prescriptions: No Action ondansetron 4 mg tablet,disintegrating 4 mg PO Q6H Qty: 20 0RF amoxicillin 500 mg capsule 1,000 mg PO TID 5 Days Qty: 30 0RF Follow Up/Referrals: Provider,Not a Local [Primary Care Provider] - Stand Alone Forms: [facility] Info Instructions
[2024-06-07] MEDS: 0.9 % SODIUM CHLORIDE 1000 ml 1,000 ML IV (08:19)
[2024-06-07 08:25] LABS: Basophils Percent Auto 0.8 % (0.0-3.0); Eosinophils Percent Auto 0.3 % (0.0-7.0); Hemoglobin* 10.5 gm/dL (12.0-16.0); Immature Granulocytes Pct Auto 1.7 %; Lymphocytes Percent Auto 13.8 % (20-44); Mean Corpuscular HGB Conc 33 gm/dL (32-36); Mean Corpuscular Hemoglobin 30 pg (26-34); Mean Corpuscular Volume 91 fL (80-100); Monocytes Percent Auto 12.4 % (0.0-11.0); Platelet Count* 222 K/uL (140-440); RDW Coefficient of Variation % 13.6 % (11.5-15.5); Red Blood Count 3.52 m/uL (4.00-5.20); White Blood Count* 3.63 K/uL (4.50-11.00)
--- OUTSIDE RECORDS SUMMARY | 2024-06-07 08:28 | XMS_ITS | Encounter Summary ---
Author Organization [facility] Address [address] [place] [address] Care Team Providers Care Dredge Captain Name Role Phone Unavailable Primary Care Provider Unavailabl e Encounter Details Date Type Department Care Team (Late st Contact Info) Description 05/04/2024 Clinical Communication Department of Medical Genetics in [place], [place] [address] [place] [phone] Tiana Almanza M.S., [facility] [address] [place] [phone] Social History Tobacco Use Types Packs/Day Years Used Date Smoking Tobacco: Former Cigarettes Smokeless Tobacco: Never Alcohol Use Standard Drinks/Week Comments Not Currently 0 (1 standard drink = 0.6 oz pure alcohol) Pre , 1 drink monthly [facility] Utilities Answer Date Recorded In the past 12 months has [facility] Location [facility], oil, or water [employer] threatened to shut off services in your [...] your living situation today? 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 Patient does not have an active Patient Online Services account. Left voicemail with callback number. IDENT & FOUNDER documented in this encounter Plan of Treatment Upcoming Encounters Date Type Department Care Team (Late st Contact Info) Description 07/10/2024 10:00 AM CDT Appointment Department of Obstetrics and Gynecology in [address] [phone] Noni Bender M.D., Ph.D. [address] [place] [phone] Discharge Disposition: Home or Self Care 07/10/2024 11:00 AM CDT Routine Department of Obstetrics and Gynecology in [address] [phone] Cristela Zapien, QUARTZ ORIENTATOR, CNM [address] [place] [phone] 07/10/2024 11:40 AM CDT Lab Department of Laboratory Medicine and Pathology, [place], [place] [address] [place] [phone] Noni Bender M.D., Ph.D. [address] [place] [phone] 07/20/2024 10:10 AM CDT Lab Department of Laboratory Medicine and Pathology, [facility] in [place], [place] [address] [place] [phone] Noni Bender M.D., Ph.D. [address] [place] [phone] 08/14/2024 9:00 AM CDT Appointment Department of Obstetrics and Gynecology in [place], [place] [address] [place] [phone] Noni Bender M.D., Ph.D. [address] [place] [phone] Discharge Disposition: Home or Self Care 08/14/2024 10:00 AM CDT Routine Department of Obstetrics and Gynecology in [place], [place] [address] [place] [phone] Magalys Bernal M.D. [address] [place] [phone] documented as of this encounter Visit Diagnoses Not on filedocumented in this encounter Additional Health Concerns Assessment Noted Time PHQ-9 Depression Total Score: 2 04/17/19 10:03 AM PRESIDENT & FOUNDER documented as of this encounter Care Teams Dredge Captain Relationship Specialty Start Date End Date Roberto OLVERA 04/17/24 10/25/24 documented as of this encounter
--- OUTSIDE RECORDS SUMMARY | 2024-06-07 08:28 | XMS_ITS | Encounter Summary ---
Author Organization [facility] Address [address] [place] [address] Care Team Providers Care Sales Commissions Analyst Name Role Phone Unavailable Primary Care Provider Unavailabl e Encounter Details Date Type Department Care Team (Late st Contact Info) Description 05/13/2024 10:30 AM PROJECT ADMINISTRATOR Virtual Visit Department of Obstetrics and Gynecology in [place], [place] [address] [place] [phone] Tiana Almanza M.S., [facility] [address] [phone] Counseling Genetic For Family Planning (Primary Dx) Social History Tobacco Use Types Packs/Day Years Used Date Smoking Tobacco: Former Cigarettes Smokeless Tobacco: Never Alcohol Use Standard Drinks/Week Comments Not Currently 0 (1 standard drink = 0.6 oz pure alcohol) Pre , 1 drink monthly [facility] Utilities Answer Date Recorded In the past 12 months has [facility], oil, or water [employer] threatened to shut off services in your [...] your living situation today? 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 Duyen's partner was not present at this visit. Duyen pursued carrierscreening through the [employer] carrier screen which tested for carrier status [...] any additional questions that she may have ECT ADMINISTRATOR documented in this encounter Plan of Treatment Upcoming Encounters Date Type Department Care Team (Late st Contact Info) Description 07/10/2024 10:00 AM CDT Appointment Department of Obstetrics and Gynecology in [place], [place] [address] [place] [phone] Noni Bender M.D., Ph.D. [address] [place] [phone] Discharge Disposition: Home or Self Care 07/10/2024 11:00 AM CDT Routine Department of Obstetrics and Gynecology in [place], [place] [address] [place] [phone] Cristela Zapien, COAT OPERATOR INSULATOR, CNM [address] [place] [phone] 07/10/2024 11:40 AM CDT Lab Department of Laboratory Medicine and Pathology, [facility] in [place], [place] [address] [place] [phone] Noni Bender M.D., Ph.D. [address] [place] [phone] 07/20/2024 10:10 AM CDT Lab Department of Laboratory Medicine and Pathology, [facility] in [place], [place] [address] [place] [phone] Noni Bender M.D., Ph.D. [address] [place] [phone] 08/14/2024 9:00 AM CDT Appointment Department of Obstetrics and Gynecology in [place], [place] [address] [place] [phone] Noni Bender M.D., Ph.D. [address] [place] [phone] Discharge Disposition: Home or Self Care 08/14/2024 10:00 AM CDT Routine Department of Obstetrics and Gynecology in [place], [place] [address] [place] [phone] Magalys Bernal M.D. [address] [phone] documented as of this encounter Visit Diagnoses Diagnosis Counseling Genetic For Family Planning- Primary documented in this encounter Additional Health Concerns Assessment Noted Time PHQ-9 Depression Total Score: 2 04/17/19 25 10:03 AM PROJECT ADMINISTRATOR documented as of this encounter Care Teams Sales Commissions Analyst Relationship Specialty Start Date End Date Roberto OLVERA 04/17/24 10/25/24 documented as of this encounter
--- OUTSIDE RECORDS SUMMARY | 2024-06-07 08:28 | XMS_ITS | Encounter Summary ---
Author Organization [facility] Address [address] [place] [address] Care Team Providers Care Inventory Manager Name Role Phone Unavailable Primary Care Provider Unavailabl e Encounter Details Date Type Department Care Team (Late st Contact Info) Description 04/28/2024 3:00 PM CLINICAL SOCIAL WORK AIDE Lab Department of Laboratory Medicine and Pathology, [facility], in [place], [place] [address] [place] [phone] Noni Bender M.D., Ph.D. [address] [place] [phone] Multigravida Advanced Maternal Age Affecting Management (HCC) Social History Tobacco Use Types Packs/Day Years Used Date Smoking Tobacco: Former Cigarettes Smokeless Tobacco: Never Alcohol Use Standard Drinks/Week Comments Not Currently 0 (1 standard drink = 0.6 oz pure alcohol) Pre , 1 drink monthly [facility] Utilities Answer Date Recorded In the past 12 months has [facility] [employer], gas, oil, or water [employer] threatened to shut off services in your [...] AM CDT Legal Sex Female 9:43 AM CLINICAL SOCIAL WORK AIDE Gender Identity Female 08/07/2023 8:49 AM CDT Sexual Orientation Straight 08/07/2023 8: 49 AM CDT 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 [address] [place] [phone] Discharge Disposition: Home or Self Care 07/10/2024 11:00 AM CDT Routine Department of Obstetrics and Gynecology in [address] [phone] Cristela Zapien, TRANSITION MGR RN, CNM [address] [place] [phone] 07/10/2024 11:40 AM CDT Lab Department of Laboratory Medicine and Pathology, [address] [phone] Noni Bender M.D., Ph.D. [address] [place] [phone] 07/20/2024 10:10 AM CDT Lab Department of Laboratory Medicine and Pathology, [facility] in [place], [place] [address] [place] [phone] Noni Bender M.D., Ph.D. [address] [place] [phone] 08/14/2024 9:00 AM CDT Appointment Department of Obstetrics and Gynecology in [address] [phone] Noni Bender M.D., Ph.D. [address] [place] [phone] Discharge Disposition: Home or Self Care 08/14/2024 10:00 AM CDT Routine Department of Obstetrics and Gynecology in [place], [place] [address] [place] [phone] Magalys Bernal M.D. [address] [place] [phone] documented as of this encounter Procedures Procedure Name Priority Date/Time Associated Diagnosis Comments HORIZON CARRIER SCREEN, BLOOD Routine 04/28/2024 3:07 PM CLINICAL SOCIAL WORK AIDE Multigravida Advanced Maternal Age Affecting Management (HCC) PANORAMA SCREEN Routine 04/28/2024 3:07 PM CLINICAL SOCIAL WORK AIDE Multigravida Advanced Maternal Age Affecting Management (HCC) documented in this encounter Results * Panorama Screen - Sent Out Lab (04/28/2024 3:07 PM CLINICAL SOCIAL WORK AIDE) Panorama Screen SEE COMMENT 05/04/2024 1:51 PM CLINICAL SOCIAL WORK AIDE [employer] Comment: For final report, select Lab-Send Out Lab Results hyperlink below. Blood (Blood, Venous) 04/28/2024 3:07 PM CLINICAL SOCIAL WORK AIDE 04/29/2024 9:11 AM CLINICAL SOCIAL WORK AIDE Narrative [employer] - 05/04/2024 1:51 PM CLINICAL SOCIAL WORK AIDE Specimen Information: Specimen ID: [id number] Specimen Type: Blood Specimen Collection Start Date: 04/28/2024 3:07 PM Specimen Received Date: 04/29/2024 9:11 AM Specimen ID: [id number] Specimen Type: Blood Specimen Collection Start Date: 04/28/2024 3:07 PM Specimen Received Date: 04/29/2024 9:11 AM Noni Bender M.D., Ph.D. LAB GENETIC TESTING Tiffani l Result [employer] [address] [place] [address], [place] [employer] [address] [place] [phone] * Horizon Carrier Screen, Blood - Sent Out Lab (04/28/2024 3:07 PM CLINICAL SOCIAL WORK AIDE) Horizon Carrier Screen, Blood SEE COMMENT 05/13/2024 8:52 AM CLINICAL SOCIAL WORK AIDE C[employer] Comment: For final report, select Lab-Send Out Lab Results hyperlink below. Blood (Blood, Venous) 04/28/2024 3:07 PM CLINICAL SOCIAL WORK AIDE Narrative [employer] - 05/13/2024 8:52 AM CLINICAL SOCIAL WORK AIDE Specimen Information: Specimen ID: [id number] Specimen Type: Blood Specimen ID: [id number] Specimen Type: Blood Specimen Collection Start Date: 04/28/2024 3:07 PM Specimen Received Date: 04/29/2024 9:11 AM Noni Bender M.D., Ph.D. LAB GENETIC TESTING Tiffani l Result Performing Organization Address City/[facility]/ZIP Co de Phone Number [employer] [address] [place] [address], [place] [employer] [address] [place] [phone] documented in this encounter Visit Diagnoses Diagnosis Multigravida Advanced Maternal Age Affecting Management (HCC) documented in this encounter Additional Health Concerns Assessment Noted Time PHQ-9 Depression Total Score: 2 04/17/19 10:03 AM CLINICAL SOCIAL WORK AIDE documented as of this encounter Care Teams Inventory Manager Relationship Specialty Start Date End Date Roberto OLVERA 04/17/24 10/25/24 documented as of this encounter
--- OUTSIDE RECORDS SUMMARY | 2024-06-07 08:28 | XMS_ITS | Encounter Summary ---
Author Organization [facility] Address [address] [place] [address] Care Team Providers Care Utility Operator Name Role Phone Unavailable Primary Care Provider Unavailabl e Reason for Visit * Reason Comments Nurse Visit Mid educat ion Encounter Details Date Type Department Care Team (Late st Contact Info) Description 06/05/2024 11:00 AM CDT Routine Department of Obstetrics and Gynecology in [place], [place] [address] [place] [phone] Magalys Bernal M.D. [address] [place] [phone] Sallie Sprague, R.N. 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 [address] [place] [phone] Discharge Disposition: Home or Self Care 07/10/2024 11:00 AM CDT Routine Department of Obstetrics and Gynecology in [address] [phone] Cristela Zapien APRN, CN [address] [place] [phone] 07/10/2024 11:40 AM CDT Lab Department of Laboratory Medicine and Pathology, [facility] in [place], [place] [address] [place] [phone] Noni Bender M.D., Ph.D. [address] [place] [phone] 07/20/2024 10:10 AM CDT Lab Department of Laboratory Medicine and Pathology, [facility] in [place], [place] [address] [place] [phone] Noni Bender M.D., Ph.D. [address] [place] [phone] 08/14/2024 9:00 AM CDT Appointment Department of Obstetrics and Gynecology in [address] [phone] Noni Bender M.D., Ph.D. [address] [place] [phone] Discharge Disposition: Home or Self Care 08/14/2024 10:00 AM CDT Routine Department of Obstetrics and Gynecology in [place], [place] [address] [place] [phone] Magalys Bernal M.D. [address] [place] [phone] documented as of this encounter Visit Diagnoses Diagnosis 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) documented in this encounter Additional Health Concerns Assessment Noted Time PHQ-9 Depression Total Score: 2 04/17/19 25 10:03 AM NET FINISHER documented as of this encounter Care Teams Utility Operator Relationship Specialty Start Date End Date Roberto OLVERA 04/17/24 10/25/24 documented as of this encounter
--- OUTSIDE RECORDS SUMMARY | 2024-06-07 08:28 | XMS_ITS | Encounter Summary ---
Author Organization [facility] Address [address] [place] [address] Care Team Providers Care Key Cutter Name Role Phone Unavailable Primary Care Provider Unavailabl e Encounter Details Date Type Department Care Team (Latest Contact Info) Description 06/05/2024 9:31 AM CDT - 06/05/2024 11:59 PM CDT Hospital Encounter Department of Obstetrics and Gynecology in [place], [place] [address] [place] [phone] Magalys Bernal M.D. [address] [place] [phone] 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) Discharge Disposition: Home or Self Care Social History Tobacco Use Types Packs/Day Years Used Date Smoking Tobacco: Former Cigarettes Smokeless Tobacco: Never Alcohol Use Standard Drinks/Week Comments Not Currently 0 (1 standard drink = 0.6 oz pure alcohol) Pre , 1 drink monthly [facility] Utilities Answer Date Recorded In the past 12 months has [facility] [employer], gas, oil, or water [employer] threatened to shut off services in your [...] living situation today? 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 [address] [place] [phone] Discharge Disposition: Home or Self Care 07/10/2024 11:00 AM CDT Routine Department of Obstetrics and Gynecology in [place], [place] [address] [place] [phone] Cristela Zapien, RHIANNA, CNM [address] [place] [phone] 07/10/2024 11:40 AM CDT Lab Department of Laboratory Medicine and Pathology, [facility], in [place], [place] [address] [place] [phone] Noni Bender M.D., Ph.D. [address] [place] [phone] 07/20/2024 10:10 AM CDT Lab Department of Laboratory Medicine and Pathology, [facility] in [place], [place] [address] [place] [phone] Noni Bender M.D., Ph.D. [address] [place] [phone] 08/14/2024 9:00 AM CDT Appointment Department of Obstetrics and Gynecology in [address] [phone] Noni Bender M.D., Ph.D. [address] [place] [phone] Discharge Disposition: Home or Self Care 08/14/2024 10:00 AM CDT Routine Department of Obstetrics and Gynecology in [address] [phone] Magalys Bernal M.D. [address] [place] [phone] documented as of this encounter Procedures Procedure [...] 0 lb 11 oz EFW by [employer] ([id number]) Head / Face / Neck Biometry: Sales Development Director 6.8 mm CM 4.4 mm 33% Inner [...] normal. RVOT view. LVOT view. 3-vessel view. 3-zlcocx-utpqxda view. Situs. Aortic arch view. Bicaval view. [...] 0 lb 11 oz EFW by [employer] ([id number]) Head / Face / Neck Biometry: Sales Development Director 6.8 mm CM 4.4 mm 33% Inner [...] veins: normal. RVOT view. LVOTview. 3-vessel view. 2-msdage-wvmczyt view. Situs. Aortic arch view.Bicaval view. Ductal [...] Total Score: 2 04/17/19 25 10:03 AM SPIRAL WINDING MACHINE HELPER documented as of this encounter Care Teams Key Cutter Relationship Specialty Start Date End Date Roberto OLVERA 04/17/24 10/25/24 documented as of this encounter
--- OUTSIDE RECORDS SUMMARY | 2024-06-07 08:28 | XMS_ITS | Encounter Summary ---
Author Organization [facility] Address [address] [place] [address] Care Team Providers Care Warehouse Foreman Name Role Phone Unavailable Primary Care Provider Unavailabl e Reason for Visit * Reason Onset Date Comments Nurse Assessment 06/06/2024 Influenza medic ation question Encounter Details Date Type Department Care Team (Latest Contact Info) Description 06/06/2024 Clinical Communication Department of Obstetrics and Gynecology in [place], [place] [address] [place] [address] Concepción Goodson R.N., C-EF [address] [place] [phone] Nurse Assessment (Influenza medication question ) Social History Tobacco Use Types Packs/Day Years Used Date Smoking Tobacco: Former Cigarettes Smokeless Tobacco: Never Alcohol Use Standard Drinks/Week Comments Not Currently 0 (1 standard drink = 0.6 oz pure alcohol) Pre , 1 drink monthly [facility] Utilities Answer Date Recorded In the past 12 months has [facility] [email or web address], oil, or water [employer] threatened to shut off services in your [...] situation today? 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 [address] [place] [phone] Discharge Disposition: Home or Self Care 07/10/2024 11:00 AM CDT Routine Department of Obstetrics and Gynecology in [place], [place] [address] [place] [phone] Cristela Zapien, RHIANNA, GAEL [address] [place] [phone] 07/10/2024 11:40 AM CDT Lab Department of Laboratory Medicine and Pathology, [facility] in [place], [place] [address] [place] [phone] Noni Bender M.D., Ph.D. [address] [place] [phone] 07/20/2024 10:10 AM CDT Lab Department of Laboratory Medicine and Pathology, [facility] in [place], [place] [address] [place] [phone] Noni Bender M.D., Ph.D. [address] [place] [phone] 08/14/2024 9:00 AM CDT Appointment Department of Obstetrics and Gynecology in [place], [place] [address] [place] [phone] Noni Bender M.D., Ph.D. [address] [place] [phone] Discharge Disposition: Home or Self Care 08/14/2024 10:00 AM CDT Routine Department of Obstetrics and Gynecology in [place], [place] [address] [place] [phone] Magalys Bernal M.D. [address] [place] [phone] documented as of this encounter Visit Diagnoses Not on filedocumented in this encounter Additional Health Concerns Assessment Noted Time PHQ-9 Depression Total Score: 2 04/17/19 10:03 AM ENTERPRISE SALES PERSON documented as of this encounter Care Teams Warehouse Foreman Relationship Specialty Start Date End Date Roberto OLVERA 04/17/24 10/25/24 documented as of this encounter
--- OUTSIDE RECORDS SUMMARY | 2024-06-07 08:28 | XMS_ITS | Encounter Summary ---
Author Organization [facility] Address [address] [place] [address] Care Team Providers Care Anthropometrist Name Role Phone Unavailable Primary Care Provider Unavailabl e Reason for Referral * Outpatient (Routine) - Authorized Specialty Diagnoses / Procedures Referred By Contac t Referred To Contact Obstetrics and Gynecology Noni Bender M.D., Ph.D. [address] [place] [phone] Phone: tel: fax: Magalys Bernal M.D. [address] [place] [phone] Phone: tel: fax: Referral ID Status Reason Start Date Expiration Date V isits Requested Visits Authorized [id number] Authorized 06/05/2024 12/05/2025 1 1 * Outpatient (Routine) - Authorized Specialty Diagnoses / Procedures Referred By Contac t Referred To Contact Obstetrics and Gynecology Noni Bender M.D., Ph.D. [address] [place] [phone] Phone: tel: fax: Magalys Bernal M.D. [address] [place] [phone] Phone: tel: fax: Referral ID Status Reason Start Date Expiration Date V isits Requested Visits Authorized [id number] Authorized 06/05/2024 12/05/2025 1 1 Reason for Visit * Outpatient (Routine) - Closed Specialty Diagnoses / Procedures Referred By Contmegan t Referred To Contact Obstetrics and Gynecology Magalys Bernal M.D. [address] [place] [phone] Phone: tel: fax: Magalys Bernal M.D. [address] [place] [phone] Phone: tel: fax: Referral ID Status Reason Start Date Expiration Date Visits Re quested Visits Authorized [id number] Closed 2024 10/17/2025 1 1 Encounter Details Date Type Department Care Team (Latest Contact Info) Description 06/05/2024 11:00 AM CDT Routine Department of Obstetrics and Gynecology in [place], [place] [address] [place] [phone] Noni Bender M.D., Ph.D. [address] [place] [phone] 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) (Primary [...] Pre , 1 drink monthly [facility] Utilities Answer Date Recorded In the past 12 months has [employer], gas, oil, or water [employer] threatened to shut off services in [...] your living situation today? 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 [address] [place] [phone] Discharge Disposition: Home or Self Care 07/10/2024 11:00 AM CDT Routine Department of Obstetrics and Gynecology in [address] [phone] Cristela Zapien, RHIANNA, CN [address] [place] [phone] 07/10/2024 11:40 AM CDT Lab Department of Laboratory Medicine and Pathology, [place], [place] [address] [place] [phone] Noni Bender M.D., Ph.D. [address] [place] [phone] 07/20/2024 10:10 AM CDT Lab Department of Laboratory Medicine and Pathology, [facility] in [place], [place] [address] [place] [phone] Noni Bender M.D., Ph.D. [address] [place] [phone] 08/14/2024 9:00 AM CDT Appointment Department of Obstetrics and Gynecology in [place], [place] [address] [place] [phone] Noni Bender M.D., Ph.D. [address] [place] [phone] Discharge Disposition: Home or Self Care 08/14/2024 10:00 AM CDT Routine Department of Obstetrics and Gynecology in [place], [place] [address] [place] [phone] Magalys Bernal M.D. [address] [place] [phone] Scheduled Orders Name Type Priority Associated Diagnoses [...] Total Score: 2 04/17/19 25 10:03 AM FRENCH TUTOR documented as of this encounter Care Teams Anthropometrist Relationship Specialty Start Date End Date Roberto OLVERA 04/17/24 10/25/24 documented as of this encounter
--- OUTSIDE RECORDS SUMMARY | 2024-06-07 08:28 | XMS_ITS | Clinical Summary ---
Author Organization [facility] Address [address] [place] [address] Care Team Providers Care Electrician Front Name Role Phone Francheska Pereira NP Primary [...] trimester 05/08/2023 Suspected condition not found 05/08/2023 [facility] Supervision of high-risk 3 Overview (05/03/2023): Duyen Butterfield : 1990 [facility] ULTRASOUND/TESTING PATIENT Support person name: Marin [...] ECHO: REFERRING PHYSICIAN/PHONE/LAST UPDATE: Eliezer Fuentes MD [place] Primary MD approves scheduling of recommended ultrasounds/testing: Yes SPECIALISTS/CONSULTS: Include: Specialty MD Clinic Name Phone# [place] and ADDED TO PATIENT CARE TEAM GENETICS: NIPT: low risk CARE COORDINATION: PERTINENT LABS: Labs reviewed? Yes Normal? Yes Blood type: A Rh Positive Antibody screen: Negative Non-[facility] labs need to be entered in [employer]? 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 Duyen is currently and wishes to deliver at the [facility]. She is scheduled on 10/12/13 for a [...] on file Legal Sex Female 7:14 AM APPLICATIONS ADMINISTRATOR Gender Identity Not on file Sexual Orientation [...] cuum Y Livin g Vivek w Delivery Location:[facility] Comments:PPROM 35 4 de livery 35 and 6 days GESTATIONAL DIABETES Vacuum 2007 Term 37w 0d 12h 00m/ 2.81 kg (6 lb 3 oz) M Vag-Sp ont Y Livin g Jermaine Delivery Location:[place], [place] Comments:PTL at 28w - tx bedrest & Nifedipine - at ANW, fatty liver disease - IOL at 37w 2009 Term 39w 4d 3.54 kg (7 lb 13 oz) F Vag-Sp ont Y Livin g Hillary Delivery Location:[place], [place] Comments:PTL at 27w - tx bedrest & Nifedipine - MAC x 6 hrs 2010 AB 15w 0d Comments:EAB 2011 AB 14w 0d Comments:EAB 2012 Term 37w 4d 2.61 kg (5 lb 12 oz) M Vag-Sp ont Y Livin g Easto n Delivery Location:[facility] Comments:PTL at 30w - bedrest & Nifedipine - MAC x a few hrs then home, GBS Positive. PP hemorrhage per patient, requiring transfusion 2014 Term 37w 2d M Vag-Sp ont Livin marion Harp Delivery Location:[place], [place] Comments:polydactyly h ands and feet bilaterally 2015 AB 14w 0d ELECTI VE AB 2023 Term 39w 2d 1h 33m 1h 09m/0h 20m/0h 04m 3.37 kg (7 lb 6.9 oz) F Vag-Sp ont Epidur al Livin g 8 9 [place]ak Rebeca Ghosh on D.O. Delivery Location:[facility] ([facility] 03 3 L&D) Last Filed Vital Signs Vital Sign Reading Time Taken Comments Blood Pressure 114/68 02/18/2024 2:00 PM APPLICATIONS ADMINISTRATOR Pulse 96 02/18/2024 2:00 PM APPLICATIONS ADMINISTRATOR Temperature 36.4 C (97.6 F) 10/07/2023 2:39 PM CDT Respiratory Rate 16 10/07/2023 2:39 PM CDT Oxygen Saturation 97% 10/06/2023 2:07 PM CDT Inhaled Oxygen Concentration - - Weight 74.9 kg (165 lb 3.2 oz) 02/18/2024 2:00 P M APPLICATIONS ADMINISTRATOR Height 170.2 cm (5' 7) 10/07/2023 2:39 [...] ANTI HIV 1/2 Routine 02/11/2023 10:40 AM APPLICATIONS ADMINISTRATOR Early stage of ANTI HCV Routine 02/11/2023 10:40 AM APPLICATIONS ADMINISTRATOR Early stage of HPV HIGH RISK Routine 03/02/2022 9:57 AM APPLICATIONS ADMINISTRATOR Screening for malignant neoplasm of cervix from Last 3 Months or Most Recently Relevant to Health Maintenance Results * ANTI HCV (02/11/2023 10:40 AM APPLICATIONS ADMINISTRATOR) HEPATITIS C ANTIBODY Non-Reacti ve Non-React madyson 02/12/2023 2:15 AM APPLICATIONS ADMINISTRATOR [employer] [facility] Comment:Please note, per www .CDC.gov: If a patient is known to be at high risk of HCV infection, or is symptomatic, and the physician's suspicion of HCV infection is high, HCV RNA testing is often employed and is of diagnostic value, even after an initial negative anti-HCV test result. Blood BLOOD SPECIMEN / Unknown Venipuncture / Unknown 02/11/2023 10:40 AM APPLICATIONS ADMINISTRATOR 02/11/2023 10:44 AM APPLICATIONS ADMINISTRATOR us Anaya Bena MD SEND OUTS Final Result [employer] [facility] [address] [place] [address], [place] * ANTI HIV 1/2 (02/11/2023 10:40 AM APPLICATIONS ADMINISTRATOR) HIV-1/HIV-2 SCREEN Non-Reacti ve Non-Reacti ve 02/12/2023 2:14 AM APPLICATIONS ADMINISTRATOR [facility] Comment:HIV-1 p24 and HIV-1/ HIV-2 Ab Not Detected. Blood BLOOD SPECIMEN / Unknown Venipuncture / Unknown 02/11/2023 10:40 AM APPLICATIONS ADMINISTRATOR 02/11/2023 10:44 AM APPLICATIONS ADMINISTRATOR us Anaya Bean MD SEND OUTS Final Result [facility] [address] [place] [address], * HPV HIGH RISK (03/02/2022 9:57 AM APPLICATIONS ADMINISTRATOR) TYPE 16 Negative Negative 03/06/2022 5:07 PM APPLICATIONS ADMINISTRATOR [facility] TYPE 18 Negative Negative 03/06/2022 5:07 PM APPLICATIONS ADMINISTRATOR [facility] OTHER HIGH RISK TYPES Negative Negative 03/06/2022 5:07 PM APPLICATIONS ADMINISTRATOR [facility] Other (Cervical) Non-Blood / Unknown 03/02/2022 9:57 AM APPLICATIONS ADMINISTRATOR 03/05/2022 3:09 PM APPLICATIONS ADMINISTRATOR Narrative [facility] - 03/06/2022 5:07 PM APPLICATIONS ADMINISTRATOR HPV types 16, 18, 31, 33, 35, 39, 45, 51, 52, 56, 58, 59, 66 and 68 DNA were undetectable or below the pre-set threshold. Methodology: Nalini Isamar 4800 HPV Test us Yeny BARTHOLOMEW MICROBIOLOGY Final Resu lt [facility] [address] [place] [address], from Last 3 Months or Most Recently Relevant to Health Maintenance Insurance [employer] CHOICE CARE [facility] [employer] COMP * Guarantor: [employer] ONLY Account Type Relation to Patient Date of Phone Billing Address [facility] [address] [place] [address] * Guarantor: [employer] Account Type Relation to Patient Date of Phone Billing Address [facility] [id number] [address] ABBY SIL[place] [address] Advance Directives * Full Code (Latest Code [...] 11:40 AM 04/25/2012 3:54 PM Care Teams Electrician Front Relationship Specialty Start Date End Date Francheska Pereira NP [address] [place] [address] ABBY Rodriguez [address] PCP - General Nurse Practitioner - Family 10/07/23
--- OUTSIDE RECORDS SUMMARY | 2024-06-07 08:28 | XMS_ITS | Clinical Summary ---
Author Organization [facility] Address [address] [place] [address] Care Team Providers Care Boiler Or Engine Operator Name Role Phone Unavailable Primary Care Provider Unavailabl e Source Comments Patient records contain information from all sites at [facility]. For routine questions regarding patient records, call [phone] during business hours, M-F 8:00 AM - 5:00 PM Central Time. Record requests for emergency care only can be directed to [phone] at any time.[facility] Allergies Active Allergy Reactions Criticality Noted Date [...] fetus. Assessment & Plan (2024 11:22 AM LACE ROLLER OPERATOR): Source of antigen exposure may have been [...] LSIL, cannot exclude higher grade lesion 01/18/2009 [place], no bx, , 09/15/2013 ASCUS/ HPV negative [...] (08/12/2023): The patient was admitted to the [facility] from triage after a nonreactive NST and [...] the floor. She received her care at [facility]. Positive Group B Streptococcus 07/23/2023 2024 Overview [...] previa. 05/09/2023: Appointment with M[facility]- Medicine at [facility] completed and recommendations as follows: IMPRESSION: Intrauterine [...] Communication Department of Obstetrics and Gynecology in [place], [place] [address] [place] [phone] Concepción Goodson R.N., C-EFM Nurse Assessment (Influenza medication question ) 06/05/2024 11:00 AM CDT Routine Department of Obstetrics and Gynecology in [place], [place] [address] [place] [phone] Magalys Bernal M.D. Sallie Sprague, R.N. 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) 06/05/2024 11:00 AM CDT Routine Department of Obstetrics and Gynecology in [place], [place] [address] [place] [phone] Noni Bender M.D., Ph.D. 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) (Primary Dx); High Risk History Labor (HCC); Multigravida Advanced Maternal Age Affecting Management (HCC); Neoplasia Cervical Squamous Low Grade Intraepithelial; Breast Cancer Susceptibility Gene Mutation Family History; Family History Congenital Heart Disease; Raised Antibody Titer 06/05/2024 9:31 AM CDT - 06/05/2024 11:59 PM CDT Hospital Encounter Department of Obstetrics and Gynecology in [place], [place] [address] [place] [phone] Magalys Bernal M.D. 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) Discharge Disposition: Home or Self Care 05/27/2024 Clinical Communication Department of Obstetrics and Gynecology in [address] [phone] Magalys Bernal M.D. 05/20/2024 Orders Only Department of Obstetrics and Gynecology in [address] [phone] Magalys Bernal M.D. Family History Congenital Heart Disease (Primary Dx) 05/13/2024 10:30 AM LACE ROLLER OPERATOR Virtual Visit Department of Obstetrics and Gynecology in [place], [place] [address] [place] [phone] Tiana Almanza M.S., JANENE Counseling Genetic For Family Planning (Primary Dx) 05/04/2024 Clinical Communication Department of Medical Genetics in [place], [place] [address] [place] [address] Tiana Almanza M.S., [facility] 04/28/2024 3:00 PM LACE ROLLER OPERATOR Lab Department of Laboratory Medicine and Pathology, [facility] in [place], [place] [address] [place] [phone] Noni Bender M.D., Ph.D. Multigravida Advanced Maternal Age Affecting Management (HCC) 04/28/2024 2:00 PM LACE ROLLER OPERATOR Comprehensive Visit Department of Obstetrics and Gynecology in [place], [place] [address] [place] [phone] Magalys Bernal M.D. Rust, Laura M MEvangelist, [facility] Counseling Genetic For Family Planning (Primary Dx); Raised Antibody Titer; Multigravida Advanced Maternal Age Affecting Management (HCC); Breast Cancer Susceptibility Gene Mutation Family History 2024 10:45 AM LACE ROLLER OPERATOR Silent Schedule Department of Obstetrics and Gynecology in [place], [place] [address] [place] [phone] Magalys Bernal M.D. 2024 10:00 AM LACE ROLLER OPERATOR Initial Department of Obstetrics and Gynecology in [address] [phone] Magalys Bernal M.D. GA: 12w5d 04/14/2024 Results Follow-Up Department of Obstetrics and Gynecology in [place], [place] [address] [place] [phone] Magalys Bernal M.D. Bacterial Culture, Aerobic + Susceptibility, Urine, Chlamydia / Gonorrhoeae Amplified RNA, Urinalysis, with Microscopic: Urine, Midstream, Additional followed-up results: 4 04/03/2024 1:00 PM LACE ROLLER OPERATOR Routine Department of Obstetrics and Gynecology in [place], [place] [address] [place] [address] oNni Bender M.D., Ph.D. Duyen Farnsworth R.N. 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) (Primary Dx) 04/03/2024 11:01 AM LACE ROLLER OPERATOR - 04/03/2024 11:59 PM LACE ROLLER OPERATOR Hospital Encounter Department of Obstetrics and Gynecology in [place], [place] [address] [place] [address] Noni Bender M.D., Ph.D. High Risk History Labor (HCC) Discharge Disposition: Home or Self Care 04/02/2024 Clinical Communication Department of Obstetrics and Gynecology in [place], [place] [address] [place] [address] Magalys Bernal M.D. Reschedule 03/16/2024 11:00 AM LACE ROLLER OPERATOR Initial Department of Obstetrics and Gynecology in [place], [place] [address] [place] [address] Kellen South R.N. [place]: 8w1d from Last [...] 1 [place] No Known Problems Son 2 [place] No Known Problems Son 3 Jermaine No [...] pure alcohol) Pre , 1 drink monthly [employer] Answer Date Recorded In the past 12 months has e CTQuan, oil, or water MRI Interventions threatened to shut off services in your [...] your living situation today? 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 [address] [place] [phone] Discharge Disposition: Home or Self Care 07/10/2024 11:00 AM CDT Routine Department of Obstetrics and Gynecology in [address] [phone] Cristela Zapien, RHIANNA, CNM [address] [place] [phone] 07/10/2024 11:40 AM CDT Lab Department of Laboratory Medicine and Pathology, [facility], in [place], [place] [address] [place] [phone] Noni Bender M.D., Ph.D. [address] [place] [phone] 07/20/2024 10:10 AM CDT Lab Department of Laboratory Medicine and Pathology, [facility], in [place], [place] [address] [place] [phone] Noni Bender M.D., Ph.D. [address] [place] [phone] 08/14/2024 9:00 AM CDT Appointment Department of Obstetrics and Gynecology in [place], [place] [address] [place] [phone] Noni Bender M.D., Ph.D. [address] [place] [phone] Discharge Disposition: Home or Self Care 08/14/2024 10:00 AM CDT Routine Department of Obstetrics and Gynecology in [place], [place] [address] [place] [phone] Magalys Bernal M.D. [address] [place] [phone] Health Maintenance Due Date Last Done Comments [...] Asymptomatic ANTIBODY IDENTIFICATION Routine 05/26/2024 2:35 PM LACE ROLLER OPERATOR COMPREHENSIVE METABOLIC PANEL, S/P Routine 05/26/2024 2:35 PM LACE ROLLER OPERATOR 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) PANORAMA SCREEN Routine 04/28/2024 3:07 PM LACE ROLLER OPERATOR Multigravida Advanced Maternal Age Affecting Management (HCC) HORIZON CARRIER SCREEN, BLOOD Routine 04/28/2024 3:07 PM LACE ROLLER OPERATOR Multigravida Advanced Maternal Age Affecting Management (HCC) US OB FIRST TRIMESTER RAD - Routine (most inpatients and all outpatients) 2024 11:19 AM LACE ROLLER OPERATOR 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) PH, U Routine 04/03/2024 2:39 PM LACE ROLLER OPERATOR OSMOLALITY, U Routine 04/03/2024 2:39 PM LACE ROLLER OPERATOR DIPSTICK, U Routine 04/03/2024 2:39 PM LACE ROLLER OPERATOR MICROSCOPIC AUTOMATED Routine 04/03/2024 2:39 PM LACE ROLLER OPERATOR URINALYSIS WITH MICROSCOPIC Routine 04/03/2024 2:39 PM LACE ROLLER OPERATOR 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) CHLAMYDIA/GONORRHOEAE AMPLIFIED RNA Routine 04/03/2024 2:39 PM LACE ROLLER OPERATOR 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) BACTERIAL CULTURE, AEROBIC + SUSC, URINE Routine 04/03/2024 2:39 PM LACE ROLLER OPERATOR 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) VARICELLA-ZOSTER AB, IGG, S Routine 04/03/2024 2:14 PM LACE ROLLER OPERATOR 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) SYPHILIS IGG W/ REFLEX, EIA, S Routine 04/03/2024 2:14 PM LACE ROLLER OPERATOR 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) HIV-1/-2 AG AND AB SCRN, PLASMA Routine 04/03/2024 2:14 PM LACE ROLLER OPERATOR 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) HCV AB SCRN , S Routine 04/03/2024 2:14 PM LACE ROLLER OPERATOR 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) HBC TOTAL AB , S Routine 04/03/2024 2:14 PM LACE ROLLER OPERATOR 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) HBS ANTIBODY , S Routine 04/03/2024 2:14 PM LACE ROLLER OPERATOR 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) HBS ANTIGEN , S Routine 04/03/2024 2:14 PM LACE ROLLER OPERATOR 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) ANTIBODY IDENTIFICATION Routine 04/03/2024 2:13 PM LACE ROLLER OPERATOR FERRITIN, S Routine 04/03/2024 2:13 PM LACE ROLLER OPERATOR 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) HEMOGLOBIN ELECTROPHORESIS CASCADE, B Routine 04/03/2024 2:13 PM LACE ROLLER OPERATOR 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) HEMOGLOBIN A1C, B Routine 04/03/2024 2:1 3 PM LACE ROLLER OPERATOR 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) CBC WITH DIFFERENTIAL, B Routine 04/03/2024 2:13 PM LACE ROLLER OPERATOR 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) US OB LIMITED RAD - Routine (most inpatients and all outpatients) 04/03/2024 11:28 AM LACE ROLLER OPERATOR High Risk History Labor (HCC) from Last [...] 0 lb 11 oz EFW by Hadlock ([id number]) Head / Face / Neck Biometry: Blow Down Helper 6.8 mm CM 4.4 mm 33% Inner [...] normal. RVOT view. LVOT view. 3-vessel view. 8-baxoiy-esjmouc view. Situs. Aortic arch view. Bicaval view. [...] 0 lb 11 oz EFW by Hadlock ([id number]) Head / Face / Neck Biometry: Blow Down Helper 6.8 mm CM 4.4 mm 33% Inner [...] veins: normal. RVOT view. LVOTview. 3-vessel view. 2-mhthuq-tmyerlz view. Situs. Aortic arch view.Bicaval view. Ductal [...] Bernal M.D. LAB URINE ORDERABLES Final Result [place] [address] [place] [address], [facility] [address] [place] [address] * Antibody Identification, Erythrocytes (05/26/2024 2:35 PM LACE ROLLER OPERATOR) Only the most recent of2 resultswithin the time period is included. Antibody Identification Anti-Jka 05/26/2024 3:55 PM LACE ROLLER OPERATOR DTL Comment: Clinically significant in regards to HDN. Antibody Titer canceled and replaced by antibody identification as antibody is too weakly reactive to titer. 05/26/2024 2:35 PM LACE ROLLER OPERATOR 05/26/2024 2:56 PM LACE ROLLER OPERATOR Narrative [facility] - 05/26/2024 3:55 PM LACE ROLLER OPERATOR Specimen Information: Specimen ID: [id number] Specimen Collection Start Date: 05/26/2024 2:35 PM Specimen Received Date: 05/26/2024 2:56 PM Specimen ID: [id number] Specimen Collection Start Date: 05/26/2024 2:35 PM Specimen Received Date: 05/26/2024 2:56 PM us Magalys Bernal M.D. LAB BLOOD BANK TEST ORDERAB LES Final Result [facility] [address] [place] [address], [place] DTL [facility] [address] [place] [address] * (ABNORMAL) Comprehensive Metabolic Panel (05/26/2024 2:35 PM LACE ROLLER OPERATOR) Pathologist [facility] Potassium, S 4.2 3.6 - 5.2 mmol/L 05/26/2024 3:12 PM LACE ROLLER OPERATOR DTL Sodium, S 140 135 - 145 mmol/L 05/26/2024 3:12 PM LACE ROLLER OPERATOR DTL Chloride, S 104 98 - 107 mmol/L 05/26/2024 3:12 PM LACE ROLLER OPERATOR DTL Bicarbonate, S 25 22 - 29 mmol/L 05/26/2024 3:12 PM LACE ROLLER OPERATOR DTL Anion Gap 11 7 - 15 05/26/2024 3:12 PM LACE ROLLER OPERATOR DTL BUN (Blood Urea Nitrogen), S 9 6 - 21 mg/dL 05/26/2024 3:12 PM LACE ROLLER OPERATOR DTL Creatinine 0.65 0.59 - 1.04 mg/dL 05/26/2024 3:12 PM LACE ROLLER OPERATOR DTL Estimated GFR (eGFR) >90 >=60 mL/min/BS A 05/26/2024 3:12 PM LACE ROLLER OPERATOR DTL Comment: Estimated GFR calculated using the 2020 CKD_EPI creatinine equation. Calcium, Total, S 8.9 8.6 - 10.0 mg/dL 05/26/2024 3:12 PM LACE ROLLER OPERATOR DTL Glucose, S 67(L) 70 - 140 mg/dL 05/26/2024 3:12 PM LACE ROLLER OPERATOR DTL Protein, Total, S 6.1(L) 6.3 - 7.9 g/dL 05/26/2024 3:12 PM LACE ROLLER OPERATOR DTL Albumin, S 3.9 3.5 - 5.0 g/dL 05/26/2024 3:12 PM LACE ROLLER OPERATOR DTL Aspartate Aminotransferase (AST), S 10 8 - 43 U/L 05/26/2024 3:12 PM LACE ROLLER OPERATOR DTL Alkaline Phosphatase, S 55 35 - 104 U/L 05/26/2024 3:12 PM LACE ROLLER OPERATOR DTL Alanine Aminotransferase (ALT), S 7 7 - 45 U/L 05/26/2024 3:12 PM LACE ROLLER OPERATOR DTL Bilirubin, Total, S 0.3 0.0 - 1.2 mg/dL 05/26/2024 3:12 PM LACE ROLLER OPERATOR DTL Blood (Blood, Venous) 05/26/2024 2:35 PM LACE ROLLER OPERATOR 05/26/2024 2:55 PM LACE ROLLER OPERATOR us Magalys Bernal M.D. LAB BLOOD ADD-ON Final Resu lt Performing Organization Address City/[facility]/ZIP Co de Phone Number [facility] [address] [place] [address], [place] DTL [place] [address] [place] [address] * Horizon Carrier Screen, Blood - Sent Out Lab (04/28/2024 3:07 PM LACE ROLLER OPERATOR) Horizon Carrier Screen, Blood SEE COMMENT 05/13/2024 8:52 AM LACE ROLLER OPERATOR CANDIDO Comment: For final report, select Lab-Send Out Lab Results hyperlink below. Blood (Blood, Venous) 04/28/2024 3:07 PM LACE ROLLER OPERATOR Narrative [employer] - 05/13/2024 8:52 AM LACE ROLLER OPERATOR Specimen Information: Specimen ID: [id number] Specimen Type: Blood Specimen ID: [id number] Specimen Type: Blood Specimen Collection Start Date: 04/28/2024 3:07 PM Specimen Received Date: 04/29/2024 9:11 AM us Noni Bender M.D., Ph.D. LAB GENETIC TESTING Tiffani l Result [employer] [address] [place] [address], [place] CANDIDO [employer] [address] [place] [address] * Panorama Screen - Sent Out Lab (04/28/2024 3:07 PM LACE ROLLER OPERATOR) Panorama Screen SEE COMMENT 05/04/2024 1:51 PM LACE ROLLER OPERATOR CANDIDO Comment: For final report, select Lab-Send Out Lab Results hyperlink below. Blood (Blood, Venous) 04/28/2024 3:07 PM LACE ROLLER OPERATOR 04/29/2024 9:11 AM LACE ROLLER OPERATOR Narrative [employer] - 05/04/2024 1:51 PM LACE ROLLER OPERATOR Specimen Information: Specimen ID: [id number] Specimen Type: Blood Specimen Collection Start Date: 04/28/2024 3:07 PM Specimen Received Date: 04/29/2024 9:11 AM Specimen ID: [id number] Specimen Type: Blood Specimen Collection Start Date: 04/28/2024 3:07 PM Specimen Received Date: 04/29/2024 9:11 AM us Noni Bender M.D., Ph.D. LAB GENETIC TESTING Tiffani l Result [employer] [address] [place] [address], [place] CANDIDO [facility] [address] [place] [address] * US OB First Trimester (2024 11:19 AM LACE ROLLER OPERATOR) Anatomical Region Laterality Modality Body, Ultrasound OB RST LOS, Ultrasound ARZ LOS N/A Ultrasound Narrative 2024 11:19 AM LACE ROLLER OPERATOR Single viable IUP with movement and normal FHT Anterior placenta Stomach and bladder visualized us Magalys Bernal M.D. IMG OB US PROCEDURES Final Result * Dipstick, Urine (04/03/2024 2:39 PM LACE ROLLER OPERATOR) Hemoglobin, QL, U Negative Negative 04/03/2024 3:09 PM LACE ROLLER OPERATOR DTL Leukocyte Esterase, U Negative Negative 04/03/2024 3:09 PM LACE ROLLER OPERATOR DTL Nitrite, U Negative Negative 04/03/2024 3:09 PM LACE ROLLER OPERATOR DTL Ketone, U Negative Negative mg/dL 04/03/2024 3:09 PM LACE ROLLER OPERATOR DTL Glucose, U Negative Negative mg/dL 04/03/2024 3:09 PM LACE ROLLER OPERATOR DTL Urine 04/03/2024 2:39 PM LACE ROLLER OPERATOR 04/03/2024 2:47 PM LACE ROLLER OPERATOR Result [facility] us Magalys Bernal M.D. LAB URINE ORDERABLES Final Result Performing Organization Address [facility] Co de Phone Number [facility] [address] [place] [address], [facility] [address] [place] [address] * Microscopic Automated (04/03/2024 2:39 PM LACE ROLLER OPERATOR) Microscopy Normal 04/03/2024 3:09 PM LACE ROLLER OPERATOR DTL RBC None Seen <3 /hpf 04/03/2024 3:09 PM LACE ROLLER OPERATOR DTL WBC None Seen /hpf 04/03/2024 3:09 PM LACE ROLLER OPERATOR DTL Comment: ----REFERENCE VALUE---- <4 (Males) <11 (Females) Squamous Epithelial Cells, U 1-3 /hpf 04/03/2024 3:09 PM LACE ROLLER OPERATOR DTL Urine 04/03/2024 2:39 PM LACE ROLLER OPERATOR 04/03/2024 2:47 PM LACE ROLLER OPERATOR Result [facility] us Magalys Bernal M.D. LAB URINE ORDERABLES Final Result Performing Organization Address [facility] de Phone Number [facility] [address] [place], [place] [address] [address] [place] [address] * (ABNORMAL) Bacterial Culture, Aerobic + Susceptibility, Urine (04/03/2024 2:39 PM LACE ROLLER OPERATOR) Urine Culture With urogenital microbiota, susceptibilities not performed per laboratory criteria. (A) 04/06/2024 1:12 PM LACE ROLLER OPERATOR DTL Urine Culture KLEBSIELLA AEROGENES >100,000 cfu/mL (A) 04/06/2024 1:12 PM LACE ROLLER OPERATOR DTL Urine (Urine, Midstream) 04/03/2024 2:39 PM LACE ROLLER OPERATOR 04/03/2024 3:08 PM LACE ROLLER OPERATOR Comment:Specimen Source Site : Urine Narrative Organism [...] LAB MICROBIOLOGY - GENERAL ORDERABLES Final Result [facility] [address] [place] [address] * pH, Urine (04/03/2024 2:39 PM LACE ROLLER OPERATOR) pH, U 6.3 4.5 - 8.0 04/03/2024 3:1 6 PM LACE ROLLER OPERATOR DT Urine 04/03/2024 2:39 PM LACE ROLLER OPERATOR 04/03/2024 2:47 PM LACE ROLLER OPERATOR Magalys Bernal M.D. LAB URINE ORDERABLES Final Result [facility] [address] [place] [address] * Chlamydia / Gonorrhoeae Amplified RNA (04/03/2024 2:39 PM LACE ROLLER OPERATOR) Pathologist [facility] Source Urine, Urine, First Voided 04/03/2024 11:35 PM LACE ROLLER OPERATOR [facility] Chlamydia trachomatis amplified RNA Negative Negative 04/03/2024 11:35 PM LACE ROLLER OPERATOR SDS Source Urine, Urine, First Voided 04/03/2024 11:35 PM LACE ROLLER OPERATOR SDS Neisseria gonorrhoeae amplified RNA Negative Negative 04/03/2024 11:35 PM LACE ROLLER OPERATOR [facility] Urine (Urine, First Voided) 04/03/2024 2:39 PM LACE ROLLER OPERATOR 04/03/2024 6:35 PM LACE ROLLER OPERATOR us Magalys Bernal M.D. LAB MICROBIOLOGY - GENERAL ORDERABLES Final Result [facility] [place] [address] [place] [address] [facility] [address] [place] [address] [place] [address] * Osmolality, Urine (04/03/2024 2:39 PM LACE ROLLER OPERATOR) Osmolality, U 464 150 - 1150 mOsm/kg 04/03/2024 3:16 PM LACE ROLLER OPERATOR DT Urine 04/03/2024 2:39 PM LACE ROLLER OPERATOR 04/03/2024 2:47 PM LACE ROLLER OPERATOR Magalys Bernal M.D. LAB URINE ORDERABLES Final Result Performing Organization Address [facility] Co de Phone Number [facility] [address] [place] [address], [place] DTL [facility] [address] [place] [address] * Urinalysis, with Microscopic: Urine, Midstream (04/03/2024 2:39 PM LACE ROLLER OPERATOR) Source Urine, Urine, Midstream 04/03/2024 2:46 PM LACE ROLLER OPERATOR DTL Color, U Yellow 04/03/2024 2:46 PM LACE ROLLER OPERATOR DTL Clarity, U Clear 04/03/2024 2:46 PM LACE ROLLER OPERATOR DTL Protein, U 7 <26 mg/dL 04/03/2024 3:33 PM LACE ROLLER OPERATOR DTL Protein/Osmol ality 0.15 <0.42 ratio 04/03/2024 3:33 PM LACE ROLLER OPERATOR DTL Predicted 24 HR Protein, U 120 <229 mg/24 h 04/03/2024 3:33 PM LACE ROLLER OPERATOR DTL Predicted Range 30-486 mg/24 h 04/03/2024 3:33 PM LACE ROLLER OPERATOR DTL Urine (Urine, Midstream) 04/03/2024 2:39 PM LACE ROLLER OPERATOR 04/03/2024 2:46 PM LACE ROLLER OPERATOR us Magalys Bernal M.D. LAB URINE ORDERABLES Final Result Performing Organization Address City[facility] Co de Phone Number [facility] [address] [place] [address], [place] DTL [facility] [address] [place] [address] * Syphilis IgG w/ Reflex, EIA, S (RST/FLA) (04/03/2024 2:14 PM LACE ROLLER OPERATOR) Syphilis IgG w/ Reflex, EIA, S Nonreactive Nonreactive 04/03/2024 11:06 PM LACE ROLLER OPERATOR [facility] Comment: No serologic evidence of infection with T. pallidum (syphilis). Repeat testing may be considered in patients with suspected acute or primary syphilis in 2-4 weeks. For additional information on interpretation of the syphilis reverse algorithm and results, see: [email or web address] Blood (Blood, Venous) 04/03/2024 2:14 PM LACE ROLLER OPERATOR 04/03/2024 6:39 PM LACE ROLLER OPERATOR us Magalys Bernal M.D. LAB MICROBIOLOGY - BLOOD OR DERABLES Final Result Performing Organization Address [facility] Co de Phone Number [facility] [address] [place], [place] [phone] [place], [place] [phone] [place] [address] * HBc Total Ab , Serum (04/03/2024 2:14 PM LACE ROLLER OPERATOR) HBc Total Ab , S Negative Negative 04/03/2024 8:17 PM LACE ROLLER OPERATOR [facility] Blood (Blood, Venous) 04/03/2024 2:14 PM LACE ROLLER OPERATOR 04/03/2024 7:09 PM LACE ROLLER OPERATOR us Magalys Bernal M.D. LAB MICROBIOLOGY - BLOOD OR DERABLES Final Result Performing Organization Address [facility] Co de Phone Number [facility] [address] [place] [address] [place] [address] [place] [address] * HBs Antibody , Serum (04/03/2024 2:14 PM LACE ROLLER OPERATOR) HBs Antibody , S Negative 04/03/2024 8:17 PM LACE ROLLER OPERATOR [facility] Comment: Patient is NOT immune to HBV infection. Consumption of high-dose biotin supplement within 12 hours of blood collection for this test can cause false-negative results. ----REFERENCE VALUE---- Unvaccinated: Negative Vaccinated: Positive HBs Antibody, Quantitative, S 4.0 mIU/mL 04/03/2024 8:17 PM LACE ROLLER OPERATOR [facility] Comment: ----REFERENCE VALUE---- Unvaccinated: <8.5 mIU/mL Vaccinated: >=11.5 mIU/mL Blood (Blood, Venous) 04/03/2024 2:14 PM LACE ROLLER OPERATOR 04/03/2024 7:09 PM LACE ROLLER OPERATOR Magalys Bernal M.D. LAB MICROBIOLOGY - BLOOD OR DERABLES Final Result Performing Organization Address [facility] Co de Phone Number [facility] [address] [place] [address] [facility] [address] [place] [address] * Hepatitis C Virus Antibody Screen (04/03/2024 2:14 PM LACE ROLLER OPERATOR) HCV Ab Scrn , S Negative Negative 04/03/2024 8:17 PM LACE ROLLER OPERATOR [facility] Comment: Consumption of high-dose biotin supplement within 12 hours of blood collection for this test can cause false-negative results. Blood (Blood, Venous) 04/03/2024 2:14 PM LACE ROLLER OPERATOR 04/03/2024 7:09 PM LACE ROLLER OPERATOR Magalys Bernal M.D. LAB MICROBIOLOGY - BLOOD OR DERABLES Final Result Performing Organization Address [facility] de Phone Number [facility] [address] [place] [address] [facility] [address] [place] [address] * HIV-1/-2 Ag and Ab Scrn, Plasma (04/03/2024 2:14 PM LACE ROLLER OPERATOR) HIV-1/-2 Ag and Ab Scrn, P Negative Negative 04/03/2024 8:14 PM LACE ROLLER OPERATOR [facility] Comment: Negative result does not rule out HIV infection. If exposure to HIV infection occurred <14 days ago, contact the laboratory to request addition of HIV-1/HIV-2 RNA detection , Plasma (HPP12). Blood (Blood, Venous) 04/03/2024 2:14 PM LACE ROLLER OPERATOR 04/03/2024 7:09 PM LACE ROLLER OPERATOR Result [facility] us Magalys Bernal M.D. LAB MICROBIOLOGY - BLOOD OR DERABLES Final Result Performing Organization Address City/[facility]/ZIP Co de Phone Number [facility] [address] [place] [address] [facility] [address] [place] [address] * HBs Antigen , Serum (04/03/2024 2:14 PM LACE ROLLER OPERATOR) Pathologist [facility] HBs Antigen , S Negative Negative 04/03/2024 8:17 PM LACE ROLLER OPERATOR [facility] Blood (Blood, Venous) 04/03/2024 2:14 PM LACE ROLLER OPERATOR 04/03/2024 7:09 PM LACE ROLLER OPERATOR us Magalys eBrnal M.D. LAB MICROBIOLOGY - BLOOD OR DERABLES Final Result Performing Organization Address [facility] Co de Phone Number [facility] [address] [place] [address] [facility] [address] [place] [address] * Varicella-Zoster Antibody, IgG, Serum (04/03/2024 2:14 PM LACE ROLLER OPERATOR) Pathologist [facility] Varicella-Zoster Ab, IgG, S Positive 04/04/2024 9:52 AM LACE ROLLER OPERATOR [facility] Comment: Results suggest response to immunization or prior exposure to the virus. ----REFERENCE VALUE---- Vaccinated: Positive (>=1.1 AI) Unvaccinated: Negative (<=0.8 AI) Varicella IgG Antibody Index 2.0 04/04/2024 9:52 AM LACE ROLLER OPERATOR [facility] Blood (Blood, Venous) 04/03/2024 2:14 PM LACE ROLLER OPERATOR 04/03/2024 9:40 PM LACE ROLLER OPERATOR Result Mary Jane Bernal M.D. LAB MICROBIOLOGY - BLOOD OR DERABLES Final Result Performing Organization Address City/[facility]/ZIP Co de Phone Number [facility] [address] [place] [address] [facility] [address] [place] [address] * Hemoglobin Electrophoresis Evaluation (04/03/2024 2:13 PM LACE ROLLER OPERATOR) Hb A 97.2 95.8 - 98.0 % 04/04/2024 4:20 PM LACE ROLLER OPERATOR DTL Hb F 0.0 0.0 - 0.9 % 04/04/2024 4:20 PM LACE ROLLER OPERATOR DTL Hb A2 2.8 2.0 - 3.3 % 04/04/2024 4:20 PM LACE ROLLER OPERATOR DTL Comment: ----ADDITIONAL INFORMATION---- This test has been modified from the resort housekeeper's instructions. Its performance characteristics were determined by [facility] in a manner consistent with CLIA requirements. This test has not been cleared or approved by the U.S. Food and Drug Administration. HPLC Hb Variant, B See Interpretation 04/04/2024 4:20 PM LACE ROLLER OPERATOR D[facility] Comment: ----ADDITIONAL INFORMATION---- This test has been modified from the resort housekeeper's instructions. Its performance characteristics were determined by [facility] in a manner consistent with CLIA [...] include: capillary electrophoresis, HPLC. 04/04/2024 4:20 PM LACE ROLLER OPERATOR DTL Blood (Blood, Venous) 04/03/2024 2:13 PM LACE ROLLER OPERATOR 04/03/2024 2:41 PM LACE ROLLER OPERATOR us Magalys Bernal M.D. LAB BLOOD ADD-ON Final Resu lt [facility] [address] [place] [address], [facility] [address] [place] [address] * (ABNORMAL) CBC with Differential, Blood (04/03/2024 2:13 PM LACE ROLLER OPERATOR) Hemoglobin 12.9 11.6 - 15.0 g/dL 04/03/2024 2:40 PM LACE ROLLER OPERATOR DTL Hematocrit 37.6 35.5 - 44.9 % 04/03/2024 2:40 PM LACE ROLLER OPERATOR DTL Erythrocytes 4.22 3.92 - 5.13 x10(12)/L 04/03/2024 2:40 PM LACE ROLLER OPERATOR DTL MCV 89.1 78.2 - 97.9 fL 04/03/2024 2:40 PM LACE ROLLER OPERATOR DTL RBC Distrib Width 12.6 12.2 - 16.1 % 04/03/2024 2:40 PM LACE ROLLER OPERATOR DTL Platelet Count 382(H) 157 - 371 x10(9)/L 04/03/2024 2:40 PM LACE ROLLER OPERATOR DTL Leukocytes 10.3(H) 3.4 - 9.6 x10(9)/L 04/03/2024 2:40 PM LACE ROLLER OPERATOR DTL Neutrophils 8.17(H) 1.56 - 6.45 x10(9)/L 04/03/2024 2:40 PM LACE ROLLER OPERATOR DHPM Lymphocytes 1.47 0.95 - 3.07 x10(9)/L 04/03/2024 2:40 PM LACE ROLLER OPERATOR DTL Monocytes 0.62 0.26 - 0.81 x10(9)/L 04/03/2024 2:40 PM LACE ROLLER OPERATOR DTL Eosinophils 0.04 0.03 - 0.48 x10(9)/L 04/03/2024 2:40 PM LACE ROLLER OPERATOR DTL Basophils 0.04 0.01 - 0.08 x10(9)/L 04/03/2024 2:40 PM LACE ROLLER OPERATOR DTL Blood (Blood, Venous) 04/03/2024 2:13 PM LACE ROLLER OPERATOR 04/03/2024 2:34 PM LACE ROLLER OPERATOR us Magalys Bernal M.D. LAB BLOOD ADD-ON Final Resu lt [facility] 200 [place] [address], [facility] 200 [place], [place] [phone] [place] [address] 200 [place] [address] * Hemoglobin A1c (04/03/2024 2:13 PM LACE ROLLER OPERATOR) Hemoglobin A1c, B 4.5 4.0 - 5.6 % 04/03/2024 2:48 PM LACE ROLLER OPERATOR DTL Blood (Blood, Venous) 04/03/2024 2:13 PM LACE ROLLER OPERATOR 04/03/2024 2:34 PM LACE ROLLER OPERATOR us Magalys Bernal M.D. LAB BLOOD ADD-ON Final Resu lt Performing Organization Address City/[facility]/ZIP Co de Phone Number [facility] 200 [place] [address], [facility] 200 [place] [address] * Ferritin (04/03/2024 2:13 PM LACE ROLLER OPERATOR) Ferritin, S 50 6 - 175 mcg/L 04/03/2024 3:10 PM LACE ROLLER OPERATOR DTL Blood (Blood, Venous) 04/03/2024 2:13 PM LACE ROLLER OPERATOR 04/03/2024 2:45 PM LACE ROLLER OPERATOR us Magalys Bernal M.D. LAB BLOOD ADD-ON Final Resu lt [facility] 200 [place] [address], [facility] 200 [place] [address] * US OB Limited (04/03/2024 11:28 AM LACE ROLLER OPERATOR) Anatomical Region Laterality Modality Ultrasound OB RST LOS, Ultra sound ARZ LOS, Ultrasound FLA LOS, Ultrasound ARZ LOS N/A Ultrasound 04/03/2024 11:0 9 AM LACE ROLLER OPERATOR Narrative 04/03/2024 12:27 PM LACE ROLLER OPERATOR Exam Type ========= OB 1st Trimester Indication [...] al Result from Last 3 Months Insurance [facility] Advance Directives For more information, please contact: [phone] * Full Code (Latest Code Status on File) Date Activated Date Inactivated Comments 08/11/2023 11:14 PM 08/13/2023 1:53 PM Question Answer Comments Full Code: Not Discussed Due to: Not medically appropriate * Full Code Date Activated Date Inactivated Comments 07/06/2023 1:28 PM 07/07/2023 2:26 PM Question Answer Comments Full Code: Not Discussed Due to: Not medically appropriate Care Teams Boiler Or Engine Operator Relationship Specialty Start Date End Date Roberto OLVERA 04/17/24 10/25/24
--- OUTSIDE RECORDS SUMMARY | 2024-06-07 08:28 | XMS_ITS | Encounter Summary ---
Author Organization [facility] Address [address] [place] [address] Care Team Providers Care Periodicals Library Assistant Name Role Phone Unavailable Primary Care Provider Unavailabl e Encounter Details Date Type Department Care Team (Late st Contact Info) Description 05/20/2024 Orders Only Department of Obstetrics and Gynecology in [place], [place] [address] [place] [phone] Magalys Bernal M.D. [address] [place] [phone] Family History Congenital Heart Disease (Primary Dx) Social History Tobacco Use Types Packs/Day Years Used Date Smoking Tobacco: Former Cigarettes Smokeless Tobacco: Never Alcohol Use Standard Drinks/Week Comments Not Currently 0 (1 standard drink = 0.6 oz pure alcohol) Pre , 1 drink monthly [facility] Utilities Answer Date Recorded In the past 12 months has [facility] [employer], oil, or water [employer] threatened to shut off services in your [...] AM CDT Legal Sex Female 9:43 AM LUNCHEONETTE MANAGER Gender Identity Female 08/07/2023 8:49 AM [...] Appointment Department of Obstetrics and Gynecology in [address] [phone] Noni Bender M.D., Ph.D. [address] [place] [phone] Discharge Disposition: Home or Self Care 07/10/2024 11:00 AM CDT Routine Department of Obstetrics and Gynecology in [address] [phone] Cristela Zapien, FABRIC WORKER FITTER, CNM [address] [place] [phone] 07/10/2024 11:40 AM CDT Lab Department of Laboratory Medicine and Pathology, [address] [phone] Noni Bender M.D., Ph.D. [address] [place] [phone] 07/20/2024 10:10 AM CDT Lab Department of Laboratory Medicine and Pathology, [facility] in [place], [place] [address] [place] [phone] Noni Bender M.D., Ph.D. [address] [place] [phone] 08/14/2024 9:00 AM CDT Appointment Department of Obstetrics and Gynecology in [address] [phone] Noni Bender M.D., Ph.D. [address] [place] [address] Discharge Disposition: Home or Self Care 08/14/2024 10:00 AM CDT Routine Department of Obstetrics and Gynecology in [place], [place] [address] [place] [address] Magalys Bernal M.D. [address] [place] [address] documented as of this encounter Visit Diagnoses Diagnosis Family History Congenital Heart Disease- Primary documented in this encounter Additional Health Concerns Assessment Noted Time PHQ-9 Depression Total Score: 2 04/17/19 10:03 AM LUNCHEONETTE MANAGER documented as of this encounter Care Teams Periodicals Library Assistant Relationship Specialty Start Date End Date Roberto OLVERA 04/17/24 10/25/24 documented as of this encounter
--- OUTSIDE RECORDS SUMMARY | 2024-06-07 08:28 | XMS_ITS | Encounter Summary ---
Author Organization [facility] Address [address] [place] [address] Care Team Providers Care Truck Engine Technician Name Role Phone Unavailable Primary Care Provider Unavailabl e Encounter Details Date Type Department Care Team (Late st Contact Info) Description 05/27/2024 Clinical Communication Department of Obstetrics and Gynecology in [place], [place] [address] [place] [phone] Magalys Bernal M.D. [address] [place] [phone] Social History Tobacco Use Types Packs/Day Years Used Date Smoking Tobacco: Former Cigarettes Smokeless Tobacco: Never Alcohol Use Standard Drinks/Week Comments Not Currently 0 (1 standard drink = 0.6 oz pure alcohol) Pre , 1 drink monthly [facility] Utilities Answer Date Recorded In the past 12 months has [facility] [employer], oil, or water [employer] threatened to shut off services in your [...] your living situation today? 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 [address] [place] [phone] Discharge Disposition: Home or Self Care 07/10/2024 11:00 AM CDT Routine Department of Obstetrics and Gynecology in [place], [place] [address] [place] [phone] Cristela Zapien APRN, GAEL [address] [place] [phone] 07/10/2024 11:40 AM CDT Lab Department of Laboratory Medicine and Pathology, [facility], in [place], [place] [address] [place] [phone] Noni Bender M.D., Ph.D. [address] [place] [phone] 07/20/2024 10:10 AM CDT Lab Department of Laboratory Medicine and Pathology, [facility], in [place], [place] [address] [place] [phone] Noni Bender M.D., Ph.D. [address] [place] [phone] 08/14/2024 9:00 AM CDT Appointment Department of Obstetrics and Gynecology in [place], [place] [address] [place] [phone] Noni Bender M.D., Ph.D. [address] [place] [phone] Discharge Disposition: Home or Self Care 08/14/2024 10:00 AM CDT Routine Department of Obstetrics and Gynecology in [place], [place] [address] [place] [phone] Magalys Bernal M.D. [address] [place] [phone] documented as of this encounter Visit Diagnoses Not on filedocumented in this encounter Additional Health Concerns Assessment Noted Time PHQ-9 Depression Total Score: 2 04/17/19 10:03 AM PLATEN BUILDER UP documented as of this encounter Care Teams Truck Engine Technician Relationship Specialty Start Date End Date Roberto OLVERA 04/17/24 10/25/24 documented as of this encounter
--- OUTSIDE RECORDS SUMMARY | 2024-06-07 08:29 | XMS_ITS | Encounter Summary ---
Author Organization [facility] Address 200 [place] [address] Care Team Providers Care Jig Fitter Name Role Phone Unavailable Primary Care Provider Unavailabl e Reason for Referral * Outpatient (Routine) - Authorized Specialty Diagnoses / Procedures Referred By Susan mccrary Referred To Contact Clinical Genomics Diagnoses Breast Cancer Susceptibility Gene Mutation Family History Noni Bender M.D., Ph.D. 200 [place] [address] Phone: tel: fax: [facility] Referral ID Status Reason Start Date Expiration Date V isits Requested Visits Authorized [id number] Authorized 04/29/2024 10/29/2025 1 1 Scheduling Instructions Please call patient to schedule in 2025 ATCH CLERK Reason for Visit * Outpatient (Routine) - Closed Specialty Diagnoses / Procedures Referred By Contac t Referred To Contact Obstetrics and Gynecology Diagnoses Raised Antibody Titer Multigravida Advanced Maternal Age Affecting Management (HCC) Magalys Bernal M.D. 200 [place] [address] Phone: tel: fax: [facility] Referral ID Status Reason Start Date Expiration Date Visits Re quested Visits Authorized [id number] Closed 2024 10/17/2025 1 1 Encounter Details Date Type Department Care Team (Latest Contact Info) Description 04/28/2024 2:00 PM DISPATCH CLERK Comprehensive Visit Department of Obstetrics and Gynecology in [place], [place] [address] [place] [phone] Magalys Bernal M.D. [address] [place] [phone] Tiana Almanza M.S., [facility] [address] [place] [phone] Counseling Genetic For Family Planning (Primary Dx); Raised Antibody Titer; Multigravida Advanced Maternal Age Affecting Management (HCC); Breast Cancer Susceptibility Gene Mutation Family History Social History Tobacco Use Types Packs/Day Years Used Date Smoking Tobacco: Former Cigarettes Smokeless Tobacco: Never Alcohol Use Standard Drinks/Week Comments Not Currently 0 (1 standard drink = 0.6 oz pure alcohol) Pre , 1 drink monthly [facility] [employer] Answer Date Recorded In the past [address] [facility] [employer], oil, or water [employer] threatened to shut off services in your [...] situation today? 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 Duyen's stepfather would have power of regulatory attorney to access Duyen's mother's medical record. [...] that can be screened for via the [employer] NIPT screen so cell free DNA screening [...] are screened for on the [facility] cfDNA screen: Trisomy 21 (Down syndrome),Trisomy 18, [...] second trimester anatomy ultrasound. CARRIER SCREENING The [employer] (ACMG) recommends that [...] free DNA screening was pursued via the [employer] Screen Carrier screening pursued Horizon AC panel [...] Almanza M.S., [facility] ATCH CLERK ATCH CLERK documented in this encounter Plan of Treatment Upcoming Encounters Date Type Department Care Team (Late st Contact Info) Description 07/10/2024 10:00 AM CDT Appointment Department of Obstetrics and Gynecology in [place], [place] [address] [place] [phone] Noni Bender M.D., Ph.D. [address] [place] [phone] Discharge Disposition: Home or Self Care 07/10/2024 11:00 AM CDT Routine Department of Obstetrics and Gynecology in [place], [place] [address] [place] [phone] Cristela Zapien APRN, CNM [address] [place] [phone] 07/10/2024 11:40 AM CDT Lab Department of Laboratory Medicine and Pathology, [facility] in [place], [place] [address] [place] [phone] Noni Bender M.D., Ph.D. [address] [place] [phone] 07/20/2024 10:10 AM CDT Lab Department of Laboratory Medicine and Pathology, [facility] in [place], [place] [address] [place] [phone] Noni Bender M.D., Ph.D. [address] [place] [phone] 08/14/2024 9:00 AM CDT Appointment Department of Obstetrics and Gynecology in [address] [phone] Noni Bender M.D., Ph.D. [address] [place] [phone] Discharge Disposition: Home or Self Care 08/14/2024 10:00 AM CDT Routine Department of Obstetrics and Gynecology in [place], [place] [address] [place] [address] Magalys Bernal M.D. [address] [place] [address] Scheduled Referrals Name Type Priority Associated Diagnoses Orde r Schedule Clinical Genomics - Cancer genetics consult (clinic) Outpatient Referral Routine Breast Cancer Susceptibility Gene Mutation Family History Expected: 04/29/2025, Expires: 07/27/2025 documented as of this encounter Results * Panorama Screen - Sent Out Lab (04/28/2024 3:07 PM DISPATCH CLERK) Panorama Screen SEE COMMENT 05/04/2024 1:51 PM DISPATCH CLERK [facility] Comment: For final report, select Lab-Send Out Lab Results hyperlink below. Blood (Blood, Venous) 04/28/2024 3:07 PM DISPATCH CLERK 04/29/2024 9:11 AM DISPATCH CLERK Narrative [employer] - 05/04/2024 1:51 PM DISPATCH CLERK Specimen Information: Specimen ID: [id number] Specimen Type: Blood Specimen Collection Start Date: 04/28/2024 3:07 PM Specimen Received Date: 04/29/2024 9:11 AM Specimen ID: [id number] Specimen Type: Blood Specimen Collection Start Date: 04/28/2024 3:07 PM Specimen Received Date: 04/29/2024 9:11 AM Noni Bender M.D., Ph.D. LAB GENETIC TESTING Tiffani l Result [employer] [address] [place] [address], [facility] [employer] [address] [place] [address] * Horizon Carrier Screen, Blood - Sent Out Lab (04/28/2024 3:07 PM DISPATCH CLERK) Horizon Carrier Screen, Blood SEE COMMENT 05/13/2024 8:52 AM DISPATCH CLERK [facility] Comment: For final report, select Lab-Send Out Lab Results hyperlink below. Blood (Blood, Venous) 04/28/2024 3:07 PM DISPATCH CLERK Narrative [employer] - 05/13/2024 8:52 AM DISPATCH CLERK Specimen Information: Specimen ID: [id number] Specimen Type: Blood Specimen ID: [id number] Specimen Type: Blood Specimen Collection Start Date: 04/28/2024 3:07 PM Specimen Received Date: 04/29/2024 9:11 AM Noni Bender M.D., Ph.D. LAB GENETIC TESTING Tiffani l Result [employer] [address] [place] [address], [facility] [employer] [address] [place] [address] documented in this encounter Visit Diagnoses Diagnosis Counseling Genetic For Family Planning- Primary Raised Antibody Titer Multigravida Advanced Maternal Age Affecting Management (HCC) Breast Cancer Susceptibility Gene Mutation Family History Multigravida Advanced Maternal Age Affecting Management (HCC) documented in this encounter Additional Health Concerns Assessment Noted Time PHQ-9 Depression Total Score: 2 04/17/19 25 10:03 AM DISPATCH CLERK documented as of this encounter Care Teams Jig Fitter Relationship Specialty Start Date End Date Roberto OLVERA 04/17/24 10/25/24 documented as of this encounter
--- OUTSIDE RECORDS SUMMARY | 2024-06-07 08:29 | XMS_ITS | Encounter Summary ---
Author Organization [facility] Address [address] [place] [id number] Care Team Providers Care Data Processing Supervisor Name Role Phone Unavailable Primary Care Provider Unavailabl e Reason for Visit * Reason Onset Date Comments Reschedule 04/02/2024 Encounter Details Date Type Department Care Team (Late st Contact Info) Description 04/02/2024 Clinical Communication Department of Obstetrics and Gynecology in [place], [place] [address] [place] [address] Magalys Bernal M.D. [address] [place] [phone] Reschedule Social History Tobacco Use Types Packs/Day Years Used Date Smoking Tobacco: Former Cigarettes Smokeless Tobacco: Never Alcohol Use Standard Drinks/Week Comments Not Currently 0 (1 standard drink = 0.6 oz pure alcohol) Pre , 1 drink monthly [facility] Utilities Answer Date Recorded In the past 12 months has [facility] [employer] gas, oil, or water [employer] threatened to shut off services in your [...] your living situation today? 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 [address] [place] [phone] Discharge Disposition: Home or Self Care 07/10/2024 11:00 AM CDT Routine Department of Obstetrics and Gynecology in [address] [phone] Cristela Zapien APRN, CN [address] [place] [phone] 07/10/2024 11:40 AM CDT Lab Department of Laboratory Medicine and Pathology, [address] [phone] Noni Bender M.D., Ph.D. [address] [place] [phone] 07/20/2024 10:10 AM CDT Lab Department of Laboratory Medicine and Pathology, [facility] in [place], [place] [address] [place] [phone] Noni Bender M.D., Ph.D. [address] [place] [phone] 08/14/2024 9:00 AM CDT Appointment Department of Obstetrics and Gynecology in [place], [place] [address] [place] [phone] Noni Bender M.D., Ph.D. [address] [place] [phone] Discharge Disposition: Home or Self Care 08/14/2024 10:00 AM CDT Routine Department of Obstetrics and Gynecology in [place], [place] [address] [place] [phone] Magalys Bernal M.D. [address] [place] [phone] documented as of this encounter Visit Diagnoses Not on filedocumented in this encounter Additional Health Concerns Assessment Noted Time PHQ-9 Depression Total Score: 7 08/07/19 24 8:41 AM CDT documented as of this encounter Care Teams Data Processing Supervisor Relationship Specialty Start Date End Date Roberto OLVERA 04/17/24 10/25/24 documented as of this encounter
[2024-06-07] MEDS: ONDANSETRON 2 MG/ML inj 4 MG IVP (08:33)
[2024-06-07 08:35] LABS: Slide Review Reflex No
[2024-06-07 08:40] LABS: Albumin* 3.4 g/dL (3.3-5.0); Chloride* 105 mmol/L (96-114); Potassium* 3.6 mmol/L (3.6-5.1); Sodium* 135 mmol/L (135-149)
[2024-06-07 08:43] LABS: Alanine Aminotransferase* 11 U/L (4-35); Alkaline Phosphatase* 41 U/L (40-150); Anion Gap 10 mEq/L (7-15); Aspartate Amino Transferase* 16 U/L (12-35); Bilirubin Total* 0.3 mg/dL (0.1-1.5); Blood Urea Nitrogen* 4 mg/dL (5-24); Carbon Dioxide* 20 mmol/L (20-32); Creatinine* 0.4 mg/dL (0.5-1.5); Estimated Glomerular Filt Rate 132 ml/min; Glucose* 93 mg/dL (60-115); Total Protein* 5.9 g/dL (6.0-8.3)
[2024-06-07 08:44] LABS: Calcium* 7.9 mg/dL (8.4-10.6)
== END 2024-06-07 09:17 | disposition home or self-care (01) ==
PROVIDERS: Emergency Provider Internal Medicine
DX: O21.9 Vomiting of pregnancy, unspecified (principal)
CPT/HCPCS: 36415; 80053; 85025; 96374; 99283; 99284; J2405; J7030